=== PATIENT | female | born 1940 | race Caucasian/White ===

== ENCOUNTER 2016-12-30 13:14 | Inpatient (IN) | payer OTHER, MEDICARE ==
[2016-12-30 14:35] LABS: EOSINOPHIL 1.7 % (0-4.5); MCH 32.4 pg (25.7-33.7); MCHC 33.2 g/dl (32.0-36.0); MEAN CELL VOLUME 97.5 fl (80-96); MEAN PLT VOLUME 7.9 fl (7.5-11.1); NEUTROPHILS 55.7 % (42.8-82.8); PLATELET COUNT 177 K/MM3 (134-434); RDW 15.4 % (11.6-15.6); WHITE BLOOD COUNT 4.4 K/mm3 (4.0-10.0)
[2016-12-30 14:42] LABS: ALBUMIN 3.2 g/dl (3.4-5.0); ALK PHOS 288 U/L (45-117); ANION GAP 10 (8-16); CALCIUM 8.5 mg/dL (8.5-10.1); CO2 29 mmol/L (21-32); CREATININE 0.6 mg/dL (0.55-1.02); GLUCOSE,RANDOM 171 mg/dL (74-106); SGOT/AST 35 U/L (15-37); SGPT/ALT 16 U/L (12-78); TOT PROT 5.7 g/dl (6.4-8.2)
[2016-12-30] MEDS ORDERED: METOPROLOL TARTRATE 5 MG/5 ML VIAL IVPUSH ONE (14:50)
[2016-12-30] MEDS ORDERED: morphine CARPU-JECT 2 MG/1 ML DISP.SYRIN IVPUSH ONE (14:51)
--- NOTE | 2016-12-30 14:52 | PDOC ---
History of Present Illness - General History Source: Patient Exam Limitations: No Limitations - History of Present Illness Initial Comments: 12/30/16 15:00 The patient is a 76-year-old woman, accompanied by son, with a significant past medical history of atrial fibrillation (eliquis, recently stopped compliance, 2 days ago. Has a right chest port catheter to be removed) and hemochromatosis who presents to the emergency department for further evaluation of left hip pain status post fall this afternoon. No head injury, loss of consciousness. Patient states that she was walking outside her room, when she caught her sock into a floor transition plate. She ultimately landed on the left side of her body. No fever, chills, generalized weakness. No chest pain, lightheadedness, visual changes, headache, cough, shortness of breath, nausea and vomiting prior/ post event. No abdominal pain, urinary complaints. No tingling, weakness and numbness sensations throughout her extremities. Allergies: No Known Drug Allergies. Past Surgical History: Cholecystectomy. Right wrist fracture s/p surgery. Right hip fracture s/p surgery. Social History: Former smoker. EtOh use. No recreational drug use. Primary Care Physician: Dr. Marc Ramon [phone] Zen Greenfield [phone] <Sierra Metcalf - Last Filed: 12/30/16 18:44> <Dread Harvey - Last Filed: 12/30/16 18:57> - General Chief Complaint: Injury Stated Complaint: FALL Time Seen by Provider: 12/30/16 13:48 Past History <Sierra Metcalf - Last Filed: 12/30/16 18:44> - Past Medical History Anemia: No Asthma: No Cancer: No Cardiac Disorders: Yes (Atrial Fib) CVA: No COPD: No CHF: No Dementia: No Diabetes: No GI Disorders: No Disorders: No HTN: No Hypercholesterolemia: No Liver Disease: Yes (HEMOCHROMATOSIS) Seizures: No Thyroid Disease: No - Surgical History Abdominal Surgery: No Appendectomy: No Cardiac Surgery: No Cholecystectomy: Yes (6 years ago) Lung Surgery: No Neurologic Surgery: (Back surgery March 2016) Orthopedic Surgery: Yes (RIGHT WRIST ORIF 2005) - Immunization History Immunization Up to Date: Yes - Psycho/Social/Smoking Cessation Hx Anxiety: No Suicidal Ideation: No Smoking Status: No (quit 28 years ago) Smoking History: Former smoker Have you smoked in the past 12 months: No If you are a former smoker, when did you quit?: 23 YEARS AGO Information on smoking cessation initiated: No Hx Alcohol Use: No Drug/Substance Use Hx: No Substance Use Type: None Hx Substance Use Treatment: No <Dread Harvey - Last Filed: 12/30/16 18:57> - Past Medical History Allergies/Adverse Reactions: Allergies Allergy/AdvReac Type Severity Reaction Status Date / Time No Known Drug Allergies Allergy Verified 12/30/16 14:18 Home Medications: Ambulatory Orders Apixaban [Eliquis] 5 mg PO BID #60 tablet 04/22/16 Acetaminophen [Tylenol] 650 mg PO QID 07/20/16 Fluocinonide 0.05% Cream [Lidex 0.05% Cream -] 1 applic BID 07/20/16 Lactobacillus Acidophilus [Bacid -] 1 tab PO DAILY 07/20/16 Magnesium Oxide 400 mg PO BID 07/20/16 Metoprolol Tartrate [Lopressor -] 25 mg PO BID tablet 07/23/16 Polyethylene Glycol 3350 [Miralax 119 gm Btl -] 17 gm PO DAILY bottle 07/23/16 Sennosides/Docusate Sodium [Pericolace -] 2 tablet PO BID tablet 07/23/16 Trauma Specific PMHX - Complaint Specific PMHX Arthritis: No Back Injury: Yes (years ago) Neck Injury: No Hx Sacro Iliac Joint Dysfunction: No <Dread Harvey - Last Filed: 12/30/16 18:57> Review of Systems - Review of Systems Able to Perform ROS?: Yes Comments:: 12/30/16 15:00 CONSTITUTIONAL: No reported: Fever, Chills, Diaphoresis, Generalized Weakness, Malaise, Loss of Appetite HEENT: No reported: Rhinorrhea, Nasal Congestion, Throat Pain, Throat Swelling, Difficulty Swallowing, Mouth Swelling, Ear Pain, Eye Pain, Visual Changes CARDIOVASCULAR: No reported: Chest Pain, Syncope, Palpitations, Irregular Heart Rate, Lightheadedness, Peripheral Edema RESPIRATORY: No reported: Cough, Shortness of Breath, SOB with Exertion, Orthopnea, Wheezing , Stridor, Hemoptysis GASTROINTESTINAL: No reported: Abdominal pain, Abdominal Distension, Nausea, Vomiting, Diarrhea, Constipation, Melena, Hematochezia GENITOURINARY: No reported: Dysuria, Frequency, Urgency, Hesitancy, Flank Pain, Genital Pain MUSCULOSKELETAL: Reported: Left Hip Pain. No reported: Myalgia, Joint Swelling, Back pain, Neck Pain SKIN: No reported: Rash, Itching, Pallor HEMEATOLOGIC/IMMUNOLOGIC: No reported: Easy Bleeding, Easy Bruising, Lymphadenopathy, Frequent infections ENDOCRINE: No reported: Unexplained Weight Gain, Unexplained Weight Loss, Heat Intolerance , Cold Intolerance NEUROLOGIC: No reported: Headache, Focal Weakness, Paresthesias, Vertigo, Lightheadedness, Unsteady Gait, Seizure, Mental Status Changes, Incontinence PSYCHIATRIC: No reported: Anxiety, Depression <Sierra Metcalf - Last Filed: 12/30/16 18:44> *Physical Exam - Vital Signs Last Vital Signs Temp Pulse Resp BP Pulse Ox 97.3 F L 119 H 18 115/71 98 12/30/16 13:14 12/30/16 13:14 12/30/16 13:14 12/30/16 13:14 12/30/16 13:14 - Physical Exam Comments: 12/30/16 15:00 GENERAL: The patient is awake, alert, and fully oriented, uncomfortable appearing HEAD: Normocephalic, atraumatic. EYES: extraocular movements intact, sclera anicteric, conjunctiva clear. ENT: Normal voice, Moist mucous membranes. NECK: Normal range of motion, supple LUNGS: burried cather in R chest, Breath sounds equal, clear to auscultation bilaterally. No wheezes, no rhonchi, no rales. HEART: tachycardic, irregular ABDOMEN: Soft, nontender, normoactive bowel sounds. No guarding, no rebound.No CVA tenderness EXTREMITIES: Short and rotated left lower extremity. No edema. No clubbing or cyanosis. No cords, erythema, or tenderness. NEUROLOGICAL: No facial assymetry, Normal speech, PSYCH: Normal mood, normal affect. SKIN: Warm, Dry, normal turgor <Sierra Metcalf - Last Filed: 12/30/16 18:44> - Vital Signs Last Vital Signs Temp Pulse Resp BP Pulse Ox 97.3 F L 119 H 18 115/71 98 12/30/16 13:14 12/30/16 13:14 12/30/16 13:14 12/30/16 13:14 12/30/16 13:14 <WesDread - Last Filed: 12/30/16 18:57> Heart Score/ECG Review - ECG Impressions Comment:: 12/30/16 14:49 Twelve-lead EKG was performed and reviewed by me. Irregularly irregular, rate of 130 Normal R wave progression No significant change when compared with EKG dated 07/20/2016 A. fib with RVR <Dread Harvey - Last Filed: 12/30/16 18:57> ED Treatment Course - LABORATORY CBC & Chemistry Diagram: 12/30/16 13:52 12/30/16 13:52 - ADDITIONAL ORDERS Additional order review: Laboratory Results 12/30/16 13:52 Sodium 144 Potassium 4.4 Chloride 105 Carbon Dioxide 29 Anion Gap 10 BUN 10 D Creatinine 0.6 D Creat Clearance w eGFR > 60 Random Glucose 171 H D Calcium 8.5 Total Bilirubin 1.0 D AST 35 D ALT 16 D Alkaline Phosphatase 288 H D Total Protein 5.7 L Albumin 3.2 L 12/30/16 13:52 RBC 4.57 MCV 97.5 H MCHC 33.2 RDW 15.4 MPV 7.9 Neutrophils % 55.7 Lymphocytes % 31.7 Monocytes % 8.9 Eosinophils % 1.7 Basophils % 2.0 - RADIOLOGY Radiograph Interpretation: 12/30/16 15:01 EXAM: RAD/CHEST - PA IMPRESSION: Single AP view. Paranasal study July 20, 2016 Right vascular catheter in place. The tip of catheter at the level of the right atrium. No pneumothorax is seen. The cardiac silhouette is not enlarged. No evidence of widening of the superior mediastinum. No evidence of CHF. No pulmonary infiltrates are seen. No large pleural effusion is seen. Left costophrenic angle partially obscured by the soft tissues of the chest. EXAM: RAD/HIP PELVIS-LEFT IMPRESSION: Single AP the pelvis. AP view of the pelvis. Left intertrochanteric fracture is seen. The left femoral head maintains normal relationship to the acetabulum. Status post open-internal fixation of the right intertrochanteric fracture with intact hardware. The right femoral head maintains normal relation to the acetabulum. Right-sided pelvic calcification is seen. <Sierra Metcalf - Last Filed: 12/30/16 18:44> - LABORATORY CBC & Chemistry Diagram: 12/30/16 13:52 12/30/16 13:52 - ADDITIONAL ORDERS Additional order review: 12/30/16 13:52 RBC 4.57 MCV 97.5 H MCHC 33.2 RDW 15.4 MPV 7.9 Neutrophils % 55.7 Lymphocytes % 31.7 Monocytes % 8.9 Eosinophils % 1.7 Basophils % 2.0 - RADIOLOGY Radiology Studies Ordered: Category Date Time Status CHEST - PA [RAD] Stat Radiology 12/30/16 13:52 Completed HIP & PELVIS-LEFT [RAD] Stat Radiology 12/30/16 13:48 Taken <Dread Harvey - Last Filed: 12/30/16 18:57> Medical Decision Making - Medical Decision Making 12/30/16 14:51 76y F hx of afib on a/c presents s/p mechanical fall this morning with shortened externally rotated LLE - xray c/w hip fx will give pain meds preop labs obtained will admit for further management will discuss with dr. martinez regarding admission 12/30/16 15:[address] martinez agreed with admission for further mangaement awaiting call back from dr. greenfield Case discussed in detail with admitting physician including history, physical exam and ancillary studies. Admitting physician has assumed care for the patient, will follow all pending diagnostics and will complete the evaluation and treatment. A portion of this note was documented by scribe services under my direction. I have reviewed the details of the note, within reason, and agree with the documentation with the following case summary and management plan written by me <Dread Harvey - Last Filed: 12/30/16 18:57> *DC/Admit/Observation/Transfer - Attestations Scribe Attestion: 12/30/16 15:00 Documentation prepared by Sierra Metcalf, acting as medical administrator for Dread Harvey MD. <Sierra Metcalf - Last Filed: 12/30/16 18:44> - Discharge Dispostion Admit: Yes <Dread Harvey - Last Filed: 12/30/16 18:57> Diagnosis at time of Disposition: Fracture of left hip Qualifiers: Encounter type: initial encounter Fracture type: closed Qualified Code(s): S72.002A - Fracture of unspecified part of neck of left femur, initial encounter for closed fracture - Discharge Dispostion Condition at time of disposition: Stable - Referrals Referrals: Marc Ramon MD [Primary Care Provider] -
[2016-12-30 15:16] LABS: INR 1.25 (0.82-1.09); PROTHROMBIN TIME (PATIENT) 13.8 SEC (9.98-11.88)
[2016-12-30] MEDS ORDERED: morphine CARPU-JECT 2 MG/1 ML DISP.SYRIN ONE ×2 (15:38→20:50)
[2016-12-30] MEDS ORDERED: ACETAMINOPHEN 325 MG TABLET (FP) PO PRN (16:21)
[2016-12-30] MEDS ORDERED: ONDANSETRON 4 MG/2 ML VIAL IVPB PRN (16:21)
[2016-12-30] MEDS ORDERED: oxyCODONE HCL 5 MG TABLET PO PRN (16:21)
[2016-12-30] MEDS ORDERED: SODIUM CHLORIDE 1,000 ML IV ONE (16:27)
--- NOTE | 2016-12-30 17:00 | PN ---
Progress Note (short form) - Note Progress Note: 76 year old Female pt seen and examined in the ER. She fell today, c/o severe pain in the left hip, cannot ambulate. PE LLE is shortened and externally rotated LLE is grossly NVI Good ROM at left knee, ankle, foot, toes Xrays Show a 3 part displaced left high intertrochanteric/basicervical femur/ hip fracture Imp Left hip IT fracture Rec Admission, medical clearance by Dr Ramon When cleared to OR for surgery: left hip/femur Gamma Nail NPO after midnight tonight
--- NOTE | 2016-12-30 17:19 | HP ---
Admitting History and Physical - Primary Care Physician PCP: Marc Ramon - Admission Chief Complaint: I fell History of Present Illness: Ms Bennett is a very pleasant 76 year old female who comes in with a mechanical fall. She says she was walking and her sock caught on a nail in the floor. She fell and hit her left side. She did not hit her head. She did not lose consciousness. The fall was mechanical and not secondary to syncope. Aside from this she says she was doing well and was without complaints. Her strength was improving and she was able to get around with a walker. She denies lightheadedness, dizziness, passing out, chest pain or pressure, shortness of breath, nausea, vomiting, abdominal pain, diarrhea, constipation, difficulty or pain on urination, or leg swelling. She was planning on having her port removed/ exchanged and has been holding her anticoagulant. History Source: Patient Limitations to Obtaining History: No Limitations - Past Medical History Cardiovascular: Yes: AFIB Pulmonary: Yes: Other (Right sided pleural effusion) Heme/Onc: Yes: Hemochromatosis - Past Surgical History Past Surgical History: Yes: Cholecystectomy, Laminectomy - Smoking History Smoking history: Former smoker Have you smoked in the past 12 months: No If you are a former smoker, when did you quit?: 23 YEARS AGO - Alcohol/Substance Use Hx Alcohol Use: No Number of Drinks Daily: 2 (glasses of wine daily) History of Substance Use: reports: None - Social History Usual Living Arrangement: Yes: Alone 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 (home aides) 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 History of Recent Travel: No Home Medications - Allergies Allergies/Adverse Reactions: Allergies Allergy/AdvReac Type Severity Reaction Status Date / Time No Known Drug Allergies Allergy Verified 12/30/16 14:18 - Home Medications Home Medications: Ambulatory Orders Apixaban [Eliquis] 5 mg PO BID #60 tablet 04/22/16 Acetaminophen [Tylenol] 650 mg PO QID 07/20/16 Fluocinonide 0.05% Cream [Lidex 0.05% Cream -] 1 applic BID 07/20/16 Lactobacillus Acidophilus [Bacid -] 1 tab PO DAILY 07/20/16 Magnesium Oxide 400 mg PO BID 07/20/16 Metoprolol Tartrate [Lopressor -] 25 mg PO BID tablet 07/23/16 Polyethylene Glycol 3350 [Miralax 119 gm Btl -] 17 gm PO DAILY bottle 07/23/16 Sennosides/Docusate Sodium [Pericolace -] 2 tablet PO BID tablet 07/23/16 Family Disease History - Family Disease History Family Disease History: Heart Disease: Mother, Other: Brother (arthritis) Review of Systems Findings/Remarks: full review of systems obtained, as per HPI and otherwise negative Physical Examination Vital Signs: Vital Signs Temperature 97.3 F L 12/30/16 13:14 Pulse Rate 119 H 12/30/16 13:14 Respiratory Rate 18 12/30/16 13:14 Blood Pressure 115/71 12/30/16 13:14 O2 Sat by Pulse Oximetry (%) 98 12/30/16 13:14 Constitutional: Yes: Well Nourished, No Distress, Calm Eyes: Yes: Conjunctiva Clear, EOM Intact HENT: Yes: Atraumatic, Normocephalic Cardiovascular: Yes: Regular Rate and Rhythm. No: Gallop, Murmur Respiratory: Yes: Regular, CTA Bilaterally. No: Rales, Rhonchi, Wheezes Gastrointestinal: Yes: Normal Bowel Sounds, Soft. No: Distention, Tenderness Extremities: Yes: WNL Edema: No Labs: CBC, BMP 12/30/16 13:52 12/30/16 13:52 Imaging - Results Chest X-ray: Report Reviewed, Image Reviewed X-ray: Report Reviewed Problem List - Problems (1) Fall Assessment/Plan: -mechanical fall -no syncope or loss of consciousness -with fracture -ortho following -PT consult Code(s): W19.XXXA - UNSPECIFIED FALL, INITIAL ENCOUNTER Qualifiers: Encounter type: initial encounter Qualified Code(s): W19.XXXA - Unspecified fall, initial encounter (2) Intertrochanteric fracture of left femur Assessment/Plan: -patient with fracture secondary to fall -EKG reviewed and unchanged -no chest pain or pressure, no shortness of breath, no swelling -chest x-ray reviewed and unchanged -cleared from a medical standpoint for surgery -patient already holding eliquis Code(s): S72.142A - DISPLACED INTERTROCHANTERIC FRACTURE OF LEFT FEMUR, INIT (3) Atrial fibrillation Assessment/Plan: -sounds in sinus rhythm -rate controlled -eliquis on hold Code(s): I48.91 - UNSPECIFIED ATRIAL FIBRILLATION Qualifiers: Atrial fibrillation type: paroxysmal Qualified Code(s): I48.0 - Paroxysmal atrial fibrillation (4) Hemochromatosis Assessment/Plan: -stable Code(s): E83.119 - HEMOCHROMATOSIS, UNSPECIFIED
[2016-12-30] MEDS ORDERED: ACETAMINOPHEN 325 MG TABLET (FP) ONE (17:33)
[2016-12-30] MEDS ORDERED: oxyCODONE HCL 5 MG TABLET ONE (17:34)
[2016-12-30] MEDS: morphine CARPU-JECT 2 MG/1 ML DISP.SYRIN IVPUSH PRN (21:05)
[2016-12-30] MEDS: METOPROLOL TARTRATE 25 MG TABLET (FP) PO SCH (22:18)
[2016-12-31] MEDS: SENNOSIDES/DOCUSATE COMBO (SENNA PLUS) TABLET (UD) PO SCH ×3 (00:51→21:47)
[2016-12-31] MEDS: MAGNESIUM OXIDE 400 MG TABLET (FP) PO SCH ×3 (00:51→21:47)
[2016-12-31] MEDS: morphine CARPU-JECT 2 MG/1 ML DISP.SYRIN IVPUSH PRN ×2 (00:57→05:35)
[2016-12-31 03:06] VITALS: BMI 24.3
[2016-12-31 07:31] LABS: EOSINOPHIL 0.2 % (0-4.5); MCH 32.6 pg (25.7-33.7); MCHC 33.7 g/dl (32.0-36.0); MEAN CELL VOLUME 96.8 fl (80-96); MEAN PLT VOLUME 8.3 fl (7.5-11.1); NEUTROPHILS 61.1 % (42.8-82.8); PLATELET COUNT 168 K/MM3 (134-434); RDW 15.1 % (11.6-15.6); WHITE BLOOD COUNT 7.7 K/mm3 (4.0-10.0)
[2016-12-31 08:11] LABS: MAGNESIUM 1.7 mg/dL (1.8-2.4)
[2016-12-31 08:12] LABS: CREATININE 1.6 mg/dL (0.55-1.02); PHOSPHOROUS 5.5 mg/dL (2.5-4.9)
[2016-12-31 08:22] LABS: URINE APPEARANCE CLEAR; URINE BILIRUBIN NEGATIVE (NEGATIVE); URINE COLOR AMBER; URINE GLUCOSE (UA) NEGATIVE (NEGATIVE); URINE KETONE NEGATIVE (NEGATIVE); URINE LEUK ESTERASE NEGATIVE (NEGATIVE); URINE NITRITE NEGATIVE (NEGATIVE); URINE PROTEIN NEGATIVE (NEGATIVE); URINE UROBILINOGEN 2.0 E.U/dl E.U./dl (0.2-1.0)
[2016-12-31 08:29] LABS: URINE BLOOD 2+ (NEGATIVE)
[2016-12-31 09:00] LABS: URINE HYALINE CAST 11 /lpf; URINE MUCUS RARE; URINE RBC 10 /hpf (0-3); URINE WBC 1 /hpf (3-5)
[2016-12-31] MEDS: METOPROLOL TARTRATE 25 MG TABLET (FP) PO SCH ×2 (09:43→21:47)
[2016-12-31] MEDS ORDERED: POLYETHYLENE GLYCOL 3350 119 GM BTL PO SCH (10:00)
[2016-12-31] MEDS ORDERED: SODIUM CHLORIDE 1,000 ML IV SCH ×2 (11:00→17:43)
--- NOTE | 2016-12-31 11:02 | EKG ---
Test Reason : Blood Pressure : / mmHG Vent. Rate : 130 BPM Atrial Rate : 082 BPM P-R Int : 000 ms QRS Dur : 080 ms QT Int : 334 ms P-R-T Axes : 000 -22 -19 degrees QTc Int : 491 ms ATRIAL FIBRILLATION WITH RAPID VENTRICULAR RESPONSE ANTEROSEPTAL INFARCT (CITED ON OR BEFORE 13-AUG-2010) ABNORMAL ECG WHEN COMPARED WITH ECG OF 20-JUL-2016 00:49, T WAVE VARIATION Confirmed by NAMITA ROSSI MD ([id number]) on 12/31/2016 11:01:37 AM Referred By: Confirmed By:NAMITA ROSSI MD
[2016-12-31] MEDS ORDERED: MAGNESIUM SULF 50% (8.12 MEQ/2 ML-1 GM VIAL) IVPB ONE (13:44)
--- NOTE | 2016-12-31 13:57 | PN ---
Progress Note (short form) - Note Progress Note: Patient had another mechanical fall at home and sustained a left hip fracture.For OR later today. Hx: Right Hip Fracture, Atrial Fibrillation on NOAC and Hemachromatosis. No chest pain No cough Had BM yesterday Pain site of left hip Fx. controlled by meds if not moved. On Exam: Alert Vital Signs Period Temp Pulse Resp BP Sys/Arreguin Pulse Ox Last 24 Hr 97.6 F-97.7 F 18-117 19-100 89-130/42-67 97-99 Chest: Clear Cor Irreg Ext: left leg externally rotated. No edema Abnormal Lab Results 12/30/16 12/30/16 12/30/16 13:52 13:52 13:52 MCV 97.5 H Monocytes % INR 1.25 H Chloride BUN Creatinine Random Glucose 171 H D Calcium Phosphorus Magnesium Alkaline Phosphatase 288 H D Total Protein 5.7 L Albumin 3.2 L Urine Blood Urine Urobilinogen 12/31/16 12/31/16 12/31/16 05:35 05:35 05:45 MCV 96.8 H Monocytes % 12.1 H INR Chloride 108 H BUN 21 H D Creatinine 1.6 H D Random Glucose 109 H D Calcium 8.0 L Phosphorus 5.5 H D Magnesium 1.7 L Alkaline Phosphatase Total Protein Albumin Urine Blood 2+ H Urine Urobilinogen 2.0 e.u/dl H IMP: Left hip Fracture due to mechanical fall Hx Hemachromatosis Atrial Fibrillation on Noac (now held) Hx Right Fracture Mild Hypomagnesemia EKG: ER rapid rate but now with controlled rate. CXR noted Patient has no medical contraindications to the contemplated surgery
[2016-12-31] MEDS ORDERED: PROPOFOL 20 ML ONE (15:51)
[2016-12-31] MEDS ORDERED: ceFAZolin SODIUM 1 GM VIAL IVPB ONE (16:11)
--- NOTE | 2016-12-31 16:22 | PN ---
Progress Note (short form) - Note Progress Note: Attempted to see patient but is currently in the OR This is a 76 year old woman with PMhx of Afib, Hemochromatosis with hip fracture and IGOR. Etiolgoy of IGOR volume depletion vs. urinary retention in setting of hip fracture/opiods Check Bladder Scan, FeNA, FeUrea Continue Trial of IVF Hydration Will follow Abhinav Stewart DO
--- NOTE | 2016-12-31 16:27 | OP ---
Operative Note - Note: Operative Date: 12/31/16 ([facility]) Pre-Operative Diagnosis: left IT fx Operation: left IM gamma nail Post-Operative Diagnosis: Same as Pre-op Surgeon: Alec Cox Skein Dyer: Aroldo Simms Anesthesiologist/SURFACE LOGGING SYSTEMS LOGGER: Dez Loja Anesthesia: General Estimated Blood Loss (mls): 50 Operative Report Dictated: Yes
[2016-12-31] MEDS ORDERED: SODIUM CHLORIDE 0.9% P/F 10 ML VIAL IJ ONE (16:50)
[2016-12-31] MEDS ORDERED: ONDANSETRON 4 MG/2 ML VIAL ONE (16:50)
[2016-12-31] MEDS ORDERED: ceFAZolin SODIUM 1 GM VIAL ONE (16:50)
[2016-12-31] MEDS ORDERED: LACTATED RINGERS SOLUTION 1,000 ML IV SCH (17:30)
[2016-12-31] MEDS ORDERED: ONDANSETRON 4 MG/2 ML VIAL IVPB PRN (17:43)
[2016-12-31] MEDS ORDERED: CEFAZOLIN (PRE-DOCKED) 50 ML IVPB SCH (23:00)
[2017-01-01] MEDS: CEFAZOLIN (PRE-DOCKED) 50 ML IVPB SCH ×2 (00:05→06:35)
[2017-01-01] MEDS: oxyCODONE HCL 5 MG TABLET PO PRN (00:37)
--- NOTE | 2017-01-01 08:31 | PN ---
Progress Note, Physician Chief Complaint: Worried about pain on movement t left hip surgical site. History of Present Illness: patient had ORIF left hip yesterday. Hx right hip surgery and hemochromatosis. Today she is fearful of moving because of fear of increased pain at the surgical site. Await PT. Repeat lab pending. - Current Medication List Current Medications: Active Medications Acetaminophen (Tylenol -) 650 mg PO Q4H PRN PRN Reason: FEVER OR PAIN Enoxaparin Sodium (Lovenox -) 40 mg SQ DAILY [facility] Sodium Chloride (Normal Saline -) 1,000 mls @ 50 mls/hr IV ASDIR [facility] Stop: 01/01/17 10:51 Last Admin: 12/31/16 20:00 Dose: 50 mls/hr Magnesium Oxide (Mag-Ox -) 400 mg PO BID [facility] Last Admin: 12/31/16 21:47 Dose: 400 mg Metoprolol Tartrate (Lopressor -) 25 mg PO BID [facility] Last Admin: 12/31/16 21:47 Dose: 25 mg Morphine Sulfate (Morphine Injection -) 1 mg IVPUSH Q4H PRN PRN Reason: PAIN Ondansetron HCl (Zofran Injection) 4 mg IVPB Q6H PRN PRN Reason: NAUSEA Oxycodone HCl (Roxicodone -) 5 mg PO Q4H PRN PRN Reason: PAIN Last Admin: 01/01/17 00:37 Dose: 5 mg Polyethylene Glycol (Miralax (For Daily Use) -) 17 gm PO DAILY [facility] Senna/Docusate Sodium (Pericolace -) 2 tablet PO BID [facility] Last Admin: 12/31/16 21:47 Dose: 2 tablet - Objective Vital Signs: Vital Signs Temperature 98.0 F 01/01/17 06:18 Pulse Rate 98 H 01/01/17 06:18 Respiratory Rate 18 01/01/17 06:18 Blood Pressure 102/72 01/01/17 06:18 O2 Sat by Pulse Oximetry (%) 100 12/31/16 21:00 Constitutional: Yes: Anxious Cardiovascular: Yes: Regular Rate and Rhythm Respiratory: Yes: Regular Gastrointestinal: Yes: Soft Genitourinary: Yes: Siegel Present Edema: No (SCD's) Wound/Incision: Yes: Other (some blood under dressing site.) Neurological: Yes: Alert, Oriented Labs: INR, PTT INR 1.25 (0.82-1.09) H 12/30/16 13:52 Problem List - Problems (1) Intertrochanteric fracture of left femur Assessment/Plan: ORIF surgery left hip yesterday. Code(s): S72.142A - DISPLACED INTERTROCHANTERIC FRACTURE OF LEFT FEMUR, INIT (2) Atrial fibrillation Assessment/Plan: On lovenox but will need to restart Eliquis when cleared surgically Code(s): I48.91 - UNSPECIFIED ATRIAL FIBRILLATION Qualifiers: Atrial fibrillation type: paroxysmal Qualified Code(s): I48.0 - Paroxysmal atrial fibrillation (3) Hypomagnesemia Assessment/Plan: Await repeat lab. Code(s): E83.42 - HYPOMAGNESEMIA (4) Postoperative pain Assessment/Plan: Pain Rx ordered. She may need increase in PRN MS dose but await today's PT performance Code(s): G89.18 - OTHER ACUTE POSTPROCEDURAL PAIN
[2017-01-01 08:35] LABS: BASOPHIL 1.3 % (0-2.0); MCH 32.6 pg (25.7-33.7); MCHC 33.4 g/dl (32.0-36.0); MEAN CELL VOLUME 97.6 fl (80-96); MEAN PLT VOLUME 8.3 fl (7.5-11.1); NEUTROPHILS 52.8 % (42.8-82.8); PLATELET COUNT 147 K/MM3 (134-434); RDW 14.9 % (11.6-15.6); WHITE BLOOD COUNT 7.2 K/mm3 (4.0-10.0)
[2017-01-01 08:55] LABS: CALCIUM 7.7 mg/dL (8.5-10.1); CREATININE 1.2 mg/dL (0.55-1.02)
--- NOTE | 2017-01-01 09:21 | PN ---
Progress Note, Physician Chief Complaint: s/p left gamma nailing post op day one History of Present Illness: under general anesthesia - Current Medication List Current Medications: Active Medications Acetaminophen (Tylenol -) 650 mg PO Q4H PRN PRN Reason: FEVER OR PAIN Enoxaparin Sodium (Lovenox -) 40 mg SQ DAILY [facility] Sodium Chloride (Normal Saline -) 1,000 mls @ 50 mls/hr IV ASDIR [facility] Stop: 01/01/17 10:51 Last Admin: 12/31/16 20:00 Dose: 50 mls/hr Magnesium Oxide (Mag-Ox -) 400 mg PO BID [facility] Last Admin: 12/31/16 21:47 Dose: 400 mg Metoprolol Tartrate (Lopressor -) 25 mg PO BID [facility] Last Admin: 12/31/16 21:47 Dose: 25 mg Morphine Sulfate (Morphine Injection -) 1 mg IVPUSH Q4H PRN PRN Reason: PAIN Ondansetron HCl (Zofran Injection) 4 mg IVPB Q6H PRN PRN Reason: NAUSEA Oxycodone HCl (Roxicodone -) 5 mg PO Q4H PRN PRN Reason: PAIN Last Admin: 01/01/17 00:37 Dose: 5 mg Polyethylene Glycol (Miralax (For Daily Use) -) 17 gm PO DAILY [facility] Senna/Docusate Sodium (Pericolace -) 2 tablet PO BID [facility] Last Admin: 12/31/16 21:47 Dose: 2 tablet - Objective Vital Signs: Vital Signs Temperature 98.1 F 01/01/17 08:55 Pulse Rate 110 H 01/01/17 08:55 Respiratory Rate 20 01/01/17 08:55 Blood Pressure 94/52 01/01/17 08:55 O2 Sat by Pulse Oximetry (%) 100 12/31/16 21:00 Constitutional: Yes: Well Nourished Cardiovascular: Yes: WNL Respiratory: Yes: WNL Gastrointestinal: Yes: WNL Labs: CBC, BMP 01/01/17 07:10 01/01/17 07:10 INR, PTT INR 1.25 (0.82-1.09) H 12/30/16 13:52 Assessment/Plan no adverse effects of anesthetic, dept of anesthesia will sign off care at this time
[2017-01-01] MEDS: SENNOSIDES/DOCUSATE COMBO (SENNA PLUS) TABLET (UD) PO SCH ×2 (09:43→22:21)
[2017-01-01] MEDS: MAGNESIUM OXIDE 400 MG TABLET (FP) PO SCH ×2 (09:43→22:22)
[2017-01-01] MEDS: METOPROLOL TARTRATE 25 MG TABLET (FP) PO SCH ×2 (09:43→22:23)
[2017-01-01] MEDS: POLYETHYLENE GLYCOL 3350 119 GM BTL PO SCH (09:44)
--- NOTE | 2017-01-01 09:59 | PN ---
Progress Note (short form) - Note Progress Note: HCT=28 BANDAGES SATURATED NEW PRESSURE DRESSING REAPPLIED AND LOVENOX HELD CALF SOFT AND NT NVI PLAN: OOB, PT-WBAT, WILL FOLLOW HCT AND DRESSING
[2017-01-01] MEDS ORDERED: ENOXAPARIN NA (PORCINE) 40 MG/0.4 ML DISP.SYRIN SQ SCH ×2 (10:00)
--- NOTE | 2017-01-01 12:25 | CONSULT ---
Consult - text type - Consultation Consultation Note: Renal Consult for IGOR This is a 76 year old woman with PMhx of Hemachromatosis, Afib on A/C who presented with mechancial fall and left hip fracture with IGOR with BUN/cr of 21/ 1.6 with normal baseline kidney function. Pt s/p ORIF yesterday. Renal function improved today. Moore placed prior to going to the OR. Pt with good urine output via moore. No chest pain or sob. No hx fo CKD, Nephrolithiasis, UTI's. No Abc pain, N/V/D. No flank pain. No rash. Pt noted to have periods of hypotension on initial hospital day. PMhx: as above Allergies: NKDA Family hx: NC Social Hx: No T/A/D ROS: as per HPI, all other pertinent ros negative Home Meds: Home Medications Medication Instructions Recorded Apixaban [Eliquis] 5 mg PO BID #60 tablet 04/22/16 Acetaminophen [Tylenol] 650 mg PO QID 07/20/16 Fluocinonide 0.05% Cream [Lidex 1 applic BID 07/20/16 0.05% Cream -] Lactobacillus Acidophilus [Bacid -] 1 tab PO DAILY 07/20/16 Magnesium Oxide 400 mg PO BID 07/20/16 Metoprolol Tartrate [Lopressor -] 25 mg PO BID tablet 07/23/16 Polyethylene Glycol 3350 [Miralax 17 gm PO DAILY bottle 07/23/16 119 gm Btl -] Sennosides/Docusate Sodium 2 tablet PO BID tablet 07/23/16 [Pericolace -] Vital Signs Temperature 98.1 F 01/01/17 08:55 Pulse Rate 110 H 01/01/17 08:55 Respiratory Rate 20 01/01/17 08:55 Blood Pressure 94/52 01/01/17 08:55 O2 Sat by Pulse Oximetry (%) 100 12/31/16 21:00 Intake & Output 12/29/16 12/30/16 12/31/16 01/01/17 23:59 23:59 23:59 23:59 Intake Total 1950 Output Total 150 1200 200 Balance -150 750 -200 Weight 165 lb 141 lb 5 oz Gen: NAD, awake and alert HEENT: NC/AT, MMM, No JVD CVS: RRR, No M/R Lungs: CTA, no rales or wheeze Abd: soft NT/ND Ext: No edema, clubbing or cyanosis : No bladder distension (moore just removed) Neuro: No focal defects CBC, BMP 01/01/17 07:10 01/01/17 07:10 Current Medications Acetaminophen (Tylenol -) 650 mg PO Q4H PRN PRN Reason: FEVER OR PAIN Magnesium Oxide (Mag-Ox -) 400 mg PO BID [facility] Last Admin: 01/01/17 09:43 Dose: 400 mg Metoprolol Tartrate (Lopressor -) 25 mg PO BID [facility] Last Admin: 01/01/17 09:43 Dose: 25 mg Morphine Sulfate (Morphine Injection -) 1 mg IVPUSH Q4H PRN PRN Reason: PAIN Ondansetron HCl (Zofran Injection) 4 mg IVPB Q6H PRN PRN Reason: NAUSEA Oxycodone HCl (Roxicodone -) 5 mg PO Q4H PRN PRN Reason: PAIN Last Admin: 01/01/17 00:37 Dose: 5 mg Polyethylene Glycol (Miralax (For Daily Use) -) 17 gm PO DAILY [facility] Last Admin: 01/01/17 09:44 Dose: 17 gm Senna/Docusate Sodium (Pericolace -) 2 tablet PO BID [facility] Last Admin: 01/01/17 09:43 Dose: 2 tablet A/P 76 year old woman with PMhx of Hemachromatosis, Afib on A/C who presented with mechancial fall and left hip fracture with IGOR with BUN/cr of 21/1.6 with normal baseline kidney function. #Acute Kidney Injury Likely etiology renal hypoperfusion in setting of hypotension but will need to r /o urinary retention Renal function improved today pt with good urine output FeUrea was 5% indicating pre-renal injury/volume depletion continue isotonic saline for 1 more day Trial of void today Renal US as ordered Check urine studies #Left Hip Fracture s/p ORIF pain control Physical therapy #Afib Off A/X Rate control with Lopresser #Hemachromatosis management as per primary Thank you Will follow Abhinav Stewart DO
[2017-01-01] MEDS: morphine CARPU-JECT 2 MG/1 ML DISP.SYRIN IVPUSH PRN (14:19)
[2017-01-01] MEDS: SODIUM CHLORIDE 1,000 ML IV SCH (14:19)
--- NOTE | 2017-01-01 19:14 | OP ---
DATE OF OPERATION: 12/31/2016 PREOPERATIVE DIAGNOSIS: Left hip intertrochanteric hip fracture. POSTOPERATIVE DIAGNOSIS: Left hip intertrochanteric hip fracture. PROCEDURE: Left hip intramedullary nail/gamma nail. SURGEON: Alec Cox M.D. ASSET PROTECTION LEAD: Dante Ballard ANESTHESIOLOGIST: Dez Loja M.D. ANESTHESIA: LMA anesthesia. DRAINS: None. COMPLICATIONS: None. SPECIMEN: None. BLOOD LOSS: 100 mL. BLOOD GIVEN: None. INDICATION: This patient is a 76-year-old female with preoperative diagnosis of high left intertrochanteric femur fracture. After understanding the potential risks, complications, alternatives, benefits to surgery versus nonsurgical treatment, the patient elected to pursue this procedure. DESCRIPTION OF PROCEDURE: The patient was brought to the operating room with IV placed, IV sedation given, 1 g of IV Ancef was given. The patient was placed onto the table with ample padding over the peroneal post and both ankles. Provisional reduction was performed with longitudinal traction and mild amount of internal rotation. X-rays were taken in the AP, lateral, and multiple oblique planes. Once I liked the position of the fracture fragments, the patient was then prepped and draped in sterile fashion. A standard gamma nail was performed. An incision was made with a number 15 scalpel blade. Subcutaneous hemostasis achieved with Bovie electrocautery. Dissection down to the lateral fascia. Huang elevator used to clear the area on the top of the greater trochanter. Under direct visualization for C-arm fluoroscopy, I was able to put a threaded guidewire through the appropriate starting point into the femoral shaft. Patient had very wide femoral shaft. This was confirmed in its position in AP and lateral plains. The proximal reamer was used, the standard titanium G3 gamma nail Isai cannulated nail was placed over the threaded guidewire, documented its position in the AP and lateral planes with fluoroscopy, and then using the external jig cannulated screw was placed, position checked in AP and lateral planes, overdrilled, and a 95-mm lag screw was placed. I was able to take longitudinal tension off, compression was achieved, and the proximal set screw put in place. Next, using the external jig, we put a 37.5 mm distal interlocking screw. X-rays were taken in the AP, lateral, and multiple oblique planes documenting excellent position of the fracture fragments as well as the gamma nail. It was irrigated and washed out. External jig removed. 0 Vicryl used to close the deep fascial layer of the proximal wound, 2-0 Vicryl used to close the deep dermal layer. Final skin reapproximation was done with a row of johnnie. The area was then washed and dried and covered with Aquacel dressing. The patient was taken down off the fracture table. Case was about 30 minutes. She was stable throughout the case. There were no complications. Blood loss was 100 mL, and she was brought to the recovery room in stable condition. Issa [id number]
[2017-01-02] MEDS: SODIUM CHLORIDE 1,000 ML IV SCH (06:30)
[2017-01-02 08:03] LABS: MCH 32.5 pg (25.7-33.7); MEAN CELL VOLUME 98.4 fl (80-96); MEAN PLT VOLUME 8.4 fl (7.5-11.1); PLATELET COUNT 156 K/MM3 (134-434); RDW 14.7 % (11.6-15.6); WHITE BLOOD COUNT 6.7 K/mm3 (4.0-10.0)
--- NOTE | 2017-01-02 08:42 | PN ---
Progress Note, Physician Chief Complaint: Still pain left hip on movement. History of Present Illness: Patient is S/P hip surgery 12/31/16 and was just able to stand yesterday with PT. Will see if she can take a few steps today. Hb down to 9.2 GM; will follow; currently on no anticoagulation. - Current Medication List Current Medications: Active Medications Acetaminophen (Tylenol -) 650 mg PO Q4H PRN PRN Reason: FEVER OR PAIN Sodium Chloride (Normal Saline -) 1,000 mls @ 83 mls/hr IV ASDIR [facility] Stop: 01/02/17 12:29 Last Admin: 01/02/17 06:30 Dose: 83 mls/hr Magnesium Oxide (Mag-Ox -) 400 mg PO BID [facility] Last Admin: 01/01/17 22:22 Dose: 400 mg Metoprolol Tartrate (Lopressor -) 25 mg PO BID [facility] Last Admin: 01/01/17 22:23 Dose: 25 mg Morphine Sulfate (Morphine Injection -) 1 mg IVPUSH Q4H PRN PRN Reason: PAIN Last Admin: 01/01/17 14:19 Dose: 1 mg Ondansetron HCl (Zofran Injection) 4 mg IVPB Q6H PRN PRN Reason: NAUSEA Oxycodone HCl (Roxicodone -) 5 mg PO Q4H PRN PRN Reason: PAIN Last Admin: 01/01/17 00:37 Dose: 5 mg Polyethylene Glycol (Miralax (For Daily Use) -) 17 gm PO DAILY [facility] Last Admin: 01/01/17 09:44 Dose: 17 gm Senna/Docusate Sodium (Pericolace -) 2 tablet PO BID [facility] Last Admin: 01/01/17 22:21 Dose: 2 tablet - Objective Vital Signs: Vital Signs Temperature 98.0 F 01/02/17 05:45 Pulse Rate 88 01/02/17 05:45 Respiratory Rate 20 01/02/17 05:45 Blood Pressure 103/66 01/02/17 05:45 O2 Sat by Pulse Oximetry (%) 98 01/01/17 22:00 Constitutional: Yes: Calm (unless she is moved.) Eyes: Yes: Conjunctiva Clear Cardiovascular: Yes: Pulse Irregular Respiratory: Yes: Diminished Gastrointestinal: Yes: Soft Genitourinary: No: Siegel Present Edema: LLE: 2+, RLE: Trace Wound/Incision: Yes: Dressing Dry and Intact Neurological: Yes: Alert, Oriented Labs: CBC, BMP 01/02/17 06:52 01/01/17 07:10 INR, PTT INR 1.25 (0.82-1.09) H 12/30/16 13:52 Problem List - Problems (1) Intertrochanteric fracture of left femur Assessment/Plan: still in a lot of pain on any movement. Code(s): S72.142A - DISPLACED INTERTROCHANTERIC FRACTURE OF LEFT FEMUR, INIT (2) Atrial fibrillation Assessment/Plan: Anticoagulation being held due to surgical issues and hemoglobin down to (.2GM. Code(s): I48.91 - UNSPECIFIED ATRIAL FIBRILLATION Qualifiers: Atrial fibrillation type: paroxysmal Qualified Code(s): I48.0 - Paroxysmal atrial fibrillation (3) Hypomagnesemia Assessment/Plan: On Rx. Code(s): E83.42 - HYPOMAGNESEMIA (4) Postoperative pain Assessment/Plan: Rx ordered; may need IV morphine prior to PT . Code(s): G89.18 - OTHER ACUTE POSTPROCEDURAL PAIN (5) Anemia due to blood loss, acute Assessment/Plan: Hb 9.2GM; will follow. Code(s): D62 - ACUTE POSTHEMORRHAGIC ANEMIA
--- NOTE | 2017-01-02 09:52 | PN ---
Progress Note (short form) - Note Progress Note: Ortho Pt seen and examined s/p left Im gamma nail pod #2 Laboratory Tests 01/02/17 06:52 WBC 6.7 Hgb 9.2 L Hct 27.7 L Plt Count 156 Selected Entries 01/02/17 05:45 Temperature 98.0 F Pulse Rate 88 Respiratory 20 Rate Blood Pressure 103/66 dressing c/d/i, calf soft, nt nvi a/p PT oob to chair dvt ppx- restart AC tomorrow pain control d/c planning
[2017-01-02] MEDS ORDERED: PT OWN MED DRAWER 7, Y5N ONE (10:26)
[2017-01-02] MEDS: oxyCODONE HCL 5 MG TABLET PO PRN ×2 (10:30→23:22)
[2017-01-02] MEDS: SENNOSIDES/DOCUSATE COMBO (SENNA PLUS) TABLET (UD) PO SCH ×2 (10:32→21:22)
[2017-01-02] MEDS: POLYETHYLENE GLYCOL 3350 119 GM BTL PO SCH (10:32)
[2017-01-02] MEDS: METOPROLOL TARTRATE 25 MG TABLET (FP) PO SCH ×2 (10:32→21:23)
[2017-01-02] MEDS: MAGNESIUM OXIDE 400 MG TABLET (FP) PO SCH ×2 (10:32→21:23)
[2017-01-02 10:54] LABS: CALCIUM 7.3 mg/dL (8.5-10.1); CREATININE 0.6 mg/dL (0.55-1.02); MAGNESIUM 2.1 mg/dL (1.8-2.4); PHOSPHOROUS 2.1 mg/dL (2.5-4.9)
--- NOTE | 2017-01-02 12:04 | PN ---
Progress Note (short form) - Note Progress Note: Renal Follow up for IGOR Pt seen and examined at the bedside attempting to ambulate with PT denies sob or chest pain Vital Signs Temperature 97.9 F 01/02/17 08:00 Pulse Rate 88 01/02/17 08:00 Respiratory Rate 20 01/02/17 08:00 Blood Pressure 100/49 01/02/17 08:00 O2 Sat by Pulse Oximetry (%) 98 01/02/17 08:00 Intake & Output 12/30/16 12/31/16 01/01/17 01/02/17 23:59 23:59 23:59 23:59 Intake Total 1950 350 Output Total 150 1200 500 Balance -150 750 -150 Weight 165 lb 141 lb 5 oz Gen: NAD, awake and alert CVS: RRR, No M/R Lungs: CTA, no rales or wheeze Abd: soft NT/ND Ext: No edema, clubbing or cyanosis CBC, BMP 01/02/17 06:52 01/02/17 10:34 Current Medications Acetaminophen (Tylenol -) 650 mg PO Q4H PRN PRN Reason: FEVER OR PAIN Sodium Chloride (Normal Saline -) 1,000 mls @ 83 mls/hr IV ASDIR [facility] Stop: 01/02/17 12:29 Last Admin: 01/02/17 06:30 Dose: 83 mls/hr Magnesium Oxide (Mag-Ox -) 400 mg PO BID [facility] Last Admin: 01/02/17 10:32 Dose: 400 mg Metoprolol Tartrate (Lopressor -) 25 mg PO BID [facility] Last Admin: 01/02/17 10:32 Dose: 25 mg Morphine Sulfate (Morphine Injection -) 1 mg IVPUSH Q4H PRN PRN Reason: PAIN Last Admin: 01/01/17 14:19 Dose: 1 mg Ondansetron HCl (Zofran Injection) 4 mg IVPB Q6H PRN PRN Reason: NAUSEA Oxycodone HCl (Roxicodone -) 5 mg PO Q4H PRN PRN Reason: PAIN Last Admin: 01/02/17 10:30 Dose: 5 mg Polyethylene Glycol (Miralax (For Daily Use) -) 17 gm PO DAILY [facility] Last Admin: 01/02/17 10:32 Dose: 17 gm Senna/Docusate Sodium (Pericolace -) 2 tablet PO BID [facility] Last Admin: 01/02/17 10:32 Dose: 2 tablet A/P 76 year old woman with PMhx of Hemachromatosis, Afib on A/C who presented with mechancial fall and left hip fracture with IGOR with BUN/cr of 21/1.6 with normal baseline kidney function. #Acute Kidney Injury Renal function improving s/p IVF Can discontinue IVF today Trend BUN/Cr oral intake as tolerated #Left Hip Fracture s/p ORIF pain control Physical therapy #Afib Off A/X Rate control with Lopresser #Hemachromatosis management as per primary Abhinav Stewart DO
[2017-01-03 07:11] LABS: BASOPHIL 2.8 % (0-2.0); EOSINOPHIL 2.8 % (0-4.5); MCHC 33.7 g/dl (32.0-36.0); MEAN CELL VOLUME 97.9 fl (80-96); MEAN PLT VOLUME 7.8 fl (7.5-11.1); NEUTROPHILS 51.8 % (42.8-82.8); PLATELET COUNT 180 K/MM3 (134-434); WHITE BLOOD COUNT 6.3 K/mm3 (4.0-10.0)
[2017-01-03 07:31] LABS: CALCIUM 7.6 mg/dL (8.5-10.1); CREATININE 0.4 mg/dL (0.55-1.02); MAGNESIUM 1.6 mg/dL (1.8-2.4)
--- NOTE | 2017-01-03 10:21 | PN ---
Progress Note (short form) - Note Progress Note: Patient postop for left hip fracture; she is in a lot of pain and has just basically stood in place with PT. A lot of bleeding at surgical site and current bandage dry. Hb down to 8.8GM amd I hesitate to give her FeSO4 with a hx of hemochromatosis. Will follow; on no anticoagulation currently and risk with A.Fib is known. Also routine Renal Sonogram shows normal kidneys but ? right liver lesion. To order Abdominal Cat as suggested with contrast. Await input from renal MD re: contrast. On Exam: Calm and alert Vital Signs Period Temp Pulse Resp BP Sys/Arreguin Pulse Ox Last 24 Hr 96.9 F-98.1 F 90-106 18-20 97-112/48-65 98 Heart Irregular wound site left hip: clean and dry Some LLE edema due to post op issues Abnormal Lab Results 01/02/17 01/03/17 01/03/17 10:34 06:10 06:10 RBC 2.68 L Hgb 8.8 L Hct 26.2 L MCV 97.9 H Monocytes % 11.6 H Basophils % 2.8 H BUN 23 H D Creatinine 0.4 L D Random Glucose 146 H 112 H D Calcium 7.3 L 7.6 L Phosphorus 2.1 L D Magnesium 1.6 L D ImP: Postop Left Hip Fx surgery postop Anemia due to blood loss A. Fibrillation Hx: right hip fx. ?liver lesion Plans: as discussed above Problem List - Problems (1) Intertrochanteric fracture of left femur Code(s): S72.142A - DISPLACED INTERTROCHANTERIC FRACTURE OF LEFT FEMUR, INIT (2) Atrial fibrillation Code(s): I48.91 - UNSPECIFIED ATRIAL FIBRILLATION Qualifiers: Atrial fibrillation type: paroxysmal Qualified Code(s): I48.0 - Paroxysmal atrial fibrillation (3) Hypomagnesemia Code(s): E83.42 - HYPOMAGNESEMIA (4) Postoperative pain Code(s): G89.18 - OTHER ACUTE POSTPROCEDURAL PAIN (5) Anemia due to blood loss, acute Code(s): D62 - ACUTE POSTHEMORRHAGIC ANEMIA
[2017-01-03] MEDS: SENNOSIDES/DOCUSATE COMBO (SENNA PLUS) TABLET (UD) PO SCH ×2 (10:23→21:50)
[2017-01-03] MEDS: METOPROLOL TARTRATE 25 MG TABLET (FP) PO SCH ×2 (10:23→21:53)
[2017-01-03] MEDS: MAGNESIUM OXIDE 400 MG TABLET (FP) PO SCH ×2 (10:23→21:46)
[2017-01-03] MEDS: POLYETHYLENE GLYCOL 3350 119 GM BTL PO SCH (10:24)
--- NOTE | 2017-01-03 10:48 | PN ---
Progress Note (short form) - Note Progress Note: Ortho Pt seen and examined s/p left Im gamma nail pod #3 Selected Entries 01/03/17 10:00 Temperature 96.9 F L Pulse Rate 106 H Respiratory 20 Rate Blood Pressure 111/62 Laboratory Tests 01/03/17 06:10 WBC 6.3 Hgb 8.8 L Hct 26.2 L Plt Count 180 dressing c/d/i, calf soft, nt nvi a/p PT oob to chair restart AC pain control d/c planning
[2017-01-03] MEDS ORDERED: SODIUM CHLORIDE 1,000 ML IV SCH (13:15)
[2017-01-03] MEDS: morphine CARPU-JECT 2 MG/1 ML DISP.SYRIN IVPUSH PRN (14:35)
--- NOTE | 2017-01-03 14:47 | PN ---
Progress Note (short form) - Note Progress Note: Renal Follow up for IGOR Pt seen and examined at the bedside no acute complaints no sob or chest pain no abd pain, N/V/D good urine output Vital Signs Temperature 96.9 F L 01/03/17 10:00 Pulse Rate 106 H 01/03/17 10:00 Respiratory Rate 20 01/03/17 10:00 Blood Pressure 111/62 01/03/17 10:00 O2 Sat by Pulse Oximetry (%) 98 01/02/17 20:51 Intake & Output 12/31/16 01/01/17 01/02/17 01/03/17 23:59 23:59 23:59 23:59 Intake Total 1950 350 275 Output Total 1200 500 Balance 750 -150 275 Weight 141 lb 5 oz Gen: NAD, awake and alert CVS: RRR, No M/R Lungs: CTA, no rales or wheeze Abd: soft NT/ND Ext: No edema, clubbing or cyanosis CBC, BMP 01/03/17 06:10 01/03/17 06:10 Current Medications Acetaminophen (Tylenol -) 650 mg PO Q4H PRN PRN Reason: FEVER OR PAIN Sodium Chloride (Normal Saline -) 1,000 mls @ 75 mls/hr IV ASDIR [facility] Stop: 01/04/17 01:14 Last Admin: 01/03/17 14:11 Dose: 75 mls/hr Magnesium Oxide (Mag-Ox -) 400 mg PO BID [facility] Last Admin: 01/03/17 10:23 Dose: 400 mg Metoprolol Tartrate (Lopressor -) 25 mg PO BID [facility] Last Admin: 01/03/17 10:23 Dose: 25 mg Morphine Sulfate (Morphine Injection -) 1 mg IVPUSH Q4H PRN PRN Reason: PAIN Last Admin: 01/03/17 14:35 Dose: 1 mg Ondansetron HCl (Zofran Injection) 4 mg IVPB Q6H PRN PRN Reason: NAUSEA Oxycodone HCl (Roxicodone -) 5 mg PO Q4H PRN PRN Reason: PAIN Last Admin: 01/02/17 23:22 Dose: 5 mg Polyethylene Glycol (Miralax (For Daily Use) -) 17 gm PO DAILY [facility] Last Admin: 01/03/17 10:24 Dose: 17 gm Senna/Docusate Sodium (Pericolace -) 2 tablet PO BID [facility] Last Admin: 01/03/17 10:23 Dose: 2 tablet A/P 76 year old woman with PMhx of Hemachromatosis, Afib on A/C who presented with mechancial fall and left hip fracture with IGOR with BUN/cr of 21/1.6 with normal baseline kidney function. #Acute Kidney Injury Renal function now at baseline planned for CT of the Abd wit IV contrast, will order pre and post IVF Trend BUN/Cr #Left Hip Fracture s/p ORIF pain control Physical therapy #Afib Off A/X Rate control with Lopresser #Hemachromatosis check iron levels in AM #Mass lesion on Liver seen on US check CT Abd with IV contrast as per primary Abhinav Stewart DO
[2017-01-03] MEDS: oxyCODONE HCL 5 MG TABLET PO PRN (23:25)
[2017-01-04] MEDS: oxyCODONE HCL 5 MG TABLET PO PRN ×2 (08:19→20:12)
[2017-01-04 09:01] LABS: BASOPHIL 2.5 % (0-2.0); EOSINOPHIL 4.5 % (0-4.5); MCH 32.8 pg (25.7-33.7); MEAN CELL VOLUME 99.4 fl (80-96); MEAN PLT VOLUME 7.9 fl (7.5-11.1); NEUTROPHILS 51.9 % (42.8-82.8); PLATELET COUNT 220 K/MM3 (134-434); RDW 15.5 % (11.6-15.6); WHITE BLOOD COUNT 5.6 K/mm3 (4.0-10.0)
[2017-01-04 09:50] LABS: CALCIUM 7.8 mg/dL (8.5-10.1)
[2017-01-04] MEDS: MAGNESIUM OXIDE 400 MG TABLET (FP) PO SCH ×2 (09:50→21:42)
[2017-01-04] MEDS: METOPROLOL TARTRATE 25 MG TABLET (FP) PO SCH ×2 (09:50→21:42)
[2017-01-04] MEDS: SENNOSIDES/DOCUSATE COMBO (SENNA PLUS) TABLET (UD) PO SCH ×2 (09:51→21:42)
[2017-01-04] MEDS: POLYETHYLENE GLYCOL 3350 119 GM BTL PO SCH (09:51)
[2017-01-04 09:53] LABS: CREATININE 0.4 mg/dL (0.55-1.02)
--- NOTE | 2017-01-04 10:05 | PN ---
Progress Note (short form) - Note Progress Note: Patient seen and examined Chart reviewed. Post-op left hip ORIF Gamma nail insertion. Currently sitting up in bed. Awake alert responsive and appropriate. No complaint of pain. Had some oozing from operative site and is not on A/C currently. Labs and health analytics consultant notes reviewed Selected Entries 01/04/17 09:41 Temperature 97.5 F L Pulse Rate 85 Respiratory 20 Rate Blood Pressure 121/52 Laboratory Tests 01/04/17 08:30 WBC 5.6 Hgb 10.1 L D Hct 30.6 L D Plt Count 220 D CMP Pending Chest Clear Cor Irregular Abd Soft Non-tender BS positive Ext SCDs in place Upper extremity edema moreso on the right Trace lower extremity edema Neuro No new focal deficit Assessment and Plan Left hip fracture post ORIF/Gamma nail insertion Continue current post-op course Increase activity as tolerated Atrial fibrillation Rate stable Off A/C for now Close observation Anemia 10.1/30.6 Likely blood loss. Off A/C despite h/o post-op hip surgery status and AFib due to recent oozing of blood at operative site. Will avoid Fe due to h/o hemochromatosis Follow H/H IGOR Stable recheck labs BUN/Cr 21/1.6 >> 16/0.4 Today's pending Hemochromatosis To recheck ferrokinetics Hypomagnesemia On MgOx Liver mass on CT
[2017-01-04 10:53] LABS: FERRITIN 246.732 ng/ml (6.9-282.5)
--- NOTE | 2017-01-04 11:38 | PN ---
Progress Note, Physician Chief Complaint: Patient lying in bed. IV fluid still infusing Oral intake acceptable. Good urine output. No chest pain, or shortness of breath. Had CT scan with IV contrast yesterday - Current Medication List Current Medications: Active Medications Acetaminophen (Tylenol -) 650 mg PO Q4H PRN PRN Reason: FEVER OR PAIN Magnesium Oxide (Mag-Ox -) 400 mg PO BID [facility] Last Admin: 01/04/17 09:50 Dose: 400 mg Metoprolol Tartrate (Lopressor -) 25 mg PO BID [facility] Last Admin: 01/04/17 09:50 Dose: 25 mg Morphine Sulfate (Morphine Injection -) 1 mg IVPUSH Q4H PRN PRN Reason: PAIN Last Admin: 01/03/17 14:35 Dose: 1 mg Ondansetron HCl (Zofran Injection) 4 mg IVPB Q6H PRN PRN Reason: NAUSEA Oxycodone HCl (Roxicodone -) 5 mg PO Q4H PRN PRN Reason: PAIN Last Admin: 01/04/17 08:19 Dose: 5 mg Polyethylene Glycol (Miralax (For Daily Use) -) 17 gm PO DAILY [facility] Last Admin: 01/04/17 09:51 Dose: Not Given Senna/Docusate Sodium (Pericolace -) 2 tablet PO BID [facility] Last Admin: 01/04/17 09:51 Dose: Not Given - Objective Vital Signs: Vital Signs Temperature 97.5 F L 01/04/17 09:41 Pulse Rate 85 01/04/17 09:41 Respiratory Rate 20 01/04/17 09:41 Blood Pressure 121/52 01/04/17 09:41 O2 Sat by Pulse Oximetry (%) 98 01/02/17 20:51 Constitutional: Yes: Well Nourished, Calm Eyes: Yes: Conjunctiva Clear HENT: Yes: Normocephalic Neck: Yes: Trachea Midline Cardiovascular: Yes: S1, S2 Respiratory: Yes: CTA Bilaterally Gastrointestinal: Yes: Normal Bowel Sounds Musculoskeletal: Yes: Joint Stiffness, Muscle Pain Wound/Incision: Yes: Clean/Dry, Well Approximated Neurological: Yes: Alert, Oriented Psychiatric: Yes: Alert, Oriented Labs: CBC, BMP 01/04/17 08:30 01/04/17 08:30 INR, PTT INR 1.25 (0.82-1.09) H 12/30/16 13:52 Problem List - Problems (1) Anemia due to blood loss, acute Code(s): D62 - ACUTE POSTHEMORRHAGIC ANEMIA (2) Fall Code(s): W19.XXXA - UNSPECIFIED FALL, INITIAL ENCOUNTER Qualifiers: Encounter type: initial encounter Qualified Code(s): W19.XXXA - Unspecified fall, initial encounter (3) Hip fracture, left Code(s): S72.002A - FRACTURE OF UNSP PART OF NECK OF LEFT FEMUR, INIT Qualifiers: Encounter type: initial encounter Fracture type: closed Qualified Code(s): S72.002A - Fracture of unspecified part of neck of left femur, initial encounter for closed fracture (4) Intertrochanteric fracture of left femur Code(s): S72.142A - DISPLACED INTERTROCHANTERIC FRACTURE OF LEFT FEMUR, INIT (5) Atrial fibrillation Code(s): I48.91 - UNSPECIFIED ATRIAL FIBRILLATION Qualifiers: Atrial fibrillation type: paroxysmal Qualified Code(s): I48.0 - Paroxysmal atrial fibrillation (6) Back pain at L4-L5 level Code(s): M54.5 - LOW BACK PAIN (7) Compression fracture Code(s): T14.8 - OTHER INJURY OF UNSPECIFIED BODY REGION (8) Hypomagnesemia Code(s): E83.42 - HYPOMAGNESEMIA (9) Intertrochanteric fracture of right femur Code(s): S72.141A - DISPLACED INTERTROCHANTERIC FRACTURE OF RIGHT FEMUR, INIT Assessment/Plan 76y/o female with Hip Fx, S/P ORIF/ Gamma nail insertion, had IGOR with resolution of azotemia. CT scan with IV contrast done yesterday yesterday.. 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 Maintains good urine output. Oral intake adequate. Will stop IV fluids. Discussed with the patient's RN Anne Alcazar MD
--- NOTE | 2017-01-04 14:00 | PN ---
Progress Note (short form) - Note Progress Note: Ortho Pt seen and examined s/p left Im gamma nail pod #4 Selected Entries 01/04/17 09:41 Temperature 97.5 F L Pulse Rate 85 Respiratory 20 Rate Blood Pressure 121/52 Laboratory Tests 01/04/17 08:30 WBC 5.6 Hgb 10.1 L D Hct 30.6 L D Plt Count 220 D dressing c/d/i, calf soft, nt nvi a/p PT oob to chair restart AC pain control d/c planning
[2017-01-04] MEDS: ENOXAPARIN NA (PORCINE) 40 MG/0.4 ML DISP.SYRIN SQ SCH (14:51)
[2017-01-05] MEDS: oxyCODONE HCL 5 MG TABLET PO PRN ×2 (00:54→22:02)
[2017-01-05] MEDS: morphine CARPU-JECT 2 MG/1 ML DISP.SYRIN IVPUSH PRN ×2 (07:55→15:58)
[2017-01-05 08:24] LABS: ANION GAP 8 (8-16); CALCIUM 7.4 mg/dL (8.5-10.1); CO2 27 mmol/L (21-32); CREATININE 0.4 mg/dL (0.55-1.02); GLUCOSE,RANDOM 110 mg/dL (74-106); MAGNESIUM 1.5 mg/dL (1.8-2.4); SGOT/AST 22 U/L (15-37); SGPT/ALT 12 U/L (12-78)
[2017-01-05 08:26] LABS: ALK PHOS 174 U/L (45-117); BILIRUBIN,TOTAL 1.7 mg/dL (0.2-1.0)
[2017-01-05 09:47] LABS: BASOPHIL 3.1 % (0-2.0); EOSINOPHIL 4.4 % (0-4.5); MCH 33.1 pg (25.7-33.7); MCHC 33.7 g/dl (32.0-36.0); MEAN CELL VOLUME 98.2 fl (80-96); MEAN PLT VOLUME 7.5 fl (7.5-11.1); NEUTROPHILS 49.6 % (42.8-82.8); PLATELET COUNT 210 K/MM3 (134-434); RDW 15.3 % (11.6-15.6); WHITE BLOOD COUNT 4.6 K/mm3 (4.0-10.0)
[2017-01-05] MEDS: MAGNESIUM OXIDE 400 MG TABLET (FP) PO SCH ×2 (09:51→22:01)
[2017-01-05] MEDS: METOPROLOL TARTRATE 25 MG TABLET (FP) PO SCH ×2 (09:51→22:02)
[2017-01-05] MEDS: SENNOSIDES/DOCUSATE COMBO (SENNA PLUS) TABLET (UD) PO SCH ×2 (09:51→22:02)
[2017-01-05] MEDS: POLYETHYLENE GLYCOL 3350 119 GM BTL PO SCH (09:52)
[2017-01-05] MEDS: ENOXAPARIN NA (PORCINE) 40 MG/0.4 ML DISP.SYRIN SQ SCH (09:52)
--- NOTE | 2017-01-05 10:20 | PN ---
[id number] left hip ORIF Gamma nail insertion. Currently sitting up in bed. Awake alert responsive and appropriate, but feels lethargic and weak this AM. No complaint of pain. Had some oozing from operative site, initially but as this has abated, Lovenox has been started. Labs and [facility] consultant notes reviewed Selected Entries 01/04/17 01/05/17 21:00 06:00 Temperature 98.0 F Pulse Rate 83 Respiratory 20 Rate Blood Pressure 102/63 O2 Sat by Pulse 96 Oximetry (%) Oxygen Delivery Room Air Method Laboratory Tests 01/04/17 01/04/17 01/05/17 08:30 08:30 06:30 WBC Hgb Hct Plt Count Sodium 140 Potassium 4.1 Chloride 105 Carbon Dioxide 27 BUN 10 Creatinine 0.4 L Random Glucose 110 H Calcium 7.4 L Magnesium 1.5 L Iron 51 TIBC 141 L Iron Saturation 36 Ferritin 246.732 Total Bilirubin 1.7 H D AST 22 D ALT 12 D Alkaline Phosphatase 174 H D Total Protein 4.0 L D Albumin 2.0 L D 01/05/17 09:35 WBC 4.6 Hgb 9.5 L Hct 28.1 L Plt Count 210 Sodium Potassium Chloride Carbon Dioxide BUN Creatinine Random Glucose Calcium Magnesium Iron TIBC Iron Saturation Ferritin Total Bilirubin AST ALT Alkaline Phosphatase Total Protein Albumin Chest Clear Cor Irregular 2/6 systolic murmur Abd Soft Non-tender BS positive Ext SCDs currently off Upper extremity edema moreso on the right Trace lower extremity edema Neuro No new focal deficit Assessment and Plan Left hip fracture post ORIF/Gamma nail insertion Continue current post-op course Increase activity as tolerated Atrial fibrillation Rate stable. Off A/C with Eliquis for now On low dose Lovenox Close observation Consider restarting Eliquis and stopping Lovenox if OK with Orthopedic protocol Anemia 10.1/30.6>>9.5/28.1 Likely blood loss. Had been off A/C despite h/o post-op hip surgery status and AFib due to recent oozing of blood at operative site. On Lovenox, as above, as per orthopedic protoccol. Will avoid Fe due to h /o hemochromatosis Follow H/H IGOR Stable recheck labs BUN/Cr 21/1.6 >> 16/0.4>>10/0.4 Hemochromatosis Ferrokinetics reviewed Ferritin not increased at 247 Fe 51 with low TIBC (usually a marker of acute/chronic disease c/w extremely low serum albumin) with acceptable range of % saturation (despite the low "denominator" TIBC) Hypomagnesemia On MgOx 1.[address] mass on [address] Possible hemangioma H/O Low back pain Possible h/o compression fractures Currently stable Increase activity as tolerated To discuss restarting Eliquis
[2017-01-05] MEDS ORDERED: MAGNESIUM SULF 50% (8.12 MEQ/2 ML-1 GM VIAL) IVPB ONE ×2 (10:21→16:00)
--- NOTE | 2017-01-05 11:08 | PN ---
Progress Note, Physician Chief Complaint: Patient lying in bed. examined. Reviewed the notes of other physicians and the nurses. Oral intake acceptable. Good urine output. No chest pain, or shortness of breath. Seems to be comfortable. - Current Medication List Current Medications: Active Medications Acetaminophen (Tylenol -) 650 mg PO Q4H PRN PRN Reason: FEVER OR PAIN Enoxaparin Sodium (Lovenox -) 40 mg SQ DAILY [facility] Last Admin: 01/05/17 09:52 Dose: 40 mg Magnesium Oxide (Mag-Ox -) 400 mg PO BID [facility] Last Admin: 01/05/17 09:51 Dose: 400 mg Metoprolol Tartrate (Lopressor -) 25 mg PO BID [facility] Last Admin: 01/05/17 09:51 Dose: 25 mg Morphine Sulfate (Morphine Injection -) 1 mg IVPUSH Q4H PRN PRN Reason: PAIN Last Admin: 01/05/17 07:55 Dose: 1 mg Ondansetron HCl (Zofran Injection) 4 mg IVPB Q6H PRN PRN Reason: NAUSEA Oxycodone HCl (Roxicodone -) 5 mg PO Q4H PRN PRN Reason: PAIN Last Admin: 01/05/17 00:54 Dose: 5 mg Polyethylene Glycol (Miralax (For Daily Use) -) 17 gm PO DAILY [facility] Last Admin: 01/05/17 09:52 Dose: 17 gm Senna/Docusate Sodium (Pericolace -) 2 tablet PO BID [facility] Last Admin: 01/05/17 09:51 Dose: 2 tablet - Objective Vital Signs: Vital Signs Temperature 98.0 F 01/05/17 06:00 Pulse Rate 83 01/05/17 06:00 Respiratory Rate 20 01/05/17 06:00 Blood Pressure 102/63 01/05/17 06:00 O2 Sat by Pulse Oximetry (%) 96 01/04/17 21:00 Constitutional: Yes: Well Nourished, No Distress, Calm Eyes: Yes: WNL, EOM Intact Neck: Yes: Supple, Trachea Midline Cardiovascular: Yes: S1, S2 Respiratory: Yes: Regular, CTA Bilaterally Gastrointestinal: Yes: WNL, Normal Bowel Sounds, Soft Genitourinary: Yes: WNL Extremities: Yes: Other (s/p hip surgery) Labs: CBC, BMP 01/05/17 09:35 01/05/17 06:30 INR, PTT INR 1.25 (0.82-1.09) H 12/30/16 13:52 Problem List - Problems (1) Anemia due to blood loss, acute Code(s): D62 - ACUTE POSTHEMORRHAGIC ANEMIA (2) Fall Code(s): W19.XXXA - UNSPECIFIED FALL, INITIAL ENCOUNTER Qualifiers: Encounter type: initial encounter Qualified Code(s): W19.XXXA - Unspecified fall, initial encounter (3) Hip fracture, left Code(s): S72.002A - FRACTURE OF UNSP PART OF NECK OF LEFT FEMUR, INIT Qualifiers: Encounter type: initial encounter Fracture type: closed Qualified Code(s): S72.002A - Fracture of unspecified part of neck of left femur, initial encounter for closed fracture (4) Intertrochanteric fracture of left femur Code(s): S72.142A - DISPLACED INTERTROCHANTERIC FRACTURE OF LEFT FEMUR, INIT (5) Atrial fibrillation Code(s): I48.91 - UNSPECIFIED ATRIAL FIBRILLATION Qualifiers: Atrial fibrillation type: paroxysmal Qualified Code(s): I48.0 - Paroxysmal atrial fibrillation (6) Back pain at L4-L5 level Code(s): M54.5 - LOW BACK PAIN (7) Compression fracture Code(s): T14.8 - OTHER INJURY OF UNSPECIFIED BODY REGION (8) Hypomagnesemia Code(s): E83.42 - HYPOMAGNESEMIA (9) Intertrochanteric fracture of right femur Code(s): S72.141A - DISPLACED INTERTROCHANTERIC FRACTURE OF RIGHT FEMUR, INIT Assessment/Plan 76y/o female with Hip Fx, S/P ORIF/ Gamma nail insertion, had IGOR with resolution of azotemia. Renal functions at her baseline. Oral intake acceptable. PT as ordered. Vital signs in acceptable range. will monitor the renal functions with you. Thanks again. Anne Alcazar MD
[2017-01-05] MEDS ORDERED: MAGNESIUM OXIDE 400 MG TABLET (FP) PO ONE (17:30)
[2017-01-06] MEDS: ACETAMINOPHEN 325 MG TABLET (FP) PO PRN ×2 (02:39→22:17)
[2017-01-06] MEDS: oxyCODONE HCL 5 MG TABLET PO PRN ×2 (06:21→22:19)
--- NOTE | 2017-01-06 08:57 | PN ---
Progress Note (short form) - Note Progress Note: Ortho Pt s/p left Im gamma nail pod #6 Selected Entries 01/06/17 06:04 Temperature 97.7 F Pulse Rate 82 Respiratory 20 Rate Blood Pressure 110/41 dressing c/d/i, calf soft, nt nvi a/p PT oob to chair dvt ppx= lovenox-->eliquis as per PMD pain control d/c planning
[2017-01-06 09:00] LABS: EOSINOPHIL 3.7 % (0-4.5); MCH 33.1 pg (25.7-33.7); MCHC 33.2 g/dl (32.0-36.0); MEAN CELL VOLUME 99.5 fl (80-96); MEAN PLT VOLUME 7.4 fl (7.5-11.1); NEUTROPHILS 42.4 % (42.8-82.8); PLATELET COUNT 213 K/MM3 (134-434); WHITE BLOOD COUNT 4.7 K/mm3 (4.0-10.0)
[2017-01-06] MEDS: ENOXAPARIN NA (PORCINE) 40 MG/0.4 ML DISP.SYRIN SQ SCH (09:16)
[2017-01-06] MEDS: METOPROLOL TARTRATE 25 MG TABLET (FP) PO SCH ×2 (09:16→22:16)
[2017-01-06] MEDS: MAGNESIUM OXIDE 400 MG TABLET (FP) PO SCH ×2 (09:16→22:16)
[2017-01-06] MEDS: SENNOSIDES/DOCUSATE COMBO (SENNA PLUS) TABLET (UD) PO SCH ×2 (09:16→22:15)
[2017-01-06] MEDS: POLYETHYLENE GLYCOL 3350 119 GM BTL PO SCH (09:17)
[2017-01-06 09:20] LABS: ALBUMIN 2.1 g/dl (3.4-5.0); ALK PHOS 206 U/L (45-117); ANION GAP 5 (8-16); BILIRUBIN,TOTAL 1.8 mg/dL (0.2-1.0); CALCIUM 7.8 mg/dL (8.5-10.1); CO2 31 mmol/L (21-32); CREATININE 0.4 mg/dL (0.55-1.02); GLUCOSE,RANDOM 101 mg/dL (74-106); MAGNESIUM 1.7 mg/dL (1.8-2.4); SGOT/AST 27 U/L (15-37); SGPT/ALT 12 U/L (12-78); TOT PROT 4.2 g/dl (6.4-8.2)
[2017-01-06] MEDS ORDERED: FUROSEMIDE 40 MG TABLET (FP) PO ONE (09:53)
[2017-01-06] MEDS ORDERED: MAGNESIUM SULF 50% (8.12 MEQ/2 ML-1 GM VIAL) IVPB ONE (09:53)
--- NOTE | 2017-01-06 10:01 | PN ---
Progress Note (short form) - Note Progress Note: Patient says she has not sat up in spite of MD notes. To resume PT today; so far no steps. CAT Scan Abd: "Probable hemangioma" ; will get GI opinion. Hb stable; may consider resumption of Eliquis ROS: No cough No chest pain had BM On Exam: Vital Signs Period Temp Pulse Resp BP Sys/Arreguin Pulse Ox Last 24 Hr 97.5 F-98.2 F 82-102 20-20 100-113/41-63 96 Alert Body edema with LLE > right Chest: decresaed breath sounds Cor : Irreg Abd : soft Abnormal Lab Results 01/06/17 07:45 Anion Gap 5 L Creatinine 0.4 L Calcium 7.8 L Magnesium 1.7 L Total Bilirubin 1.8 H Alkaline Phosphatase 206 H Total Protein 4.2 L Albumin 2.1 L Imp; S/P surgical Rx for Hip Fx postop blood loss anemia Hypomagnesemia Low Albumin and edema Liver lesion: possible Hemangioma Hemochromatosis Post op Pain Plan: IV mag [id number] GI MD F/U lab Problem List - Problems (1) Intertrochanteric fracture of left femur Code(s): S72.142A - DISPLACED INTERTROCHANTERIC FRACTURE OF LEFT FEMUR, INIT (2) Atrial fibrillation Code(s): I48.91 - UNSPECIFIED ATRIAL FIBRILLATION Qualifiers: Atrial fibrillation type: paroxysmal Qualified Code(s): I48.0 - Paroxysmal atrial fibrillation (3) Hypomagnesemia Code(s): E83.42 - HYPOMAGNESEMIA (4) Postoperative pain Code(s): G89.18 - OTHER ACUTE POSTPROCEDURAL PAIN (5) Anemia due to blood loss, acute Code(s): D62 - ACUTE POSTHEMORRHAGIC ANEMIA
--- NOTE | 2017-01-06 14:48 | PN ---
Progress Note (short form) - Note Progress Note: Renal Follow up for IGOR Pt seen and examined at the bedside no acute complaints Vital Signs Temperature 97.5 F L 01/06/17 09:00 Pulse Rate 84 01/06/17 09:00 Respiratory Rate 20 01/06/17 09:00 Blood Pressure 100/52 01/06/17 09:00 O2 Sat by Pulse Oximetry (%) 96 01/05/17 22:00 Intake & Output 01/03/17 01/04/17 01/05/17 01/06/17 22:59 22:59 23:59 23:59 Intake Total 200 Balance 200 Gen: NAD, awake and alert CVS: RRR, No M/R Lungs: CTA, no rales or wheeze Abd: soft NT/ND Ext: No edema, clubbing or cyanosis CBC, BMP 01/06/17 07:45 01/06/17 07:45 Current Medications Acetaminophen (Tylenol -) 650 mg PO Q4H PRN PRN Reason: FEVER OR PAIN Last Admin: 01/06/17 02:39 Dose: 650 mg Enoxaparin Sodium (Lovenox -) 40 mg SQ DAILY [facility] Last Admin: 01/06/17 09:16 Dose: 40 mg Magnesium Oxide (Mag-Ox -) 400 mg PO BID [facility] Last Admin: 01/06/17 09:16 Dose: 400 mg Metoprolol Tartrate (Lopressor -) 25 mg PO BID [facility] Last Admin: 01/06/17 09:16 Dose: 25 mg Ondansetron HCl (Zofran Injection) 4 mg IVPB Q6H PRN PRN Reason: NAUSEA Polyethylene Glycol (Miralax (For Daily Use) -) 17 gm PO DAILY [facility] Last Admin: 01/06/17 09:17 Dose: 17 gm Senna/Docusate Sodium (Pericolace -) 2 tablet PO BID [facility] Last Admin: 01/06/17 09:16 Dose: 2 tablet A/P 76 year old woman with PMhx of Hemachromatosis, Afib on A/C who presented with mechancial fall and left hip fracture with IGOR with BUN/cr of 21/1.6 with normal baseline kidney function. #Acute Kidney Injury Renal function now at baseline no evidence of contrast nephropathy #Left Hip Fracture s/p ORIF pain control Physical therapy #Hemangioma on CT Management as per Primary #Hemachromatosis Iron levels acceptable Abhinav Stewart DO
--- NOTE | 2017-01-06 17:11 | CON.GI ---
Consult Consult Specialty:: GI Referred by:: Dr. Marc Ramon Reason for Consultation:: Liver Lesion - History of Present Illness Chief Complaint: I fell and broke my hip History of Present Illness: 76F admitted s/p fall that resulted in a left hip fx. Underwent surgical repair of left feumr fracture 01/03/17. CT scan revealed a 2cm hypoenhancing lesion in the right lobe of the liver not c/w hemangioma. She has a history of hemochromatosis, is followed by Dr. Lazo at [facility] and drinks 2 glasses of wine per night. I reviewed the CT scan with Dr. Vance who felt that the live appeared nodular as well, c/w cirrhosis. - History Source History Provided By: Patient, Medical Record - Past Medical History Cardio/Vascular: Yes: AFIB Pulmonary: Yes: Other (Right sided pleural effusion) Heme/Onc: Yes: Hemochromatosis - Past Surgical History Past Surgical History: Yes: Cholecystectomy, Laminectomy Additional Surgical History: right wrist surgery, right total hip replacement, recent left hip fracture repair - Alcohol/Substance Use Hx Alcohol Use: Yes Number of Drinks Daily: 2 (glasses of wine daily) History of Substance Use: reports: None - Smoking History Smoking history: Former smoker Have you smoked in the past 12 months: No If you are a former smoker, when did you quit?: 23 YEARS AGO - Social History 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 Place of : [employer] History of Recent Travel: No Home Medications - Allergies Allergies/Adverse Reactions: Allergies Allergy/AdvReac Type Severity Reaction Status Date / Time No Known Drug Allergies Allergy Verified 12/30/16 14:18 - Home Medications Home Medications: Ambulatory Orders Apixaban [Eliquis] 5 mg PO BID #60 tablet 04/22/16 Acetaminophen [Tylenol] 650 mg PO QID 07/20/16 Fluocinonide 0.05% Cream [Lidex 0.05% Cream -] 1 applic BID 07/20/16 Lactobacillus Acidophilus [Bacid -] 1 tab PO DAILY 07/20/16 Magnesium Oxide 400 mg PO BID 07/20/16 Metoprolol Tartrate [Lopressor -] 25 mg PO BID tablet 07/23/16 Polyethylene Glycol 3350 [Miralax 119 gm Btl -] 17 gm PO DAILY bottle 07/23/16 Sennosides/Docusate Sodium [Pericolace -] 2 tablet PO BID tablet 07/23/16 Family Disease History - Family Disease History Family Disease History: Heart Disease: Mother, Other: Brother (arthritis) Other Family History: No family history of liver disease / colon cancer Review of Systems - Review of Systems Constitutional: denies: Fever, Unintentional Wgt. Loss Respiratory: denies: SOB Gastrointestinal: denies: Abdominal Pain, Vomiting Physical Exam-GI Vital Signs: Vital Signs Temperature 97.3 F L 01/06/17 14:00 Pulse Rate 68 01/06/17 14:00 Respiratory Rate 20 01/06/17 14:00 Blood Pressure 106/46 01/06/17 14:00 O2 Sat by Pulse Oximetry (%) 96 01/05/17 22:00 Constitutional: Yes: Calm Eyes: No: Sclera Icterus Cardiovascular: Yes: Regular Rate and Rhythm, Murmur (2/6 systolic murmur) Respiratory: Yes: Diminished (at bases b/l) Gastrointestinal Inspection: Yes: Scars. No: Distention ...Auscultate: Yes: Normoactive Bowel Sounds ...Palpate: Yes: Tenderness (ruq) ...Percussion: No: Tympanitic Edema: No Labs: CBC, BMP 01/06/17 07:45 01/06/17 07:45 INR, PTT INR 1.25 (0.82-1.09) H 12/30/16 13:52 Hepatic Panel Total Bilirubin 1.8 mg/dL (0.2-1.0) H 01/06/17 07:45 AST 27 U/L (15-37) D 01/06/17 07:45 ALT 12 U/L (12-78) 01/06/17 07:45 Alkaline Phosphatase 206 U/L (45-117) H 01/06/17 07:45 Albumin 2.1 g/dl (3.4-5.0) L 01/06/17 07:45 Laboratory Tests 01/04/17 08:30 Tumor Marker AFP 2.1 Imaging - Results Cat Scan: Report Reviewed, Image Reviewed Problem List - Problems (1) Liver lesion, right lobe Assessment/Plan: In setting of suspected cirrhosis with superimposed hemochromatosis and radiographic appearance of lesion, HCC would have to be considered higher in the differential despite normal AFP tumor marker. I explained this to Ms. Donald. I also called Dr. Lazo and discussed this finding with him as well. He will be arranging evaluation with one of the [facility] hepatologists when Ms. Bennett is physically able to follow-up after recovery from her hip fracture. She does have RUQ pain upon palpation with elevated ALP/Bilirubin. Trending her labs, this appears to be a chronic pattern and the hip fracture may be adding to the elevated ALP as well. When able to do so, triple phase MRI of the abodmen with and without contrast with MRCP could be obtained for further evaluation of the liver lesion and her bliary tract. Code(s): K76.89 - OTHER SPECIFIED DISEASES OF LIVER
[2017-01-06] MEDS ORDERED: PT OWN MED DRAWER 7, Y5N ONE (20:33)
[2017-01-06] MEDS ORDERED: oxyCODONE HCL 5 MG TABLET ONE (20:37)
[2017-01-06] MEDS: APIXABAN 5 MG TABLET PO SCH (22:15)
[2017-01-07] MEDS: ACETAMINOPHEN 325 MG TABLET (FP) PO PRN ×3 (01:46→23:42)
[2017-01-07] MEDS: oxyCODONE HCL 5 MG TABLET PO PRN ×4 (01:47→23:43)
[2017-01-07 08:48] LABS: BASOPHIL 2.5 % (0-2.0); EOSINOPHIL 4.4 % (0-4.5); MCH 32.9 pg (25.7-33.7); MEAN CELL VOLUME 99.8 fl (80-96); MEAN PLT VOLUME 7.2 fl (7.5-11.1); NEUTROPHILS 47.5 % (42.8-82.8); PLATELET COUNT 241 K/MM3 (134-434); RDW 16.3 % (11.6-15.6)
[2017-01-07 09:15] LABS: CALCIUM 7.8 mg/dL (8.5-10.1); CREATININE 0.4 mg/dL (0.55-1.02); MAGNESIUM 1.8 mg/dL (1.8-2.4)
[2017-01-07] MEDS: METOPROLOL TARTRATE 25 MG TABLET (FP) PO SCH ×2 (09:58→21:32)
[2017-01-07] MEDS: APIXABAN 5 MG TABLET PO SCH ×2 (09:58→21:33)
[2017-01-07] MEDS: MAGNESIUM OXIDE 400 MG TABLET (FP) PO SCH ×2 (09:58→21:33)
[2017-01-07] MEDS: POLYETHYLENE GLYCOL 3350 119 GM BTL PO SCH (09:58)
[2017-01-07] MEDS: SENNOSIDES/DOCUSATE COMBO (SENNA PLUS) TABLET (UD) PO SCH ×2 (09:58→21:32)
--- NOTE | 2017-01-07 10:15 | PN ---
Progress Note (short form) - Note Progress Note: Renal Follow up for IGOR Pt seen and examined at the bedside no acute complaints tolerating diet no chest pain or sob Vital Signs Temperature 97.3 F L 01/07/17 10:05 Pulse Rate 81 01/07/17 10:05 Respiratory Rate 18 01/07/17 10:05 Blood Pressure 106/62 01/07/17 10:05 O2 Sat by Pulse Oximetry (%) 96 01/05/17 22:00 Intake & Output 01/04/17 01/05/17 01/06/17 01/07/17 22:59 23:59 23:59 23:59 Intake Total 200 Balance 200 Gen: NAD, awake and alert CVS: RRR, No M/R Lungs: CTA, no rales or wheeze Abd: soft NT/ND Ext: No edema, clubbing or cyanosis CBC, BMP 01/07/17 08:00 01/07/17 08:00 Laboratory Tests 12/30/16 01/02/17 01/07/17 13:52 10:34 08:00 Calcium 7.3 L 7.8 L Phosphorus 2.1 L D Magnesium 2.1 1.8 Albumin 3.2 L Current Medications Acetaminophen (Tylenol -) 650 mg PO Q4H PRN PRN Reason: FEVER OR PAIN Last Admin: 01/07/17 01:46 Dose: 650 mg Apixaban (Eliquis -) 5 mg PO BID [facility] Last Admin: 01/07/17 09:58 Dose: 5 mg Magnesium Oxide (Mag-Ox -) 400 mg PO BID [facility] Last Admin: 01/07/17 09:58 Dose: 400 mg Metoprolol Tartrate (Lopressor -) 25 mg PO BID [facility] Last Admin: 01/07/17 09:58 Dose: 25 mg Ondansetron HCl (Zofran Injection) 4 mg IVPB Q6H PRN PRN Reason: NAUSEA Oxycodone HCl (Roxicodone -) 5 mg PO Q4H PRN PRN Reason: PAIN Last Admin: 01/07/17 08:25 Dose: 5 mg Polyethylene Glycol (Miralax (For Daily Use) -) 17 gm PO DAILY [facility] Last Admin: 01/07/17 09:58 Dose: 17 gm Senna/Docusate Sodium (Pericolace -) 2 tablet PO BID [facility] Last Admin: 01/07/17 09:58 Dose: 2 tablet A/P 76 year old woman with PMhx of Hemachromatosis, Afib on A/C who presented with mechancial fall and left hip fracture with IGOR with BUN/cr of 21/1.6 with normal baseline kidney function. #Acute Kidney Injury Renal function stable tolerating oral diet not on IVF #Left Hip Fracture s/p ORIF pain control Physical therapy #Hemangioma on CT Management as per Primary #Hemachromatosis Iron levels acceptable Abhinav Stewart DO
--- NOTE | 2017-01-07 11:09 | PN ---
Progress Note (short form) - Note Progress Note: Patient seen and examined Chart reviewed. Post-op left hip ORIF Gamma nail insertion. Currently sitting up in bed. Awake alert responsive and appropriate. No complaint of pain. Labs and customer experience consultant notes reviewed Issue related to hepatic findings reviewed. Selected Entries 01/07/17 10:05 Temperature 97.3 F L Pulse Rate 81 Respiratory 18 Rate Blood Pressure 106/62 Laboratory Tests 01/07/17 01/07/17 08:00 08:00 WBC 4.0 Hgb 10.3 L Hct 31.1 L Plt Count 241 Sodium 142 Potassium 3.5 D Chloride 101 Carbon Dioxide 35 H BUN 11 Creatinine 0.4 L Random Glucose 126 H D Calcium 7.8 L Magnesium 1.8 Chest Clear Cor Irregular 2/6 systolic murmur Abd Soft Non-tender BS positive Ext SCDs in place Upper extremity edema moreso on the right Trace lower extremity edema Neuro No new focal deficit Assessment and Plan Left hip fracture post ORIF/Gamma nail insertion Continue current post-op course Increase activity as tolerated Atrial fibrillation Rate stable. On A/C with Eliquis Anemia 10.1/30.6>>9.5/28.1>>10.3/31.1 Likely contribution of blood loss. Will avoid Fe due to h/o hemochromatosis Follow H/H IGOR Stable recheck labs BUN/Cr 21/1.6 >> 16/0.4>>10/0.4>>11/0.4 Hemochromatosis Ferrokinetics reviewed Ferritin not increased at 247 Fe 51 with low TIBC (usually a marker of acute/chronic disease c/w extremely low serum albumin) with acceptable range of % saturation (despite the low "denominator" TIBC) Hypomagnesemia On MgOx 1.5 today Liver mass on CT Dr Rizvi's note appreciated Will require close follow-up in light of history and radiologic findings H/O Low back pain Possible h/o compression fractures Currently stable Increase activity as tolerated Transfer to SNF/Rehab
[2017-01-08 05:53] VITALS: BP 105/59; PULSE 81; TEMP 97.5
[2017-01-08] MEDS: ACETAMINOPHEN 325 MG TABLET (FP) PO PRN (06:30)
[2017-01-08] MEDS: oxyCODONE HCL 5 MG TABLET PO PRN ×2 (06:31→11:03)
[2017-01-08 07:38] LABS: CALCIUM 7.4 mg/dL (8.5-10.1); CREATININE 0.4 mg/dL (0.55-1.02)
[2017-01-08] MEDS ORDERED: MELATONIN 5 MG TABLETS PO PRN (08:58)
--- NOTE | 2017-01-08 09:08 | DS ---
Physical Examination Vital Signs: Vital Signs Temperature 97.5 F L 01/08/17 05:52 Pulse Rate 81 01/08/17 05:52 Respiratory Rate 20 01/08/17 05:52 Blood Pressure 105/59 01/08/17 05:52 O2 Sat by Pulse Oximetry (%) 99 01/07/17 21:00 Constitutional: Yes: Calm Cardiovascular: Yes: Pulse Irregular Respiratory: Yes: Diminished. No: Rales Gastrointestinal: Yes: Soft Edema: LLE: 2+, RLE: 1+ (scd's) Wound/Incision: Yes: Dressing Dry and Intact Neurological: Yes: Alert, Oriented Labs: CBC, BMP 01/07/17 08:00 01/08/17 06:25 Discharge Summary Reason For Visit: INTERTRONCHANTERIC FRAT OF LEFT FEMER Current Active Problems Anemia due to blood loss, acute (Acute) Fall (Acute) Hip fracture, left (Acute) Intertrochanteric fracture of left femur (Acute) Liver lesion, right lobe (Acute) Postoperative pain (Acute) acute renal failure Procedures: Principal: Surgery for hip fracture Other Procedures: Followup lab abd renal MD Re: acute renal failure. Hospital Course: Very slow to improve even taking steps with PT due to pain and Hx. right hip Fx in the past. Condition: Improved - Instructions Diet, Activity, Other Instructions: Regular diet ; no added salt. Weekly CBC; HB at 10.3 on discharge Therapy BID as needed. Referrals: Marc Ramon MD [Primary Care Provider] - Alec Cox MD [Staff Physician] - Wilmar Lazo MD [Staff Physician] - Disposition: CUSTODIAL FACILITY - Home Medications Comprehensive Discharge Medication List: Ambulatory Orders Apixaban [Eliquis] 5 mg PO BID #60 tablet 04/22/16 Acetaminophen [Tylenol] 650 mg PO QID 07/20/16 Fluocinonide 0.05% Cream [Lidex 0.05% Cream -] 1 applic BID 07/20/16 Lactobacillus Acidophilus [Bacid -] 1 tab PO DAILY 07/20/16 Magnesium Oxide 400 mg PO BID 07/20/16 Metoprolol Tartrate [Lopressor -] 25 mg PO BID tablet 07/23/16 Polyethylene Glycol 3350 [Miralax 119 gm Btl -] 17 gm PO DAILY bottle 07/23/16 Sennosides/Docusate Sodium [Pericolace -] 2 tablet PO BID tablet 07/23/16 Melatonin 5 mg PO HS PRN #0 cap 01/08/17 Oxycodone HCl [Roxicodone -] 5 mg PO Q4H PRN #0 tablet MDD 4 01/08/17
[2017-01-08] MEDS ORDERED: PT OWN MED DRAWER 7, Y5N ONE (09:30)
[2017-01-08] MEDS: SENNOSIDES/DOCUSATE COMBO (SENNA PLUS) TABLET (UD) PO SCH (09:41)
[2017-01-08] MEDS: APIXABAN 5 MG TABLET PO SCH (09:41)
[2017-01-08] MEDS: POLYETHYLENE GLYCOL 3350 119 GM BTL PO SCH (09:41)
[2017-01-08] MEDS: METOPROLOL TARTRATE 25 MG TABLET (FP) PO SCH (09:41)
[2017-01-08] MEDS: MAGNESIUM OXIDE 400 MG TABLET (FP) PO SCH (09:41)
== END 2017-01-08 11:14 | DRG 481 ==
LOC: JER 13:14 → SUPCPDRO 13:14 → JERBED 18:57 → UNDOADMIN 19:24 → J6S 12-31 00:24
PROVIDERS: ADMIT Internal Medicine; ATTEND Internal Medicine
PROC: 0QS704Z Reposition Left Upper Femur with Internal Fixation Device, Open Approach (ICD-10-PCS; principal; 2016-12-31 15:30)
DX: S72.142A Displaced intertrochanteric fracture of left femur, initial encounter for closed fracture (principal); N17.9 Acute kidney failure, unspecified; D62 Acute posthemorrhagic anemia; W01.0XXA Fall on same level from slipping, tripping and stumbling without subsequent striking against object, initial encounter; Y93.9 Activity, unspecified; Y92.009 Unspecified place in unspecified non-institutional (private) residence as the place of occurrence of the external cause; I48.0 Paroxysmal atrial fibrillation; Z79.01 Long term (current) use of anticoagulants; E83.119 Hemochromatosis, unspecified; Z91.81 History of falling; E83.42 Hypomagnesemia; G89.18 Other acute postprocedural pain; K76.89 Other specified diseases of liver; D18.09 Hemangioma of other sites; M54.5 Low back pain
CPT/HCPCS: 36415; 71010-TC; 73523-TC; 74178-TC; 76000-TC; 76775-TC; 80048; 80053; 81003; 81015; 82105; 82570; 82728; 83540; 83550; 83735; 84100; 84156; 84540; 85025; 85027; 85610; 86850; 86900; 86901; 93005; 93010; 94760; 97116-GP; 97162-PG; 99284-25; Q9967

== ENCOUNTER → 2017-04-09 | Day surgery (SDC) | payer OTHER, MEDICARE ==
[2017-04-09 11:37] LABS: MCH 32.9 pg (25.7-33.7); MCHC 33.5 g/dl (32.0-36.0); MEAN CELL VOLUME 98.2 fl (80-96); MEAN PLT VOLUME 8.2 fl (7.5-11.1); PLATELET COUNT 163 K/MM3 (134-434); RDW 15.1 % (11.6-15.6); WHITE BLOOD COUNT 4.1 K/mm3 (4.0-10.0)
[2017-04-09 11:52] LABS: INR 1.3 (0.82-1.09); PROTHROMBIN TIME (PATIENT) 14.4 SEC (9.98-11.88)
[2017-04-09 13:06] LABS: PLATELET ESTIMATE ADEQUATE (NORMAL)
== END | disposition home or self-care (01) ==
LOC: JRADIR 11:12
PROVIDERS: ATTEND Internal Medicine Hematology & Oncology
PROC: 05PY03Z Removal of Infusion Device from Upper Vein, Open Approach (ICD-10-PCS; principal; 2017-04-09)
DX: Z45.2 Encounter for adjustment and management of vascular access device (principal)
CPT/HCPCS: 36415; 36589; 36590; 77001-TC; 85025; 85610

== ENCOUNTER 2017-04-20 13:10 | Inpatient (IN) | payer OTHER, MEDICARE ==
--- NOTE | 2017-04-20 13:15 | PDOC ---
History of Present Illness - General History Source: Patient, Old Records Exam Limitations: No Limitations - History of Present Illness Initial Comments: 04/20/17 13:20 The patient is a 77-year-old woman with a significant past medical history of atrial fibrillation (Eliquis; reports non compliance with Eliquis for the past 2 days) and hemachromatosis who presents to the emergency department via EMS status post fall. She admits that she had been experiencing increasingly bilateral lower extremity pain and swelling for the past few weeks (left more than right) however, today she woke up, got out of bed, and somehow slipped and fell. She landed on her buttocks. No head injury/loss of consciousness. No symptoms of chest pain, palpitations, headache, visual changes, lightheadedness , dizziness, cough, shortness of breath prior/post fall. She states that her legs "gave up" and she ultimately fell. She denies experiencing any numbness. tingling or weakness sensations throughout her extremities. She notes that she is unable to fully flex her left leg, as this exacerbates her pain. She denies any alleviating factors. Allergies: No Known Drug Allergies Past Surgical History: Cholecystectomy. Right wrist fracture status post surgery. Right hip fracture status post surgery. Social History: Former smoker. EtOH use. No recreational drug use. Primary Care Physician: Dr. Marc Pickard [phone] Orthopedic Surgeon: Dr. Zen Donaldson [phone] <Sierra Metcalf - Last Filed: 04/20/17 17:42> <Keiko Mast - Last Filed: 04/21/17 16:53> - General Chief Complaint: Injury Stated Complaint: FALL Time Seen by Provider: 04/20/17 13:14 Past History <Sierra Metcalf - Last Filed: 04/20/17 17:42> - Past Medical History Anemia: No Asthma: No Cancer: No Cardiac Disorders: Yes (Atrial Fib) CVA: No COPD: No CHF: No Dementia: No Diabetes: No GI Disorders: No Disorders: No HTN: No Hypercholesterolemia: No Liver Disease: Yes (HEMOCHROMATOSIS) Seizures: No Thyroid Disease: No - Surgical History Abdominal Surgery: No Appendectomy: No Cardiac Surgery: No Cholecystectomy: Yes (6 years ago) Lung Surgery: No Neurologic Surgery: (Back surgery March 2016) Orthopedic Surgery: Yes (RIGHT WRIST ORIF 2005) - Immunization History Immunization Up to Date: Yes - Psycho/Social/Smoking Cessation Hx Anxiety: No Suicidal Ideation: No Smoking Status: No (quit 28 years ago) Smoking History: Former smoker Have you smoked in the past 12 months: No If you are a former smoker, when did you quit?: 23 YEARS AGO Hx Alcohol Use: Yes Drug/Substance Use Hx: No Substance Use Type: None Hx Substance Use Treatment: No <Keiko Mast - Last Filed: 04/21/17 16:53> - Past Medical History Allergies/Adverse Reactions: Allergies Allergy/AdvReac Type Severity Reaction Status Date / Time No Known Drug Allergies Allergy Verified 04/20/17 13:38 Home Medications: Ambulatory Orders Apixaban [Eliquis] 5 mg PO BID #60 tablet 04/22/16 Acetaminophen [Tylenol] 650 mg PO QID 07/20/16 Fluocinonide 0.05% Cream [Lidex 0.05% Cream -] 1 applic BID 07/20/16 Lactobacillus Acidophilus [Bacid -] 1 tab PO DAILY 07/20/16 Magnesium Oxide 400 mg PO BID 07/20/16 Metoprolol Tartrate [Lopressor -] 25 mg PO BID tablet 07/23/16 Polyethylene Glycol 3350 [Miralax 119 gm Btl -] 17 gm PO DAILY bottle 07/23/16 Sennosides/Docusate Sodium [Pericolace -] 2 tablet PO BID tablet 07/23/16 Melatonin 5 mg PO HS PRN #0 cap 01/08/17 Oxycodone HCl [Roxicodone -] 5 mg PO Q4H PRN #0 tablet MDD 4 01/08/17 Review of Systems - Review of Systems Able to Perform ROS?: Yes Comments:: 04/20/17 13:25 GENERAL/CONSTITUTIONAL: No fever or chills. No weakness. HEAD, EYES, EARS, NOSE AND THROAT: No change in vision. No ear pain or discharge. No sore throat. CARDIOVASCULAR: No chest pain or shortness of breath. RESPIRATORY: No cough, wheezing, or hemoptysis. GASTROINTESTINAL: No nausea, vomiting, diarrhea or constipation. GENITOURINARY: No dysuria, frequency, or change in urination. MUSCULOSKELETAL: Yes: Left/Right pain and swelling. No neck or back pain. SKIN: No rash NEUROLOGIC: No headache, vertigo, loss of consciousness, or change in strength/ sensation. ENDOCRINE: No increased thirst. No abnormal weight change. HEMATOLOGIC/LYMPHATIC: No anemia, easy bleeding, or history of blood clots. ALLERGIC/IMMUNOLOGIC: No hives or skin allergy. <Sierra Metcalf - Last Filed: 04/20/17 17:42> *Physical Exam - Physical Exam Comments: 04/20/17 13:25 GENERAL: Awake, alert, and fully oriented, in no acute distress HEAD: No signs of trauma EYES: PERRLA, EOMI, sclera anicteric, conjunctiva clear ENT: Auricles normal inspection, hearing grossly normal, nares patent, oropharynx clear without exudates. Moist mucosa NECK: Normal ROM, supple, no lymphadenopathy, JVD, or masses LUNGS: Breath sounds equal, clear to auscultation bilaterally. No wheezes, and no crackles HEART: Irregularly, irregular rate and rhythm. There is a 3/6 systolic murmur. No rubs or gallops ABDOMEN: Soft, nontender, normoactive bowel sounds. No guarding, no rebound. No masses EXTREMITIES: There is bilateral symmetrical pitting edema to the mid calf. There is a small ecchymosis over the left knee. Minimal active range of motion. Passive flexion to 90 degrees. Intact dorsalis pedis pulses, bilaterally. No clubbing or cyanosis. No cords, erythema, or tenderness NEUROLOGICAL: Cranial nerves II through XII grossly intact. Normal speech. <Sierra Metcalf - Last Filed: 04/20/17 17:42> Heart Score/ECG Review #1 ECG reviewed & interpreted by me at: 11:53 Atrial fibrillation with a rate of 103 bpm. No change when compared to prior EKG obtained from 12/30/2016 <Sierra Metcalf - Last Filed: 04/20/17 17:42> ED Treatment Course - LABORATORY CBC & Chemistry Diagram: 04/20/17 13:42 04/20/17 13:42 <Sierra Metcalf - Last Filed: 04/20/17 17:42> - LABORATORY CBC & Chemistry Diagram: 04/21/17 06:35 04/21/17 06:35 <Keiko Mast - Last Filed: 04/21/17 16:53> Medical Decision Making - Medical Decision Making 04/20/17 15:52 Dr. Ramon was called regarding the patient at 3:52pm. They referred the phone call to the hospitalist service for any kind of inquiries. 04/20/17 17:07 MicroBlogged Hospitalist. 04/20/17 17:42 Case discussed with Hospitalist, Dr. Hollis who will accept the patient pending CT scan to rule out hemarthrosis. <Sierra Metcalf - Last Filed: 04/20/17 17:42> - Medical Decision Making 04/20/17 16:13 Pt presents to the ED complaining of L knee pain and swelling after mechanical fall onto her buttocks today. Patient states that her knee has been painful and swollen for the last week, and that she has also been experiencing worsening bilateral pedal edema for the last week. The pedal edema is causing her to have difficulty walking around her appartment. patient is afraid to go back to her apartment because she lives alone and is afraid that she will fall. Xrays are negative for fracture. Labs are negative for evidence of CHF of renal disease. Patient is still in pain after two percoset, and repeadedly requesting that she be kept in the hospital overnight because she is still in pain and feels unsafe in her apartment. Patient is agreeable to placement. I offered to speak with the patient's son to come up with a plan for her to be safely and comfortably discharged, but patient refuses to allow me to speak to him. Given that patient is continuing to request admission, will admit to observation for pain control. Patient also reports that her pedal edema has improved in response to diuretics in the past. SBP is currently only 100--will give lasix if SBP improves. Patient's ability to ambulate may improve if she is able to be diuresed overnight. <Keiko Mast - Last Filed: 04/21/17 16:53> *DC/Admit/Observation/Transfer - Attestations Scribe Attestion: 04/20/17 13:25 Documentation prepared by Sierra Metcalf, acting as medical billing instructor for Keiko Mast MD. <Sierra Metcalf - Last Filed: 04/20/17 17:42> - Discharge Dispostion Admit: Yes <Keiko Mast - Last Filed: 04/21/17 16:53> Diagnosis at time of Disposition: Fall from standing Qualifiers: Encounter type: initial encounter Qualified Code(s): W19.XXXA - Unspecified fall, initial encounter - Discharge Dispostion Condition at time of disposition: Stable - Referrals
[2017-04-20 13:38] VITALS: BMI 24.9
[2017-04-20] MEDS ORDERED: OXYCODONE/APAP 5/325MG COMBO TABLET PO ONE (13:44)
[2017-04-20 14:04] LABS: BASOPHIL 0.5 % (0-2.0); MCH 33.3 pg (25.7-33.7); MCHC 33.5 g/dl (32.0-36.0); MEAN CELL VOLUME 99.3 fl (80-96); MEAN PLT VOLUME 8.2 fl (7.5-11.1); NEUTROPHILS 59.5 % (42.8-82.8); PLATELET COUNT 181 K/MM3 (134-434); RDW 14.7 % (11.6-15.6); WHITE BLOOD COUNT 4.1 K/mm3 (4.0-10.0)
[2017-04-20] MEDS ORDERED: OXYCODONE/APAP 5/325MG COMBO TABLET ONE (14:07)
[2017-04-20 14:57] LABS: ALBUMIN 2.7 g/dl (3.4-5.0); ANION GAP 5 (8-16); CALCIUM 8.2 mg/dL (8.5-10.1); CO2 31 mmol/L (21-32); CREATININE 0.7 mg/dL (0.55-1.02); GLUCOSE,RANDOM 135 mg/dL (74-106); SGOT/AST 26 U/L (15-37); SGPT/ALT 12 U/L (12-78)
[2017-04-20 15:00] LABS: ALK PHOS 228 U/L (45-117); BILIRUBIN,TOTAL 1.9 mg/dL (0.2-1.0); TOT PROT 5.4 g/dl (6.4-8.2)
[2017-04-20 15:18] LABS: ERYTHROCYTE SEDIMENTATION RATE 3 mm/hr (0-30)
[2017-04-20 16:09] LABS: C-REACTIVE PROTEIN 2.5 MG/DL (0.00-0.3)
[2017-04-20] MEDS ORDERED: KETOROLAC TROMETHAMINE 60 MG/2 ML VIAL IM ONE (16:12)
[2017-04-20] MEDS ORDERED: KETOROLAC TROMETHAMINE 30 MG/1 ML VIAL IVPUSH ONE (16:14)
[2017-04-20] MEDS ORDERED: KETOROLAC TROMETHAMINE 60 MG/2 ML VIAL ONE (16:21)
--- NOTE | 2017-04-20 20:21 | PDOC ---
*Physical Exam - Vital Signs Last Vital Signs Temp Pulse Resp BP Pulse Ox 97.6 F 70 20 102/74 04/20/17 13:27 04/20/17 13:27 04/20/17 13:27 04/20/17 13:27 ED Treatment Course - LABORATORY CBC & Chemistry Diagram: 04/20/17 13:42 04/20/17 13:42 - ADDITIONAL ORDERS Additional order review: Laboratory Results 04/20/17 04/20/17 13:42 13:42 Sodium 142 Cancelled Potassium 4.7 Cancelled Chloride 106 Cancelled Carbon Dioxide 31 Cancelled Anion Gap 5 L Cancelled BUN 13 Cancelled Creatinine 0.7 D Cancelled Creat Clearance w eGFR > 60 Cancelled Random Glucose 135 H D Cancelled Calcium 8.2 L Cancelled Total Bilirubin 1.9 H Cancelled AST 26 Cancelled ALT 12 Cancelled Alkaline Phosphatase 228 H Cancelled C-Reactive Protein 2.5 H Cancelled B-Natriuretic Peptide 212.48 Total Protein 5.4 L D Cancelled Albumin 2.7 L D Cancelled 04/20/17 13:42 RBC 4.31 MCV 99.3 H MCHC 33.5 RDW 14.7 MPV 8.2 Neutrophils % 59.5 Lymphocytes % 26.0 Monocytes % 12.0 H D Eosinophils % 2.0 D Basophils % 0.5 - Medications Given in the ED: ED Medications Discontinued Medications Generic Name Dose Route Start Last Admin Trade Name Steveq PRN Reason Stop Dose Admin Ketorolac Tromethamine 60 mg 04/20/17 16:12 04/20/17 16:25 Toradol Injection - IM 04/20/17 16:13 Not Given ONCE ONE Ketorolac Tromethamine 30 mg 04/20/17 16:14 04/20/17 16:25 Toradol Injection - IVPUSH 04/20/17 16:15 30 mg ONCE ONE Administration Oxycodone/Acetaminophen 2 combo 04/20/17 13:44 04/20/17 14:06 Percocet 5/325 - PO 04/20/17 13:45 2 combo ONCE ONE Administration Medical Decision Making - Medical Decision Making 04/20/17 20:18 I received this patient on sign out Briefly, she presented to the ER s.p fall onto buttocks right knee swollen ? effusion pending CT pt to be admitted give inability to ambulate Case reviewed with Dr Kim 04/20/17 20:57 Distal femur fracture Case reviewed with [facility] Cardiology/Medical clearance Possible Surgery on Friday *DC/Admit/Observation/Transfer Diagnosis at time of Disposition: Fall from standing Qualifiers: Encounter type: initial encounter Qualified Code(s): W19.XXXA - Unspecified fall, initial encounter - Discharge Dispostion Condition at time of disposition: Stable Admit: Yes - Referrals - Patient Instructions - Post Discharge Activity
[2017-04-20] MEDS ORDERED: ONDANSETRON 4 MG/2 ML VIAL IVPB PRN (22:31)
--- NOTE | 2017-04-20 22:45 | HP ---
CHIEF COMPLAINT: Bilateral Knee Pain/swelling, s/p Mechanical Fall PCP: Dr. Ramon HISTORY OF PRESENT ILLNESS: This is a 77 y/o woman with a PMHx of: Afib (on Eliquis), Hemachromotosis, Frequent falls. Who presents to the ED s/p mechanical fall at home, with pain/ swelling to bilateral knees L > R. Patient denies LOC. Patient unable to bear weight. Patient reports having frequent falls, and uses a walker. Patient reports the swelling to the right knee started 1 week ago. Patient denies fever , chills, cough, dizziness, CP, palpitations, AP, N/V/D, constipation, dysuria. Patient reports stopping Eliquis 3 days for her Right port removal (for poor peripheral access). 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 Family History: Non-Contributory Allergies No Known Drug Allergies Allergy (Verified 04/20/17 13:38) HOME MEDICATIONS: Home Medications Medication Instructions Recorded Apixaban [Eliquis] 5 mg PO BID #60 tablet 04/22/16 Acetaminophen [Tylenol] 650 mg PO QID 07/20/16 Fluocinonide 0.05% Cream [Lidex 1 applic BID 07/20/16 0.05% Cream -] Lactobacillus Acidophilus [Bacid -] 1 tab PO DAILY 07/20/16 Magnesium Oxide 400 mg PO BID 07/20/16 Metoprolol Tartrate [Lopressor -] 25 mg PO BID tablet 07/23/16 Polyethylene Glycol 3350 [Miralax 17 gm PO DAILY bottle 07/23/16 119 gm Btl -] Sennosides/Docusate Sodium 2 tablet PO BID tablet 07/23/16 [Pericolace -] Melatonin 5 mg PO HS PRN #0 cap 01/08/17 Oxycodone HCl [Roxicodone -] 5 mg PO Q4H PRN #0 tablet MDD 4 01/08/17 REVIEW OF SYSTEMS CONSTITUTIONAL: Absent: fever, chills, diaphoresis, generalized weakness, malaise, loss of appetite, weight change HEENT: Absent: rhinorrhea, nasal congestion, throat pain, throat swelling, difficulty swallowing, mouth swelling, ear pain, eye pain, visual changes CARDIOVASCULAR: peripheral edema Absent: chest pain, syncope, palpitations, irregular heart rate, lightheadedness RESPIRATORY: Absent: cough, shortness of breath, dyspnea with exertion, orthopnea, wheezing, stridor, hemoptysis GASTROINTESTINAL: Absent: abdominal pain, abdominal distension, nausea, vomiting, diarrhea, constipation, melena, hematochezia GENITOURINARY: Absent: dysuria, frequency, urgency, hesitancy, hematuria, flank pain, genital pain MUSCULOSKELETAL: joint swelling Absent: myalgia, arthralgia, back pain, neck pain SKIN: Absent: rash, itching, pallor HEMATOLOGIC/IMMUNOLOGIC: Absent: easy bleeding, easy bruising, lymphadenopathy, frequent infections ENDOCRINE: Absent: unexplained weight gain, unexplained weight loss, heat intolerance, cold intolerance NEUROLOGIC: unsteady gait Absent: headache, focal weakness or paresthesias, dizziness, seizure, mental status changes, bladder or bowel incontinence PSYCHIATRIC: Absent: anxiety, depression, suicidal or homicidal ideation, hallucinations. PHYSICAL EXAMINATION Vital Signs - 24 hr 04/20/17 21:15 Temperature 98.0 F Pulse Rate [ 77 Right] Respiratory 18 Rate Blood Pressure 112/68 [Right Arm] O2 Sat by Pulse 96 Oximetry (%) GENERAL: Awake, alert, and fully oriented, in no acute distress. HEAD: Normocephalic, johnnie x6 to mid-parietal, dried blood to hair. EYES: Pupils equal, round and reactive to light, extraocular movements intact, sclera anicteric, conjunctiva clear. No lid lag. EARS, NOSE, THROAT: Ears normal, nares patent, oropharynx clear without exudates. Dry mucous membranes. NECK: Normal range of motion, supple without lymphadenopathy, JVD, or masses. LUNGS: Breath sounds equal, clear to auscultation bilaterally. No wheezes, and no crackles. No accessory muscle use. HEART: Irregular rate and rhythm, normal S1 and S2 without murmur, rub or gallop. ABDOMEN: Soft, nontender, not distended, normoactive bowel sounds, no guarding, no rebound, no masses. No hepatomegaly or splenomegaly. MUSCULOSKELETAL: Normal range of motion at RUE, RLE, LUE joints. No bony deformities. No CVA tenderness. + bilateral knee tenderness to palpation. LROM LLE UPPER EXTREMITIES: 2+ pulses, warm, well-perfused. No cyanosis. No clubbing. No peripheral edema. LOWER EXTREMITIES: 2+ pulses, warm, well-perfused. No calf tenderness.+2 pitting bilaterally peripheral edema bilaterally below knee to feet NEUROLOGICAL: Cranial nerves II-XII intact. Normal speech. Gait not observed. PSYCHIATRIC: Cooperative. Good eye contact. Appropriate mood and affect. SKIN: Warm, dry, normal turgor, no rashes or lesions noted, normal capillary refill. Laboratory Results - last 24 hr 04/20/17 04/20/17 04/20/17 13:42 13:42 13:42 WBC 4.1 RBC 4.31 Hgb 14.3 Hct 42.8 MCV 99.3 H MCHC 33.5 RDW 14.7 Plt Count 181 MPV 8.2 Neutrophils % 59.5 Lymphocytes % 26.0 Monocytes % 12.0 H D Eosinophils % 2.0 D Basophils % 0.5 ESR 3 Sodium Cancelled 142 Potassium Cancelled 4.7 Chloride Cancelled 106 Carbon Dioxide Cancelled 31 Anion Gap Cancelled 5 L BUN Cancelled 13 Creatinine Cancelled 0.7 D Creat Clearance w eGFR Cancelled > 60 Random Glucose Cancelled 135 H D Calcium Cancelled 8.2 L Total Bilirubin Cancelled 1.9 H AST Cancelled 26 ALT Cancelled 12 Alkaline Phosphatase Cancelled 228 H C-Reactive Protein Cancelled 2.5 H B-Natriuretic Peptide 212.48 Total Protein Cancelled 5.4 L D Albumin Cancelled 2.7 L D ASSESSMENT/PLAN: This is a 77 y/o female with a pMHx of: Afib (on Eliquis), Hemachromotosis. Admitted for Left Distal Femur Fractures, Right Knee Joint Effusion for further evaluation of their emergent condition. Plan: 1. Left Distal Femur Fracture - s/p mechanical fall - Admit M/S - Appreciate Ortho Consult - CT Bilateral knees-reviewed - Bedrest - Immobilization - Pulse checks - Morphine prn - Monitor CBC, BMP - Pre-op bloods drawn - NPO after midnight, until seen by ortho 2. Right Joint Effusion - see above 3. Afib - Now rate control - Hold Eliquis for now, pending ortho evaluation 2/2 Fx, Joint Effusion - EKG reviewed - [id number] Score 3 - Appreciate Cardiology Consult- surgical clearance 4. Hemachromotosis - stable 5. FEN - D51/2NS 42ml/hr - Replete lytes prn - NPO until cleared by ortho 6. DVT prophylaxis - SCDs - Hold Eliquis for now, 2/2 possible procedure/surgery Code Status: Full Code Problem List - Problem (1) Joint effusion of knee Code(s): M25.469 - EFFUSION, UNSPECIFIED KNEE (2) Fall from standing Code(s): W19.XXXA - UNSPECIFIED FALL, INITIAL ENCOUNTER Qualifiers: Encounter type: initial encounter Qualified Code(s): W19.XXXA - Unspecified fall, initial encounter (3) Atrial fibrillation Code(s): I48.91 - UNSPECIFIED ATRIAL FIBRILLATION (4) Bilateral knee pain Code(s): M25.561 - PAIN IN RIGHT KNEE M25.562 - PAIN IN LEFT KNEE (5) Hemochromatosis Code(s): E83.119 - HEMOCHROMATOSIS, UNSPECIFIED Visit type - Emergency Visit Emergency Visit: Yes ED Registration Date: 04/20/17 Care time: The patient presented to the Emergency Department on the above date and was hospitalized for further evaluation of their emergent condition. - New Patient This patient is new to me today: Yes Date on this admission: 04/20/17 - Critical Care Critical Care patient: No
[2017-04-21] MEDS: MAGNESIUM OXIDE 400 MG TABLET (FP) PO SCH ×4 (01:19→22:17)
[2017-04-21] MEDS: METOPROLOL TARTRATE 25 MG TABLET (FP) PO SCH ×3 (01:19→10:32)
[2017-04-21] MEDS ORDERED: DEXTROSE 5%-0.45% SALINE 1,000 ML IV SCH (05:45)
[2017-04-21] MEDS: morphine CARPU-JECT 2 MG/1 ML DISP.SYRIN IVPUSH PRN ×2 (07:19→18:40)
[2017-04-21 07:25] LABS: EOSINOPHIL 3.9 % (0-4.5); MCHC 33.4 g/dl (32.0-36.0); MEAN CELL VOLUME 98.8 fl (80-96); NEUTROPHILS 50.9 % (42.8-82.8); PLATELET COUNT 172 K/MM3 (134-434); RDW 14.7 % (11.6-15.6)
[2017-04-21 07:57] LABS: INR 1.3 (0.82-1.09); PROTHROMBIN TIME (PATIENT) 14.4 SEC (9.98-11.88)
[2017-04-21 07:59] LABS: GLUCOSE,RANDOM 96 mg/dL (74-106)
[2017-04-21 08:06] LABS: ANION GAP 4 (8-16); CALCIUM 8.3 mg/dL (8.5-10.1); CO2 33 mmol/L (21-32); CREATININE 0.6 mg/dL (0.55-1.02)
--- NOTE | 2017-04-21 09:10 | CON.ORTH ---
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 History of Recent Travel: No Home Medications - Allergies Allergies/Adverse Reactions: Allergies Allergy/AdvReac Type Severity Reaction Status Date / Time No Known Drug Allergies Allergy Verified 04/20/17 13:38 - Home Medications Home Medications: Ambulatory Orders Apixaban [Eliquis] 5 mg PO BID #60 tablet 04/22/16 Acetaminophen [Tylenol] 650 mg PO QID 07/20/16 Fluocinonide 0.05% Cream [Lidex 0.05% Cream -] 1 applic BID 07/20/16 Lactobacillus Acidophilus [Bacid -] 1 tab PO DAILY 07/20/16 Magnesium Oxide 400 mg PO BID 07/20/16 Metoprolol Tartrate [Lopressor -] 25 mg PO BID tablet 07/23/16 Polyethylene Glycol 3350 [Miralax 119 gm Btl -] 17 gm PO DAILY bottle 07/23/16 Sennosides/Docusate Sodium [Pericolace -] 2 tablet PO BID tablet 07/23/16 Melatonin 5 mg PO HS PRN #0 cap 01/08/17 Oxycodone HCl [Roxicodone -] 5 mg PO Q4H PRN #0 tablet MDD 4 01/08/17 Family Disease History - Family Disease History Family Disease History: Heart Disease: Mother, Other: Brother (arthritis) Physical Exam for Ortho Vital Signs: Vital Signs Temperature 98.0 F 04/20/17 21:15 Pulse Rate 77 04/20/17 21:15 Respiratory Rate 18 04/20/17 21:15 Blood Pressure 112/68 04/20/17 21:15 O2 Sat by Pulse Oximetry (%) 96 04/20/17 21:15 Labs: CBC, BMP 04/21/17 06:35 04/21/17 06:35 INR, PTT INR 1.30 (0.82-1.09) H 04/21/17 06:35 - Lower Extremity Knee: Yes: Left, Assymetrical, Limited ROM, Pain, Swelling, Tenderness, Other ( nvi) Imaging - Results X-ray: Report Reviewed, Image Reviewed Cat Scan: Report Reviewed, Image Reviewed Assessment/Plan 77 y/o woman with a PMHx of: Afib (on Eliquis), Hemachromotosis, Frequent falls. Who presents to the ED s/p mechanical fall at home, with pain/swelling to bilateral knees L > R. Patient denies LOC. Patient unable to bear weight. Patient reports having frequent falls, and uses a walker. Patient reports the swelling to the right knee started 1 week ago. Patient denies fever, chills, cough, dizziness, CP, palpitations, AP, N/V/D, constipation, dysuria. a/p- left non-displaced intraarticular distal femur fx- ? lytic lesion distal femur Risks and benefits were d/w pt in detail will treat conservatively with knee immobilizer NWB LLE MRI to evaluate lesion in distal femur dvt ppx pain control d/w Dr. Donaldson
--- NOTE | 2017-04-21 09:39 | PN ---
Progress Note, Physician Chief Complaint: Pain in left knee. History of Present Illness: Patient slipped to floor at home while using her walker and CT report demonstrates left distal Fracture and hemarthrosis left knee. She is on Eliquis for A. Fib and has a history of bilateral hip fractures and Hemachromatosis treated by Hematology MD. Seen By GINSENG FARMER and plan is conservative. - Current Medication List Current Medications: Active Medications Furosemide (Lasix Injection -) 40 mg IVPUSH DAILY [facility] Dextrose/Sodium Chloride (D5-1/2ns -) 1,000 mls @ 42 mls/hr IV ASDIR [facility] Last Admin: 04/21/17 07:14 Dose: 42 mls/hr Magnesium Oxide (Mag-Ox -) 400 mg PO BID [facility] Last Admin: 04/21/17 01:23 Dose: Not Given Melatonin (Melatonin) 5 mg PO HS PRN PRN Reason: INSOMNIA Metoprolol Tartrate (Lopressor -) 25 mg PO BID [facility] Last Admin: 04/21/17 01:23 Dose: Not Given Morphine Sulfate (Morphine Injection -) 2 mg IVPUSH Q6H PRN PRN Reason: PAIN Last Admin: 04/21/17 07:19 Dose: 2 mg Ondansetron HCl (Zofran Injection) 4 mg IVPB Q6H PRN PRN Reason: NAUSEA - Objective Vital Signs: Vital Signs Temperature 98.0 F 04/20/17 21:15 Pulse Rate 77 04/20/17 21:15 Respiratory Rate 18 04/20/17 21:15 Blood Pressure 112/68 04/20/17 21:15 O2 Sat by Pulse Oximetry (%) 96 04/20/17 21:15 Constitutional: Yes: Calm Eyes: Yes: Conjunctiva Clear Cardiovascular: Yes: Pulse Irregular Respiratory: Yes: Diminished, Rhonchi (rare rhonchi at bases) Gastrointestinal: Yes: Normal Bowel Sounds, Soft. No: Tenderness Genitourinary: No: Siegel Present Musculoskeletal: Yes: Joint Swelling (L>R) Extremities: Yes: Other (left with immobilizer in place.) Edema: LLE: 3+, RLE: 2+ Integumentary: Yes: Other (? lesion left neck) Neurological: Yes: Alert, Oriented Labs: CBC, BMP 04/21/17 06:35 04/21/17 06:35 INR, PTT INR 1.30 (0.82-1.09) H 04/21/17 06:35 - ....Imaging Chest X-ray: Report Reviewed Cat Scan: Report Reviewed Problem List - Problems (1) Fall from standing Assessment/Plan: Slipped at home while using walker. Knees "gave out" Code(s): W19.XXXA - UNSPECIFIED FALL, INITIAL ENCOUNTER Qualifiers: Encounter type: initial encounter Qualified Code(s): W19.XXXA - Unspecified fall, initial encounter (2) Joint effusion of knee Assessment/Plan: Hemarthrosis on Eliquis Code(s): M25.469 - EFFUSION, UNSPECIFIED KNEE (3) Atrial fibrillation Assessment/Plan: On NOAC Code(s): I48.91 - UNSPECIFIED ATRIAL FIBRILLATION (4) Hemochromatosis Assessment/Plan: Followed by Hematology Dr. Lazo Code(s): E83.119 - HEMOCHROMATOSIS, UNSPECIFIED (5) Femur fracture, left Assessment/Plan: Documented on CT Scan Seen by Orthopedic GINSENG FARMER Code(s): S72.92XA - UNSP FRACTURE OF LEFT FEMUR, INIT ENCNTR FOR CLOSED FRACTURE (6) Lytic bone lesion of left femur Assessment/Plan: Will need MRI. Code(s): M89.8X5 - OTHER SPECIFIED DISORDERS OF BONE, THIGH
[2017-04-21] MEDS: FUROSEMIDE 40 MG/4 ML INJECTABLE VIAL IVPUSH SCH (10:34)
--- NOTE | 2017-04-21 10:50 | CON.CARD ---
Consult Consult Specialty:: CARDIO Referred by:: val Reason for Consultation:: afib, preop - History of Present Illness Chief Complaint: knee pain History of Present Illness: 77 yo female with h/o repeated falls, uses walker at home, here with mechanical fall and knee pain. dx'd with left non-displaced intraarticular distal femur fx- ? lytic lesion distal femur being evaluated by ortho, plan conservative mgmt at present with MRI to better evaluate ? lytic lesion pt describes 3 falls since 10/27/16, incl the latest--all due to knees buckle and give way. always uses walker at home, when falls she says it's a gradual slumping down, never out of control violent impact, never hit head. never presyncope or syncope denies palpitations, sob, cp legs swell occasionally, ? if presently moreso than usual or not--she thinks it is, since the last fall PMH: PAF, with rapid HR tendencies mitral regurg moderate) hemachromatosis - Past Medical History Cardio/Vascular: Yes: AFIB Pulmonary: Yes: Other (Right sided pleural effusion) - Past Surgical History Past Surgical History: Yes: Cholecystectomy, Laminectomy - Alcohol/Substance Use Hx Alcohol Use: Yes Number of Drinks Daily: 2 (glasses of wine daily) History of Substance Use: reports: None - Smoking History Smoking history: Former smoker Have you smoked in the past 12 months: No If you are a former smoker, when did you quit?: 23 YEARS AGO - Social History 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 (home 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 History of Recent Travel: No Home Medications - Allergies Allergies/Adverse Reactions: Allergies Allergy/AdvReac Type Severity Reaction Status Date / Time No Known Drug Allergies Allergy Verified 04/20/17 13:38 - Home Medications Home Medications: Ambulatory Orders Apixaban [Eliquis] 5 mg PO BID #60 tablet 04/22/16 Acetaminophen [Tylenol] 650 mg PO QID 07/20/16 Fluocinonide 0.05% Cream [Lidex 0.05% Cream -] 1 applic BID 07/20/16 Lactobacillus Acidophilus [Bacid -] 1 tab PO DAILY 07/20/16 Magnesium Oxide 400 mg PO BID 07/20/16 Metoprolol Tartrate [Lopressor -] 25 mg PO BID tablet 07/23/16 Polyethylene Glycol 3350 [Miralax 119 gm Btl -] 17 gm PO DAILY bottle 07/23/16 Sennosides/Docusate Sodium [Pericolace -] 2 tablet PO BID tablet 07/23/16 Melatonin 5 mg PO HS PRN #0 cap 01/08/17 Oxycodone HCl [Roxicodone -] 5 mg PO Q4H PRN #0 tablet MDD 4 01/08/17 Family Disease History - Family Disease History Family Disease History: Heart Disease: Mother, Other: Brother (arthritis) Review of Systems - Review of Systems Constitutional: denies: Chills, Fever Eyes: denies: Eye Pain HENT: denies: Nasal Congestion Neck: denies: Stiffness Cardiovascular: denies: Palpitations Respiratory: denies: Orthopnea, PND Gastrointestinal: denies: Diarrhea, Rectal Bleeding Genitourinary: denies: Burning, Hematuria Musculoskeletal: denies: Muscle Pain Integumentary: denies: Rash Neurological: denies: Numbness, Seizure, Syncope Endocrine: denies: Excessive Sweating Hematology/Lymphatic: denies: Excessive Bleeding Vital Signs: Vital Signs Temperature 98.0 F 04/20/17 21:15 Pulse Rate 77 04/20/17 21:15 Respiratory Rate 18 04/20/17 21:15 Blood Pressure 112/68 04/20/17 21:15 O2 Sat by Pulse Oximetry (%) 96 04/20/17 21:15 Constitutional: Yes: Well Nourished, No Distress Eyes: No: Sclera Icterus HENT: No: Nasal Congestion Neck: No: Decreased ROM Respiratory: Yes: CTA Bilaterally. No: Accessory Muscle Use, Rales, Wheezes Gastrointestinal: Yes: Normal Bowel Sounds. No: Distention, Hepatomegaly, Palpable Mass, Tenderness Cardiovascular: Yes: Pulse Irregular JVD: No Carotid Bruit: No PMI: Non-Displaced Heart Sounds: Yes: S1, S2. No: Gallop Murmur: Yes: Systolic Murmur (soft, brief systolic murmur L apex/LLSB). No: Diastolic Murmur Musculoskeletal: Yes: Other (No kyphosis) Extremities: No: Cold, Cyanosis Edema: Yes (1-2+ pretib bilat) Peripheral Pulses: 2+ Left Carotid, 2+ Right Carotid, 2+ Left Doralis Pedis, 2+ Right Dorsalis Pedis Integumentary: No: Jaundice Neurological: Yes: Alert, Oriented (x3) Psychiatric: No: Agitated - Other Data Labs, Other Data: CBC, BMP 04/21/17 06:35 04/21/17 06:35 INR, PTT INR 1.30 (0.82-1.09) H 04/21/17 06:35 Imaging - Results Chest X-ray: Report Reviewed (no signs chf) Assessment/Plan Echo 04/11: Nl LV/RV. Moderate mitral regurgitation. MIBI 09/10 (barbara): no STs; no isch; nl EF (no LVE/TID) afib: - poor office f/u--last seen 05/11 after 04/11 hosp admit for kyphoplasty surgery with rapid AF (HRs 120s on metopr 50 qd from home, rate controlled with diltiazem 180 qd but had HRs dip to 30s while asleep--meds held--again rapid to 120s--metopr resumed but dose incr'd to 50 bid) - 05/11 o.v. was in AF with controlled HR--metopr 50 bid continued -here she is in AF with controlled HRs, cont home regimen - CHADS VASC = 3; she previously was noncompliant with eliquis 5mg bid, but was complying as of last o.v. with me - had had repeated falls including presently, with poor office f/u - currently with distal femur fracture - rec hold eliquis until surgical plan is definitively ruled out--at that time would resume eliquis and have PT re-evaluate her gait/falls risk--given her description of legs gradually giving out, and her prior falls history, she does not seem to be someone who violently falls and is hi risk for head trauma (uses walker all the time). hence, risk of fall with ICH seems to be < 3%/year cva risk - i d/w'd [place] option of [place] appendage device closure (Watchman) but she declines, and verbalizes she prefers to accept risk of falling and remain on AC Mitral regurgitation - MR only moderate on office study read by dr carrillo, as well as when he reviewed prior hosp echo images reported then as "moderate to severe" - no h/o signs or symptoms of chf, barely audible murmur - routine outpt office f/u with echo (d/w'd pt who states she agrees to schedule appt with me) LE edema: -chronic, suspect venous ins'y hx -worse of late, ? sec to trauma to bilat knees -no clinical chf, cxr clear hemochromatosis - no h/o cardiac involvement, no chf preop CV eval: -RCRI = 0, decr'd functional status -afib well controlled, no h/o severe valvular dz, no clinical findings of chf -for low risk of periop cv complications, if ortho surgery required--no further testing indicated
[2017-04-21] MEDS: METOPROLOL SUCCINATE 50 MG TAB.SR.24H (FP) PO SCH (22:15)
[2017-04-21] MEDS: MELATONIN 5 MG TABLETS PO PRN (22:17)
[2017-04-21] MEDS ORDERED: SODIUM CHLORIDE 500 ML IV ONE (23:15)
[2017-04-22] MEDS: DEXTROSE 5%-0.45% SALINE 1,000 ML IV SCH ×2 (04:35→05:42)
[2017-04-22] MEDS: morphine CARPU-JECT 2 MG/1 ML DISP.SYRIN IVPUSH PRN ×3 (04:36→22:30)
[2017-04-22 07:50] LABS: BASOPHIL 1.2 % (0-2.0); EOSINOPHIL 3.1 % (0-4.5); MCH 33.1 pg (25.7-33.7); MCHC 33.3 g/dl (32.0-36.0); MEAN CELL VOLUME 99.5 fl (80-96); MEAN PLT VOLUME 8.5 fl (7.5-11.1); NEUTROPHILS 52.3 % (42.8-82.8); PLATELET COUNT 177 K/MM3 (134-434); RDW 14.4 % (11.6-15.6); WHITE BLOOD COUNT 4.9 K/mm3 (4.0-10.0)
[2017-04-22 08:12] LABS: ANION GAP 5 (8-16); CALCIUM 7.4 mg/dL (8.5-10.1); CO2 33 mmol/L (21-32); CREATININE 0.6 mg/dL (0.55-1.02); GLUCOSE,RANDOM 207 mg/dL (74-106)
[2017-04-22] MEDS: MAGNESIUM OXIDE 400 MG TABLET (FP) PO SCH ×2 (10:26→22:25)
[2017-04-22] MEDS: METOPROLOL SUCCINATE 50 MG TAB.SR.24H (FP) PO SCH (10:26)
[2017-04-22] MEDS: FUROSEMIDE 40 MG/4 ML INJECTABLE VIAL IVPUSH SCH (10:26)
[2017-04-22] MEDS ORDERED: DEXTROSE 5%-0.45% SALINE 1,000 ML IV SCH (11:00)
--- NOTE | 2017-04-22 12:04 | PN ---
Progress Note, Physician Chief Complaint: Leg pain at site of distal tibia fracture improved but she wants to get OOB. History of Present Illness: Patient with a history of multiple falls and bilateral hip fractures slipped while walking with walker in her home and sustained a fracture of distal tibia. Orthopedic CONCRETE PRECAST MOULDER Rec: Immobilizer but if no surgery is to be done I will restart Eliquis and get the recommendation for PT ? with no weight bearing on left side. BP is trending lower so I D/Sonido Lasix and asked Cardiology to lower dose of Metoprolol ER to 25mg BID and he agreed. BUN and Hb stable. - Current Medication List Current Medications: Active Medications Dextrose/Sodium Chloride (D5-1/2ns -) 1,000 mls @ 42 mls/hr IV ASDIR NELSON Magnesium Oxide (Mag-Ox -) 400 mg PO BID [facility] Last Admin: 04/22/17 10:26 Dose: 400 mg Melatonin (Melatonin) 5 mg PO HS PRN PRN Reason: INSOMNIA Last Admin: 04/21/17 22:17 Dose: 5 mg Metoprolol Succinate (Toprol Xl -) 50 mg PO BID [facility] Last Admin: 04/22/17 10:26 Dose: Not Given Morphine Sulfate (Morphine Injection -) 2 mg IVPUSH Q6H PRN PRN Reason: PAIN Last Admin: 04/22/17 04:36 Dose: 2 mg Ondansetron HCl (Zofran Injection) 4 mg IVPB Q6H PRN PRN Reason: NAUSEA - Objective Vital Signs: Vital Signs Temperature 98 F 04/22/17 02:20 Pulse Rate 77 04/22/17 02:20 Respiratory Rate 18 04/22/17 02:20 Blood Pressure 93/50 04/22/17 02:20 O2 Sat by Pulse Oximetry (%) 96 04/21/17 21:00 Constitutional: Yes: Calm Eyes: Yes: Conjunctiva Clear Cardiovascular: Yes: Pulse Irregular Respiratory: Yes: Diminished. No: Rales Gastrointestinal: Yes: Soft. No: Tenderness Genitourinary: No: Siegel Present Musculoskeletal: Yes: Other (immobolizer over leg leg with swelling left knee from collection of blood.) Edema: LLE: 3+, RLE: 2+ Neurological: Yes: Alert, Oriented Labs: CBC, BMP 04/22/17 07:00 04/22/17 07:00 INR, PTT INR 1.30 (0.82-1.09) H 04/21/17 06:35 - ....Imaging Chest X-ray: Report Reviewed Cat Scan: Report Reviewed Problem List - Problems (1) Fall from standing Assessment/Plan: mechanical fall at home. Code(s): W19.XXXA - UNSPECIFIED FALL, INITIAL ENCOUNTER Qualifiers: Encounter type: initial encounter Qualified Code(s): W19.XXXA - Unspecified fall, initial encounter (2) Joint effusion of knee Assessment/Plan: Probably bloody effusion since she was on Eliquis. Await Orthopedic F/U. Code(s): M25.469 - EFFUSION, UNSPECIFIED KNEE (3) Atrial fibrillation Assessment/Plan: On Eliquis which I will resume today if Ortho confirms no surgical Rx is contemplated. Code(s): I48.91 - UNSPECIFIED ATRIAL FIBRILLATION (4) Hemochromatosis Assessment/Plan: Hemoglobin stable and not elevated. Code(s): E83.119 - HEMOCHROMATOSIS, UNSPECIFIED (5) Femur fracture, left Assessment/Plan: Immobilizer in place. Code(s): S72.92XA - UNSP FRACTURE OF LEFT FEMUR, INIT ENCNTR FOR CLOSED FRACTURE Qualifiers: Encounter type: subsequent encounter Femur location: distal Fracture type: closed (6) Lytic bone lesion of left femur Assessment/Plan: MRI ordered. Code(s): M89.8X5 - OTHER SPECIFIED DISORDERS OF BONE, THIGH
[2017-04-22] MEDS: APIXABAN 5 MG TABLET PO SCH ×2 (14:48→22:25)
--- NOTE | 2017-04-22 16:00 | PN ---
Progress Note (short form) - Note Progress Note: Pt seen and examined. She is feeling ok, not much left knee pain while lying in bed. In knee immobilizer. She did P.T. today. CT scan LLE - confirms nondisplaced fractures around the left knee, and a 2cm lytic lesion in the distal femur adjacent to the joint. LLE grossly NVI Mod swelling left knee Overall doing fine. She should con't with P.T., as non weight bearing as possible on her LLE. No surgery needed at this time.
[2017-04-22] MEDS: CALCIUM (OYSTER SHELL) 500 MG TABLET (FP) PO SCH (22:26)
[2017-04-22] MEDS: MELATONIN 5 MG TABLETS PO PRN (22:29)
[2017-04-22] MEDS: METOPROLOL SUCCINATE 25 MG TAB.SR.24H (FP) PO SCH (22:29)
[2017-04-23] MEDS: morphine CARPU-JECT 2 MG/1 ML DISP.SYRIN IVPUSH PRN ×5 (01:50→18:34)
[2017-04-23 07:19] LABS: MCH 33.7 pg (25.7-33.7); MCHC 33.9 g/dl (32.0-36.0); MEAN CELL VOLUME 99.6 fl (80-96); MEAN PLT VOLUME 8.5 fl (7.5-11.1); PLATELET COUNT 198 K/MM3 (134-434); RDW 14.4 % (11.6-15.6); WHITE BLOOD COUNT 4.5 K/mm3 (4.0-10.0)
[2017-04-23 07:50] LABS: ALBUMIN 2.3 g/dl (3.4-5.0); ANION GAP 4 (8-16); CO2 35 mmol/L (21-32); CREATININE 0.5 mg/dL (0.55-1.02); GLUCOSE,RANDOM 111 mg/dL (74-106); MAGNESIUM 1.6 mg/dL (1.8-2.4); SGOT/AST 20 U/L (15-37); SGPT/ALT 10 U/L (12-78)
[2017-04-23 07:51] LABS: ALK PHOS 219 U/L (45-117); TOT PROT 4.9 g/dl (6.4-8.2)
[2017-04-23 08:15] LABS: PLATELET ESTIMATE ADEQUATE (NORMAL)
--- NOTE | 2017-04-23 08:41 | PN ---
Progress Note, Physician Chief Complaint: Patient pleased that she could at least stand with PT yesterday + walker and no weight bearing left side. History of Present Illness: Patient with multiple falls and new left distal femur fracture and history of bilateral hip Fx's with surgical Rx is improving with less pain and had PT for the first time yesterday. Eating well. There is still an issue of a ? lytic lesion on her distal left femur and on reviewing her 04/12 admission there was a liver lesion ?Hemangioma that needs a repeat. MRI distal femur already ordered and I will add CAT Abdomen with attention liver. Mag slightly low; on oral Rx but I will add IV 1Gm dose today. Liver enzymes elevated; Hx of Hemochromatosis. - Current Medication List Current Medications: Active Medications Apixaban (Eliquis -) 5 mg PO BID [facility] Last Admin: 04/22/17 22:25 Dose: 5 mg Calcium Carbonate (Os-Durga 500mg -) 500 mg PO BID [facility] Last Admin: 04/22/17 22:26 Dose: 500 mg Magnesium Oxide (Mag-Ox -) 400 mg PO BID [facility] Last Admin: 04/22/17 22:25 Dose: 400 mg Magnesium Sulfate (Magnesium Sulfate) 1 gm IVPB ONCE ONE Stop: 04/23/17 08:33 Melatonin (Melatonin) 5 mg PO HS PRN PRN Reason: INSOMNIA Last Admin: 04/22/17 22:29 Dose: 5 mg Metoprolol Succinate (Toprol Xl -) 25 mg PO BID [facility] Last Admin: 04/22/17 22:29 Dose: Not Given Morphine Sulfate (Morphine Injection -) 2 mg IVPUSH Q3H PRN PRN Reason: PAIN Last Admin: 04/23/17 06:38 Dose: 2 mg Ondansetron HCl (Zofran Injection) 4 mg IVPB Q6H PRN PRN Reason: NAUSEA - Objective Vital Signs: Vital Signs Temperature 97.7 F 04/23/17 05:00 Pulse Rate 75 04/23/17 05:00 Respiratory Rate 18 04/23/17 05:00 Blood Pressure 100/55 04/23/17 05:00 O2 Sat by Pulse Oximetry (%) 96 04/22/17 21:00 Constitutional: Yes: Calm Eyes: Yes: Conjunctiva Clear Cardiovascular: Yes: Pulse Irregular Respiratory: Yes: Diminished Gastrointestinal: Yes: Soft. No: Distention Genitourinary: No: Siegel Present Breast(s): Yes: Other (tender right lateral but no mass palpated) Musculoskeletal: Yes: Joint Stiffness, Joint Swelling (left ankle) Extremities: Yes: Other (immobilizer left leg.) Edema: LLE: 2+, RLE: 1+ Neurological: Yes: Alert, Oriented Labs: CBC, BMP 04/23/17 06:20 04/23/17 06:20 INR, PTT INR 1.30 (0.82-1.09) H 04/21/17 06:35 Problem List - Problems (1) Fall from standing Assessment/Plan: Mechanical at home. Code(s): W19.XXXA - UNSPECIFIED FALL, INITIAL ENCOUNTER Qualifiers: Encounter type: initial encounter Qualified Code(s): W19.XXXA - Unspecified fall, initial encounter (2) Joint effusion of knee Assessment/Plan: Hemarthrosis as she is on Eliquis. Code(s): M25.469 - EFFUSION, UNSPECIFIED KNEE (3) Atrial fibrillation Assessment/Plan: On Eliquis and followed by Cardiology Code(s): I48.91 - UNSPECIFIED ATRIAL FIBRILLATION (4) Hemochromatosis Assessment/Plan: HB stable Code(s): E83.119 - HEMOCHROMATOSIS, UNSPECIFIED (5) Femur fracture, left Assessment/Plan: Dr. Donaldson rec: Immobilizer; no surgery. Code(s): S72.92XA - UNSP FRACTURE OF LEFT FEMUR, INIT ENCNTR FOR CLOSED FRACTURE Qualifiers: Encounter type: subsequent encounter Femur location: distal Fracture type: closed (6) Lytic bone lesion of left femur Assessment/Plan: Await MRI Code(s): M89.8X5 - OTHER SPECIFIED DISORDERS OF BONE, THIGH (7) Hypotension Assessment/Plan: Dose of Metoprolol decreased to 25mgBID; LasixD/Sonido . Will follow. Code(s): I95.9 - HYPOTENSION, UNSPECIFIED (8) Liver lesion Assessment/Plan: Seen on 01/10 Cat scan; to repeat. Code(s): K76.9 - LIVER DISEASE, UNSPECIFIED
[2017-04-23] MEDS ORDERED: MAGNESIUM SULF 50% (8.12 MEQ/2 ML-1 GM VIAL) IVPB ONE (09:15)
--- NOTE | 2017-04-23 09:31 | PN ---
Progress Note (short form) - Note Progress Note: Pt seen and examined. She states she is doing fine, swelling in the left leg/ knee area has gone down, pain is less. She is more comfortable, just mentally anxious. She will work again with P.T. today. She will f/u in our office for f/u xrays as an out pt in 1-2 weeks.
[2017-04-23] MEDS ORDERED: PT OWN MED DRAWER 7, Y5N ONE (10:38)
[2017-04-23] MEDS: MAGNESIUM OXIDE 400 MG TABLET (FP) PO SCH ×2 (10:39→22:24)
[2017-04-23] MEDS: METOPROLOL SUCCINATE 25 MG TAB.SR.24H (FP) PO SCH ×2 (10:39→22:24)
[2017-04-23] MEDS: CALCIUM (OYSTER SHELL) 500 MG TABLET (FP) PO SCH ×2 (10:39→22:24)
[2017-04-23] MEDS: APIXABAN 5 MG TABLET PO SCH ×2 (10:39→22:24)
[2017-04-23] MEDS: MELATONIN 5 MG TABLETS PO PRN (22:25)
--- NOTE | 2017-04-24 08:33 | PN ---
Progress Note, Physician Chief Complaint: Pain in left leg due to fracture distal tibia. History of Present Illness: Patient wit pain at fracture site; will add prn po pain Rx in addition to IV PRN MS. Able to just stand with PT so far. Because of left femur lesion and liver lesion from 01/10 an MRI of Femur and Abdominal CAT were done yesterday. Also 3 tumor markers were all elevated so there may be an underlying malignancy. Await MRI and CAT Scan report. - Current Medication List Current Medications: Active Medications Apixaban (Eliquis -) 5 mg PO BID [facility] Last Admin: 04/23/17 22:24 Dose: 5 mg Calcium Carbonate (Os-Durga 500mg -) 500 mg PO BID [facility] Last Admin: 04/23/17 22:24 Dose: 500 mg Magnesium Oxide (Mag-Ox -) 400 mg PO BID [facility] Last Admin: 04/23/17 22:24 Dose: 400 mg Melatonin (Melatonin) 5 mg PO HS PRN PRN Reason: INSOMNIA Last Admin: 04/23/17 22:25 Dose: 5 mg Metoprolol Succinate (Toprol Xl -) 25 mg PO BID [facility] Last Admin: 04/23/17 22:24 Dose: 25 mg Morphine Sulfate (Morphine Injection -) 2 mg IVPUSH Q3H PRN PRN Reason: PAIN Last Admin: 04/23/17 18:34 Dose: 2 mg Ondansetron HCl (Zofran Injection) 4 mg IVPB Q6H PRN PRN Reason: NAUSEA Oxycodone HCl (Roxicodone -) 5 mg PO Q4H PRN PRN Reason: PAIN - Objective Vital Signs: Vital Signs Temperature 98.3 F 04/24/17 04:00 Pulse Rate 72 04/24/17 04:00 Respiratory Rate 18 04/24/17 04:00 Blood Pressure 103/57 04/24/17 04:00 O2 Sat by Pulse Oximetry (%) 96 04/23/17 21:00 Constitutional: Yes: Calm, Poor Hygeine Cardiovascular: Yes: Pulse Irregular Respiratory: Yes: Diminished Gastrointestinal: Yes: Soft, Hypoactive Bowel Sounds Genitourinary: No: Siegel Present Extremities: Yes: Other (Left leg in immobilizer) Edema: LLE: 2+, RLE: 1+ Neurological: Yes: Alert, Oriented Labs: CBC, BMP 04/23/17 06:20 04/23/17 06:20 INR, PTT INR 1.30 (0.82-1.09) H 04/21/17 06:35 Problem List - Problems (1) Fall from standing Assessment/Plan: Still anxious during PT with a worry about falling. Code(s): W19.XXXA - UNSPECIFIED FALL, INITIAL ENCOUNTER Qualifiers: Encounter type: initial encounter Qualified Code(s): W19.XXXA - Unspecified fall, initial encounter (2) Joint effusion of knee Assessment/Plan: Slightly decreased. Code(s): M25.469 - EFFUSION, UNSPECIFIED KNEE (3) Atrial fibrillation Assessment/Plan: On Eliquis. Seen by Cardiology. Code(s): I48.91 - UNSPECIFIED ATRIAL FIBRILLATION (4) Hemochromatosis Assessment/Plan: Followed by Heme Code(s): E83.119 - HEMOCHROMATOSIS, UNSPECIFIED (5) Femur fracture, left Assessment/Plan: No surgical Rx. Ortho MD follows Code(s): S72.92XA - UNSP FRACTURE OF LEFT FEMUR, INIT ENCNTR FOR CLOSED FRACTURE Qualifiers: Encounter type: subsequent encounter Femur location: distal Fracture type: closed (6) Lytic bone lesion of left femur Code(s): M89.8X5 - OTHER SPECIFIED DISORDERS OF BONE, THIGH (7) Hypotension Assessment/Plan: Being monitored. On Metoprolol 25mg BID Lasix being held. Code(s): I95.9 - HYPOTENSION, UNSPECIFIED (8) Liver lesion Assessment/Plan: Await Abd CAT and AFP. Code(s): K76.9 - LIVER DISEASE, UNSPECIFIED
--- NOTE | 2017-04-24 08:45 | CONS ---
PHYSICAL MEDICINE REHABILITATION CONSULTATION DATE OF CONSULTATION: 04/24/2017 REFERRING PHYSICIAN: Marc Ramon MD DATE OF ADMISSION: 04/20/2017 HISTORY OF PRESENT ILLNESS: The patient is a 77-year-old woman with past medical history of atrial fibrillation maintained on Eliquis, as well as hemochromatosis, with a history of lumbar surgery as well as frequent falls, who was admitted on April 20, 2017, with pain and swelling in the left knee and difficulty ambulating. Patient had fallen prior to admission on both of her knees. The pain was severe in the left knee. She was unable to ambulate, and on admission, underwent extensive workup which included x-rays of the left tibia and fibula, which showed no fracture, suprapatellar fusion and swelling. CT of the left lower extremity showed hemarthrosis with left distal femur fractures, but also, a 2-cm interosseous lesion of uncertain etiology. MRI was recommended. It has been taken, but an official report is not available. Patient was seen by Orthopedics, placed nonweightbearing in a left lower extremity knee immobilizer. Her hemoglobin on admission was 14.3 with WBCs 4.1 and a platelet count of over 180,000. INR is slightly elevated at 1.30. Chemistry was normal. Sodium 142, potassium 4.7, chloride 106, BUN 13, creatinine 0.7, but slight elevation in CO2 at 31, decreased total protein at 5.4, decreased albumin at 2.7, elevated alkaline phosphatase of 208. Repeat blood work April 23 showed a stable CBC and for the most part a stable chemistry, although her CO2 was elevated at 35, total protein slightly lower at 4.9, albumin 2.3. Patient was evaluated by Physical Therapy and was able to stand, pivot transfer with moderate assist of 2, nonweightbearing to the left lower extremity. She continues to be maintained on Eliquis, complains of severe pain in the left knee with movement, and is getting morphine for pain. She reports no problems moving her bowel, and discharge planning is to a senior care facility. Patient has no complaints of other joint arthralgias. She has some bruising in the right knee, but no severe pain in the right knee. Again, she does state that she has had frequent falls which involve buckling in the left lower extremity. PAST MEDICAL AND SURGICAL HISTORY: Review of past medical and surgical history as above, atrial fibrillation, hemochromatosis, frequent falls, lumbar surgery, right wrist fracture ORIF. SOCIAL HISTORY: Lives in a house. She states her son and [id number] live downstairs. There are 4 steps to get into the home, but there is a stair lift within the home, and she was using a walker modified independent prior to admission. REVIEW OF SYSTEMS: No headache. No lightheadedness, dizziness. No blurry vision, double vision, or change in vision. No nausea, vomiting, difficulty swallowing, difficulty chewing. No chest pain or shortness of breath. No fever or chills. No bowel/bladder incontinence or retention. No joint arthralgias in the upper extremities. Again, some mild right knee pain but mainly left knee pain. Some swelling in the left lower extremity. No pins and needles, numbness, tingling in the upper or lower extremities. No rash or skin breakdown. PHYSICAL EXAMINATION: General: An elderly woman, seen lying in bed. She is in no acute distress. Neuromuscular: She is awake, alert, and cooperative. Cranial nerves 2-12 appear grossly intact. She has good strength and range for the most part in the distal upper extremities, but she has weakness in the shoulder girdle at 4/5, elbow extensors 4-/5, elbow flexors 4+/5. She has some arthritic changes in the hands, which are not limiting. Normal sensation to pinprick and light touch in the upper extremities and symmetric reflexes. Her range is slightly limited in her shoulder girdle, but this may be due to her gown in bed. She gains at least 110-120 degrees forward flexion, 90-100 degrees of abduction. In the lower extremities, she has weakness throughout the left lower extremity, particularly proximally at 1/5. Knee is in a knee immobilizer. Left dorsiflexion and eversion. Has slightly reduced range of motion but at least 4+/5 strength. Normal sensation to pin and light touch. Right lower extremity: She has antigravity hip girdle strength 3+/5, knee extensors 4/5. Good dorsiflexion, plantar flexion, range of motion, and strength. Normal sensation to light touch, pinprick. She has some ecchymosis over her right knee. Left knee is in an immobilizer. OVERALL IMPRESSION: 1. Deficits in mobility and activities of daily living, multifactorial. 2. Left knee hemarthrosis with underlying distal femur fractures and interosseous lesion. 3. Frequent falls of uncertain etiology. 4. Atrial fibrillation on Eliquis. 5. Hemochromatosis. 6. History of lumbar surgery. 7. Right wrist fracture open reduction and internal fixation. 8. Elevated risk for deep venous thrombosis. However, patient is on Eliquis. 9. Elevated risk for decubitus ulcerations, heels and sacrum. 10. Elevated risk for constipation at bedrest on narcotics. PLAN/SUGGESTION: 1. Continue physical therapy bedside as tolerated. 2. Nonweightbearing, left lower extremity with knee immobilizer. 3. Check official left knee MRI which is pending. 4. Orthopedic followup regarding interosseous lesion. 5. Monitor hemoglobin and hematocrit. 6. Monitor CO2 and chemistry. 7. Nutritional support. 8. Avoid heel and sacral pressure. Monitor for any breakdown or erythema. 9. Monitor for constipation. 10. Would switch morphine to p.o. pain medication. 11. Patient is on Eliquis. No further DVT prophylaxis. 12. Patient's disposition will be to short-term rehabilitation in a senior care facility. Thank you very much for this referral. ITALO VILLAFUERTE M.D. [id number]
[2017-04-24] MEDS ORDERED: MAGNESIUM SULF 50% (8.12 MEQ/2 ML-1 GM VIAL) IVPB ONE (09:00)
--- NOTE | 2017-04-24 09:15 | PN ---
Progress Note (short form) - Note Progress Note: Ortho Pt seen and examined s/p left distal femur fx PE- knee immobilizer in place, + effusion, calf soft, nt nvi a/p Knee immobilizer NWB LLE f/u MRI/CT scans d/w Dr. Cox
[2017-04-24] MEDS: morphine CARPU-JECT 2 MG/1 ML DISP.SYRIN IVPUSH PRN ×4 (09:16→22:40)
[2017-04-24] MEDS: CALCIUM (OYSTER SHELL) 500 MG TABLET (FP) PO SCH ×2 (10:25→21:23)
[2017-04-24] MEDS ORDERED: PT OWN MED DRAWER 7, Y5N ONE (10:26)
[2017-04-24] MEDS: MAGNESIUM OXIDE 400 MG TABLET (FP) PO SCH ×2 (10:26→21:23)
[2017-04-24] MEDS: APIXABAN 5 MG TABLET PO SCH ×2 (10:27→21:23)
[2017-04-24] MEDS: METOPROLOL SUCCINATE 25 MG TAB.SR.24H (FP) PO SCH ×2 (10:29→21:23)
--- NOTE | 2017-04-24 11:20 | EKG ---
Test Reason : Blood Pressure : / mmHG Vent. Rate : 103 BPM Atrial Rate : 115 BPM P-R Int : 000 ms QRS Dur : 090 ms QT Int : 364 ms P-R-T Axes : 000 -11 012 degrees QTc Int : 476 ms ATRIAL FIBRILLATION WITH RAPID VENTRICULAR RESPONSE LOW VOLTAGE QRS CANNOT RULE OUT ANTEROSEPTAL INFARCT (CITED ON OR BEFORE 13-AUG-2010) ABNORMAL ECG WHEN COMPARED WITH ECG OF 30-DEC-2016 14:15, NONSPECIFIC T WAVE ABNORMALITY NOW EVIDENT IN INFERIOR LEADS Confirmed by YOHANNES SANDOVAL MD ([id number]) on 04/24/2017 11:19:50 AM Referred By: Confirmed By:YOHANNES SANDOVAL MD
[2017-04-24] MEDS: oxyCODONE HCL 5 MG TABLET PO PRN ×2 (12:55→22:51)
--- NOTE | 2017-04-24 17:36 | PN ---
Progress Note (short form) - Note Progress Note: Chief Complaint: knee pain History of Present Illness: + LE pain. no cp, palps, dizziness, sob, f/c/s. States LE edema improving since admit. Normal po intake. cards Dr. Carrillo Current Medications Apixaban (Eliquis -) 5 mg PO BID [facility] Last Admin: 04/24/17 10:27 Dose: 5 mg Calcium Carbonate (Os-Durga 500mg -) 500 mg PO BID [facility] Last Admin: 04/24/17 10:25 Dose: 500 mg Magnesium Oxide (Mag-Ox -) 400 mg PO BID [facility] Last Admin: 04/24/17 10:26 Dose: 400 mg Melatonin (Melatonin) 5 mg PO HS PRN PRN Reason: INSOMNIA Last Admin: 04/23/17 22:25 Dose: 5 mg Metoprolol Succinate (Toprol Xl -) 25 mg PO BID [facility] Last Admin: 04/24/17 10:29 Dose: 25 mg Morphine Sulfate (Morphine Injection -) 2 mg IVPUSH Q3H PRN PRN Reason: PAIN Last Admin: 04/24/17 14:26 Dose: 2 mg Ondansetron HCl (Zofran Injection) 4 mg IVPB Q6H PRN PRN Reason: NAUSEA Oxycodone HCl (Roxicodone -) 5 mg PO Q4H PRN PRN Reason: PAIN Last Admin: 04/24/17 12:55 Dose: 5 mg Vital Signs - 24 hr 04/23/17 04/23/17 04/23/17 18:10 21:00 22:29 Temperature 98.0 F 97.8 F Pulse Rate 82 79 Respiratory 20 18 Rate Blood Pressure 105/62 101/66 O2 Sat by Pulse 96 Oximetry (%) 04/24/17 04/24/17 04/24/17 04:00 09:00 15:43 Temperature 98.3 F 97.9 F Pulse Rate 72 94 H Respiratory 18 18 Rate Blood Pressure 103/57 109/64 O2 Sat by Pulse 97 Oximetry (%) Intake & Output 04/22/17 04/23/17 04/24/17 04/25/17 07:59 07:59 07:59 07:59 Intake Total 1714 1374 1100 630 Balance 1714 1374 1100 630 Constitutional: Yes: Well Nourished, No Distress Eyes: No: Sclera Icterus HENT: No: Nasal Congestion Neck: No: Decreased ROM Respiratory: Yes: CTA Bilaterally. No: Accessory Muscle Use, Rales, Wheezes Gastrointestinal: Yes: Normal Bowel Sounds. No: Distention, Hepatomegaly, Palpable Mass, Tenderness Cardiovascular: Yes: Pulse Irregular JVD: No Carotid Bruit: No PMI: Non-Displaced Heart Sounds: Yes: S1, S2. No: Gallop Murmur: Yes: Systolic Murmur (soft, brief systolic murmur L apex/LLSB) 2/6 sys murmur at apex. No: Diastolic Murmur Musculoskeletal: Yes: Other (No kyphosis) Extremities: No: Cold, Cyanosis Edema: Yes (1+ pretib bilat) Peripheral Pulses: 2+ Left Carotid, 2+ Right Carotid, 2+ Left Doralis Pedis, 2+ Right Dorsalis Pedis Integumentary: No: Jaundice Neurological: Yes: Alert, Oriented (x3) Psychiatric: No: Agitated - Other Data Labs, Other Data: CBC, BMP 04/2304/23/17 06:20 04/23/17 06:20 Laboratory Tests 04/24/17 06:35 Magnesium 1.7 L Imaging - Results Chest X-ray: Report Reviewed (no signs chf) Assessment/Plan Echo 04/11: Nl LV/RV. Moderate mitral regurgitation. MIBI 09/10 (barbara): no STs; no isch; nl EF (no LVE/TID) 77 yo female with h/o repeated falls, PAF, with rapid HR tendencies, mod mr, hemachromatosis s/p mechanical fall. uses walker at home, here with mechanical fall c/b femur fracture. hypotension - asx. unclear etiology. nl po intake. no signs of infection. ? related to pain meds? - con't current dose of metoprolol per Dr. Leal initial consult note patient with rapid HR tendencies. If patient becomes sx, will reconsider. afib: - poor office f/u--last seen 05/11 after 04/11 hosp admit for kyphoplasty surgery with rapid AF (HRs 120s on metopr 50 qd from home, rate controlled with diltiazem 180 qd but had HRs dip to 30s while asleep--meds held--again rapid to 120s--metopr resumed but dose incr'd to 50 bid) - 7/16 o.v. was in AF with controlled HR--metopr 50 bid continued -here she is in AF with controlled HRs, cont home regimen - had had repeated falls including presently, with poor office f/u - CHADS VASC = 3; she previously was noncompliant with eliquis 5mg bid, but was complying as of last o.v. with Dr. Carrillo. Her gait/falls risk--given her description of legs gradually giving out, and her prior falls history, she does not seem to be someone who violently falls and is hi risk for head trauma (uses walker all the time). hence, risk of fall with ICH seems to be < 3%/year cva risk. Dr. Carrillo discussed with [place] option of [place] appendage device closure ( Watchman) but she declines, and verbalizes she prefers to accept risk of falling and remain on AC - PT eval - currently on eliquis - ongoing lyte repletion Mitral regurgitation - MR only moderate on office study read by dr carrillo, as well as when he reviewed prior hosp echo images reported then as "moderate to severe" - no h/o signs or symptoms of chf, barely audible murmur - routine outpt office f/u with echo (d/w'd pt who states she agrees to schedule appt with me) LE edema: -chronic, suspect venous ins'y hx -worse of late, ? sec to trauma to bilat knees. Improving here even after stopping lasix -no clinical chf, cxr clear hemochromatosis - no h/o cardiac involvement, no chf preop CV eval: --> surgery currently being deferred -RCRI = 0, decr'd functional status -afib well controlled, no h/o severe valvular dz, no clinical findings of chf -for low risk of periop cv complications, if ortho surgery required--no further testing indicated
[2017-04-24] MEDS: MELATONIN 5 MG TABLETS PO PRN (21:23)
[2017-04-25] MEDS: oxyCODONE HCL 5 MG TABLET PO PRN ×3 (06:57→16:57)
--- NOTE | 2017-04-25 08:39 | PN ---
Progress Note (short form) - Note Progress Note: Ortho Pt seen and examined s/p left distal femur fx PE- knee immobilizer in place, + effusion, calf soft, nt nvi a/p Knee immobilizer NWB LLE MRI of left femur--> benign lesion may d/c from ortho pov d/w Dr. Donaldson
--- NOTE | 2017-04-25 10:01 | PN ---
Progress Note (short form) - Note Progress Note: Patient seen and examined. Still issues with pain and BP. patient still in a lot of pain even when standing with 2 physical therapist. I added Cymbalta to her opioid regimen today hoping that can help her feel more comfortable without increasing opioid side effects. The patient did not want to leave the hospital today. We will see how she feels tomorrow and I believe there is still a chance for transfer to the SNF on Friday. Of note was the increased size of the liver lesion noted in December 2016. This may still be a hemangioma but she begged me not to send her for the MRI of the abdomen as suggested because she had a lot of pain when her legs were moved in position in the MRI machine. Of note was mild elevation of CEA, CA 19.9 and CEA 125. All of these issues will have to be addressed once she is more mobile and finished rehabilitation. On exam: Vital Signs Temp 97.6 F 04/25/17 18:05 Pulse 83 04/25/17 18:05 Resp 20 04/25/17 18:05 BP 117/75 04/25/17 18:05 Pulse Ox 97 04/25/17 09:00 Intake & Output 04/24/17 04/25/17 04/25/17 23:59 11:59 23:59 Intake Total 980 400 Balance 980 400 Intake: IVPB 0 Oral 980 400 Other: Voiding Method Incontinent Incontinent Incontinent # Unmeasured Voids Void 2 1 Bowel Movement No patient is alert but does complain of pain Chest decreased breath sounds at the bases. Oreilly regular. Abdomen soft with slight left lower quadrant tenderness I believe from constipation. Extremities decreased pedal edema noted Wilmar hemarthrosis at left knee persists because patient was on anticoagulant at the that time of the fall. impression: Distal femur fracture. Benign lesion left distal femur. Liver lesion, possible hemangioma but increasing in size Hemochromatosis. Atrial fibrillation on anticoagulant. Acute and chronic pain. Osteoporosis. Slight elevation of several tumor markers . Plan: Patient did not have a good performance with PT today. I have asked the therapist to, Friday to see if there is any improvement in whether transfer to SNF could be made. Patient will need a future MRI of the abdomen, but she had a lot of pain when her legs were move to go onto the MRI machine to evaluate the lesion in her left femur so we will delay this study until after rehabilitation I added Cymbalta for better pain control so we do not have to increase her opioids; we will observe the progress. Laxatives were ordered. Problem List - Problems (1) Fall from standing Code(s): W19.XXXA - UNSPECIFIED FALL, INITIAL ENCOUNTER Qualifiers: Encounter type: initial encounter Qualified Code(s): W19.XXXA - Unspecified fall, initial encounter (2) Joint effusion of knee Code(s): M25.469 - EFFUSION, UNSPECIFIED KNEE (3) Atrial fibrillation Code(s): I48.91 - UNSPECIFIED ATRIAL FIBRILLATION (4) Hemochromatosis Code(s): E83.119 - HEMOCHROMATOSIS, UNSPECIFIED (5) Femur fracture, left Code(s): S72.92XA - UNSP FRACTURE OF LEFT FEMUR, INIT ENCNTR FOR CLOSED FRACTURE Qualifiers: Encounter type: subsequent encounter Femur location: distal Fracture type: closed (6) Lytic bone lesion of left femur Code(s): M89.8X5 - OTHER SPECIFIED DISORDERS OF BONE, THIGH (7) Hypotension Code(s): I95.9 - HYPOTENSION, UNSPECIFIED (8) Liver lesion Code(s): K76.9 - LIVER DISEASE, UNSPECIFIED
[2017-04-25] MEDS ORDERED: SENNOSIDES 8.6MG TABLET (FP) PO PRN (10:02)
[2017-04-25] MEDS ORDERED: PT OWN MED DRAWER 7, Y5N ONE ×4 (10:14→21:38)
[2017-04-25] MEDS: MAGNESIUM OXIDE 400 MG TABLET (FP) PO SCH ×2 (10:17→22:17)
[2017-04-25] MEDS: CALCIUM (OYSTER SHELL) 500 MG TABLET (FP) PO SCH ×2 (10:17→22:17)
[2017-04-25] MEDS: APIXABAN 5 MG TABLET PO SCH ×2 (10:22→22:17)
[2017-04-25] MEDS: METOPROLOL SUCCINATE 25 MG TAB.SR.24H (FP) PO SCH ×2 (10:23→22:18)
[2017-04-25] MEDS: DULoxetine HCL 20 MG CAPSULE.DR (FP) PO SCH (18:10)
[2017-04-25] MEDS: POLYETHYLENE GLYCOL 3350 119 GM BTL PO SCH (22:19)
[2017-04-26] MEDS ORDERED: PT OWN MED DRAWER 7, Y5N ONE ×2 (01:36→09:10)
[2017-04-26] MEDS: oxyCODONE HCL 5 MG TABLET PO PRN ×2 (01:38→06:12)
[2017-04-26] MEDS: MELATONIN 5 MG TABLETS PO PRN (01:39)
[2017-04-26] MEDS: METOPROLOL SUCCINATE 25 MG TAB.SR.24H (FP) PO SCH (09:22)
[2017-04-26] MEDS: POLYETHYLENE GLYCOL 3350 119 GM BTL PO SCH (09:22)
[2017-04-26] MEDS: CALCIUM (OYSTER SHELL) 500 MG TABLET (FP) PO SCH (09:22)
[2017-04-26] MEDS: APIXABAN 5 MG TABLET PO SCH (09:22)
[2017-04-26] MEDS: DULoxetine HCL 20 MG CAPSULE.DR (FP) PO SCH (09:22)
[2017-04-26] MEDS: MAGNESIUM OXIDE 400 MG TABLET (FP) PO SCH (09:22)
--- NOTE | 2017-04-26 11:59 | PN ---
Progress Note (short form) - Note Progress Note: No new complaints O/E Vital Signs Period Temp Pulse Resp BP Sys/Arreguin Pulse Ox Last 24 Hr 97.6 F-98.4 F 70-83 18-20 104-142/63-75 97 Heart regular Lungs clear Abd soft Ext trace edema Current Medications Apixaban (Eliquis -) 5 mg PO BID [facility] Last Admin: 04/26/17 09:22 Dose: 5 mg Calcium Carbonate (Os-Durga 500mg -) 500 mg PO BID [facility] Last Admin: 04/26/17 09:22 Dose: 500 mg Duloxetine HCl (Cymbalta -) 20 mg PO DAILY [facility] Last Admin: 04/26/17 09:22 Dose: 20 mg Magnesium Oxide (Mag-Ox -) 400 mg PO BID [facility] Last Admin: 04/26/17 09:22 Dose: 400 mg Melatonin (Melatonin) 5 mg PO HS PRN PRN Reason: INSOMNIA Last Admin: 04/26/17 01:39 Dose: 5 mg Metoprolol Succinate (Toprol Xl -) 25 mg PO BID [facility] Last Admin: 04/26/17 09:22 Dose: 25 mg Morphine Sulfate (Morphine Injection -) 2 mg IVPUSH Q3H PRN PRN Reason: PAIN Last Admin: 04/24/17 18:53 Dose: 2 mg Ondansetron HCl (Zofran Injection) 4 mg IVPB Q6H PRN PRN Reason: NAUSEA Oxycodone HCl (Roxicodone -) 5 mg PO Q4H PRN PRN Reason: PAIN Last Admin: 04/26/17 06:12 Dose: 5 mg Polyethylene Glycol (Miralax (For Daily Use) -) 17 gm PO BID [facility] Last Admin: 04/26/17 09:22 Dose: 17 gm Senna (Senna -) 2 tab PO HS PRN PRN Reason: CONSTIPATION A&P (1) Fall from standing Code(s): W19.XXXA - UNSPECIFIED FALL, INITIAL ENCOUNTER Qualifiers: Encounter type: initial encounter Qualified Code(s): W19.XXXA - Unspecified fall, initial encounter Patient has been arranged to be discharged to SNF and will discharge and f/u as op (2) Joint effusion of knee Code(s): M25.469 - EFFUSION, UNSPECIFIED KNEE stable (3) Atrial fibrillation Code(s): I48.91 - UNSPECIFIED ATRIAL FIBRILLATION On Eliquis (4) Hemochromatosis Code(s): E83.119 - HEMOCHROMATOSIS, UNSPECIFIED (5) Femur fracture, left Code(s): S72.92XA - UNSP FRACTURE OF LEFT FEMUR, INIT ENCNTR FOR CLOSED FRACTURE Qualifiers: Encounter type: subsequent encounter Femur location: distal Fracture type: closed (6) Lytic bone lesion of left femur Code(s): M89.8X5 - OTHER SPECIFIED DISORDERS OF BONE, THIGH
[2017-04-26 13:03] VITALS: BP 115/70; PULSE 86; TEMP 98.2
== END 2017-04-26 14:44 | DRG 534 ==
LOC: JER 13:10 → JERBED 20:21 → UNDOADMIN 20:24 → JERBED 20:24 → J5S 04-21 01:10
PROVIDERS: ADMIT Internal Medicine; ATTEND Internal Medicine
DX: S72.492A Other fracture of lower end of left femur, initial encounter for closed fracture (principal); J90 Pleural effusion, not elsewhere classified; W01.0XXA Fall on same level from slipping, tripping and stumbling without subsequent striking against object, initial encounter; Y93.89 Activity, other specified; Y92.098 Other place in other non-institutional residence as the place of occurrence of the external cause; I48.91 Unspecified atrial fibrillation; M25.469 Effusion, unspecified knee; E83.119 Hemochromatosis, unspecified; M89.9 Disorder of bone, unspecified; I34.0 Nonrheumatic mitral (valve) insufficiency; R60.0 Localized edema; K76.9 Liver disease, unspecified; I95.9 Hypotension, unspecified; R52 Pain, unspecified; M81.8 Other osteoporosis without current pathological fracture; Z91.14 Patient's other noncompliance with medication regimen; Z87.891 Personal history of nicotine dependence
CPT/HCPCS: 36415; 71010-TC; 73552-TC-LT; 73562-TC-LT; 73590-TC-LT; 73700-TC-RT; 73718-LT; 74150-TC; 80048; 80053; 82105; 82378; 83735; 83880; 85025; 85610; 85651; 86140; 86301; 86304; 86850; 86900; 86901; 93005; 93010; 97116-GP; 97162-GP; 99283-25; Q9967

== ENCOUNTER 2017-07-12 12:15 | Inpatient (IN) | payer OTHER, MEDICARE ==
--- NOTE | 2017-07-12 12:28 | PDOC ---
Attending Attestation - HPI HPI: 07/12/17 13:14 The patient is a 77 year old female, with significant past medical history of Afib (on eliquis), hemochromatosis, frequent falls, who presents to the emergency room with approximately 24 hours of altered mental status and cellulitis to the left hip. The patients son reports that the patient lives at home with 24 hour health aid. Her son states that 2 days ago, the patient was lucid and talking about business with him. He notes that she seems very out of it and this is a complete 360 from her baseline mental status. He reports that the cellulitis on her left hip has worsened over the past 24 hours. Denies falling, LOC. Denies head trauma. PCP: Dr. Ramon Social hx: Pt lives at home with 24 hour health care. One of her sons live downstairs from her apartment. The other son visits every other day if not every day. - Physicial Exam PE: 07/12/17 13:14 Constitutional: Awake, confused, oriented to person, but not orientated to place or time. No acute distress. Head: Normocephalic. Atraumatic Eyes: PERRL. EOMI. Conjunctivae are not pale. ENT: Mucous membranes are moist and intact. Posterior pharynx without exudates or erythema. Uvula midline. Neck: Supple. Full ROM. No lymphadenopathy. Cardiovascular: Regular rate. Regular rhythm. S1, S2 regular. Distal pulses are 2+ and symmetric. Pulmonary/Chest: No evidence of respiratory distress. Clear to auscultation bilaterally No wheezing, rales or rhonchi. Abdominal: Soft and non-distended. There is no tenderness. No rebound, guarding or rigidity. No organomegaly. No palpable masses. Good bowel sounds. Back: No CVA tenderness. Musculoskeletal: +swollen left knee. No edema. No cyanosis. No clubbing. Full range of motion in all extremities. Nocalf tenderness. Radial/pedal pulses are intact and 2+ bilaterally Skin: +There is an erythematus area of cellulitis on the suprapubic region and left thigh that is hot, blanchable, and tender. +abrasions and redness on the elbows bilaterally. Skin is warm and dry. No petechiae. No purpura. Neurological: Confused and oriented to person, but not orientated to place or time. Cranial nerves II-XII are grossly intact. Normal speech. Strength is grossly symmetric. No sensory deficits. Psychiatric: Good eye contact. Normal interaction, affect and behavior. <Cristobal Torresssica - Last Filed: 07/12/17 13:13> - Resident Resident Name: Hema Meyers - ED Attending Attestation I have performed the following: I have examined & evaluated the patient, The case was reviewed & discussed with the resident, I agree w/resident's findings & plan, Exceptions are as noted - Medical Decision Making 07/12/17 13:42 a/p: 77yo female with acute change in ms x 48 hours, on elaquis -hx of falls (no falls now, has 24 hour care) -cellulitis to L thigh/hip/pelvis -labs -ct head -ekg -cxr -blood cultures -concern for sepsis -tylenol for fever -ivf hydration -admission -abx 07/12/17 16:11 case discussed with hospitalist, accepts pt to service. <Halina Buck - Last Filed: 07/12/17 16:13> Discharge Disposition <Angela Torres - Last Filed: 07/12/17 13:13> - Discharge Dispostion Last Admission D/C Date: 04/26/17 Admit: Yes <Halina Buck - Last Filed: 07/12/17 16:13> - Diagnosis Cellulitis, Fever, Change in mental status - Discharge Dispostion Condition at time of disposition: Guarded - Referrals Referrals: Marc Ramon MD [Primary Care Provider] - Heart Score/ECG Review - ECG Intrepretation Comment:: 07/12/17 15:44 afib at 88, low voltage, q waves anteriorly, pvcs, no acute st/t wave findings <Halina Buck - Last Filed: 07/12/17 16:13>
[2017-07-12] MEDS ORDERED: SODIUM CHLORIDE 0.9% 1000 ML INFUS.BAG IV ONE (12:46)
--- NOTE | 2017-07-12 13:11 | PDOC ---
History of Present Illness - General Chief Complaint: Altered Mental Status Stated Complaint: ALTERED MENTAL STATUS Time Seen by Provider: 07/12/17 12:22 History Source: EMS, Family (Son at bedside) Exam Limitations: No Limitations - History of Present Illness Initial Comments: 07/12/17 13:00 The patient is 77F with a PMH of a-fib on eliquis and hemochromatosis who presents to the ED via EMS with her son and nursing home assistant for lethargy for the past 24-48 hours. The son states that the patient has had multiple falls in the past year, for which she has been to rehab and seen at [facility]. The son states that her health has been declining for the past 6-8 months. Acutely, the son states that she has had AMS for the past 24-48 hours hours. The son also states that the patient made no specific complaints, but has been more lethargic and "not herself". EMS states her vitals were stable with a BG of 121. The patient is bedridden but has a 24/7 live-in nurses aide at home. Past History - Past Medical History Allergies/Adverse Reactions: Allergies Allergy/AdvReac Type Severity Reaction Status Date / Time No Known Drug Allergies Allergy Verified 07/12/17 13:31 Home Medications: Ambulatory Orders Acetaminophen [Tylenol] 650 mg PO QID 07/20/16 Fluocinonide 0.05% Cream [Lidex 0.05% Cream -] 1 applic BID 07/20/16 Lactobacillus Acidophilus [Bacid -] 1 tab PO DAILY 07/20/16 Magnesium Oxide 400 mg PO BID 07/20/16 Metoprolol Tartrate [Lopressor -] 25 mg PO BID tablet 07/23/16 Polyethylene Glycol 3350 [Miralax 119 gm Btl -] 17 gm PO DAILY bottle 07/23/16 Sennosides/Docusate Sodium [Pericolace -] 2 tablet PO BID tablet 07/23/16 Melatonin 5 mg PO HS PRN #0 cap 01/08/17 Oxycodone HCl [Roxicodone -] 5 mg PO Q4H PRN #0 tablet MDD 4 01/08/17 Apixaban [Eliquis -] 5 mg PO BID #0 tablet 04/26/17 Calcium (Oyster Shell) [Os-Durga 500MG -] 500 mg PO BID tablet 04/26/17 Anemia: No Asthma: No Cancer: No Cardiac Disorders: Yes (Atrial Fib) CVA: No COPD: No CHF: No Dementia: No Diabetes: No GI Disorders: No Disorders: No HTN: No Hypercholesterolemia: No Liver Disease: Yes (HEMOCHROMATOSIS) Seizures: No Thyroid Disease: No - Surgical History Abdominal Surgery: No Appendectomy: No Cardiac Surgery: No Cholecystectomy: Yes (6 years ago) Lung Surgery: No Neurologic Surgery: (Back surgery March 2016) Orthopedic Surgery: Yes (RIGHT WRIST ORIF 2005) - Immunization History Immunization Up to Date: Yes - Psycho/Social/Smoking Cessation Hx Anxiety: No Suicidal Ideation: No Smoking Status: No (quit 28 years ago) Smoking History: Former smoker Have you smoked in the past 12 months: No If you are a former smoker, when did you quit?: 23 YEARS AGO Hx Alcohol Use: Yes Drug/Substance Use Hx: No Substance Use Type: None Hx Substance Use Treatment: No Review of Systems - Review of Systems Able to Perform ROS?: No (Patient is not coherent) *Physical Exam - Physical Exam General Appearance: Yes: Thin HEENT: positive: Hearing Grossly Normal Respiratory/Chest: positive: Other (Coarse breath sounds in R lung field; port in R anterior superior chest) Cardiovascular: positive: S1, S2, Irregularly Irregular. negative: Diastolic Murmur, Systolic Murmur Gastrointestinal/Abdominal: positive: Flat, Soft. negative: Tender, Distended, Guarding, Rebound, Tenderness Extremity: positive: Other (Erythematous diaper rash across anterior suprapubic area. L hip with cellulitic-type rash extending long-term down her thigh.) Integumentary: positive: Cold (extremities), Rash Neurologic: negative: Fully Oriented, Alert, Normal Mood/Affect Heart Score/ECG Review - ECG Intrepretation Rhythm: Irregularly Irregular Comment:: 07/12/17 13:13 with PVCs ED Treatment Course - LABORATORY CBC & Chemistry Diagram: 07/12/17 14:41 07/12/17 14:41 Medical Decision Making - Medical Decision Making 07/12/17 13:14 The patient is a 77F with a hx of a-fib on eliquis and hemochromatosis. Septic protocol is being followed with the addition of a head CT 2/2 AMS. Rectal temp of 101.2. Tylenol given rectally. Will reassess when labs return. 07/12/17 18:17 No WBC count. Patient will be admitted for IV Abx for cellulitis. *DC/Admit/Observation/Transfer Diagnosis at time of Disposition: Cellulitis, Fever, Change in mental status - Discharge Dispostion Condition at time of disposition: Guarded
[2017-07-12 13:34] VITALS: BMI 28.3
[2017-07-12] MEDS ORDERED: ACETAMINOPHEN 650 MG SUPP.RECT PR ONE ×2 (13:43→19:39)
[2017-07-12] MEDS ORDERED: VANCOMYCIN 1 GRAM (PRE-DOCKED) 1,000 MG/250 ML BAG IVPB ONE (13:44)
[2017-07-12 13:45] LABS: STOOL FOR OCCULT BLOOD NEGATIVE (NEGATIVE)
[2017-07-12 14:14] LABS: URINE APPEARANCE CLEAR; URINE BILIRUBIN NEGATIVE (NEGATIVE); URINE BLOOD 1+ (NEGATIVE); URINE COLOR STRAW; URINE GLUCOSE (UA) NEGATIVE (NEGATIVE); URINE KETONE NEGATIVE (NEGATIVE); URINE LEUK ESTERASE NEGATIVE (NEGATIVE); URINE NITRITE NEGATIVE (NEGATIVE); URINE PROTEIN NEGATIVE (NEGATIVE); URINE UROBILINOGEN NEGATIVE mg/dL (0.2-1.0)
[2017-07-12 14:16] LABS: URINE BACTERIA RARE /hpf (NONE SEEN); URINE HYALINE CAST 1 /lpf; URINE MUCUS RARE; URINE RBC 2 /hpf (0-3); URINE WBC <1 /hpf (3-5)
[2017-07-12] MEDS ORDERED: VANCOMYCIN 1 GRAM (PRE-DOCKED) 250 ML IVPB ONE (14:31)
[2017-07-12 14:49] LABS: BASOPHIL 0.4 % (0-2.0); EOSINOPHIL 0.5 % (0-4.5); MCH 32.3 pg (25.7-33.7); MCHC 33.4 g/dl (32.0-36.0); MEAN CELL VOLUME 96.6 fl (80-96); NEUTROPHILS 79.7 % (42.8-82.8); PLATELET COUNT 176 K/MM3 (134-434); RDW 16.7 % (11.6-15.6); WHITE BLOOD COUNT 7.7 K/mm3 (4.0-10.0)
[2017-07-12 15:02] LABS: INR 2.37 (0.82-1.09); PROTHROMBIN TIME (PATIENT) 26.5 SEC (9.98-11.88)
[2017-07-12 15:05] LABS: ACTIVATED PTT 42.9 SECONDS (26.9-34.4)
[2017-07-12 15:25] LABS: ALBUMIN 2.7 g/dl (3.4-5.0); ALK PHOS 228 U/L (45-117); ANION GAP 6 (8-16); BILIRUBIN,TOTAL 2.3 mg/dL (0.2-1.0); CALCIUM 7.9 mg/dL (8.5-10.1); CO2 27 mmol/L (21-32); CREATININE 0.4 mg/dL (0.55-1.02); GLUCOSE,RANDOM 120 mg/dL (74-106); PHOSPHOROUS 2.3 mg/dL (2.5-4.9); SGPT/ALT 23 U/L (12-78); TOT PROT 5.8 g/dl (6.4-8.2)
[2017-07-12 15:36] LABS: MAGNESIUM 1.5 mg/dL (1.8-2.4); SGOT/AST 36 U/L (15-37)
--- NOTE | 2017-07-12 17:06 | PN ---
Teaching Attending Note Name of Resident: Ryan Duncan ATTENDING PHYSICIAN STATEMENT I saw and evaluated the patient. I reviewed the resident's note and discussed the case with the resident. I agree with the resident's findings and plan as documented. SUBJECTIVE: OBJECTIVE: Last Vital Signs Temp Pulse Resp BP Pulse Ox 97.9 F 99 H 18 115/73 96 07/12/17 16:45 07/12/17 16:45 07/12/17 16:45 07/12/17 16:45 07/12/17 16:45 ASSESSMENT AND PLAN: The patient is a 77 year old female with significant past medical history of Afib (on eliquis), hemochromatosis and frequent falls who presented to the emergency department with sepsis secondary to left hip cellulitis. #Sepsis secondary to left hip cellulitis No evidence of severe sepsis She received one dose of Vancomycin She received 2L of NS and is euvolemic Cellulitis is non-purulent Will begin Ceftriaxone Follow cultures
[2017-07-12] MEDS: SODIUM CHLORIDE 1,000 ML IV SCH ×2 (17:24→22:49)
--- NOTE | 2017-07-12 17:29 | HP ---
CHIEF COMPLAINT: Altered mental status PCP: Dr. Ramon HISTORY OF PRESENT ILLNESS: Patient is A&Ox0. History collected from ED records and family members. The patient is a 77 yo f w/ PMH Afib on eliquis, hemochromatosis, multiple falls in the past 6 months who was brought to the ED by her aide and son due to lethargy for the past 2 days as well as worsening cellulitis of the hip. The patient was in her usual state of health until 2 days ago when she developed redness and swelling of her left hip. The cellulitis got worse over the next day and the patient began to act "not like herself", prompting the patient's son to take her to the ED. ER course was notable for: (1) temp 101.6 (2) max HR 92 (3) Recent Travel: none PAST MEDICAL HISTORY: -see above PAST SURGICAL HISTORY: -cholecystectomy, right wrist ORIF, spinal surgery Social History: Smoking: Quit 28 years ago Alcohol: none Drugs: none Family History: non-contributory Allergies No Known Drug Allergies Allergy (Verified 07/12/17 13:31) HOME MEDICATIONS: Home Medications Medication Instructions Recorded Apixaban [Eliquis] 5 mg PO BID #60 tablet 04/22/16 Acetaminophen [Tylenol] 650 mg PO QID 07/20/16 Fluocinonide 0.05% Cream [Lidex 1 applic BID 07/20/16 0.05% Cream -] Lactobacillus Acidophilus [Bacid -] 1 tab PO DAILY 07/20/16 Magnesium Oxide 400 mg PO BID 07/20/16 Metoprolol Tartrate [Lopressor -] 25 mg PO BID tablet 07/23/16 Polyethylene Glycol 3350 [Miralax 17 gm PO DAILY bottle 07/23/16 119 gm Btl -] Sennosides/Docusate Sodium 2 tablet PO BID tablet 07/23/16 [Pericolace -] Melatonin 5 mg PO HS PRN #0 cap 01/08/17 Oxycodone HCl [Roxicodone -] 5 mg PO Q4H PRN #0 tablet MDD 4 01/08/17 Apixaban [Eliquis -] 5 mg PO BID #0 tablet 04/26/17 Calcium (Oyster Shell) [Os-Durga 500 mg PO BID tablet 04/26/17 500MG -] REVIEW OF SYSTEMS unable to obtain due to patient's clinical status. PHYSICAL EXAMINATION Vital Signs - 24 hr 07/12/17 07/12/17 07/12/17 12:25 12:35 13:05 Temperature 101.6 F H 101.6 F H Pulse Rate 89 Pulse Rate [ 92 H Apical] Respiratory 16 18 Rate Blood Pressure 125/54 Blood Pressure 117/69 [Left Arm] O2 Sat by Pulse 87 L 99 99 Oximetry (%) 07/12/17 07/12/17 07/12/17 13:30 15:00 16:45 Temperature 100.6 F H 97.9 F Pulse Rate Pulse Rate [ 78 76 99 H Apical] Respiratory 18 18 18 Rate Blood Pressure Blood Pressure 120/81 118/78 115/73 [Left Arm] O2 Sat by Pulse 99 99 96 Oximetry (%) GENERAL: Patient A&Ox0, unable to follow commands, in no acute distress. HEAD: Normal with no signs of trauma. EYES: Pupils equal, round and reactive to light, sclera icteric, conjunctiva clear. NECK: Normal range of motion, supple without lymphadenopathy, JVD, or masses. LUNGS: Breath sounds equal, clear to auscultation bilaterally. No wheezes, and no crackles. No accessory muscle use. HEART: Regular rate and rhythm, normal S1 and S2 without murmur, rub or gallop. ABDOMEN: Soft, nontender, not distended, normoactive bowel sounds, no guarding, no rebound, no masses. MUSCULOSKELETAL: No bony deformities or tenderness. UPPER EXTREMITIES: 2+ pulses, warm, well-perfused. No cyanosis. No clubbing. No peripheral edema. LOWER EXTREMITIES: 2+ pulses, warm, well-perfused. No calf tenderness. NEUROLOGICAL: unable to abtain due to patient's clinical status SKIN: Warm, dry, normal turgor, normal capillary refill. Warm, erythematous, indurated area extending from the left hip down to just above the knee. Laboratory Results - last 24 hr 07/12/17 07/12/17 07/12/17 13:23 14:41 14:41 WBC RBC Hgb Hct MCV MCH MCHC RDW Plt Count MPV Neutrophils % Lymphocytes % Monocytes % Eosinophils % Basophils % PT with INR INR PTT (Actin FS) Sodium Potassium Chloride Carbon Dioxide Anion Gap BUN Creatinine Creat Clearance w eGFR Random Glucose Lactic Acid Calcium Phosphorus Cancelled Magnesium Cancelled Total Bilirubin AST ALT Alkaline Phosphatase B-Natriuretic Peptide Cancelled Total Protein Albumin Urine Color Straw Urine Appearance Clear Urine pH 6.0 Urine Protein Negative Urine Glucose (UA) Negative Urine Ketones Negative Urine Blood 1+ H Urine Nitrite Negative Urine Bilirubin Negative Urine Urobilinogen Negative Urine RBC 2 Urine WBC <1 Urine Bacteria Rare Hyaline Casts 1 Urine Mucus Rare Stool Occult Blood Negative Blood Type O POSITIVE Antibody Screen Negative 07/12/17 07/12/17 07/12/17 14:41 14:41 14:41 WBC 7.7 D RBC 4.61 Hgb 14.9 Hct 44.5 MCV 96.6 H MCH 32.3 MCHC 33.4 RDW 16.7 H D Plt Count 176 MPV 9.0 Neutrophils % 79.7 D Lymphocytes % 13.2 D Monocytes % 6.2 Eosinophils % 0.5 D Basophils % 0.4 D PT with INR 26.50 H INR 2.37 H D PTT (Actin FS) 42.9 H Sodium 141 Potassium 3.6 Chloride 108 H Carbon Dioxide 27 D Anion Gap 6 L BUN 10 Creatinine 0.4 L Creat Clearance w eGFR > 60 Random Glucose 120 H Lactic Acid Calcium 7.9 L Phosphorus 2.3 L Magnesium 1.5 L Total Bilirubin 2.3 H D AST 36 D ALT 23 D Alkaline Phosphatase 228 H B-Natriuretic Peptide 732.89 H Total Protein 5.8 L Albumin 2.7 L Urine Color Urine Appearance Urine pH Urine Protein Urine Glucose (UA) Urine Ketones Urine Blood Urine Nitrite Urine Bilirubin Urine Urobilinogen Urine RBC Urine WBC Urine Bacteria Hyaline Casts Urine Mucus Stool Occult Blood Blood Type Antibody Screen 07/12/17 14:41 WBC RBC Hgb Hct MCV MCH MCHC RDW Plt Count MPV Neutrophils % Lymphocytes % Monocytes % Eosinophils % Basophils % PT with INR INR PTT (Actin FS) Sodium Potassium Chloride Carbon Dioxide Anion Gap BUN Creatinine Creat Clearance w eGFR Random Glucose Lactic Acid 1.8 Calcium Phosphorus Magnesium Total Bilirubin AST ALT Alkaline Phosphatase B-Natriuretic Peptide Total Protein Albumin Urine Color Urine Appearance Urine pH Urine Protein Urine Glucose (UA) Urine Ketones Urine Blood Urine Nitrite Urine Bilirubin Urine Urobilinogen Urine RBC Urine WBC Urine Bacteria Hyaline Casts Urine Mucus Stool Occult Blood Blood Type Antibody Screen ASSESSMENT/PLAN: 77 yo f w/ pmh afib on eliquis, hemochromatosis, frequent falls presents to the ER w/ left leg cellulitis and AMS. #Sepsis 2/2 left hip cellulitis vs other infection -admit to tele -ivf -s/p 1 dose vancomycin in ED -add ceftriaxone -UA: 1+ blood, rare bacteria -CXR: chronic left lower lobe atalectasis/fluid -BCX, ucx sent -tylenol PRN fever -ID consult #Afib -c/w home lopressor and eliquis #FEN -NS @ 75 -monitor lytes -NPO #Prophy -SCDs -no GI prophy indicated at this time #Dispo -admit to tele Problem List - Problem (1) Cellulitis Code(s): L03.90 - CELLULITIS, UNSPECIFIED (2) Change in mental status Code(s): R41.82 - ALTERED MENTAL STATUS, UNSPECIFIED (3) Fever Code(s): R50.9 - FEVER, UNSPECIFIED (4) Atrial fibrillation Code(s): I48.91 - UNSPECIFIED ATRIAL FIBRILLATION Visit type - Emergency Visit Emergency Visit: Yes ED Registration Date: 07/12/17 Care time: The patient presented to the Emergency Department on the above date and was hospitalized for further evaluation of their emergent condition. - New Patient This patient is new to me today: Yes Date on this admission: 07/12/17 - Critical Care Critical Care patient: No
[2017-07-12] MEDS ORDERED: ACETAMINOPHEN 325 MG SUPP.RECT ONE ×2 (19:17→19:19)
[2017-07-12] MEDS: CEFTRIAXONE 1 GM in DEXTROSE 5%-WATER - 50 ML IVPB SCH (19:37)
[2017-07-12] MEDS ORDERED: CEFTRIAXONE 50 ML ONE (19:55)
[2017-07-12] MEDS: MAGNESIUM OXIDE 400 MG TABLET (FP) PO SCH (22:39)
[2017-07-12] MEDS: CALCIUM (OYSTER SHELL) 500 MG TABLET (FP) PO SCH (22:40)
[2017-07-12] MEDS: FLUOCINONIDE 0.05% CREAM (15 GM TUBE) TP SCH (22:40)
[2017-07-12] MEDS: APIXABAN 5 MG TABLET PO SCH (22:40)
[2017-07-12] MEDS: METOPROLOL TARTRATE 25 MG TABLET (FP) PO SCH (22:40)
--- NOTE | 2017-07-13 07:27 | PN ---
Physical Exam: SUBJECTIVE: Patient seen and examined She states that she feels "much better" She is now awake, alert, interactive She answers questions appropriately She denies headache, neck pain, cough, abdominal pain She reports that her hip feels "much better? OBJECTIVE: Vital Signs Period Temp Pulse Resp BP Sys/Arreguin Pulse Ox Last 24 Hr 97.9 F-101.6 F 80-99 18-20 100-120/48-73 96-96 She looks significantly improved She is now well appearing Lungs CTAB Heart RRR Abdomen soft and non-tender Skin: left hip erythema/warmth/tenderness significantly improved. No weeping. No crepitance. Extremities without edema Active Medications Generic Name Dose Route Start Last Admin Trade Name Freq PRN Reason Stop Dose Admin Acetaminophen 650 mg 07/12/17 19:20 Tylenol - PO Q6H PRN FEVER OR PAIN Apixaban 5 mg 07/12/17 22:00 07/12/17 22:40 Eliquis - PO 5 mg BID NELSON Administration Calcium Carbonate 500 mg 07/12/17 22:00 07/12/17 22:40 Os-Durga 500mg - PO 500 mg BID NELSON Administration Fluocinonide 1 applic 07/12/17 22:00 07/12/17 22:40 Lidex 0.05% Cream - TP 1 applic BID NELSON Administration Sodium Chloride 1,000 mls @ 75 mls/hr 07/12/17 17:15 07/12/17 22:49 Normal Saline - IV 75 mls/hr ASDIR NELSON Administration Ceftriaxone Sodium 1 gm/ 50 mls @ 100 mls/hr 07/12/17 19:30 07/12/17 19:37 Dextrose IVPB 100 mls/hr DAILY NELSON Administration Magnesium Oxide 400 mg 07/12/17 22:00 07/12/17 22:39 Mag-Ox - PO 400 mg BID NELSON Administration Melatonin 5 mg 07/12/17 17:22 Melatonin PO HS PRN INSOMNIA Metoprolol Tartrate 25 mg 07/12/17 22:00 07/12/17 22:40 Lopressor - PO 25 mg BID NELSON Administration ASSESSMENT/PLAN: The patient is a 77 year old female with significant past medical history of Afib (on eliquis), hemochromatosis and frequent falls who presented to the emergency department yesterday and was admitted with sepsis secondary to left hip cellulitis. #Sepsis secondary to left hip cellulitis She is significantly clinically improved She received one dose of Vancomycin in the ED She received 2L of NS and is euvolemic Cellulitis is non-purulent Will continue Ceftriaxone Follow cultures Follow ID consult #Atrial fibrillation Continue Lopressor and Eliquis #FEN D51/2NS at 125ml/hr Regular diet #Prophylaxis She is now eating She is on Eliquis Will consult PT to avoid deconditioning #Disposition She may be ready for discharge Friday Visit type - Emergency Visit Emergency Visit: Yes ED Registration Date: 07/12/17 Care time: The patient presented to the Emergency Department on the above date and was hospitalized for further evaluation of their emergent condition. - New Patient This patient is new to me today: No - Critical Care Critical Care patient: No
[2017-07-13] MEDS ORDERED: DEXTROSE 5%-0.45% SALINE 1,000 ML IV SCH (07:30)
[2017-07-13 07:51] LABS: BASOPHIL 0.4 % (0-2.0); EOSINOPHIL 0.7 % (0-4.5); MCH 32.4 pg (25.7-33.7); MCHC 33.4 g/dl (32.0-36.0); MEAN CELL VOLUME 96.9 fl (80-96); NEUTROPHILS 79.5 % (42.8-82.8); PLATELET COUNT 148 K/MM3 (134-434); RDW 16.4 % (11.6-15.6); WHITE BLOOD COUNT 7.9 K/mm3 (4.0-10.0)
[2017-07-13 08:25] LABS: ALBUMIN 2.3 g/dl (3.4-5.0); ANION GAP 11 (8-16); CALCIUM 7.6 mg/dL (8.5-10.1); CO2 25 mmol/L (21-32); GLUCOSE,RANDOM 89 mg/dL (74-106); MAGNESIUM 1.5 mg/dL (1.8-2.4)
[2017-07-13 08:30] LABS: ALK PHOS 163 U/L (45-117); BILIRUBIN,TOTAL 2.8 mg/dL (0.2-1.0); CREATININE 0.4 mg/dL (0.55-1.02); PHOSPHOROUS 2.7 mg/dL (2.5-4.9); SGOT/AST 21 U/L (15-37); SGPT/ALT 16 U/L (12-78); TOT PROT 4.7 g/dl (6.4-8.2)
[2017-07-13] MEDS ORDERED: MAGNESIUM SULFATE 2 GM in SODIUM CHLORIDE 100 ML IVPB ONE (09:12)
[2017-07-13] MEDS ORDERED: MAGNESIUM SULF 50% (8.12 MEQ/2 ML-1 GM VIAL) IVPB ONE (09:45)
[2017-07-13] MEDS ORDERED: DEXTROSE 5%-WATER - 50 ML IVPB ONE (09:51)
[2017-07-13] MEDS ORDERED: cefTRIAXone SODIUM 1 GM VIAL ONE (09:51)
[2017-07-13] MEDS ORDERED: POTASSIUM CHLORIDE TABS 20 MEQ TABLET.ER (FP) PO ONE (10:00)
[2017-07-13 10:41] LABS: BILIRUBIN,DIRECT 0.9 mg/dL (0.0-0.2)
[2017-07-13] MEDS: CALCIUM (OYSTER SHELL) 500 MG TABLET (FP) PO SCH ×2 (11:41→21:14)
[2017-07-13] MEDS: MAGNESIUM OXIDE 400 MG TABLET (FP) PO SCH ×2 (11:41→21:14)
[2017-07-13] MEDS: METOPROLOL TARTRATE 25 MG TABLET (FP) PO SCH ×2 (11:41→21:14)
[2017-07-13] MEDS: APIXABAN 5 MG TABLET PO SCH ×2 (11:41→21:14)
[2017-07-13] MEDS: CEFTRIAXONE 1 GM in DEXTROSE 5%-WATER - 50 ML IVPB SCH (11:42)
[2017-07-13] MEDS: FLUOCINONIDE 0.05% CREAM (15 GM TUBE) TP SCH ×2 (11:53→21:14)
--- NOTE | 2017-07-13 12:48 | PN ---
Progress Note, Physician Chief Complaint: Some discomfort in area of left hip. Worried about her infection and problems with ambulation. History of Present Illness: Patient with a history of Hemochromatosis, Bilateral hip fractures with left sided hardware in place, A. Fibrillation, liver mass ? Hemangioma ? Malignancy was brought to the ER with temps and was found to have extensive cellulitis left hip, leg and part of left flank but not buttock or right side..Continues to have elevated Alk phosphatase and a repeat liver sono was also done but I think she will require CAT or MRI for definition of that lesion. On the last admission she had mild elevation of CEA,CA19-9 and CEA 125. Had been going for phlebotomy treatment for years. Issue now is ambulation and safety; hence SNF. - Current Medication List Current Medications: Active Medications Acetaminophen (Tylenol -) 650 mg PO Q6H PRN PRN Reason: FEVER OR PAIN Apixaban (Eliquis -) 5 mg PO BID [facility] Last Admin: 07/13/17 11:41 Dose: 5 mg Calcium Carbonate (Os-Durga 500mg -) 500 mg PO BID [facility] Last Admin: 07/13/17 11:41 Dose: 500 mg Fluocinonide (Lidex 0.05% Cream -) 1 applic TP BID [facility] Last Admin: 07/13/17 11:53 Dose: 1 applic Ceftriaxone Sodium 1 gm/ (Dextrose) 50 mls @ 100 mls/hr IVPB DAILY [facility] Last Admin: 07/13/17 11:42 Dose: 100 mls/hr Dextrose/Sodium Chloride (D5-1/2ns -) 1,000 mls @ 75 mls/hr IV ASDIR [facility] Magnesium Oxide (Mag-Ox -) 400 mg PO BID [facility] Last Admin: 07/13/17 11:41 Dose: 400 mg Melatonin (Melatonin) 5 mg PO HS PRN PRN Reason: INSOMNIA Metoprolol Tartrate (Lopressor -) 25 mg PO BID [facility] Last Admin: 07/13/17 11:41 Dose: 25 mg - Objective Vital Signs: Vital Signs Temperature 98.2 F 07/13/17 06:00 Pulse Rate 98 H 07/13/17 06:00 Respiratory Rate 20 07/13/17 06:00 Blood Pressure 100/48 07/13/17 06:00 O2 Sat by Pulse Oximetry (%) 97 07/13/17 05:00 Constitutional: Yes: Calm Cardiovascular: Yes: Pulse Irregular Respiratory: Yes: Diminished Gastrointestinal: Yes: Hyperactive Bowel Sounds. No: Tenderness Genitourinary: No: Siegel Present Extremities: Yes: Erythema (left leg.) Edema: LLE: 2+, RLE: Trace Integumentary: Yes: Erythema, Rash, Other (warm confluent erythematous rash involving nearly all of her left leg and slighly invoving left flank.) Neurological: Yes: Alert, Oriented Labs: CBC, BMP 07/13/17 05:45 07/13/17 05:45 INR, PTT INR 2.37 (0.82-1.09) H D 07/12/17 14:41 - ....Imaging Chest X-ray: Report Reviewed Cat Scan: Report Reviewed Ultrasound: Report Reviewed Problem List - Problems (1) Cellulitis Assessment/Plan: On IV antibiotics and had Vancomycin X 1. Await opinion of GEETA MARY. Extensive cellulitis left leg. Code(s): L03.90 - CELLULITIS, UNSPECIFIED (2) Fever Assessment/Plan: 101.6 7PM last evening; improved this AM Code(s): R50.9 - FEVER, UNSPECIFIED (3) Atrial fibrillation Assessment/Plan: On NOAC; NB INR is 2.37 probably related to liver disease. Code(s): I48.91 - UNSPECIFIED ATRIAL FIBRILLATION (4) Hemochromatosis Code(s): E83.119 - HEMOCHROMATOSIS, UNSPECIFIED (5) Hypomagnesemia Assessment/Plan: Given Mag 2GM IVPB Will follow. Code(s): E83.42 - HYPOMAGNESEMIA (6) Liver lesion, right lobe Assessment/Plan: Will follow; AFP ordered. Code(s): K76.89 - OTHER SPECIFIED DISEASES OF LIVER (7) Hypokalemia Assessment/Plan: Given 40meg; will follow. Code(s): E87.6 - HYPOKALEMIA
[2017-07-13] MEDS: DEXTROSE 5%-0.45% SALINE 1,000 ML IV SCH (13:15)
[2017-07-13] MEDS ORDERED: PIPERACILLIN/TAZOB 4.5 GM/100 ML PRE-DOCKED IVPB SCH (14:30)
[2017-07-13] MEDS ORDERED: VANCOMYCIN 1 GRAM (PRE-DOCKED) 1,000 MG/250 ML BAG IVPB SCH (14:30)
--- NOTE | 2017-07-13 14:37 | PN ---
Progress Note (short form) - Note Progress Note: ID consult dictated imp/reccd 77 year old female admitted from home with fever and cellulitis of the left leg - prior fall- she has a gamma rafy in the leg- 12/2016-secondary to fracture now admitted from home with worsening cellulitis of the leg over the last 24-48 hours and confusion she is currently alert complains of pain in the leg as well as LLQ denies fevers soft tissue infection of the left leg with extension to the flank- no evidence of perineal involvement d/w Dr Ramon would start vancomycin and zosyn and obtain stat ct scan of leg and abd/pelvis no crepitance of the leg noted on exam of note is the gamma nail cultures have been sent and are pending Problem List - Problems (1) Soft tissue infection Code(s): L08.9 - LOCAL INFECTION OF THE SKIN AND SUBCUTANEOUS TISSUE, UNSP (2) Cellulitis Code(s): L03.90 - CELLULITIS, UNSPECIFIED
[2017-07-13] MEDS ORDERED: DEXTROSE 5%-WATER 100 ML IVPB ONE ×2 (14:47→18:52)
[2017-07-13] MEDS ORDERED: PIPERACILLIN/TAZOBACTAM 4.5 GM VIAL IVPB ONE ×2 (14:47→18:51)
[2017-07-13] MEDS: PIPERACILLIN/TAZOB 4.5 GM 4.5 GM in DEXTROSE 5%-WATER 100 ML IVPB SCH ×2 (14:55→18:54)
[2017-07-13] MEDS: VANCOMYCIN 1 GRAM (PRE-DOCKED) 1,000 MG/250 ML BAG IVPB SCH (15:50)
[2017-07-14] MEDS ORDERED: PIPERACILLIN/TAZOBACTAM 4.5 GM VIAL IVPB ONE ×3 (01:41→16:47)
[2017-07-14] MEDS ORDERED: DEXTROSE 5%-WATER 100 ML IVPB ONE ×3 (01:41→16:48)
[2017-07-14] MEDS: PIPERACILLIN/TAZOB 4.5 GM 4.5 GM in DEXTROSE 5%-WATER 100 ML IVPB SCH ×3 (01:48→18:01)
[2017-07-14] MEDS: VANCOMYCIN 1 GRAM (PRE-DOCKED) 1,000 MG/250 ML BAG IVPB SCH ×2 (02:54→16:35)
[2017-07-14 07:22] LABS: BASOPHIL 0.8 % (0-2.0); EOSINOPHIL 3.7 % (0-4.5); MCH 32.7 pg (25.7-33.7); MCHC 33.7 g/dl (32.0-36.0); MEAN CELL VOLUME 97.2 fl (80-96); MEAN PLT VOLUME 8.8 fl (7.5-11.1); NEUTROPHILS 62.9 % (42.8-82.8); PLATELET COUNT 142 K/MM3 (134-434); RDW 16.4 % (11.6-15.6); WHITE BLOOD COUNT 6.3 K/mm3 (4.0-10.0)
[2017-07-14 07:35] LABS: INR 2.43 (0.82-1.09); PROTHROMBIN TIME (PATIENT) 27.2 SEC (9.98-11.88)
[2017-07-14 07:59] LABS: ANION GAP 8 (8-16); CALCIUM 7.6 mg/dL (8.5-10.1); CO2 27 mmol/L (21-32); MAGNESIUM 1.9 mg/dL (1.8-2.4)
[2017-07-14 08:00] LABS: CREATININE 0.4 mg/dL (0.55-1.02); GLUCOSE,RANDOM 116 mg/dL (74-106); PHOSPHOROUS 1.7 mg/dL (2.5-4.9)
[2017-07-14 08:13] LABS: ALBUMIN 2.1 g/dl (3.4-5.0); ALK PHOS 173 U/L (45-117); BILIRUBIN,DIRECT 0.7 mg/dL (0.0-0.2); BILIRUBIN,TOTAL 1.7 mg/dL (0.2-1.0); SGOT/AST 20 U/L (15-37); SGPT/ALT 16 U/L (12-78); TOT PROT 4.7 g/dl (6.4-8.2)
--- NOTE | 2017-07-14 09:54 | PN ---
Progress Note (short form) - Note Progress Note: Much improved with extensive cellulitis much improved with less erythema and warmth in all areas. CT. Abd: Fecal Impaction and liver mass: Future MRI. PT today; F/U IV antibiotics Vital Signs Temp 98.6 F 07/14/17 06:00 Pulse 77 07/14/17 06:00 Resp 19 07/14/17 06:00 BP 108/55 07/14/17 06:00 Pulse Ox 98 07/13/17 23:00 Intake & Output 07/13/17 07/13/17 07/14/17 11:59 23:59 11:59 Intake Total 965 983 8725 Balance 033 502 6901 Intake: IV 825 700 Normal Saline - 1,000 ml 825 700 @ 75 mls/hr IV ASDIR NELSON Rx#:[id number] IVPB 350 Oral 170 200 Other: Voiding Method Diaper Diaper Incontinent # Unmeasured Voids Void 1 Bowel Movement No No Alert Cor : Irreg Abd: Still Mild abdominal tenderness Cellulitis rash left leg and flank much improved Abnormal Lab Results 07/13/17 07/14/17 07/14/17 05:45 05:35 05:35 MCV 97.2 H RDW 16.4 H Monocytes % 11.2 H D PT with INR INR Potassium 3.2 L Chloride 109 H Creatinine 0.4 L 0.4 L Random Glucose 116 H D Calcium 7.6 L 7.6 L Phosphorus 1.7 L D Magnesium 1.5 L Total Bilirubin 2.8 H D 1.7 H D Direct Bilirubin 0.9 H 0.7 H D Alkaline Phosphatase 163 H D 173 H Total Protein 4.7 L 4.7 L Albumin 2.3 L 2.1 L 07/14/17 05:35 MCV RDW Monocytes % PT with INR 27.20 H INR 2.43 H Potassium Chloride Creatinine Random Glucose Calcium Phosphorus Magnesium Total Bilirubin Direct Bilirubin Alkaline Phosphatase Total Protein Albumin IMP: Acute Cellulitis Improving A. Fib on anticoagulant Bilateral Hip Fractures Hemachromatosis Liver Mass Plan: PT IV Antibiotics F/U MRI liver Problem List - Problems (1) Cellulitis Code(s): L03.90 - CELLULITIS, UNSPECIFIED (2) Fever Code(s): R50.9 - FEVER, UNSPECIFIED (3) Atrial fibrillation Code(s): I48.91 - UNSPECIFIED ATRIAL FIBRILLATION (4) Hemochromatosis Code(s): E83.119 - HEMOCHROMATOSIS, UNSPECIFIED (5) Hypomagnesemia Code(s): E83.42 - HYPOMAGNESEMIA (6) Liver lesion, right lobe Code(s): K76.89 - OTHER SPECIFIED DISEASES OF LIVER (7) Hypokalemia Code(s): E87.6 - HYPOKALEMIA
--- NOTE | 2017-07-14 10:02 | CON.GI ---
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 History of Recent Travel: No Home Medications - Allergies Allergies/Adverse Reactions: Allergies Allergy/AdvReac Type Severity Reaction Status Date / Time No Known Drug Allergies Allergy Verified 07/12/17 13:31 - Home Medications Home Medications: Ambulatory Orders Acetaminophen [Tylenol] 650 mg PO QID 07/20/16 Fluocinonide 0.05% Cream [Lidex 0.05% Cream -] 1 applic BID 07/20/16 Lactobacillus Acidophilus [Bacid -] 1 tab PO DAILY 07/20/16 Magnesium Oxide 400 mg PO BID 07/20/16 Metoprolol Tartrate [Lopressor -] 25 mg PO BID tablet 07/23/16 Polyethylene Glycol 3350 [Miralax 119 gm Btl -] 17 gm PO DAILY bottle 07/23/16 Sennosides/Docusate Sodium [Pericolace -] 2 tablet PO BID tablet 07/23/16 Melatonin 5 mg PO HS PRN #0 cap 01/08/17 Oxycodone HCl [Roxicodone -] 5 mg PO Q4H PRN #0 tablet MDD 4 01/08/17 Apixaban [Eliquis -] 5 mg PO BID #0 tablet 04/26/17 Calcium (Oyster Shell) [Os-Durga 500MG -] 500 mg PO BID tablet 04/26/17 Family Disease History - Family Disease History Family Disease History: Heart Disease: Mother, Other: Brother (arthritis) Physical Exam-GI Vital Signs: Vital Signs Temperature 98.6 F 07/14/17 06:00 Pulse Rate 77 07/14/17 06:00 Respiratory Rate 19 07/14/17 06:00 Blood Pressure 108/55 07/14/17 06:00 O2 Sat by Pulse Oximetry (%) 98 07/13/17 23:00 Labs: CBC, BMP 07/14/17 05:35 07/14/17 05:35 INR, PTT INR 2.43 (0.82-1.09) H 07/14/17 05:35
--- NOTE | 2017-07-14 10:09 | CON.GI ---
Consult Consult Specialty:: GI Referred by:: Dr. Ramon Reason for Consultation:: Liver Lesion - History of Present Illness Chief Complaint: "I fell" History of Present Illness: 77 y/o F admitted s/p fall. She denied assciated loss of conscviousness/ confusion. I had evaluated her 01/10 when she experienced a FALL and underwent ORIF of hip fracture. At that time she had imagiong revealing a liver lesion and in setting of suspected cirrhosis with superimposed hemochromatosis and radiographic appearance of lesion, I explained to Ms. Pak that HCC (liver cancer) would have to be considered higher in the differential despite normal AFP tumor marker. I had also called Dr. Lazo, her human relations manager treating her for hemochromatosis and discussed this to him as well and he advised that he would be arranging evaluation for Ms. Bennett with one of the [facility] hepatologists when she was physically able to follow-up after recovery from her hip fracture. Ms. Bennett does not recall if she had seen a linen folder. She also had RUQ pain / pain upon palpation of her right lower ribs as well at that time along with elevated ALP/Bilirubin. Trending her labs, that appeared to be a chronic pattern and I felt the hip fracture may have been adding to the elevated ALP as well. She denies any focal GI complaints. being treated for suspected LE cellulitis - History Source History Provided By: Patient, Medical Record Limitations to Obtaining History: No Limitations - Past Medical History Cardio/Vascular: Yes: AFIB Pulmonary: Yes: Other (Right sided pleural effusion) Hepatobiliary: Yes: Cirrhosis, Other (Hemachromatosis) - Past Surgical History Past Surgical History: Yes: Cholecystectomy, Laminectomy Additional Surgical History: Total right hip replacement, repair of right wrist fracture, port placement right chest with removal - Alcohol/Substance Use Hx Alcohol Use: Yes (2 glasses wine per night, more in past) Number of Drinks Daily: 2 (glasses of wine daily) History of Substance Use: reports: None - Smoking History Smoking history: Former smoker Have you smoked in the past 12 months: No If you are a former smoker, when did you quit?: 23 YEARS AGO - Social History 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 Place of : [facility] History of Recent Travel: No Home Medications - Allergies Allergies/Adverse Reactions: Allergies Allergy/AdvReac Type Severity Reaction Status Date / Time No Known Drug Allergies Allergy Verified 07/12/17 13:31 - Home Medications Home Medications: Ambulatory Orders Acetaminophen [Tylenol] 650 mg PO QID 07/20/16 Fluocinonide 0.05% Cream [Lidex 0.05% Cream -] 1 applic BID 07/20/16 Lactobacillus Acidophilus [Bacid -] 1 tab PO DAILY 07/20/16 Magnesium Oxide 400 mg PO BID 07/20/16 Metoprolol Tartrate [Lopressor -] 25 mg PO BID tablet 07/23/16 Polyethylene Glycol 3350 [Miralax 119 gm Btl -] 17 gm PO DAILY bottle 07/23/16 Sennosides/Docusate Sodium [Pericolace -] 2 tablet PO BID tablet 07/23/16 Melatonin 5 mg PO HS PRN #0 cap 01/08/17 Oxycodone HCl [Roxicodone -] 5 mg PO Q4H PRN #0 tablet MDD 4 01/08/17 Apixaban [Eliquis -] 5 mg PO BID #0 tablet 04/26/17 Calcium (Oyster Shell) [Os-Durga 500MG -] 500 mg PO BID tablet 04/26/17 Family Disease History - Family Disease History Family Disease History: Heart Disease: Mother, Other: Brother (arthritis) Physical Exam-GI Vital Signs: Vital Signs Temperature 98.6 F 07/14/17 06:00 Pulse Rate 77 07/14/17 06:00 Respiratory Rate 19 07/14/17 06:00 Blood Pressure 108/55 07/14/17 06:00 O2 Sat by Pulse Oximetry (%) 98 07/13/17 23:00 Constitutional: Yes: Calm Eyes: No: Sclera Icterus Cardiovascular: Yes: Regular Rate and Rhythm, Murmur (2/6 systolic murmur at LSB ) Respiratory: Yes: Diminished (at bases b/l R>L with poor insp. effort) Gastrointestinal Inspection: Yes: Scars. No: Distention ...Auscultate: Yes: Normoactive Bowel Sounds ...Palpate: Yes: Soft, Tenderness (along right lower ribs). No: Hepatomegaly, Splenomegaly ...Percussion: No: Tympanitic Edema: No (stasis change b/l LE) Neurological: Yes: Alert, Oriented. No: Asterixis Labs: CBC, BMP 07/14/17 05:35 07/14/17 05:35 INR, PTT INR 2.43 (0.82-1.09) H 07/14/17 05:35 Problem List - Problems (1) Liver lesion Assessment/Plan: In the setting of cirrhosis / Hemochromatosis. I explained this again to Ms. Bennett and explained that in setting of cirrhosis, liver cancer needs to be considered higher in the differential and excluded. I also explained again as we had discussed on her previous admission that she needs to completely abstain from alcohol as well as it can add to ongoing damage to the liver. I have ordered a triple phase MRI of the abdomen to further assess her liover, the liver lesion and her biliary tract. It is unclear whether she had seen a linen folder from [facility] as of yet regarding this. I put a call out to discuss things with Dr. Lazo again ([phone]) and am awaiting call back. Check AFP tumor marker Code(s): K76.9 - LIVER DISEASE, UNSPECIFIED
[2017-07-14] MEDS: METOPROLOL TARTRATE 25 MG TABLET (FP) PO SCH ×2 (10:56→22:28)
[2017-07-14] MEDS: APIXABAN 5 MG TABLET PO SCH ×2 (10:56→22:28)
[2017-07-14] MEDS: MAGNESIUM OXIDE 400 MG TABLET (FP) PO SCH ×2 (10:56→22:29)
[2017-07-14] MEDS: CALCIUM (OYSTER SHELL) 500 MG TABLET (FP) PO SCH ×2 (10:56→22:29)
[2017-07-14] MEDS: FLUOCINONIDE 0.05% CREAM (15 GM TUBE) TP SCH ×2 (11:03→22:31)
--- NOTE | 2017-07-14 11:21 | PN ---
Progress Note (short form) - Note Progress Note: Had d/w Dr. Lazo. It does not appear as though she had follow-up for liver lesion. Her outpatient follow-up has been spotty at times. We discussed the finding of liver lesion noted on previous studies. he explained that he would have his office reach out to her for follow-up when acute issues are resolved. I also told Dr. Lazo that I would fax over results of the abdominal MRI / AFP tumor marker (fax # [phone]) Problem List - Problems (1) Liver lesion Code(s): K76.9 - LIVER DISEASE, UNSPECIFIED
--- NOTE | 2017-07-14 13:28 | PN ---
Progress Note (short form) - Note Progress Note: much more awake and alert today! no leg pain Vital Signs Period Temp Pulse Resp BP Sys/Arreguin Pulse Ox Last 24 Hr 98.2 F-99.8 F 76-86 18-20 98-116/50-64 98-98 cor-rrr lungs clear abd soft,nt ext edema LLE erythema of the leg and flank markedly improved CBC, BMP 07/14/17 05:35 07/14/17 05:35 Microbiology 07/12/17 14:41 Blood - Peripheral Venous Blood Culture - Preliminary NO GROWTH OBTAINED AFTER 24 HOURS, INCUBATION TO CONTINUE FOR 4 DAYS. 07/12/17 14:41 Blood - Peripheral Venous Blood Culture - Preliminary NO GROWTH OBTAINED AFTER 24 HOURS, INCUBATION TO CONTINUE FOR 4 DAYS. 07/12/17 14:00 Urine - Urine - Catheterized Urine Culture - Final NO GROWTH OBTAINED ct scan- liver lesion, +subcutaneous edema a/p soft tissue infection of the left leg with extension to the flank- no evidence of perineal involvement markedly improved, will get duplex of LLE continue vanco/zosyn check vancomycin trough liiver mass hemachromatosis
[2017-07-14] MEDS: DEXTROSE 5%-0.45% SALINE 1,000 ML IV SCH (16:34)
--- NOTE | 2017-07-14 16:40 | EKG ---
Test Reason : Blood Pressure : / mmHG Vent. Rate : 088 BPM Atrial Rate : 394 BPM P-R Int : 000 ms QRS Dur : 084 ms QT Int : 338 ms P-R-T Axes : 000 -03 070 degrees QTc Int : 408 ms ATRIAL FIBRILLATION WITH PREMATURE VENTRICULAR OR ABERRANTLY CONDUCTED COMPLEXES LOW VOLTAGE QRS CANNOT RULE OUT ANTEROSEPTAL INFARCT (CITED ON OR BEFORE 13-AUG-2010) ABNORMAL ECG WHEN COMPARED WITH ECG OF 20-APR-2017 13:28, QT HAS SHORTENED Confirmed by NAMITA ROSSI MD ([id number]) on 07/14/2017 4:40:12 PM Referred By: Confirmed By:NAMITA ROSSI MD
[2017-07-14] MEDS: ACETAMINOPHEN 325 MG TABLET (FP) PO PRN (20:09)
[2017-07-15] MEDS ORDERED: PIPERACILLIN/TAZOBACTAM 4.5 GM VIAL IVPB ONE ×2 (00:50→10:19)
[2017-07-15] MEDS ORDERED: DEXTROSE 5%-WATER 100 ML IVPB ONE ×3 (00:50→17:57)
[2017-07-15] MEDS: PIPERACILLIN/TAZOB 4.5 GM 4.5 GM in DEXTROSE 5%-WATER 100 ML IVPB SCH ×2 (01:09→10:21)
[2017-07-15] MEDS: VANCOMYCIN 1 GRAM (PRE-DOCKED) 1,000 MG/250 ML BAG IVPB SCH ×2 (02:24→16:26)
[2017-07-15 07:45] LABS: ANION GAP 6 (8-16); CALCIUM 7.8 mg/dL (8.5-10.1); CO2 30 mmol/L (21-32); CREATININE 0.5 mg/dL (0.55-1.02); GLUCOSE,RANDOM 116 mg/dL (74-106); MAGNESIUM 1.8 mg/dL (1.8-2.4); PHOSPHOROUS 2.5 mg/dL (2.5-4.9)
--- NOTE | 2017-07-15 08:53 | CONS ---
DATE OF CONSULTATION: DATE OF DICTATION: 07/13/2017 REQUESTED BY: Marc Ramon MD This is a 77-year-old woman, history of hemochromatosis, bilateral hip fracture, she has a gamma nail in her left hip that was done in December of this year, question of a liver malignancy. She was brought to the emergency room on the 16 from home, where she has apparently a 24-hour aide, with complaints of 1 to 2 days of confusion and worsening erythema of her left leg. She was noted to have an extensive cellulitis from her left hip down to her left leg. She was given a dose of vancomycin and ceftriaxone. I was asked to see her. She currently is resting comfortably. She is alert, she is responsive, she follows commands. She is a bit confused about whether she lives at home or in a nursing facility but apparently she was in rehab for a while after her hip. She had fever of 101.6 in the emergency room. Of note, this morning, when her primary doctor, Dr. Ramon, saw her, she was noted to have extensive erythema to her left flank as well. It was not clear if she had this at the time of admission. She has no known drug allergies. Her past medical history is notable for hemochromatosis, bilateral hip fractures, atrial fibrillation, a liver mass, question of hemangioma versus malignancy. She has been getting phlebotomy for years. She has a history of multiple falls, cholecystectomy, left wrist fracture, left hip fracture, and spinal surgery. She has no known drug allergies. Her medications at home include Eliquis, Tylenol, Bacid, magnesium oxide, Lopressor, MiraLax, Colace, melatonin, oxycodone, and Os-Durga. SOCIAL HISTORY: She stopped smoking many years ago. No history of substance use. She apparently is bedridden but has a 24/7 live-in certified nursing attendant at home and her sons look in on her. REVIEW OF SYSTEMS: She is a poor historian. She is unable to tell when she started having the pain and discomfort in her legs or the erythema. She denies nausea, vomiting, chest pain. PHYSICAL EXAMINATION: Vital Signs: Her T-max is 101.6, current temperature is 98.2, rectal temperature as well, she is afebrile. Pulse of 98. Blood pressure 100/48. Respiratory rate is 20. HEENT: She is normocephalic. Her eyes are anicteric. Neck: Supple. Lungs: Clear to auscultation. Heart: Regular rate and rhythm. Abdomen: Soft, nontender. She has good bowel sounds. She has no right upper quadrant pain. She does have left lower quadrant pain, on exam, to palpation. Skin: She has erythema of the outer aspect of her left hip extending on the whole right leg is diffusely swollen, extending to the outer aspect of the right leg down to about the knee, extending to her inner thigh. There is no involvement of her buttock or perineum. She has as well an area of patchy erythema of her left flank. Extremities: As described. There is no erythema or edema of the left leg. Her labs are notable for a white count of 7.9, hemoglobin 13.8, platelets 148. Her INR is 2.3. Her BUN 13 and creatinine 0.4 with a bilirubin of 2.8 and an alkaline phosphatase of 163. Urinalysis had less than 1 white cell. Stool occult blood is negative. Her blood cultures and urine cultures are all pending. She had a head CT done in the ER, shows no evidence of acute intracranial pathology. She had a chest x-ray with no acute disease; acute infiltrate, left retrocardiac area, is difficult to evaluate. She had a sonogram of her abdomen that reveals she is status post cholecystectomy with a right lobe liver lesion. In summary, this is a 77-year-old woman admitted with: 1. Soft-tissue infection of the left leg with extension to the flank, no evidence of perineal involvement. I would start her on vancomycin and Zosyn, obtain a stat CAT scan of the leg and abdomen and pelvis. She had some left lower quadrant pain that, given the findings of erythema, needs to be evaluated. No crepitus of the leg was noted on exam. Of note, she does have gamma nail in that leg. Cultures have been sent and are pending. 2. Atrial fibrillation, on Eliquis. 3. History of hemochromatosis. ODILON COOLEY M.D. [id number]
[2017-07-15] MEDS: MAGNESIUM OXIDE 400 MG TABLET (FP) PO SCH ×2 (10:21→21:33)
[2017-07-15] MEDS: CALCIUM (OYSTER SHELL) 500 MG TABLET (FP) PO SCH ×2 (10:21→21:33)
[2017-07-15] MEDS: METOPROLOL TARTRATE 25 MG TABLET (FP) PO SCH ×2 (10:21→21:33)
[2017-07-15] MEDS: APIXABAN 5 MG TABLET PO SCH ×2 (10:22→21:33)
[2017-07-15] MEDS: FLUOCINONIDE 0.05% CREAM (15 GM TUBE) TP SCH ×2 (10:22→21:34)
--- NOTE | 2017-07-15 12:26 | PN ---
Progress Note, Physician Chief Complaint: Feels better; will agree to MRI of abdomen and PT. History of Present Illness: Patient admitted with extensive cellulitis left leg ad flank which is markedly improved from Friday. Some residual erythema left lateral flank but leg nearly back to normal color and temperature. Afebrile. Resisted PT and MRI yesterday but will agree today. Patent was noted to have liver lesion last admission for leg fracture but I decided to delay MRI then because of pain associated with laying flat in the MRI machine. AFP pending. - Current Medication List Current Medications: Active Medications Acetaminophen (Tylenol -) 650 mg PO Q6H PRN PRN Reason: FEVER OR PAIN Last Admin: 07/14/17 20:09 Dose: 650 mg Apixaban (Eliquis -) 5 mg PO BID [facility] Last Admin: 07/15/17 10:22 Dose: 5 mg Calcium Carbonate (Os-Durga 500mg -) 500 mg PO BID [facility] Last Admin: 07/15/17 10:21 Dose: 500 mg Fluocinonide (Lidex 0.05% Cream -) 1 applic TP BID [facility] Last Admin: 07/15/17 10:22 Dose: 1 applic Dextrose/Sodium Chloride (D5-1/2ns -) 1,000 mls @ 75 mls/hr IV ASDIR [facility] Last Admin: 07/14/17 16:34 Dose: 75 mls/hr Piperacillin Sod/Tazobactam (Sod 4.5 gm/ Dextrose) 100 mls @ 200 mls/hr IVPB Q8H-IV [facility] Last Admin: 07/15/17 10:21 Dose: 200 mls/hr Magnesium Oxide (Mag-Ox -) 400 mg PO BID [facility] Last Admin: 07/15/17 10:21 Dose: 400 mg Melatonin (Melatonin) 5 mg PO HS PRN PRN Reason: INSOMNIA Metoprolol Tartrate (Lopressor -) 25 mg PO BID [facility] Last Admin: 07/15/17 10:21 Dose: 25 mg Vancomycin HCl (Vancomycin (Pre-Docked)) 1,000 mg IVPB BID@0300,1500 [facility] Last Admin: 07/15/17 02:24 Dose: 1,000 mg - Objective Vital Signs: Vital Signs Temperature 97.8 F 07/15/17 09:28 Pulse Rate 73 07/15/17 09:28 Respiratory Rate 16 07/15/17 09:28 Blood Pressure 110/67 07/15/17 09:28 O2 Sat by Pulse Oximetry (%) 93 L 07/14/17 21:00 Constitutional: Yes: Calm. No: Obese Cardiovascular: Yes: Pulse Irregular Respiratory: Yes: Diminished. No: Rales, Wheezes Gastrointestinal: Yes: Soft. No: Tenderness Genitourinary: No: Siegel Present Extremities: No: Erythema Edema: LLE: 1+, RLE: Trace Integumentary: Yes: Erythema, Rash (some residual rash lateral left flnk but none on left leg.) Neurological: Yes: Alert, Oriented Labs: CBC, BMP 07/14/17 05:35 07/15/17 06:00 INR, PTT INR 2.43 (0.82-1.09) H 07/14/17 05:35 Problem List - Problems (1) Cellulitis Assessment/Plan: Improved except for some residual erythema lateral left flank. Code(s): L03.90 - CELLULITIS, UNSPECIFIED (2) Fever Assessment/Plan: now afebrile Code(s): R50.9 - FEVER, UNSPECIFIED (3) Atrial fibrillation Assessment/Plan: On Eliquis Code(s): I48.91 - UNSPECIFIED ATRIAL FIBRILLATION (4) Hemochromatosis Assessment/Plan: Hb stable; previously had regularly scheduled phlebotomies Code(s): E83.119 - HEMOCHROMATOSIS, UNSPECIFIED (5) Hypomagnesemia Assessment/Plan: WNL now after replacement. Code(s): E83.42 - HYPOMAGNESEMIA (6) Liver lesion, right lobe Assessment/Plan: Await MRI and AFP' Alkaline phophatase elevted. Code(s): K76.89 - OTHER SPECIFIED DISEASES OF LIVER (7) Hypokalemia Assessment/Plan: Back to normal. Code(s): E87.6 - HYPOKALEMIA
[2017-07-15] MEDS: DEXTROSE 5%-0.45% SALINE 1,000 ML IV SCH (12:49)
--- NOTE | 2017-07-15 17:21 | PN ---
Progress Note (short form) - Note Progress Note: doing well alert Vital Signs Period Temp Pulse Resp BP Sys/Arreguin Pulse Ox Last 24 Hr 97.7 F-97.9 F 71-86 16-18 93-110/49-67 93-98 cor-rrr lungs clear abd soft,nt +flank erythema persists left leg erythema markedly improved CBC, BMP 07/14/17 05:35 07/15/17 06:00 Microbiology 07/12/17 14:41 Blood - Peripheral Venous Blood Culture - Preliminary NO GROWTH OBTAINED AFTER 72 HOURS, INCUBATION TO CONTINUE FOR 2 DAYS. 07/12/17 14:41 Blood - Peripheral Venous Blood Culture - Preliminary NO GROWTH OBTAINED AFTER 72 HOURS, INCUBATION TO CONTINUE FOR 2 DAYS. 07/12/17 14:00 Urine - Urine - Catheterized Urine Culture - Final NO GROWTH OBTAINED ct scan liver lesion a/p cellulitis resolving will switch to rocephin for MRI of the liver Problem List - Problems (1) Soft tissue infection Code(s): L08.9 - LOCAL INFECTION OF THE SKIN AND SUBCUTANEOUS TISSUE, UNSP (2) Cellulitis Code(s): L03.90 - CELLULITIS, UNSPECIFIED
[2017-07-15] MEDS ORDERED: cefTRIAXone 2 GM/100 ML BAG (PRE-DOCKED) IVPB SCH (17:30)
[2017-07-15] MEDS: CEFTRIAXONE 2 GM in DEXTROSE 5%-WATER 100 ML IVPB SCH (18:33)
[2017-07-15] MEDS: ACETAMINOPHEN 325 MG TABLET (FP) PO PRN (20:51)
--- NOTE | 2017-07-15 21:46 | EKG ---
Test Reason : Blood Pressure : / mmHG Vent. Rate : 105 BPM Atrial Rate : 075 BPM P-R Int : 000 ms QRS Dur : 092 ms QT Int : 266 ms P-R-T Axes : 000 008 251 degrees QTc Int : 351 ms ATRIAL FIBRILLATION WITH RAPID VENTRICULAR RESPONSE WITH PREMATURE VENTRICULAR OR ABERRANTLY CONDUCTED COMPLEXES SIGNIFICANT BASELINE ARTIFACTS LOW VOLTAGE QRS IN LIMB LEADS INCOMPLETE LBBB ABNORMAL ECG WHEN COMPARED WITH ECG OF 12-JUL-2017 13:00, INVERTED T WAVES HAVE REPLACED NONSPECIFIC T WAVE ABNORMALITY IN INFERIOR LEADS QT HAS SHORTENED NO CLINICAL INFORMATION IS AVAILABLE REPEAT EKG IF CLINICALLY INDICATED Confirmed by HADLEY REDMAN MD ([id number]) on 07/15/2017 9:46:22 PM Referred By: Confirmed By:HADLEY REDMAN MD
[2017-07-16] MEDS: DEXTROSE 5%-0.45% SALINE 1,000 ML IV SCH ×2 (04:12→09:08)
[2017-07-16] MEDS: ACETAMINOPHEN 325 MG TABLET (FP) PO PRN ×2 (04:12→19:44)
--- NOTE | 2017-07-16 08:29 | PN ---
Progress Note (short form) - Note Progress Note: Patient had Abdominal MRI last hung. Walked with PT. Tolerating diet Some wrist pain due to old Fx. site On Exam: Vital Signs Temp 97.5 F L 07/16/17 05:58 Pulse 65 07/16/17 05:58 Resp 20 07/16/17 05:58 BP 121/60 07/16/17 05:58 Pulse Ox 100 07/15/17 21:00 Intake & Output 07/15/17 07/15/17 07/16/17 11:59 23:59 11:59 Intake Total 1500 1460 860 Balance 1500 1460 860 Intake: IV 750 900 860 D5-1/2Ns - 1,000 ml @ 75 750 900 860 mls/hr IV ASDIR NELSON Rx#: [id number] IVPB 350 100 Oral 400 460 Other: Voiding Method Diaper Diaper Incontinent # Unmeasured Voids Void 2 1 3 Bowel Movement Yes No No # Bowel Movements 1 Alert Chest: Clear Cor; Irregular Abd: slightly increased bowel sounds Continue to have only mild erythema left lateral flank but cellulitis resolving on Rx IMP: Acute cellulitisresolving A. Fib on NOAC Liver Mass Hemachromatosis Hypertension Hip Fx's with surg Rx Hx Wrist Fx. Plan: Await MRI Re; Liver mass PT Continue IV antibiotics until changed by ID MD Problem List - Problems (1) Cellulitis Code(s): L03.90 - CELLULITIS, UNSPECIFIED (2) Fever Code(s): R50.9 - FEVER, UNSPECIFIED (3) Atrial fibrillation Code(s): I48.91 - UNSPECIFIED ATRIAL FIBRILLATION (4) Hemochromatosis Code(s): E83.119 - HEMOCHROMATOSIS, UNSPECIFIED (5) Hypomagnesemia Code(s): E83.42 - HYPOMAGNESEMIA (6) Liver lesion, right lobe Code(s): K76.89 - OTHER SPECIFIED DISEASES OF LIVER (7) Hypokalemia Code(s): E87.6 - HYPOKALEMIA
[2017-07-16] MEDS ORDERED: PT OWN MED DRAWER 7, Y5N ONE ×2 (09:05→22:05)
[2017-07-16] MEDS ORDERED: DEXTROSE 5%-WATER 100 ML IVPB ONE (09:06)
[2017-07-16] MEDS: CALCIUM (OYSTER SHELL) 500 MG TABLET (FP) PO SCH ×2 (09:08→22:12)
[2017-07-16] MEDS: METOPROLOL TARTRATE 25 MG TABLET (FP) PO SCH ×2 (09:08→22:12)
[2017-07-16] MEDS: APIXABAN 5 MG TABLET PO SCH ×2 (09:09→22:12)
[2017-07-16] MEDS: CEFTRIAXONE 2 GM in DEXTROSE 5%-WATER 100 ML IVPB SCH (09:09)
[2017-07-16] MEDS: MAGNESIUM OXIDE 400 MG TABLET (FP) PO SCH ×2 (09:09→22:12)
[2017-07-16] MEDS: POLYETHYLENE GLYCOL 3350 119 GM BTL PO SCH (12:13)
--- NOTE | 2017-07-16 12:44 | PN ---
Progress Note (short form) - Note Progress Note: Awaiting MRI result Problem List - Problems (1) Liver lesion Code(s): K76.9 - LIVER DISEASE, UNSPECIFIED
--- NOTE | 2017-07-16 14:41 | PN ---
Progress Note (short form) - Note Progress Note: feels well no complaints Vital Signs Period Temp Pulse Resp BP Sys/Arreguin Pulse Ox Last 24 Hr 97.4 F-97.7 F 65-80 18-20 108-123/58-79 99-100 cor-rrr lulngs clear, decreased bs at bases abd soft,n erythema of left flank and leg minimal CBC, BMP 07/14/17 05:35 07/15/17 06:00 Microbiology 07/12/17 14:41 Blood - Peripheral Venous Blood Culture - Preliminary NO GROWTH OBTAINED AFTER 96 HOURS, INCUBATION TO CONTINUE FOR 1 DAYS. 07/12/17 14:41 Blood - Peripheral Venous Blood Culture - Preliminary NO GROWTH OBTAINED AFTER 96 HOURS, INCUBATION TO CONTINUE FOR 1 DAYS. 07/12/17 14:00 Urine - Urine - Catheterized Urine Culture - Final NO GROWTH OBTAINED a/p cellulitis resolving- consider change to po keflex in am liver lesion- management per GI Problem List - Problems (1) Soft tissue infection Code(s): L08.9 - LOCAL INFECTION OF THE SKIN AND SUBCUTANEOUS TISSUE, UNSP (2) Cellulitis Code(s): L03.90 - CELLULITIS, UNSPECIFIED
[2017-07-16] MEDS: FLUOCINONIDE 0.05% CREAM (15 GM TUBE) TP SCH ×2 (19:34→22:11)
[2017-07-16] MEDS: MELATONIN 5 MG TABLETS PO PRN (22:12)
[2017-07-17 07:21] LABS: BASOPHIL 1.9 % (0-2.0); EOSINOPHIL 7.5 % (0-4.5); MCH 32.4 pg (25.7-33.7); MCHC 33.2 g/dl (32.0-36.0); MEAN CELL VOLUME 97.8 fl (80-96); MEAN PLT VOLUME 8.2 fl (7.5-11.1); NEUTROPHILS 47.9 % (42.8-82.8); PLATELET COUNT 188 K/MM3 (134-434); RDW 16.8 % (11.6-15.6); WHITE BLOOD COUNT 4.1 K/mm3 (4.0-10.0)
[2017-07-17 07:50] LABS: ANION GAP 6 (8-16); CALCIUM 8.1 mg/dL (8.5-10.1); CO2 31 mmol/L (21-32); CREATININE 0.3 mg/dL (0.55-1.02); GLUCOSE,RANDOM 114 mg/dL (74-106); MAGNESIUM 1.8 mg/dL (1.8-2.4)
--- NOTE | 2017-07-17 09:08 | PN ---
Progress Note (short form) - Note Progress Note: Patient seen and examined this AM. AFP normal Cannot really understand Radiology reading on MRI; "Probable" non cancer but with her history of hemochromatosis and cirrhosis that diagnosis I suppose must still be considered. Our brim and crown presser, Dr. Chris Rizvi has spoken to her current industrial machine system technician who will arrange for followup with the liver specialist at [facility] to see if further testing or possible biopsy should be done. The patient seems to be content to stay in bed and is not cooperating as well with physical therapy. Seen by infectious disease physician today and switch to oral Keflex. I await physical therapy evaluation to see if she is safe to go home even with 24-hour help. Vital Signs Temp 97.8 F 07/17/17 17:56 Pulse 69 07/17/17 17:56 Resp 20 07/17/17 17:56 BP 100/54 07/17/17 17:56 Pulse Ox 96 07/17/17 09:00 Intake & Output 07/16/17 07/17/17 07/17/17 23:59 11:59 23:59 Intake Total 872 294 604 Balance 872 294 604 Intake: IV 672 294 504 D5-1/2Ns - 1,000 ml @ 42 672 294 504 mls/hr IV ASDIR NELSON Rx#: [id number] IVPB 100 100 Oral 100 Other: Voiding Method Incontinent Incontinent Incontinent # Unmeasured Voids Void 2 3 3 Bowel Movement Yes No Yes # Bowel Movements 1 2 on exam: Patient alert Chest decreased breath sounds. Heart irregular. No right upper quadrant abdominal pain. Extremities markedly improved cellulitis left flank laterally and left leg. Abnormal Lab Results 07/17/17 07/17/17 06:00 06:00 MCV 97.8 H RDW 16.8 H Monocytes % 15.3 H Eosinophils % 7.5 H D Anion Gap 6 L Creatinine 0.3 L D Random Glucose 114 H Calcium 8.1 L impression: Acute cellulitis, left leg and flank resolving. Atrial fibrillation on anticoagulation. Cirrhosis. Hemochromatosis. Bilateral hip fractures. History of wrist fracture. Liver mass with normal AFP but still a question as to whether she has a malignancy. Deconditioned. Plan: Must be seen by physical therapy. Continue one week of Keflex by mouth twice a day At present, patient wishes to go home with 24-hour aide; to discuss with family Problem List - Problems (1) Cellulitis Code(s): L03.90 - CELLULITIS, UNSPECIFIED (2) Fever Code(s): R50.9 - FEVER, UNSPECIFIED (3) Atrial fibrillation Code(s): I48.91 - UNSPECIFIED ATRIAL FIBRILLATION (4) Hemochromatosis Code(s): E83.119 - HEMOCHROMATOSIS, UNSPECIFIED (5) Hypomagnesemia Code(s): E83.42 - HYPOMAGNESEMIA (6) Liver lesion, right lobe Code(s): K76.89 - OTHER SPECIFIED DISEASES OF LIVER (7) Hypokalemia Code(s): E87.6 - HYPOKALEMIA
[2017-07-17] MEDS ORDERED: DEXTROSE 5%-WATER 100 ML IVPB ONE (09:18)
[2017-07-17] MEDS: DEXTROSE 5%-0.45% SALINE 1,000 ML IV SCH (09:22)
[2017-07-17] MEDS: FLUOCINONIDE 0.05% CREAM (15 GM TUBE) TP SCH ×2 (09:23→21:43)
[2017-07-17] MEDS: CEFTRIAXONE 2 GM in DEXTROSE 5%-WATER 100 ML IVPB SCH (09:24)
[2017-07-17] MEDS: POLYETHYLENE GLYCOL 3350 119 GM BTL PO SCH ×2 (09:25→09:28)
[2017-07-17] MEDS: METOPROLOL TARTRATE 25 MG TABLET (FP) PO SCH ×2 (09:25→21:44)
[2017-07-17] MEDS: CALCIUM (OYSTER SHELL) 500 MG TABLET (FP) PO SCH ×2 (09:25→21:44)
[2017-07-17] MEDS: MAGNESIUM OXIDE 400 MG TABLET (FP) PO SCH ×2 (09:25→21:44)
[2017-07-17] MEDS: APIXABAN 5 MG TABLET PO SCH ×2 (10:08→21:41)
--- NOTE | 2017-07-17 14:20 | PN ---
Progress Note, Physician History of Present Illness: No complaints of leg pain No fever/ chills WBC WNL BC (-) - Current Medication List Current Medications: Active Medications Acetaminophen (Tylenol -) 650 mg PO Q6H PRN PRN Reason: FEVER OR PAIN Last Admin: 07/16/17 19:44 Dose: 650 mg Apixaban (Eliquis -) 5 mg PO BID [facility] Last Admin: 07/17/17 10:08 Dose: 5 mg Calcium Carbonate (Os-Durga 500mg -) 500 mg PO BID [facility] Last Admin: 07/17/17 09:25 Dose: 500 mg Fluocinonide (Lidex 0.05% Cream -) 1 applic TP BID [facility] Last Admin: 07/17/17 09:23 Dose: 1 applic Ceftriaxone Sodium 2 gm/ (Dextrose) 100 mls @ 200 mls/hr IVPB DAILY [facility] Last Admin: 07/17/17 09:24 Dose: 200 mls/hr Dextrose/Sodium Chloride (D5-1/2ns -) 1,000 mls @ 42 mls/hr IV ASDIR [facility] Last Admin: 07/17/17 09:22 Dose: 42 mls/hr Magnesium Oxide (Mag-Ox -) 400 mg PO BID [facility] Last Admin: 07/17/17 09:25 Dose: 400 mg Melatonin (Melatonin) 5 mg PO HS PRN PRN Reason: INSOMNIA Last Admin: 07/16/17 22:12 Dose: 5 mg Metoprolol Tartrate (Lopressor -) 25 mg PO BID [facility] Last Admin: 07/17/17 09:25 Dose: 25 mg Polyethylene Glycol (Miralax (For Daily Use) -) 17 gm PO DAILY [facility] Last Admin: 07/17/17 09:28 Dose: Not Given - Objective Vital Signs: Vital Signs Temperature 98.7 F 07/17/17 10:00 Pulse Rate 81 07/17/17 10:00 Respiratory Rate 20 07/17/17 10:00 Blood Pressure 126/82 07/17/17 10:00 O2 Sat by Pulse Oximetry (%) 96 07/17/17 09:00 Constitutional: Yes: No Distress Eyes: Yes: Conjunctiva Clear Cardiovascular: Yes: Regular Rate and Rhythm, S1, S2 Respiratory: Yes: CTA Bilaterally Gastrointestinal: Yes: Normal Bowel Sounds, Soft. No: Tenderness Extremities: Yes: Other (Small residual erythema L pretibial area) Edema: Yes Edema: LLE: 2+, RLE: 2+ Labs: CBC, BMP 07/17/17 06:00 07/17/17 06:00 INR, PTT INR 2.43 (0.82-1.09) H 07/14/17 05:35 Assessment/Plan Cellulitis L LE- resolved Switch to po keflex 500mg bid x7d
[2017-07-17] MEDS: ACETAMINOPHEN 325 MG TABLET (FP) PO PRN ×2 (14:21→21:48)
--- NOTE | 2017-07-17 15:22 | PN ---
Progress Note (short form) - Note Progress Note: Had d/w Dr. Lazo re: equivoical reading of triple phase MRI. In setting of hemochromatosis/cirrhosis even with normal AFP tumor marker, HCC will still need to be considered. Ms. Bennett will need continued follow-up regarding this lesion and I suggest at a liver center such as [facility] where her current images can undergo multidisciplicary review by transplant hepatologists / hepatobiliary surgeons and radiologists. Dr. Leal explained that he would be able to arrange follow-up with the liver service at [facility] and was going to call the radiology department at [facility] to see how he could go about obtaining a hard copy of the MRI result itself. I explained the result to Ms. Bennett and the possibility that this could still reflect a liver cancer. I discussed the above with Dr. Ramon who will reenforce the need for follow-up with Dr. Lazo with her Son as well. Problem List - Problems (1) Liver lesion Code(s): K76.9 - LIVER DISEASE, UNSPECIFIED
[2017-07-17] MEDS ORDERED: PT OWN MED DRAWER 7, Y5N ONE (20:46)
[2017-07-17] MEDS: CEPHALEXIN MONOHYDRATE 500 MG CAPSULE (UD) PO SCH (21:43)
[2017-07-18] MEDS ORDERED: PT OWN MED DRAWER 7, Y5N ONE ×2 (08:39→21:32)
[2017-07-18] MEDS: CALCIUM (OYSTER SHELL) 500 MG TABLET (FP) PO SCH ×2 (10:08→21:59)
[2017-07-18] MEDS: METOPROLOL TARTRATE 25 MG TABLET (FP) PO SCH ×2 (10:08→22:00)
[2017-07-18] MEDS: APIXABAN 5 MG TABLET PO SCH ×2 (10:08→21:59)
[2017-07-18] MEDS: CEPHALEXIN MONOHYDRATE 500 MG CAPSULE (UD) PO SCH ×2 (10:09→22:00)
[2017-07-18] MEDS: MAGNESIUM OXIDE 400 MG TABLET (FP) PO SCH ×2 (10:09→22:00)
[2017-07-18] MEDS: ACETAMINOPHEN 325 MG TABLET (FP) PO PRN (10:10)
[2017-07-18] MEDS: FLUOCINONIDE 0.05% CREAM (15 GM TUBE) TP SCH ×2 (10:10→22:00)
--- NOTE | 2017-07-18 10:13 | PN ---
Progress Note (short form) - Note Progress Note: Patient now on oral Rx and IV D/Sonido. PT didn't come on . Will see her progress today. Patient will refuse SNF. I will have to notify son that he should begin arrangements for 24hr care at home. Still struggling with her gait when she sits up and tries to get to the bathroom with assist. On exam: Vital Signs Temp 97.5 F L 07/18/17 18:00 Pulse 70 07/18/17 18:00 Resp 20 07/18/17 18:00 BP 112/63 07/18/17 18:00 Pulse Ox 97 07/18/17 09:00 Intake & Output 07/17/17 07/18/17 07/18/17 23:59 11:59 23:59 Intake Total 604 940 300 Balance 604 940 300 Intake: IV 504 500 D5-1/2Ns - 1,000 ml @ 42 504 500 mls/hr IV ASDIR NELSON Rx#: [id number] IVPB 100 Oral 440 300 Other: Voiding Method Incontinent Incontinent Incontinent # Unmeasured Voids Void 2 3 1 Bowel Movement Yes: 1large No Yes # Bowel Movements 2 she is alert. Chest decreased breath sounds. Heart irregular. Abdomen soft. Extremities 1+ pedal edema left leg Almost no residual erythema and warmth in the area of cellulitis of her entire left leg and left lateral flank. impression: Acute cellulitis left leg and left lateral flank resolved. Cirrhosis. Hemochromatosis. Liver mass with questionable diagnosis on recent MRI. Normal AFP. Atrial fibrillation on Eliquis Bilateral hip fractures with hardware. Wrist fracture with hardware. Gait disturbance and generalized weakness and deconditioning. Plan: Consider temporary SNF the patient refuses. Patient's son will have to arrange 24-hour caregivers at home. Followup with drill press operator helper at [facility] with guidance from Dr. Wilmra Lazo who has managed her hemochromatosis. Problem List - Problems (1) Cellulitis Code(s): L03.90 - CELLULITIS, UNSPECIFIED (2) Fever Code(s): R50.9 - FEVER, UNSPECIFIED (3) Atrial fibrillation Code(s): I48.91 - UNSPECIFIED ATRIAL FIBRILLATION (4) Hemochromatosis Code(s): E83.119 - HEMOCHROMATOSIS, UNSPECIFIED (5) Hypomagnesemia Code(s): E83.42 - HYPOMAGNESEMIA (6) Liver lesion, right lobe Code(s): K76.89 - OTHER SPECIFIED DISEASES OF LIVER (7) Hypokalemia Code(s): E87.6 - HYPOKALEMIA
[2017-07-18] MEDS: POLYETHYLENE GLYCOL 3350 119 GM BTL PO SCH (10:15)
[2017-07-18] MEDS: DEXTROSE 5%-0.45% SALINE 1,000 ML IV SCH (10:15)
--- NOTE | 2017-07-19 09:25 | PN ---
Progress Note (short form) - Note Progress Note: PATIENT WELL . HAS NO PAIN / NO CP / NO SOB / NO PALPITATIONS. LEFT LEG CELLULITIS HAS RESOLVED . ON PO KEFLEX. AWAITING D/C FRIDAY WHEN HOME CARE ARRANGEMENTS CAN BE MADE. Selected Entries 07/19/17 06:00 Temperature 97.6 F Pulse Rate 71 Respiratory 20 Rate Blood Pressure 120/63 Laboratory Tests 07/15/17 07/17/17 07/17/17 06:00 06:00 06:00 WBC 4.1 D RBC 3.94 Hgb 12.8 Hct 38.6 Plt Count 188 D Sodium 143 Potassium 4.3 Chloride 106 Carbon Dioxide 31 Anion Gap 6 L BUN 13 Creatinine 0.3 L D Random Glucose 114 H Calcium 8.1 L Magnesium 1.8 Tumor Marker AFP 1.7 P/E <> AWAKE / ALERT . HEENT / NECK SUPPLE COR <> S 1 S 2 IRREG / NO M / NO G CHEST <> CLEAR P & A ABD <> SOFT / NON TENDER EXT <> NO EDEMA / NO CELLULITIS LT LEG IMP >< CELLULITIS LEFT LEG <>RESOLVED CIRRHOTIC LIVER DISEASE. ( Liver mass / ? ETIOLOGY / FURTHER W/UP OUTPT [facility] ) AFIB HY OF WRIST FX HEMOCHROMATOSIS GAIT DISTURBANCE . B/L HIP FX PLAN <> COMPLETE ORAL COURSE KEFLEX. HOME CARE ARRANGEMENTS FOR FRIDAY . PT RX FOR GAIT TRAINING CONTINUE ELQUIS FOR AFIB.
[2017-07-19] MEDS ORDERED: PT OWN MED DRAWER 7, Y5N ONE (10:18)
[2017-07-19] MEDS: CALCIUM (OYSTER SHELL) 500 MG TABLET (FP) PO SCH ×2 (10:19→21:12)
[2017-07-19] MEDS: METOPROLOL TARTRATE 25 MG TABLET (FP) PO SCH ×2 (10:19→21:11)
[2017-07-19] MEDS: APIXABAN 5 MG TABLET PO SCH ×2 (10:19→21:11)
[2017-07-19] MEDS: MAGNESIUM OXIDE 400 MG TABLET (FP) PO SCH ×2 (10:19→21:11)
[2017-07-19] MEDS: CEPHALEXIN MONOHYDRATE 500 MG CAPSULE (UD) PO SCH ×2 (10:19→21:10)
[2017-07-19] MEDS: POLYETHYLENE GLYCOL 3350 119 GM BTL PO SCH (10:20)
[2017-07-19] MEDS: FLUOCINONIDE 0.05% CREAM (15 GM TUBE) TP SCH ×2 (10:20→21:13)
[2017-07-19] MEDS: ACETAMINOPHEN 325 MG TABLET (FP) PO PRN (21:12)
--- NOTE | 2017-07-20 07:51 | PN ---
Progress Note (short form) - Note Progress Note: PATIENT RESTING IN BED . SHE FEELS WELL . SHE DENIES ANY CP / SOB / PALPITATIONS. ON PO KEFLEX TO COMPLETE AB COURSE FOR LLE CELLULITIS . BALANCE / GAIT DISTURBANCE . PLAN IS TO D/C FRIDAY WITH HOME CARE / PT RX. Selected Entries Selected Entries 07/20/17 06:00 Temperature 97.4 F L Pulse Rate 64 Respiratory 18 Rate Blood Pressure 119/69 Laboratory Tests 07/15/17 07/17/17 07/17/17 06:00 06:00 06:00 WBC 4.1 D RBC 3.94 Hgb 12.8 Hct 38.6 Plt Count 188 D Sodium 143 Potassium 4.3 Chloride 106 Carbon Dioxide 31 Anion Gap 6 L BUN 13 Creatinine 0.3 L D Random Glucose 114 H Calcium 8.1 L Magnesium 1.8 Tumor Marker AFP 1.7 P/E <> AWAKE / ALERT / IN NO DISTRESS HEENT / NECK SUPPLE COR <> S 1 S 2 IRREG / NO M / NO G CHEST <> CLEAR P & A ABD <> SOFT / NON TENDER / NO REBOUND / NO GUARDING . EXT <> NO EDEMA / NO ERYTHEMA / LT LEG CELLULITIS RESOLVED. IMP >< CELLULITIS LEFT LEG. CIRRHOTIC LIVER DISEASE WITH LIVER MASS / ? ETIOLOGY / SCHEDULED FOR OUTPT W/ UP AT [facility]. AFIB HY OF WRIST FX HEMOCHROMATOSIS GAIT DISTURBANCE . B/L HIP FX PLAN <> COMPLETE KEFLEX. HOME PT RX / VNS.
[2017-07-20] MEDS: CEPHALEXIN MONOHYDRATE 500 MG CAPSULE (UD) PO SCH ×2 (09:46→21:37)
[2017-07-20] MEDS: MAGNESIUM OXIDE 400 MG TABLET (FP) PO SCH ×2 (09:46→21:38)
[2017-07-20] MEDS: CALCIUM (OYSTER SHELL) 500 MG TABLET (FP) PO SCH ×2 (09:46→21:37)
[2017-07-20] MEDS: METOPROLOL TARTRATE 25 MG TABLET (FP) PO SCH ×2 (09:46→21:38)
[2017-07-20] MEDS: FLUOCINONIDE 0.05% CREAM (15 GM TUBE) TP SCH ×2 (09:46→21:39)
[2017-07-20] MEDS: POLYETHYLENE GLYCOL 3350 119 GM BTL PO SCH (09:47)
[2017-07-20] MEDS: APIXABAN 5 MG TABLET PO SCH ×2 (09:47→21:38)
[2017-07-20] MEDS ORDERED: PT OWN MED DRAWER 7, Y5N ONE (16:02)
[2017-07-20] MEDS: MELATONIN 5 MG TABLETS PO PRN (21:38)
[2017-07-21] MEDS ORDERED: PT OWN MED DRAWER 7, Y5N ONE (09:06)
[2017-07-21] MEDS: MAGNESIUM OXIDE 400 MG TABLET (FP) PO SCH (09:07)
[2017-07-21] MEDS: CALCIUM (OYSTER SHELL) 500 MG TABLET (FP) PO SCH (09:07)
[2017-07-21] MEDS: CEPHALEXIN MONOHYDRATE 500 MG CAPSULE (UD) PO SCH (09:07)
[2017-07-21] MEDS: METOPROLOL TARTRATE 25 MG TABLET (FP) PO SCH (09:07)
[2017-07-21] MEDS: FLUOCINONIDE 0.05% CREAM (15 GM TUBE) TP SCH (09:07)
[2017-07-21] MEDS: APIXABAN 5 MG TABLET PO SCH (09:07)
--- NOTE | 2017-07-21 10:13 | DS ---
Physical Examination Vital Signs: Vital Signs Temperature 97.5 F L 07/21/17 06:00 Pulse Rate 81 07/21/17 06:00 Respiratory Rate 20 07/21/17 06:00 Blood Pressure 120/75 07/21/17 06:00 O2 Sat by Pulse Oximetry (%) 94 L 07/20/17 21:00 Constitutional: Yes: Calm Eyes: Yes: Conjunctiva Clear Cardiovascular: Yes: Pulse Irregular Respiratory: Yes: Diminished Gastrointestinal: Yes: Soft Renal/: No: Siegel Present Edema: No Integumentary: Yes: Other (rash not present on leg.) Neurological: Yes: Alert, Oriented Labs: CBC, BMP 07/17/17 06:00 07/17/17 06:00 Discharge Summary Reason For Visit: FEVER Current Active Problems Cellulitis (Acute) Change in mental status (Acute) Fever (Acute) Hypokalemia (Acute) Soft tissue infection (Acute) Hemochromatosis Liver Mass Atrial Fibrillation(Acute) Procedures: Principal: Patient treated wwith IV antibiotics for acute cellulitis of left leg and left lateral flank. Other Procedures: MRI for liver mass; Result not conclusive ; to F/U with Liver MD's at [facility]. Bilateral hip Fx's woth surgery; needs PT Hospital Course: Slowly improved cellulitis now gone; still issues with PT. Doesn't want SNF. Condition: Stable - Instructions Diet, Activity, Other Instructions: Regular diet no added salt. Out of bed with physical therapy as much is possible. Followup with Dr. Wilmar Lazo regarding liver problems. Followup with Dr. Ramon if able within 2 weeks Referrals: Marc Ramon MD [Primary Care Provider] - Wilmar Lazo MD [Staff Physician] - Disposition: HOME - Home Medications Comprehensive Discharge Medication List: Ambulatory Orders Acetaminophen [Tylenol] 650 mg PO QID 07/20/16 Fluocinonide 0.05% Cream [Lidex 0.05% Cream -] 1 applic BID 07/20/16 Lactobacillus Acidophilus [Bacid -] 1 tab PO DAILY 07/20/16 Magnesium Oxide 400 mg PO BID 07/20/16 Metoprolol Tartrate [Lopressor -] 25 mg PO BID tablet 07/23/16 Polyethylene Glycol 3350 [Miralax 119 gm Btl -] 17 gm PO DAILY bottle 07/23/16 Sennosides/Docusate Sodium [Pericolace -] 2 tablet PO BID tablet 07/23/16 Melatonin 5 mg PO HS PRN #0 cap 01/08/17 Oxycodone HCl [Roxicodone -] 5 mg PO Q4H PRN #0 tablet MDD 4 01/08/17 Apixaban [Eliquis -] 5 mg PO BID #0 tablet 04/26/17 Calcium (Oyster Shell) [Os-Durga 500MG -] 500 mg PO BID tablet 04/26/17 Cephalexin Monohydrate [Keflex -] 500 mg PO BID #14 cap 07/17/17
[2017-07-21 12:36] VITALS: BP 125/74; PULSE 72; TEMP 97.9
== END 2017-07-21 13:04 | disposition home health service (06) | DRG 871 ==
LOC: JER 12:15 → JERBED 15:50 → J4W 21:04 → J7W 07-14 15:45
PROVIDERS: ADMIT Internal Medicine; ATTEND Internal Medicine
DX: A41.9 Sepsis, unspecified organism (principal); G93.41 Metabolic encephalopathy; L03.116 Cellulitis of left lower limb; I48.91 Unspecified atrial fibrillation; E87.6 Hypokalemia; R16.0 Hepatomegaly, not elsewhere classified; R26.9 Unspecified abnormalities of gait and mobility; R50.9 Fever, unspecified; R41.82 Altered mental status, unspecified; E83.42 Hypomagnesemia; K76.89 Other specified diseases of liver
CPT/HCPCS: 36415; 70450-TC; 71010-TC; 73110-TC-RT; 73700-TC-RT; 74176-TC; 74183-TC; 76700-TC; 80048; 80053; 80076; 81003; 81015; 82105; 82248; 82272; 83605; 83735; 83880; 84100; 85025; 85610; 85730; 86850; 86900; 86901; 87040; 87086; 93005; 93010; 93971-TC; 97110-GP; 97116-GP; 97161-GP; 99285-25; G0480

== ENCOUNTER 2017-11-28 13:37 | Inpatient (IN) | payer OTHER, MEDICARE ==
--- NOTE | 2017-11-28 14:04 | PDOC ---
History of Present Illness - General History Source: Patient, Family Exam Limitations: No Limitations - History of Present Illness Initial Comments: This is a 77 YOF with h/o A-fib (on eliquis), hemochromatosis, multiple mini- strokes, pleural effusion, multiple recent falls, and prior hip fractures with surgical repair who is BIBA for worsening failure to thrive, worsened mental status, worsened insomnia, generalized weakness, abdominal pain, and decreased appetite particularly worse for the past 3 days. The sons provide the bulk of her medical history and note that she receives 24/7 care in-home, and the caregivers have not noted any additional symptoms (no black/bloody stool, SOB, or complaints of any pain). <Mitali Ramos - Last Filed: 11/28/17 18:14> <Dread Harvey - Last Filed: 11/28/17 20:25> - General Stated Complaint: ABD PAIN,WEAKNESS Time Seen by Provider: 11/28/17 13:55 Past History - Past Medical History Anemia: No Asthma: No Cancer: No Cardiac Disorders: Yes (Atrial Fib) CVA: No COPD: No CHF: No Dementia: No Diabetes: No GI Disorders: No Disorders: No HTN: No Hypercholesterolemia: No Liver Disease: Yes (HEMOCHROMATOSIS) Seizures: No Thyroid Disease: No - Surgical History Abdominal Surgery: No Appendectomy: No Cardiac Surgery: No Cholecystectomy: Yes (6 years ago) Lung Surgery: No Neurologic Surgery: (Back surgery March 2016) Orthopedic Surgery: Yes (RIGHT WRIST ORIF 2005) - Immunization History Immunization Up to Date: Yes - Suicide/Smoking/Psychosocial Hx Smoking Status: No (quit 28 years ago) Smoking History: Former smoker Have you smoked in the past 12 months: No If you are a former smoker, when did you quit?: 23 YEARS AGO Hx Alcohol Use: Yes (2 glasses wine per night, more in past) Drug/Substance Use Hx: No Substance Use Type: None Hx Substance Use Treatment: No <Mitali Ramos - Last Filed: 11/28/17 18:14> <Dread Harvey - Last Filed: 11/28/17 20:25> - Past Medical History Allergies/Adverse Reactions: Allergies Allergy/AdvReac Type Severity Reaction Status Date / Time No Known Drug Allergies Allergy Verified 11/28/17 13:58 Home Medications: Ambulatory Orders Acetaminophen [Tylenol] 650 mg PO QID 07/20/16 Fluocinonide 0.05% Cream [Lidex 0.05% Cream -] 1 applic BID 07/20/16 Lactobacillus Acidophilus [Bacid -] 1 tab PO DAILY 07/20/16 Magnesium Oxide 400 mg PO BID 07/20/16 Metoprolol Tartrate [Lopressor -] 25 mg PO BID tablet 07/23/16 Polyethylene Glycol 3350 [Miralax 119 gm Btl -] 17 gm PO DAILY bottle 07/23/16 Sennosides/Docusate Sodium [Pericolace -] 2 tablet PO BID tablet 07/23/16 Melatonin 5 mg PO HS PRN #0 cap 01/08/17 Oxycodone HCl [Roxicodone -] 5 mg PO Q4H PRN #0 tablet MDD 4 01/08/17 Apixaban [Eliquis -] 5 mg PO BID #0 tablet 04/26/17 Calcium (Oyster Shell) [Os-Durga 500MG -] 500 mg PO BID tablet 04/26/17 Cephalexin Monohydrate [Keflex -] 500 mg PO BID #14 cap 07/17/17 Review of Systems - Review of Systems Able to Perform ROS?: Yes Constitutional: Yes: Loss of Appetite, Weakness, Unintentional Wgt. Loss. No: Chills, Fever HEENTM: No: Nose Congestion, Throat Pain Respiratory: No: Cough, Shortness of Breath Cardiac (ROS): No: Chest Pain, Palpitations ABD/GI: Yes: Poor Appetite, Other (abdominal pain). No: Blood Streaked Bowels, Constipated, Diarrhea, Nausea, Vomiting, Tarry Stools : No: Burning, Dysuria Musculoskeletal: No: Back Pain, Neck Pain Integumentary: No: Bruising, Rash Neurological: No: Headache, Numbness, Tingling, Weakness, Dizziness Psychiatric: Yes: Sleep Pattern Change, Change in Appetite Endocrine: No: Unexplained Weight Gain, Unexplained Weight Loss <Mitali Ramos - Last Filed: 11/28/17 18:14> *Physical Exam - Physical Exam General Appearance: Yes: Nourished, Appropriately Dressed, Other (pleasant, alert, awake elderly female accompanied by her sons at bedside, answering simple questions appropriately, defaults to her sons to answer many questions as well). No: Apparent Distress HEENT: positive: EOMI, Normal Voice, Hearing Grossly Normal. negative: Scleral Icterus (R), Scleral Icterus (L), Nasal Congestion Neck: positive: Trachea midline, Supple. negative: Tender, Rigid Respiratory/Chest: positive: Other (breath sounds normal on the right, no audible breath sounds on the left). negative: Normal Breath Sounds, Respiratory Distress, Crackles, Rhonchi, Stridor, Wheezing Cardiovascular: positive: Edema (2+ pitting edema BLE with venous stasis changes ), Irregularly Irregular Gastrointestinal/Abdominal: positive: Normal Bowel Sounds, Soft. negative: Tender, Organomegaly, Pulsatile Mass, Guarding Musculoskeletal: positive: Normal Inspection. negative: Decreased Range of Motion, Vertebral Tenderness Extremity: positive: Normal Capillary Refill, Normal Inspection, Normal Range of Motion. negative: Tender, Cyanosis Integumentary: positive: Normal Color, Dry, Warm. 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 NML intact (grossly), Alert, Normal Mood/Affect , Normal Response, Motor Strength 5/5 <Ramos,Mitali - Last Filed: 11/28/17 18:14> - Vital Signs Last Vital Signs Temp Pulse Resp BP Pulse Ox 98.9 F 107 H 20 78/30 96 11/28/17 19:29 11/28/17 19:29 11/28/17 19:29 11/28/17 19:29 11/28/17 19:29 <Dread Harvey - Last Filed: 11/28/17 20:25> ED Treatment Course - LABORATORY CBC & Chemistry Diagram: 11/28/17 15:00 11/28/17 15:00 - RADIOLOGY Radiology Studies Ordered: Category Date Time Status CHEST X-RAY PORTABLE* [RAD] Stat Radiology 11/28/17 13:56 Ordered <Mitali Ramos - Last Filed: 11/28/17 18:14> - LABORATORY CBC & Chemistry Diagram: 11/28/17 15:00 11/28/17 15:00 - ADDITIONAL ORDERS Additional order review: Laboratory Results 11/28/17 11/28/17 11/28/17 16:34 16:34 15:00 Sodium 137 Potassium 3.6 Chloride 92 L Carbon Dioxide 30 Anion Gap 15 BUN 35 H Creatinine 2.0 H Creat Clearance w eGFR 24.16 Random Glucose 116 H Lactic Acid 8.8 H* Calcium 7.7 L Total Bilirubin 3.5 H D AST 27 ALT 12 Alkaline Phosphatase 168 H Creatine Kinase 22 L Troponin I < 0.02 Total Protein 5.9 L Albumin 2.3 L Urine Color Catrina Urine Appearance Cloudy Urine pH 5.0 Ur Specific [place] 1.019 Urine Protein 2+ H Urine Glucose (UA) Negative Urine Ketones Negative Urine Blood 3+ H Urine Nitrite Negative Urine Bilirubin 2.0 Urine Urobilinogen 4.0 e.u/dl H Ur Leukocyte Esterase Trace Urine WBC (Auto) 25 Urine RBC (Auto) 10 Ur Epithelial Cells Rare Hyaline Casts 98 Urine Mucus Rare 11/28/17 15:00 RBC 4.50 MCV 103.1 H MCHC 33.0 RDW 16.4 H MPV 10.3 D Neutrophils % 84.5 H D Lymphocytes % 3.8 L D Monocytes % 10.2 Eosinophils % 1.4 D Basophils % 0.1 - Medications Given in the ED: ED Medications Discontinued Medications Generic Name Dose Route Start Last Admin Trade Name Gabrielle PRN Reason Stop Dose Admin Azithromycin 500 mg/ Dextrose 250 mls @ 250 mls/hr 11/28/17 15:37 11/28/17 18 :00 IVPB 11/28/17 16:36 250 mls/hr ONCE ONE Administration Ceftriaxone Sodium 1 gm/ 50 mls @ 100 mls/hr 11/28/17 15:37 11/28/17 16:10 Dextrose IVPB 11/28/17 16:06 100 mls/hr ONCE ONE Administration <Dread Harvey - Last Filed: 11/28/17 20:25> Medical Decision Making - Medical Decision Making 77 YOF with h/o a-fib on Eliquis, hemochromatosis, mini-strokes, multiple recent falls who p/w failure to thrive worsened x3 days. On exam initial VS wnl, no distress, alert, absent breath sounds on the left, A- fib without RVR, suprapubic an epigastric ttp, 2+ PE BLE. DDX Ordered full septic workup, CXR, EKG, CT chest, CT abdomen/pelvis. Cr 2.0 which is higher than Pt's baseline. WBC is 16.4, lactate 8.8. CXR portable shows complete white-out left chest, small mediastinal shift to right. CT chest confirms large pleural effusion. Initially called Dr. Ramon who agrees with plan for admission for further workup. Dr. Ramon's patients currently are admitted to [facility]. [facility] microblogged, they call Dr. Ramon, and call back to the ED. Investigating the possibility of transfering the patient to a tertiary care center. Dr. Caban is paged and calls back, feels comfortable with placement in the [facility] ICU. <Mitali Ramos - Last Filed: 11/28/17 18:14> *DC/Admit/Observation/Transfer <Mitali Ramos - Last Filed: 11/28/17 18:14> - Discharge Dispostion Admit: Yes <Dread Harvey - Last Filed: 11/28/17 20:25> Diagnosis at time of Disposition: IGOR (acute kidney injury), Pleural effusion on left, Lactic acidosis Failure to thrive Qualifiers: Failure to thrive age range: in adult Qualified Code(s): R62.7 - Adult failure to thrive - Discharge Dispostion Condition at time of disposition: Guarded - Referrals Referrals: Marc Ramon MD [Primary Care Provider] - - Patient Instructions - Post Discharge Activity
[2017-11-28 15:10] LABS: BASO % 0.1 % (0-2.0); EOS % 1.4 % (0-4.5); HEMATOCRIT 46.4 % (32.4-45.2); HEMOGLOBIN 15.3 GM/dL (10.7-15.3); LYMPH % 3.8 % (8-40); MEAN CELL VOLUME 103.1 fl (80-96); MEAN PLT VOLUME 10.3 fl (7.5-11.1); MONO % 10.2 % (3.8-10.2); NEUT % 84.5 % (42.8-82.8); PLATELET COUNT 203 K/MM3 (134-434); RDW 16.4 % (11.6-15.6); WHITE BLOOD COUNT 16.4 K/mm3 (4.0-10.0)
--- NOTE | 2017-11-28 15:23 | PDOC ---
Attending Attestation - Resident Resident Name: Mitali Ramos - ED Attending Attestation I have performed the following: I have examined & evaluated the patient, The case was reviewed & discussed with the resident, I agree w/resident's findings & plan, Exceptions are as noted - HPI HPI: 11/28/17 15:12 77 F with h/o afib on eliquis, hemochromatosis, CVA, pleural effusion, presenting with generalized weakness, abdominal pain, and lethargy. Family notes that they first noticed a change 3 days ago. Pt is unable to contribute much history 2/2 dementia but is able to state that she has no pain currently. Family denies any F/C recently. Denies difficulty breathing, denies vomiting or diarrhea. They do note that her appetite has been worse for the past few days. - Physicial Exam PE: 11/28/17 15:16 "GENERAL: Awake, alert, and fully oriented, in no acute distress HEAD: No signs of trauma EYES: PERRLA, EOMI, sclera anicteric, conjunctiva clear ENT: Auricles normal inspection, hearing grossly normal, nares patent, oropharynx clear without exudates. Moist mucosa NECK: Nontender, no stepoffs, Normal ROM, supple, no lymphadenopathy, JVD, or masses LUNGS: Diminished breath sounds L side, no rales/rhonchi/wheeze on R side HEART: Regular rate and rhythm, normal S1 and S2, no murmurs, rubs or gallops ABDOMEN: Suprapubic TTP, Soft, normoactive bowel sounds. No guarding, no rebound. No masses EXTREMITIES: Normal range of motion, no edema. No clubbing or cyanosis. No cords, erythema, or tenderness NEUROLOGICAL: Cranial nerves II through XII intact. 5/5 strength and sensation in all extremities, Normal speech, normal gait SKIN: Warm, Dry, normal turgor, no rashes or lesions noted. " - Critical Care Time Total Critical Care Time: 60 Critical Care Statement: The care of this patient involved high complexity decision making to prevent further life threatening deterioration of the patient 's condition and/or to evaluate & treat vital organ system(s) failure or risk of failure. - Medical Decision Making 11/28/17 15:16 77 F with FTT. Will r/o infectious/metabolic process. Pt also with abdominal tenderness on exam, will obtain CT to evaluate. Exam notable for diminished breath sounds on L side, concerning for reaccumulation of pleural effusion. - Labs, UA - CXR - CTAP, CTH 11/28/17 16:59 CXR with large L pleural effusion. CT chest ordered. Pt hemodynamically stable with no respiratory distress. Pt is currently on eliquis. Will defer thoracentesis until additional imaging has been obtained and AC has been held. Pt to be admitted to ICU for continued monitoring given elevated lactate.
[2017-11-28] MEDS ORDERED: AZITHROMYCIN IVPB 500 MG in DEXTROSE 5%-WATER - 250 ML IVPB ONE (15:37)
[2017-11-28] MEDS ORDERED: CEFTRIAXONE 1 GM in DEXTROSE 5%-WATER - 50 ML IVPB ONE (15:37)
[2017-11-28 15:47] LABS: ALBUMIN 2.3 g/dl (3.4-5.0); ANION GAP 15 (8-16); BILIRUBIN,TOTAL 3.5 mg/dL (0.2-1.0); BLOOD UREA NITROGEN 35 mg/dL (7-18); CALCIUM 7.7 mg/dL (8.5-10.1); CHLORIDE 92 mmol/L (98-107); CO2 30 mmol/L (21-32); GLUCOSE,RANDOM 116 mg/dL (74-106); POTASSIUM 3.6 mmol/L (3.5-5.1); SGOT/AST 27 U/L (15-37); SGPT/ALT 12 U/L (12-78); SODIUM 137 mmol/L (136-145); TOT PROT 5.9 g/dl (6.4-8.2)
[2017-11-28 15:50] LABS: ALK PHOS 168 U/L (45-117)
[2017-11-28] MEDS ORDERED: CEFTRIAXONE 1 GM/50 ML BAG ONE (16:05)
[2017-11-28] MEDS ORDERED: AZITHROMYCIN IVPB 250 ML IVPB ONE (16:05)
[2017-11-28 16:57] LABS: URINE APPEARANCE CLOUDY; URINE BLOOD 3+ (NEGATIVE); URINE COLOR AMBER; URINE GLUCOSE (UA) NEGATIVE (NEGATIVE); URINE KETONE NEGATIVE (NEGATIVE); URINE LEUK ESTERASE TRACE (NEGATIVE); URINE NITRITE NEGATIVE (NEGATIVE); URINE UROBILINOGEN 4.0 E.U/dl mg/dL (0.2-1.0)
[2017-11-28 17:02] LABS: URINE PROTEIN 2+ (NEGATIVE)
[2017-11-28 17:12] LABS: EPI CELLS RARE /HPF (FEW); URINE HYALINE CAST 98 /lpf; URINE MUCUS RARE
--- NOTE | 2017-11-28 20:01 | PDOC ---
*Physical Exam - Vital Signs Last Vital Signs Temp Pulse Resp BP Pulse Ox 98.9 F 107 H 20 78/30 96 11/28/17 19:29 11/28/17 19:29 11/28/17 19:29 11/28/17 19:29 11/28/17 19:29 ED Treatment Course - LABORATORY CBC & Chemistry Diagram: 11/28/17 15:00 11/28/17 15:00 - ADDITIONAL ORDERS Additional order review: Laboratory Results 11/28/17 11/28/17 11/28/17 16:34 16:34 15:00 Sodium 137 Potassium 3.6 Chloride 92 L Carbon Dioxide 30 Anion Gap 15 BUN 35 H Creatinine 2.0 H Creat Clearance w eGFR 24.16 Random Glucose 116 H Lactic Acid 8.8 H* Calcium 7.7 L Total Bilirubin 3.5 H D AST 27 ALT 12 Alkaline Phosphatase 168 H Creatine Kinase 22 L Troponin I < 0.02 Total Protein 5.9 L Albumin 2.3 L Urine Color Catrina Urine Appearance Cloudy Urine pH 5.0 Ur Specific [place] 1.019 Urine Protein 2+ H Urine Glucose (UA) Negative Urine Ketones Negative Urine Blood 3+ H Urine Nitrite Negative Urine Bilirubin 2.0 Urine Urobilinogen 4.0 e.u/dl H Ur Leukocyte Esterase Trace Urine WBC (Auto) 25 Urine RBC (Auto) 10 Ur Epithelial Cells Rare Hyaline Casts 98 Urine Mucus Rare 11/28/17 15:00 RBC 4.50 MCV 103.1 H MCHC 33.0 RDW 16.4 H MPV 10.3 D Neutrophils % 84.5 H D Lymphocytes % 3.8 L D Monocytes % 10.2 Eosinophils % 1.4 D Basophils % 0.1 - Medications Given in the ED: ED Medications Discontinued Medications Generic Name Dose Route Start Last Admin Trade Name Freq PRN Reason Stop Dose Admin Azithromycin 500 mg/ Dextrose 250 mls @ 250 mls/hr 11/28/17 15:37 11/28/17 18 :00 IVPB 11/28/17 16:36 250 mls/hr ONCE ONE Administration Ceftriaxone Sodium 1 gm/ 50 mls @ 100 mls/hr 11/28/17 15:37 11/28/17 16:10 Dextrose IVPB 11/28/17 16:06 100 mls/hr ONCE ONE Administration Medical Decision Making - Medical Decision Making 11/28/17 20:01 Failure to thrive, decreased appetite *DC/Admit/Observation/Transfer Diagnosis at time of Disposition: IGOR (acute kidney injury), Pleural effusion on left, Lactic acidosis Failure to thrive Qualifiers: Failure to thrive age range: in adult Qualified Code(s): R62.7 - Adult failure to thrive - Referrals Referrals: Marc Ramon MD [Primary Care Provider] - - Patient Instructions - Post Discharge Activity
[2017-11-28 20:10] LABS: VENOUS PC02 52.5 mmHg (38-52); VENOUS PH 7.43 (7.32-7.42); VENOUS PO2 31.6 mmHg (28-48)
--- NOTE | 2017-11-28 21:31 | HP ---
CHIEF COMPLAINT: generalized weakness, failure to thrive PCP: Tristen HISTORY OF PRESENT ILLNESS: This is a 77 year old female with a past medical history of afib on eliquis, hemochromatosis, TIAs, PE presented with a complaint of failure to thrive, weakness. She does report SOB over past 2 days. She denies Chest pain, fever, cough. ER course was notable for: (1) CXR with large left pleural effusion/complete opacification left hemithorax with mass effects of mediastinal structures (2) WBC 16.5, lactic acid 8.8 (3) BUN 35/Cr 2.0 up from 13/0.3 in june Recent Travel: pt denies PAST MEDICAL HISTORY: Afib on Eliquis, TIAs, PE, hemochromatosis, cellulitis left hip 06/2017 PAST SURGICAL HISTORY: cholecystectomy back surgery 2015 R wrist ORIF B/L hip fracture s/p ORIF Social History: Smoking: quit 24 years ago, 1 ppd Alcohol: wine at night with dinner Drugs: pt denies Family History: mother age 49, BrCA father age 57, unk Allergies No Known Drug Allergies Allergy (Verified 11/28/17 13:58) HOME MEDICATIONS: 3 Medication Instructions Recorded Acetaminophen [Tylenol] 650 mg PO QID 07/20/16 Fluocinonide 0.05% Cream [Lidex 1 applic BID 07/20/16 0.05% Cream -] Lactobacillus Acidophilus [Bacid -] 1 tab PO DAILY 07/20/16 Magnesium Oxide 400 mg PO BID 07/20/16 Metoprolol Tartrate [Lopressor -] 25 mg PO BID tablet 07/23/16 Polyethylene Glycol 3350 [Miralax 17 gm PO DAILY bottle 07/23/16 119 gm Btl -] Sennosides/Docusate Sodium 2 tablet PO BID tablet 07/23/16 [Pericolace -] Melatonin 5 mg PO HS PRN #0 cap 01/08/17 Oxycodone HCl [Roxicodone -] 5 mg PO Q4H PRN #0 tablet MDD 4 01/08/17 Apixaban [Eliquis -] 5 mg PO BID #0 tablet 04/26/17 Calcium (Oyster Shell) [Os-Durga 500 mg PO BID tablet 04/26/17 500MG -] Cephalexin Monohydrate [Keflex -] 500 mg PO BID #14 cap 07/17/17 REVIEW OF SYSTEMS CONSTITUTIONAL: Present: generalized weakness, malaise, loss of appetite, weight change Absent: fever, chills, diaphoresis HEENT: Absent: rhinorrhea, nasal congestion, throat pain, throat swelling, difficulty swallowing, mouth swelling, ear pain, eye pain, visual changes CARDIOVASCULAR: Absent: chest pain, syncope, palpitations, irregular heart rate, lightheadedness , peripheral edema RESPIRATORY: Present: shortness of breath Absent: cough, dyspnea with exertion, orthopnea, wheezing, stridor, hemoptysis GASTROINTESTINAL: Absent: abdominal pain, abdominal distension, nausea, vomiting, diarrhea, constipation, melena, hematochezia GENITOURINARY: Absent: dysuria, frequency, urgency, hesitancy, hematuria, flank pain, genital pain MUSCULOSKELETAL: Absent: myalgia, arthralgia, joint swelling, back pain, neck pain SKIN: Absent: rash, itching, pallor HEMATOLOGIC/IMMUNOLOGIC: Absent: easy bleeding, easy bruising, lymphadenopathy, frequent infections ENDOCRINE: Absent: unexplained weight gain, unexplained weight loss, heat intolerance, cold intolerance NEUROLOGIC: Absent: headache, focal weakness or paresthesias, dizziness, unsteady gait, seizure, mental status changes, bladder or bowel incontinence PSYCHIATRIC: Absent: anxiety, depression, suicidal or homicidal ideation, hallucinations. PHYSICAL EXAMINATION Vital Signs - 24 hr 3 11/28/17 11/28/17 11/28/17 13:59 14:04 19:29 Temperature 97.4 F L 98.9 F Pulse Rate 76 Pulse Rate [ 107 H Right] Respiratory 20 20 Rate Blood Pressure 102/52 Blood Pressure 78/30 [Left Arm] Blood Pressure 79/37 [Right Arm] O2 Sat by Pulse 95 96 Oximetry (%) GENERAL: Awake, alert, and oriented person, place, year and recent events, in no acute distress. HEAD: Normal with no signs of trauma. EYES: Pupils equal, round and reactive to light, extraocular movements intact, sclera anicteric, conjunctiva clear. No lid lag. EARS, NOSE, THROAT: Ears normal, nares patent, oropharynx clear without exudates. Moist mucous membranes. NECK: Normal range of motion, supple without lymphadenopathy, JVD, or masses. LUNGS: Breath sounds absent left lung philip, right clear to auscultation. No wheezes, and no crackles. No accessory muscle use. HEART: Regular rate and rhythm, normal S1 and S2 without murmur, rub or gallop. ABDOMEN: Soft, nontender, not distended, normoactive bowel sounds, no guarding, no rebound, no masses. No hepatomegaly or splenomegaly. MUSCULOSKELETAL: Normal range of motion at all joints. No bony deformities or tenderness. No CVA tenderness. UPPER EXTREMITIES: 2+ pulses, warm, well-perfused. No cyanosis. No clubbing. No peripheral edema. LOWER EXTREMITIES: 2+ pulses, warm, well-perfused. No calf tenderness. No peripheral edema. NEUROLOGICAL: Cranial nerves II-XII intact. Normal speech. Normal gait. PSYCHIATRIC: Cooperative. Good eye contact. Appropriate mood and affect. SKIN: Warm, dry, normal turgor, no rashes or lesions noted, normal capillary refill. Laboratory Results - last 24 hr 3 11/28/17 11/28/17 11/28/17 15:00 15:00 16:34 WBC 16.4 H D RBC 4.50 Hgb 15.3 D Hct 46.4 H D MCV 103.1 H MCH 34.0 H MCHC 33.0 RDW 16.4 H Plt Count 203 MPV 10.3 D Neutrophils % 84.5 H D Lymphocytes % 3.8 L D Monocytes % 10.2 Eosinophils % 1.4 D Basophils % 0.1 VBG pH POC VBG pCO2 POC VBG pO2 Mixed VBG HCO3 Sodium 137 Potassium 3.6 Chloride 92 L Carbon Dioxide 30 Anion Gap 15 BUN 35 H Creatinine 2.0 H Creat Clearance w eGFR 24.16 Random Glucose 116 H Lactic Acid Calcium 7.7 L Total Bilirubin 3.5 H D AST 27 ALT 12 Alkaline Phosphatase 168 H Creatine Kinase 22 L Troponin I < 0.02 B-Natriuretic Peptide Total Protein 5.9 L Albumin 2.3 L Urine Color Catrina Urine Appearance Cloudy Urine pH 5.0 Ur Specific [place] 1.019 Urine Protein 2+ H Urine Glucose (UA) Negative Urine Ketones Negative Urine Blood 3+ H Urine Nitrite Negative Urine Bilirubin 2.0 Urine Urobilinogen 4.0 e.u/dl H Ur Leukocyte Esterase Trace Urine WBC (Auto) 25 Urine RBC (Auto) 10 Ur Epithelial Cells Rare Hyaline Casts 98 Urine Mucus Rare Blood Type Antibody Screen 3 11/28/17 11/28/17 11/28/17 16:34 19:45 19:45 WBC RBC Hgb Hct MCV MCH MCHC RDW Plt Count MPV Neutrophils % Lymphocytes % Monocytes % Eosinophils % Basophils % VBG pH POC VBG pCO2 POC VBG pO2 Mixed VBG HCO3 Sodium Potassium Chloride Carbon Dioxide Anion Gap BUN Creatinine Creat Clearance w eGFR Random Glucose Lactic Acid 8.8 H* Calcium Total Bilirubin AST ALT Alkaline Phosphatase Creatine Kinase Troponin I B-Natriuretic Peptide 2416.07 H Total Protein Albumin Urine Color Urine Appearance Urine pH Ur Specific [place] Urine Protein Urine Glucose (UA) Urine Ketones Urine Blood Urine Nitrite Urine Bilirubin Urine Urobilinogen Ur Leukocyte Esterase Urine WBC (Auto) Urine RBC (Auto) Ur Epithelial Cells Hyaline Casts Urine Mucus Blood Type O POSITIVE Antibody Screen Negative 3 11/28/17 11/28/17 19:45 19:55 WBC RBC Hgb Hct MCV MCH MCHC RDW Plt Count MPV Neutrophils % Lymphocytes % Monocytes % Eosinophils % Basophils % VBG pH 7.43 H POC VBG pCO2 52.5 H POC VBG pO2 31.6 Mixed VBG HCO3 34.0 H Sodium Potassium Chloride Carbon Dioxide Anion Gap BUN Creatinine Creat Clearance w eGFR Random Glucose Lactic Acid 6.1 H* Calcium Total Bilirubin AST ALT Alkaline Phosphatase Creatine Kinase Troponin I B-Natriuretic Peptide Total Protein Albumin Urine Color Urine Appearance Urine pH Ur Specific [place] Urine Protein Urine Glucose (UA) Urine Ketones Urine Blood Urine Nitrite Urine Bilirubin Urine Urobilinogen Ur Leukocyte Esterase Urine WBC (Auto) Urine RBC (Auto) Ur Epithelial Cells Hyaline Casts Urine Mucus Blood Type Antibody Screen Radiology Reports CXR portable Impression: Large left pleural effusion with complete opacification of the left hemithorax and mass effects as described above. These findings were discussed with Dr. Ramos at 4:55 PM on 11/28/2017. Reported By: Hina Jung DO 11/[address] without contrast Impression: 1. Very large volume of left pleural fluid with compressive atelectasis of the entire left lung and displacement of the mediastinal structures. Patchy areas of hyperattenuation within this left pleural fluid suggests complex components within this fluid. Please correlate clinically and with fluid analysis. 2. Dilated main pulmonary artery measuring 33 mm in diameter is suggestive of pulmonary artery hypertension (previously measured 28 mm on 10/18/2015 CT). Please correlate clinically. 3. Small layering right pleural effusion with no significant atelectasis in the right lung base. 4. Dense calcification of the aortic valve. Please correlate for aortic stenosis. Mild to moderate coronary artery calcific atherosclerosis. 5. Anasarca. Reported By: Hina Jung DO 11/28/[address] abd/pel without contrast Impression: 1. Moderate impacted stool within the rectum with surrounding fat stranding, suspicious for stercoral proctitis. Fecal disimpaction recommended. 2. No evidence of bowel obstruction or diverticulitis. No definite bowel wall thickening. Normal appendix. 3. Approximately 2.3 x 2.5 cm right hepatic mass, similar in size to 07/13/2017 CT. Please correlate with 07/15/2017 contrast-enhanced MRI of the abdomen. 4. Body wall edema/anasarca. Large left pleural effusion. Please correlate clinically and with dedicated chest CT performed at the same time. 5. Bilateral nonobstructing nephrolithiasis and/or vascular calcifications measuring up to 2 mm. No hydroureteronephrosis. 6. Lobulated and leiomyomatous uterus with multiple calcified leiomyomas. 7. Multiple chronic compression deformities in the lumbar spine are unchanged from 07/13/2017. Status post L1 kyphoplasty. Reported By: Hina Jung DO 11/28/[address] head non contrast Impression: No definite interval change since 07/12/[address] No acute intracranial hemorrhage, mass effects or hydrocephalus. No compelling evidence of acute transcortical infarction at this time. MRI is more sensitive in detecting acute infarct. Generalized, age-related volume loss with moderate microvascular ischemic changes in the cerebral white matter, similar to 07/12/2017. Reported By: Hina Jung DO 11/28/17 1730 ASSESSMENT/PLAN: 77yF with PMH Afib on Eliquis, TIAs, PE, hemochromatosis, cellulitis left hip 2016 presented to the ED with failure to thrive, generalized weakness, declining mental status and SOB. Large left pleural effusion / complete opacification L hemothorax with mediastinal shift/ obstructive shock - admit to ICU - will need thoracentesis, hold eliquis for same - pulm consult - thoracic surgery consult Severe sepsis secondary to UTI vs proctitis due to fecal impaction vs PNA underlying effusion - cont antibiotics - ID consult - cont IVF NS @ 125cc/hr - will need disimpaction of fecal impaction IGOR - cr up to 2 from 0.3 - cont IVF - renal consult if not improving with tx of sepsis Afib - slightly elevated heart rate, likely due to sepsis - hold B Pamela while hypotensive DVT PPX - eliquis on hold in anticipation of thoracentesis FEN - NS @ 125cc/hr due to low bp, ICU team to reassess need - BMP in am - NPO for now Dispo: Pt currently requires inpatient management in the ICU. Addendum: 1300: REctal exam done. rectum full of soft dark brown stool No blood seen. Will give mineral oil enema x1 for fecal retention. Visit type - Emergency Visit Emergency Visit: Yes ED Registration Date: 11/28/17 Care time: The patient presented to the Emergency Department on the above date and was hospitalized for further evaluation of their emergent condition. - New Patient This patient is new to me today: Yes Date on this admission: 11/28/17 - Critical Care Critical Care patient: Yes Total Critical Care Time (in minutes): 45 Critical Care Statement: The care of this patient involved high complexity decision making to prevent further life threatening deterioration of the patient 's condition and/or to evaluate & treat vital organ system(s) failure or risk of failure.
[2017-11-28] MEDS ORDERED: SODIUM CHLORIDE 1,000 ML IV SCH (21:45)
[2017-11-28 22:52] VITALS: BMI 20.2
--- NOTE | 2017-11-28 22:54 | CONSULT ---
Consult Consult Specialty:: PULM/CCM Referred by:: Dr. Shona Carver Reason for Consultation:: Massive Pleural Effusion - History of Present Illness Chief Complaint: FTT History of Present Illness: Ms. Bennett is a 77 y/o woman w/ A-fib on eliquis, hemochromatosis, multiple "mini-CVAs", multiple recent falls, w/ prior hip fxs requiring surgical repair, BIBA today for worsening FTT, worsened mental status, worsened insomnia, generalized weakness, abd pain, and decreased PO intake (particularly worse X past 3 days [employer]). Pt denies any CP, SOB, N/V/D. A/p ED, the pt's sons provide the bulk of her medical history and note that she receives 19/05 in-home care. Also of note, the pt's caregivers have NOT noted any additional symptoms (no black/bloody stool, SOB, or complaints of any pain). In ED pt notable for a leukocytosis > 16, a dirty UA w/ WBC > 25, borderline hypotension w/ SBP in the 90's, CXR shows complete L chest WO w/ mediastinal shift to the R, a LA > 8, & a BNP > 2,400. Pt is admitted to the ICU for obstructive shock 2/2 compressing large L sided pleural effusion. - History Source History Provided By: Patient, Medical Record Limitations to Obtaining History: No Limitations - Past Medical History Cardio/Vascular: Yes: AFIB Pulmonary: Yes: Other (Right sided pleural effusion) Hepatobiliary: Yes: Cirrhosis, Other (Hemachromatosis) ...: No - Past Surgical History Past Surgical History: Yes: Cholecystectomy, Laminectomy - Alcohol/Substance Use Hx Alcohol Use: Yes (2 glasses wine per night, more in past) Number of Drinks Daily: 2 (glasses of wine daily) History of Substance Use: reports: None - Smoking History Smoking history: Former smoker Have you smoked in the past 12 months: No If you are a former smoker, when did you quit?: 23 YEARS AGO - Social History 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 History of Recent Travel: No Home Medications - Allergies Allergies/Adverse Reactions: Allergies Allergy/AdvReac Type Severity Reaction Status Date / Time No Known Drug Allergies Allergy Verified 11/28/17 13:58 - Home Medications Home Medications: Ambulatory Orders Acetaminophen [Tylenol] 650 mg PO QID 07/20/16 Fluocinonide 0.05% Cream [Lidex 0.05% Cream -] 1 applic BID 07/20/16 Lactobacillus Acidophilus [Bacid -] 1 tab PO DAILY 07/20/16 Magnesium Oxide 400 mg PO BID 07/20/16 Metoprolol Tartrate [Lopressor -] 25 mg PO BID tablet 07/23/16 Polyethylene Glycol 3350 [Miralax 119 gm Btl -] 17 gm PO DAILY bottle 07/23/16 Sennosides/Docusate Sodium [Pericolace -] 2 tablet PO BID tablet 07/23/16 Melatonin 5 mg PO HS PRN #0 cap 01/08/17 Oxycodone HCl [Roxicodone -] 5 mg PO Q4H PRN #0 tablet MDD 4 01/08/17 Apixaban [Eliquis -] 5 mg PO BID #0 tablet 04/26/17 Calcium (Oyster Shell) [Os-Durga 500MG -] 500 mg PO BID tablet 04/26/17 Cephalexin Monohydrate [Keflex -] 500 mg PO BID #14 cap 07/17/17 Family Disease History - Family Disease History Family Disease History: Heart Disease: Mother, Other: Brother (arthritis) Review of Systems - Review of Systems Constitutional: reports: Lethargy, Loss of Appetite, Weakness Eyes: reports: No Symptoms HENT: reports: No Symptoms Neck: reports: No Symptoms Cardiovascular: reports: No Symptoms Respiratory: reports: No Symptoms Gastrointestinal: reports: Abdominal Pain Genitourinary: reports: No Symptoms Breasts: reports: No Symptoms Reported Musculoskeletal: reports: No Symptoms Integumentary: reports: No Symptoms Neurological: reports: No Symptoms Endocrine: reports: No Symptoms Hematology/Lymphatic: reports: No Symptoms Psychiatric: reports: No Symptoms Physical Exam Vital Signs: Vital Signs Temperature 97.8 F 11/28/17 22:15 Pulse Rate 102 H 11/28/17 22:15 Respiratory Rate 20 11/28/17 22:15 Blood Pressure 92/68 11/28/17 22:15 O2 Sat by Pulse Oximetry (%) 100 11/28/17 22:15 Intake & Output 11/26/17 11/27/17 11/28/17 11/29/17 23:59 23:59 23:59 23:59 Intake Total 240 Balance 240 Weight 58.74 kg Constitutional: Yes: Well Nourished, No Distress, Calm Eyes: Yes: WNL, Conjunctiva Clear, EOM Intact HENT: Yes: WNL, Atraumatic, Normocephalic Neck: Yes: WNL, Supple, Trachea Midline Cardiovascular: Yes: WNL, Pulse Irregular Respiratory: Yes: On Nasal O2, Other (R Side CTA SILENT ON THE L) Gastrointestinal: Yes: WNL, Normal Bowel Sounds, Soft ...Rectal Exam: Yes: Deferred Renal/: Yes: WNL Breast(s): Yes: WNL Musculoskeletal: Yes: WNL Extremities: Yes: Cool Edema: No Edema: LLE: Trace, RLE: Trace Peripheral Pulses WNL: Yes Integumentary: Yes: WNL Neurological: Yes: WNL, Alert, Oriented ...Motor Strength: WNL Psychiatric: Yes: WNL, Alert, Oriented Labs: CBC, BMP 11/28/17 15:00 11/28/17 15:00 Troponin, BNP 11/28/17 11/28/17 15:00 19:45 Troponin I < 0.02 B-Natriuretic Peptide 2416.07 H Imaging - Results Chest X-ray: Image Reviewed (CXR 11/28: Large left pleural effusion with complete opacification of the left hemithorax and mass effects.) Cat Scan: Report Reviewed (CTAP 11/28/2017: 1. Moderate impacted stool within the rectum with surrounding fat stranding, suspicious for stercoral proctitis. Fecal disimpaction recommended. 2. No evidence of bowel obstruction or diverticulitis. No definite bowel wall thickening. Normal appendix. 3. Approximately 2.3 x 2.5 cm right hepatic mass, similar in size to 07/13/2017 CT. Please correlate with 07/15/2017 contrast-enhanced MRI of the abdomen. 4. Body wall edema/anasarca. Large left pleural effusion. Please correlate clinically and with dedicated chest CT performed at the same time. 5. Bilateral nonobstructing nephrolithiasis and/or vascular calcifications measuring up to 2 mm. No hydroureteronephrosis. 6. Lobulated and leiomyomatous uterus with multiple calcified leiomyomas. 7. Multiple chronic compression deformities in the lumbar spine are unchanged from 07/13/2017. Status post L1 kyphoplasty.), Image Reviewed (CHEST CT 11/28: 1. Very large volume of left pleural fluid with compressive atelectasis of the entire left lung and displacement of the mediastinal structures. Patchy areas of hyperattenuation within this left pleural fluid suggests complex components within this fluid. Please correlate clinically and with fluid analysis. 2. Dilated main pulmonary artery measuring 33 mm in diameter is suggestive of pulmonary artery hypertension (previously measured 28 mm on 10/18/2015 CT). Please correlate clinically. 3. Small layering right pleural effusion with no significant atelectasis in the right lung base. 4. Dense calcification of the aortic valve. Please correlate for aortic stenosis. Mild to moderate coronary artery calcific atherosclerosis. 5. Anasarca.), Other (NCHCT 11/28: No definite interval change since 07/12/[address] No acute intracranial hemorrhage, mass effects or hydrocephalus. No compelling evidence of acute transcortical infarction at this time. MRI is more sensitive in detecting acute infarct. Generalized, age-related volume loss with moderate microvascular ischemic changes in the cerebral white matter, similar to 07/12/2017.) EKG: Image Reviewed (12-LEAD 11/28: A-Fib w/ RVR in the 120's, occ PVCs, que'd out in III & AVF c/f inferior infarct, que'd out in V1, V2, c/f anteroseptal infarct, T-wave flattening throughout the lateral leads. QTc = 482ms, Appears very similar to EKG on file from June 2017 (My Read).) Assessment/Plan ASSESS: This is a 77 y/o woman w/ A-fib on eliquis, hemochromatosis, multiple "mini-CVAs", multiple recent falls, w/ prior hip fxs requiring surgical repair, BIBA today for worsening FTT found to have shock 2/2 obstructive giant L pleural effusion c/b a UTI. PLAN: -D/c Eliquis -Wait for Eliquis to clear then drain R Effusion (last dose afternoon 11/27 - should be completely clear by the afternoon of 11/29) -Tap & drain R effusion if pt Desats, becomes SOB, or worsening shock -Supp FiO2 for an SpO2 > 92% -HOB > 30 -Nebs prn -IS -Machuca Clxr -Cover for CAP & UTI -ID -Strict I's & O's -Monitor UOP -Trend BUN/Cr -Replete elytes prn -Hold Lopressor until out of shock -Reg Diet -BR -SQH -SCDs -PPI -spoke w/ pt in detail RE: imminent Chest Tube. Pt is apprehensive & likes the idea of waiting until the Eliquis is complletely clears. Pt agrees to procedure if emergently required & pt agrees to procedure once Eliquis is clear. -DNR DGL, ACNP-BC [facility] ICU PULM/CCM 4436 Critical Care Time/MDM Note Total Critical Care Time: 39 Critical Care Statement: The care of this patient involved high complexity decision making to prevent further life threatening deterioration of the patient 's condition and/or to evaluate & treat vital organ system(s) failure or risk of failure.
[2017-11-28] MEDS: CHLORHEXIDINE GLUCONATE 4% CLEANSER FOR DECOLONIZATION TP SCH (23:00)
[2017-11-29] MEDS ORDERED: MINERAL OIL ENEMA 133 ML ENEMA PR ONE (01:00)
[2017-11-29 06:18] LABS: BASO % 0.1 % (0-2.0); HEMATOCRIT 40.5 % (32.4-45.2); HEMOGLOBIN 13.8 GM/dL (10.7-15.3); LYMPH % 7.5 % (8-40); MCH 34.6 pg (25.7-33.7); MCHC 34.1 g/dl (32.0-36.0); MEAN CELL VOLUME 101.4 fl (80-96); MEAN PLT VOLUME 9.3 fl (7.5-11.1); MONO % 11.4 % (3.8-10.2); PLATELET COUNT 242 K/MM3 (134-434); RBC 3.99 M/mm3 (3.60-5.2); RDW 16.2 % (11.6-15.6); WHITE BLOOD COUNT 19.9 K/mm3 (4.0-10.0)
[2017-11-29 06:56] LABS: ANION GAP 13 (8-16); BLOOD UREA NITROGEN 47 mg/dL (7-18); CALCIUM 7.5 mg/dL (8.5-10.1); CHLORIDE 89 mmol/L (98-107); CO2 34 mmol/L (21-32); CREATININE 2.3 mg/dL (0.55-1.02); GLUCOSE,RANDOM 136 mg/dL (74-106); MAGNESIUM 1.5 mg/dL (1.8-2.4); PHOSPHOROUS 4.6 mg/dL (2.5-4.9); POTASSIUM 3.6 mmol/L (3.5-5.1); SODIUM 136 mmol/L (136-145)
--- NOTE | 2017-11-29 09:38 | PN ---
Progress Note (short form) - Note Progress Note: PULMONARY/CCM Pt seen and examined in the ICU. Blood pressures low this AM. Denies shortness of breath although appears tachypneic. No fevers or chills. Last Vital Signs Temp Pulse Resp BP Pulse Ox 97.8 F 124 H 26 H 87/68 100 11/29/17 06:00 11/29/17 08:00 11/29/17 08:00 11/29/17 08:00 11/28/17 23:00 Intake & Output 11/26/17 11/27/17 11/28/17 11/29/17 23:59 23:59 23:59 23:59 Intake Total 240 Output Total 0 Balance 240 0 Weight 58.74 kg 58.196 kg Gen: mildly tachypneic at rest Heart: tachycardic, irregular Lung: absent breath sounds left Abd: soft, nontender Ext: no edema CBC, BMP 11/29/17 05:30 11/29/17 05:30 Active Medications Chlorhexidine Gluconate (Hibiclens For Decolonization -) 1 applic TP HS NELSON Last Admin: 11/28/17 23:00 Dose: 1 applic Mupirocin (Bactroban Ointment (For Decolonization) -) 1 applic NS BID NELSON Stop: 12/04/17 09:59 A/P Massive Left Pleural Effusion Atrial Fibrillation with RVR h/o CVA r/o Sepsis Acute Kidney Injury Lactic Acidosis Hemochromatosis - hold anticoagulation - empiric antibiotics - f/u cultures - will place pigtail catheter - send pleural fluid for cell count, TP, LDH, glucose, cholesterol, cultures and cytology - will need repeat CT imaging once fluid drained to investigate underlying pathology - IVF - monitor urine output, creatinine - trend lactate - mechanical DVT prophylaxis - continue ICU monitoring critical care time spent in reviewing chart, evaluating patient and formulating plan 35 min
[2017-11-29] MEDS ORDERED: MAGNESIUM SULF 50% (8.12 MEQ/2 ML-1 GM VIAL) IVPB ONE (09:47)
[2017-11-29] MEDS ORDERED: LIDOCAINE HCL 1%, 10 MG/ML (20ML VIAL) ONE (10:21)
[2017-11-29] MEDS ORDERED: PT OWN MED DRAWER 7, Y5N ONE ×3 (10:33→13:19)
[2017-11-29] MEDS: SODIUM CHLORIDE 1,000 ML IV SCH (10:41)
[2017-11-29] MEDS: CEFTRIAXONE 1 G/50 ML PREMIX 50 ML IVPB SCH (10:54)
[2017-11-29] MEDS ORDERED: MAGNESIUM SULFATE IN WATER 2 GM/50 ML IVPB IVPB ONE (11:00)
[2017-11-29] MEDS: MUPIROCIN 2% TOPICAL OINTMENT FOR DECOLONIZATION NS SCH ×2 (12:10→21:48)
[2017-11-29 13:11] LABS: ALBUMIN 2.2 g/dl (3.4-5.0); ALK PHOS 160 U/L (45-117); ANION GAP 11 (8-16); BILIRUBIN,TOTAL 2.7 mg/dL (0.2-1.0); BLOOD UREA NITROGEN 49 mg/dL (7-18); CALCIUM 7.1 mg/dL (8.5-10.1); CHLORIDE 90 mmol/L (98-107); CO2 32 mmol/L (21-32); CREATININE 2.6 mg/dL (0.55-1.02); GLUCOSE,RANDOM 160 mg/dL (74-106); LDH 358 U/L (84-246); POTASSIUM 3.7 mmol/L (3.5-5.1); SGOT/AST 29 U/L (15-37); SGPT/ALT 12 U/L (12-78); SODIUM 133 mmol/L (136-145); TOT PROT 5.7 g/dl (6.4-8.2)
--- NOTE | 2017-11-29 13:24 | EKG ---
Test Reason : Blood Pressure : / mmHG Vent. Rate : 104 BPM Atrial Rate : 250 BPM P-R Int : 000 ms QRS Dur : 092 ms QT Int : 318 ms P-R-T Axes : 000 -14 235 degrees QTc Int : 418 ms ATRIAL FIBRILLATION WITH RAPID VENTRICULAR RESPONSE ANTEROSEPTAL INFARCT (CITED ON OR BEFORE 28-NOV-2017) ABNORMAL ECG WHEN COMPARED WITH ECG OF 12-JUL-2017 18:54, RHYTHM ABOVE QT HAS LENGTHENED CLINICAL CORRELATION IS RECOMMENDED Confirmed by HERBER ARTEAGA MD ([id number]) on 11/29/2017 1:24:02 PM Referred By: MICHELLE Confirmed By:HERBER ARTEAGA MD
[2017-11-29] MEDS ORDERED: SODIUM CHLORIDE 1,000 ML IV STA (14:11)
--- NOTE | 2017-11-29 14:16 | PROC ---
Chest Tube Insertion Consent on Chart: Yes Risks and Benefits Explained: Yes Chest tube #1 Indication: Pleural Effusion Chest Tube Location: Left Lateral Anesthesia: 1% Lidocaine Size (Fr.): 14 Sterile Technique: Yes Tube Sutured to Skin: No (site-lock) Vaseline gauze dressing: No Chest Tube Collection System: Pleur-Evac Suction: Yes Drainage, Color/Appearance: Sanguinous Amount (ml): 700
[2017-11-29] MEDS: AZITHROMYCIN IVPB 500 MG in DEXTROSE 5%-WATER - 250 ML IVPB SCH (15:07)
[2017-11-29 15:50] LABS: PLEURAL FLUID COLOR RED
[2017-11-29 15:51] LABS: PLEURAL FLUID APPEARANCE TURBID; PLEURAL FLUID RBC 272686 /mm3
[2017-11-29 17:53] LABS: PLEURAL FLUID LYMPHOCYTES 33 %; PLEURAL FLUID MACROPHAGES 14 %; PLEURAL FLUID MONOCYTE 2 %; PLEURAL FLUID NEUTROPHIL 51 %
--- NOTE | 2017-11-29 18:17 | PN ---
Physical Exam: SUBJECTIVE: Patient seen and examined in ICU this AM . Denies sob, cp, she is conversational, mild tachypnea tolerated CT well. OBJECTIVE: Vital Signs Period Temp Pulse Resp BP Sys/Arreguin Pulse Ox Last 24 Hr 97.4 F-98.9 F 90-124 3-32 77-97/30-72 95-100 PE Neuro: alert, awake, cn 2-12intact Pulm: L Diminished + CT CV: s1 s2 irregular rate rhythm Abd: s nt nd + bs Ext: warm no le edema Laboratory Results - last 24 hr 11/28/17 11/29/17 11/29/17 19:55 05:30 05:30 WBC 19.9 H RBC 3.99 Hgb 13.8 Hct 40.5 MCV 101.4 H MCH 34.6 H MCHC 34.1 RDW 16.2 H Plt Count 242 MPV 9.3 Neutrophils % 81.0 Lymphocytes % 7.5 L D Monocytes % 11.4 H Eosinophils % 0.0 D Basophils % 0.1 VBG pH 7.43 H POC VBG pCO2 52.5 H POC VBG pO2 31.6 Mixed VBG HCO3 34.0 H Sodium 136 Potassium 3.6 Chloride 89 L Carbon Dioxide 34 H Anion Gap 13 BUN 47 H Creatinine 2.3 H Creat Clearance w eGFR Random Glucose 136 H Lactic Acid Calcium 7.5 L Phosphorus 4.6 Magnesium 1.5 L Total Bilirubin AST ALT Alkaline Phosphatase LD Total B-Natriuretic Peptide Total Protein Albumin Pleural Fluid Source Pleural Color Pleural Appearance Pleural WBC Pleural RBC Pleural Neutrophils Pleural Lymphocytes Pleural Monocytes Pleural Macrophages Pleural Total Protein Pleural LDH Pleural Glucose Pleural Cholesterol Blood Type Antibody Screen 11/29/17 11/29/17 11/29/17 05:30 12:15 12:15 WBC RBC Hgb Hct MCV MCH MCHC RDW Plt Count MPV Neutrophils % Lymphocytes % Monocytes % Eosinophils % Basophils % VBG pH POC VBG pCO2 POC VBG pO2 Mixed VBG HCO3 Sodium 133 L Potassium 3.7 Chloride 90 L Carbon Dioxide 32 Anion Gap 11 BUN 49 H Creatinine 2.6 H Creat Clearance w eGFR 17.85 Random Glucose 160 H Lactic Acid 3.2 H* 3.4 H* Calcium 7.1 L Phosphorus Magnesium Total Bilirubin 2.7 H D AST 29 ALT 12 Alkaline Phosphatase 160 H LD Total 358 H B-Natriuretic Peptide Total Protein 5.7 L Albumin 2.2 L Pleural Fluid Source Pleural Color Pleural Appearance Pleural WBC Pleural RBC Pleural Neutrophils Pleural Lymphocytes Pleural Monocytes Pleural Macrophages Pleural Total Protein Pleural LDH Pleural Glucose Pleural Cholesterol Blood Type Antibody Screen 11/29/17 11/29/17 11/29/17 14:10 14:10 14:10 WBC RBC Hgb Hct MCV MCH MCHC RDW Plt Count MPV Neutrophils % Lymphocytes % Monocytes % Eosinophils % Basophils % VBG pH POC VBG pCO2 POC VBG pO2 Mixed VBG HCO3 Sodium Potassium Chloride Carbon Dioxide Anion Gap BUN Creatinine Creat Clearance w eGFR Random Glucose Lactic Acid Calcium Phosphorus Magnesium Total Bilirubin AST ALT Alkaline Phosphatase LD Total B-Natriuretic Peptide Total Protein Albumin Pleural Fluid Source Pleural fluid Pleural Color Red Pleural Appearance Turbid Pleural WBC 6401 Pleural RBC 488202 Pleural Neutrophils 51 Pleural Lymphocytes 33 Pleural Monocytes 2 Pleural Macrophages 14 Pleural Total Protein Pleural LDH Pleural Glucose 91.774 Pleural Cholesterol < 50 Blood Type Antibody Screen 11/29/17 11/29/17 14:10 14:10 WBC RBC Hgb Hct MCV MCH MCHC RDW Plt Count MPV Neutrophils % Lymphocytes % Monocytes % Eosinophils % Basophils % VBG pH POC VBG pCO2 POC VBG pO2 Mixed VBG HCO3 Sodium Potassium Chloride Carbon Dioxide Anion Gap BUN Creatinine Creat Clearance w eGFR Random Glucose Lactic Acid Calcium Phosphorus Magnesium Total Bilirubin AST ALT Alkaline Phosphatase LD Total B-Natriuretic Peptide Total Protein Albumin Pleural Fluid Source Pleural Color Pleural Appearance Pleural WBC Pleural RBC Pleural Neutrophils Pleural Lymphocytes Pleural Monocytes Pleural Macrophages Pleural Total Protein 3.248 Pleural LDH 422.20 Pleural Glucose Pleural Cholesterol Blood Type Antibody Screen Active Medications Generic Name Dose Route Start Last Admin Trade Name Freq PRN Reason Stop Dose Admin Chlorhexidine Gluconate 1 applic 11/28/17 22:00 11/28/17 23:00 Hibiclens For Decolonization - TP 1 applic HS NELSON Administration Sodium Chloride 1,000 mls @ 100 mls/hr 11/29/17 10:00 11/29/17 10:41 Normal Saline - IV 100 mls/hr ASDIR NELSON Administration CEFTRIAXONE 1 G/50 ML PREMIX 50 mls @ 100 mls/hr 11/29/17 10:00 11/29/17 10: 54 Ceftriaxone 1 Gm-D5w Bag IVPB 100 mls/hr DAILY NELSON Administration Azithromycin 500 mg/ Dextrose 250 mls @ 250 mls/hr 11/29/17 10:00 11/29/17 15 :07 IVPB 250 mls/hr DAILY NELSON Administration Mupirocin 1 applic 11/29/17 10:00 11/29/17 12:10 Bactroban Ointment (For Decolonization) - NS 12/04/17 09:59 1 applic BID NELSON Administration Assessment: 77 year old female with PMH Afib on Eliquis, TIAs, PE, hemochromatosis, cellulitis left hip 06/2017 presented to the ED with failure to thrive, generalized weakness, declining mental status and SOB. Plan: 1. Large left pleural effusion / complete opacification L hemothorax with mediastinal shift/ obstructive shock - Left sided chest tube placed - Followup cultures - Hold eliquis - CTX consulted - CT chest once lung drains 2. Severe sepsis secondary to UTI vs proctitis due to fecal impaction vs PNA underlying effusion - Continue ceftriaxone, azithro - NS 100cc/hr - Trend lactic acid 3. Urinary retention - Insert moore 4. Oliguria - Increase NS 100cc/hr - Repeat bmp in AM 5. Afib w/ RVR - Hold bb, AC while septic Visit type - Emergency Visit Emergency Visit: Yes ED Registration Date: 11/28/17 Care time: The patient presented to the Emergency Department on the above date and was hospitalized for further evaluation of their emergent condition. - New Patient This patient is new to me today: Yes Date on this admission: 11/29/17 - Critical Care Critical Care patient: Yes Total Critical Care Time (in minutes): 35 Critical Care Statement: The care of this patient involved high complexity decision making to prevent further life threatening deterioration of the patient 's condition and/or to evaluate & treat vital organ system(s) failure or risk of failure. - Discharge Referral Referred to [facility] No
[2017-11-29] MEDS ORDERED: FLU VACCINE QUAD 60 MCG/0.5 ML (MDV 17-18) IM ONE (20:55)
[2017-11-29] MEDS ORDERED: HYDROmorphone HCL CARPU-JECT 2 MG/1 ML DISP.SYRIN ONE (20:56)
[2017-11-29] MEDS ORDERED: HYDROmorphone HCL CARPU-JECT 2 MG/1 ML DISP.SYRIN IVPUSH ONE (21:00)
[2017-11-29] MEDS: CHLORHEXIDINE GLUCONATE 4% CLEANSER FOR DECOLONIZATION TP SCH (21:38)
[2017-11-29] MEDS: PHENYLEPHRINE HCL 20,000 MCG in SODIUM CHLORIDE 248 ML IVPB SCH (23:50)
[2017-11-29] MEDS ORDERED: PHENYLEPHRINE HCL 10 MG/1 ML SINGLE DOSE VIAL ONE (23:50)
[2017-11-30] MEDS ORDERED: LACTATED RINGERS SOLUTION 1,000 ML/1,000 ML INFUS.BAG IV STA (01:26)
[2017-11-30] MEDS ORDERED: PHENYLEPHRINE HCL 10 MG/1 ML SINGLE DOSE VIAL ONE ×4 (02:55→16:30)
[2017-11-30 06:14] LABS: BASO % 0.3 % (0-2.0); EOS % 0.1 % (0-4.5); HEMATOCRIT 40.2 % (32.4-45.2); HEMOGLOBIN 13.4 GM/dL (10.7-15.3); LYMPH % 10.8 % (8-40); MCHC 33.2 g/dl (32.0-36.0); MEAN CELL VOLUME 102.4 fl (80-96); MONO % 14.3 % (3.8-10.2); NEUT % 74.5 % (42.8-82.8); PLATELET COUNT 235 K/MM3 (134-434); RBC 3.93 M/mm3 (3.60-5.2); RDW 16.5 % (11.6-15.6)
[2017-11-30 07:43] LABS: CHLORIDE 94 mmol/L (98-107); POTASSIUM 3.3 mmol/L (3.5-5.1); SODIUM 136 mmol/L (136-145)
[2017-11-30 07:52] LABS: ALBUMIN 1.8 g/dl (3.4-5.0); ALK PHOS 140 U/L (45-117); ANION GAP 8 (8-16); BILIRUBIN,TOTAL 1.8 mg/dL (0.2-1.0); BLOOD UREA NITROGEN 50 mg/dL (7-18); CO2 34 mmol/L (21-32); CREATININE 1.7 mg/dL (0.55-1.02); GLUCOSE,RANDOM 135 mg/dL (74-106); MAGNESIUM 2.1 mg/dL (1.8-2.4); PHOSPHOROUS 4.5 mg/dL (2.5-4.9); SGOT/AST 26 U/L (15-37); SGPT/ALT 11 U/L (12-78); TOT PROT 5.1 g/dl (6.4-8.2)
[2017-11-30] MEDS: PHENYLEPHRINE HCL 20,000 MCG in SODIUM CHLORIDE 248 ML IVPB SCH ×4 (08:05→23:45)
--- NOTE | 2017-11-30 09:46 | PN ---
Physical Exam: SUBJECTIVE: Patient seen and examined in ICU. She appears improved today, states shes feeling less pressure. Does have pain at site of CT. Events: - CT drained 1260, sanguinous outpt - Started Phenylephrine for hypotension maintain MAP >65 - Increased UO - CT to be repositioned, cxr noted - Pulled out EJ OBJECTIVE: Vital Signs Period Temp Pulse Resp BP Sys/Arreguin Pulse Ox Last 24 Hr 97.3 F-97.9 F 80-113 10-32 77-123/31-72 98-98 PE Neuro: alert, awake, cn 2-12intact Pulm: Left lung no bc, r clear + LCT CV: s1 s2 irregular rate rhythm Abd: s nt nd + bs : + moore to urine Ext: warm no le edema Laboratory Results - last 24 hr 11/29/17 11/29/17 11/30/17 14:10 18:50 05:35 WBC 12.0 H D RBC 3.93 Hgb 13.4 Hct 40.2 MCV 102.4 H MCH 34.0 H MCHC 33.2 RDW 16.5 H Plt Count 235 MPV 9.0 Neutrophils % 74.5 Lymphocytes % 10.8 D Monocytes % 14.3 H Eosinophils % 0.1 D Basophils % 0.3 Sodium Potassium Chloride Carbon Dioxide Anion Gap BUN Creatinine Creat Clearance w eGFR Random Glucose Lactic Acid 4.5 H* Calcium Phosphorus Magnesium Total Bilirubin AST ALT Alkaline Phosphatase LD Total Total Protein Albumin Pleural Fluid Source Pleural Color Pleural Appearance Pleural WBC Pleural RBC Pleural Neutrophils Pleural Lymphocytes Pleural Monocytes Pleural Macrophages Pleural Total Protein 3.248 Pleural LDH Pleural Glucose Pleural Cholesterol 11/30/17 05:35 WBC RBC Hgb Hct MCV MCH MCHC RDW Plt Count MPV Neutrophils % Lymphocytes % Monocytes % Eosinophils % Basophils % Sodium 136 Potassium 3.3 L Chloride 94 L Carbon Dioxide 34 H Anion Gap 8 BUN 50 H Creatinine 1.7 H Creat Clearance w eGFR 29.14 Random Glucose 135 H Lactic Acid Calcium Phosphorus 4.5 Magnesium 2.1 Total Bilirubin 1.8 H D AST 26 ALT 11 L Alkaline Phosphatase 140 H LD Total Total Protein 5.1 L Albumin 1.8 L Pleural Fluid Source Pleural Color Pleural Appearance Pleural WBC Pleural RBC Pleural Neutrophils Pleural Lymphocytes Pleural Monocytes Pleural Macrophages Pleural Total Protein Pleural LDH Pleural Glucose Pleural Cholesterol Active Medications Generic Name Dose Route Start Last Admin Trade Name Freq PRN Reason Stop Dose Admin Chlorhexidine Gluconate 1 applic 02/02/18 22:00 11/29/17 21:38 Hibiclens For Decolonization - TP 1 applic HS NELSON Administration Sodium Chloride 1,000 mls @ 100 mls/hr 11/29/17 10:00 11/29/17 10:41 Normal Saline - IV 100 mls/hr ASDIR NELSON Administration CEFTRIAXONE 1 G/50 ML PREMIX 50 mls @ 100 mls/hr 11/29/17 10:00 11/29/17 10: 54 Ceftriaxone 1 Gm-D5w Bag IVPB 100 mls/hr DAILY NELSON Administration Azithromycin 500 mg/ Dextrose 250 mls @ 250 mls/hr 11/29/17 10:00 11/29/17 15 :07 IVPB 250 mls/hr DAILY NELSON Administration Phenylephrine HCl 20,000 mcg/ 250 mls @ 37.5 mls/hr 11/29/17 23:45 11/30/17 08:05 Sodium Chloride IVPB 100 mcg/min TITR NELSON 75 mls/hr Protocol Administration 50 MCG/MIN Mupirocin 1 applic 11/29/17 10:00 11/29/17 21:48 Bactroban Ointment (For Decolonization) - NS 12/04/17 09:59 1 applic BID NELSON Administration Microbiology 11/28/17 16:34 Urine Culture - Final Urine - Urine Clean Catch NO GROWTH OBTAINED 11/28/17 15:00 Blood Culture - Preliminary Blood - Peripheral Venous NO GROWTH OBTAINED AFTER 24 HOURS, INCUBATION TO CONTINUE FOR 4 DAYS. 11/28/17 15:00 Blood Culture - Preliminary Blood - Peripheral Venous NO GROWTH OBTAINED AFTER 24 HOURS, INCUBATION TO CONTINUE FOR 4 DAYS. Assessment: 77 year old female with PMH Afib on Eliquis, TIAs, PE, hemochromatosis, cellulitis left hip 06/2017 presented to the ED with failure to thrive, generalized weakness, declining mental status and SOB. Plan: 1. Large left pleural effusion / complete opacification L hemothorax with mediastinal shift/ obstructive shock - Chest tube placed 11/28, to reposition today - Serial cxrs - Initial pleural fluid shows exudate - Cultures pending - Hold Eliquis - CTX consulted 2. Hypovolemic shock - Taper off Phenylephrine - Continue IVF and bolus for hypotension 3. Severe sepsis secondary to UTI vs PNA underlying effusion - AM lactic acid pending - Continue ceftriaxone, azithro - Continue IVF 4. IGOR with Oliguira/ metabolic acidosis - Likely due to profound dehydration, lactic acidosis - Renal function improving - Maintain moore - Continue IVF 5. Afib w/ RVR - Hold bb, AC while septic 6. Hypocalcemia - Corrected ca 8.66 7. Hypokalemia - Replete potassium 40meq x1 Visit type - Emergency Visit Emergency Visit: Yes ED Registration Date: 11/28/17 Care time: The patient presented to the Emergency Department on the above date and was hospitalized for further evaluation of their emergent condition. - New Patient This patient is new to me today: No - Critical Care Critical Care patient: Yes Total Critical Care Time (in minutes): 35 Critical Care Statement: The care of this patient involved high complexity decision making to prevent further life threatening deterioration of the patient 's condition and/or to evaluate & treat vital organ system(s) failure or risk of failure.
[2017-11-30] MEDS ORDERED: SODIUM CHLORIDE 1,000 ML IV STA (09:47)
--- NOTE | 2017-11-30 09:49 | PN ---
Progress Note (short form) - Note Progress Note: PULMONARY/CCM Pt seen and examined in the ICU. Blood pressures low this AM now on phenylephrine gtt. Less short of breath today. Only 1200mL drainage from chest tube overnight without significant improvement on imaging. No fevers or chills. Initial pleural studies suggestive of exudate. Last Vital Signs Temp Pulse Resp BP Pulse Ox 97.9 F 86 16 93/58 98 11/30/17 06:00 11/30/17 06:21 11/30/17 06:21 11/30/17 08:05 11/29/17 22:00 Intake & Output 11/27/17 11/28/17 11/29/17 11/30/17 23:59 23:59 23:59 23:59 Intake Total 240 2450 1882.5 Output Total 950 810 Balance 240 1500 1072.5 Weight 58.74 kg 58.196 kg Gen: mildly tachypneic at rest Heart: tachycardic, irregular Lung: absent breath sounds left Abd: soft, nontender Ext: no edema CBC, BMP 11/30/17 05:35 11/30/17 05:35 Active Medications Chlorhexidine Gluconate (Hibiclens For Decolonization -) 1 applic TP HS NELSON Last Admin: 11/29/17 21:38 Dose: 1 applic Sodium Chloride (Normal Saline -) 1,000 mls @ 100 mls/hr IV ASDIR NELSON Last Admin: 11/29/17 10:41 Dose: 100 mls/hr CEFTRIAXONE 1 G/50 ML PREMIX (Ceftriaxone 1 Gm-D5w Bag) 50 mls @ 100 mls/hr IVPB DAILY [facility] Last Admin: 11/29/17 10:54 Dose: 100 mls/hr Azithromycin 500 mg/ Dextrose 250 mls @ 250 mls/hr IVPB DAILY NELSON Last Admin: 11/29/17 15:07 Dose: 250 mls/hr Phenylephrine HCl 20,000 mcg/ (Sodium Chloride) 250 mls @ 37.5 mls/hr IVPB TITR NELSON; 50 MCG/MIN PRN Reason: Protocol Last Admin: 11/30/17 08:05 Dose: 100 mcg/min, 75 mls/hr Mupirocin (Bactroban Ointment (For Decolonization) -) 1 applic NS BID NELSON Stop: 12/04/17 09:59 Last Admin: 11/29/17 21:48 Dose: 1 applic A/P Massive Left Pleural Effusion Atrial Fibrillation with RVR h/o CVA r/o Sepsis Acute Kidney Injury Lactic Acidosis Hemochromatosis - will reposition chest tube - f/u pleural fluid cytology, cultures - hold anticoagulation - empiric antibiotics - will need repeat CT imaging once fluid drained to investigate underlying pathology - IVF boluses - taper off phenylephrine gtt - monitor urine output, creatinine - trend lactate - mechanical DVT prophylaxis - continue ICU monitoring critical care time spent in reviewing chart, evaluating patient and formulating plan 35 min
[2017-11-30 09:53] LABS: CALCIUM 6.9 mg/dL (8.5-10.1)
[2017-11-30] MEDS ORDERED: POTASSIUM CHLORIDE ORAL LIQUID 20 MEQ/15 ML PO ONE (10:30)
[2017-11-30] MEDS: CEFTRIAXONE 1 G/50 ML PREMIX 50 ML IVPB SCH (10:50)
[2017-11-30] MEDS: AZITHROMYCIN IVPB 500 MG in DEXTROSE 5%-WATER - 250 ML IVPB SCH (10:53)
[2017-11-30] MEDS: MUPIROCIN 2% TOPICAL OINTMENT FOR DECOLONIZATION NS SCH ×2 (11:00→22:28)
[2017-11-30] MEDS: SODIUM CHLORIDE 1,000 ML IV SCH ×2 (13:32→18:06)
[2017-11-30] MEDS ORDERED: HYDROmorphone HCL CARPU-JECT 2 MG/1 ML DISP.SYRIN IVPUSH PRN (13:44)
[2017-11-30] MEDS: MORPHINE SULFATE 10 MG/1 ML *VIAL IVPUSH PRN ×2 (14:30→17:39)
[2017-11-30] MEDS: CHLORHEXIDINE GLUCONATE 4% CLEANSER FOR DECOLONIZATION TP SCH (22:28)
[2017-12-01] MEDS: MORPHINE SULFATE 10 MG/1 ML *VIAL IVPUSH PRN ×3 (03:48→14:42)
[2017-12-01 06:17] LABS: BASO % 0.4 % (0-2.0); EOS % 1.1 % (0-4.5); HEMATOCRIT 38.8 % (32.4-45.2); LYMPH % 12.1 % (8-40); MCH 34.3 pg (25.7-33.7); MCHC 33.4 g/dl (32.0-36.0); MEAN CELL VOLUME 102.7 fl (80-96); MONO % 15.6 % (3.8-10.2); NEUT % 70.8 % (42.8-82.8); PLATELET COUNT 202 K/MM3 (134-434); RBC 3.78 M/mm3 (3.60-5.2); RDW 16.8 % (11.6-15.6); WHITE BLOOD COUNT 8.4 K/mm3 (4.0-10.0)
[2017-12-01 06:52] LABS: INR 2.36 (0.82-1.09); PROTHROMBIN TIME (PATIENT) 26.7 SEC (9.98-11.88)
[2017-12-01 07:19] LABS: ALBUMIN 1.8 g/dl (3.4-5.0); ANION GAP 5 (8-16); BLOOD UREA NITROGEN 35 mg/dL (7-18); CHLORIDE 99 mmol/L (98-107); CO2 35 mmol/L (21-32); GLUCOSE,RANDOM 94 mg/dL (74-106); SODIUM 139 mmol/L (136-145)
[2017-12-01 07:24] LABS: ALK PHOS 153 U/L (45-117); BILIRUBIN,TOTAL 1.8 mg/dL (0.2-1.0); CALCIUM 7.1 mg/dL (8.5-10.1); CREATININE 0.7 mg/dL (0.55-1.02); PHOSPHOROUS 2.7 mg/dL (2.5-4.9); SGPT/ALT 13 U/L (12-78); TOT PROT 4.7 g/dl (6.4-8.2)
[2017-12-01 08:16] LABS: MAGNESIUM 1.8 mg/dL (1.8-2.4); POTASSIUM 3.5 mmol/L (3.5-5.1); SGOT/AST 33 U/L (15-37)
--- NOTE | 2017-12-01 08:59 | PN ---
Physical Exam: SUBJECTIVE: Patient seen and examined No acute events overnight. Patient feels better this AM. Patient put out 550 mL of bloody fluid in chest tube yesterday. Patient denies any SOB, chest pain, difficulty breathing. Has mild pressure at area surrounding chest tube. Currently on phenylepherine for pressure support. OBJECTIVE: Vital Signs Period Temp Pulse Resp BP Sys/Arreguin Pulse Ox Last 24 Hr 97.6 F-98.4 F 80-114 15-25 75-110/28-86 98-98 GENERAL: The patient is awake, alert, and fully oriented, in no acute distress. HEAD: Normal with no signs of trauma. NECK: Trachea midline, full range of motion, supple. LUNGS: No breath sounds on left, + chest tube in place, c/d/i HEART: Irregularly irregular, S1, S2 without murmur, rub or gallop. ABDOMEN: Soft, nontender, nondistended, normoactive bowel sounds, no guarding, no rebound, no hepatosplenomegaly, no masses. EXTREMITIES: 2+ pulses, warm, well-perfused, no edema. NEUROLOGICAL: Cranial nerves II through XII grossly intact. Normal speech, gait not observed. PSYCH: Normal mood, normal affect. SKIN: Warm, dry, normal turgor, no rashes or lesions noted Laboratory Results - last 24 hr 11/30/17 11/30/17 12/01/17 05:35 05:35 05:13 WBC 8.4 RBC 3.78 Hgb 13.0 Hct 38.8 MCV 102.7 H MCH 34.3 H MCHC 33.4 RDW 16.8 H Plt Count 202 MPV 9.0 Neutrophils % 70.8 Lymphocytes % 12.1 Monocytes % 15.6 H Eosinophils % 1.1 D Basophils % 0.4 PT with INR INR Sodium Potassium Chloride Carbon Dioxide Anion Gap BUN Creatinine Creat Clearance w eGFR Random Glucose Lactic Acid 1.8 Calcium 6.9 L* Phosphorus Magnesium Total Bilirubin AST ALT Alkaline Phosphatase Total Protein Albumin 12/01/17 12/01/17 12/01/17 05:13 05:13 05:13 WBC RBC Hgb Hct MCV MCH MCHC RDW Plt Count MPV Neutrophils % Lymphocytes % Monocytes % Eosinophils % Basophils % PT with INR 26.70 H INR 2.36 H Sodium 139 Potassium 3.5 Chloride 99 Carbon Dioxide 35 H Anion Gap 5 L BUN 35 H Creatinine 0.7 Creat Clearance w eGFR > 60 Random Glucose 94 Lactic Acid 1.4 Calcium 7.1 L Phosphorus 2.7 Magnesium 1.8 Total Bilirubin 1.8 H AST 33 ALT 13 Alkaline Phosphatase 153 H Total Protein 4.7 L Albumin 1.8 L Active Medications Generic Name Dose Route Start Last Admin Trade Name Freq PRN Reason Stop Dose Admin Chlorhexidine Gluconate 1 applic 11/28/17 22:00 11/30/17 22:28 Hibiclens For Decolonization - TP 1 applic HS NELSON Administration Sodium Chloride 1,000 mls @ 100 mls/hr 11/29/17 10:00 11/30/17 18:06 Normal Saline - IV 100 mls/hr ASDIR NELSON Administration CEFTRIAXONE 1 G/50 ML PREMIX 50 mls @ 100 mls/hr 11/29/17 10:00 11/30/17 10: 50 Ceftriaxone 1 Gm-D5w Bag IVPB 100 mls/hr DAILY NELSON Administration Azithromycin 500 mg/ Dextrose 250 mls @ 250 mls/hr 11/29/17 10:00 11/30/17 10 :53 IVPB 250 mls/hr DAILY NELSON Administration Phenylephrine HCl 20,000 mcg/ 250 mls @ 37.5 mls/hr 11/29/17 23:45 11/30/17 23:45 Sodium Chloride IVPB Not Given TITR NELSON Protocol 50 MCG/MIN Morphine Sulfate 2 mg 11/30/17 14:11 12/01/17 07:36 Morphine Injection - IVPUSH 2 mg Q3H PRN Administration PAIN LEVEL 1-5 Mupirocin 1 applic 11/29/17 10:00 11/30/17 22:28 Bactroban Ointment (For Decolonization) - NS 12/04/17 09:59 1 applic BID NELSON Administration ASSESSMENT/PLAN: 77 year old female with PMH Afib on Eliquis, TIAs, PE, hemochromatosis, cellulitis left hip 06/2017 presented to the ED with failure to thrive, generalized weakness, declining mental status, and SOB found to have Large left pleural effusion #CV Atrial fibrillation with RVR Obstructive shock 2/2 to pleural effusion -Continue phenylepherine, wean as tolerated -Hold anticoagulation in the setting of bloody effusion #Resp Large left pleural effusion, likely exudative -Maintain chest tube. -Pending pleural fluid cultures, cytology -Continue ceftriaxone/azithromycin -IV fentanyl for pain relief #Renal IGOR -NS @ 100 cc/hr -Monitor Cr, urine output -Avoid nephrotoxic medication #FEN/GI -NS @ 100 cc/hr -monitor bmp -NPO #PPx -SCDs #Dispo: Continue ICU level of care Visit type - Emergency Visit Emergency Visit: Yes ED Registration Date: 11/28/17 Care time: The patient presented to the Emergency Department on the above date and was hospitalized for further evaluation of their emergent condition. - New Patient This patient is new to me today: Yes Date on this admission: 12/01/17 - Critical Care Critical Care patient: Yes Total Critical Care Time (in minutes): 40 Critical Care Statement: The care of this patient involved high complexity decision making to prevent further life threatening deterioration of the patient 's condition and/or to evaluate & treat vital organ system(s) failure or risk of failure.
--- NOTE | 2017-12-01 09:55 | PN ---
Progress Note (short form) - Note Progress Note: Patient with a history of hemachromatosis; DJD with bilayteral hip fractures comes to hospital with fatigue and was found to have total opacification left lung. Chest tube now in place and await for pleural fluid studies. Seen by Thoracic Surgeon this AM. On Eliquis for atrial fibrillation. On Exam: Vital Signs Temp 98.4 F 12/01/17 06:00 Pulse 93 H 12/01/17 08:00 Resp 22 12/01/17 08:00 BP 110/48 12/01/17 08:00 Pulse Ox 98 11/30/17 20:00 Intake & Output 11/30/17 11/30/17 12/01/17 11:59 23:59 11:59 Intake Total 1882.5 2210 2090 Output Total 810 1340 550 Balance 1072.5 870 1540 Weight 140 lb 1.6 oz Intake: IV 1762.5 1760 2040 LACTATED RINGERS SOLUTION 1000 1,000 ml In 1,000 ml @ 1000 mls/hr IV ONCE STA Rx#:[id number] Ronald-Synephrine - 20,000 262.5 760 840 Mcg In Normal Saline - 248 ml @ 50 MCG/MIN 37.5 mls/hr IVPB TITR NELSON Rx#: [id number] Normal Saline - 1,000 ml 500 900 @ 100 mls/hr IV ASDIR NELSON Rx#:[id number] Normal Saline - 1,000 ml 100 1200 @ 1000 mls/hr IV ASDIR STA Rx#:[id number] IVPB 350 Oral 120 100 50 Output: Chest Tube Drainage 410 140 50 Left Posterior Chest 410 140 50 Urine 400 1200 500 Siegel 400 1200 500 Other: Voiding Method Indwelling Catheter Indwelling Catheter # Unmeasured Voids Void 1 Bowel Movement No No No Weight Measurement Method Built in [facility] Built in [facility] She is alert pale Chest: Decreased breath sounds left side with some fine wheezes bilaterally Cor: Irregular No Abd. tenderness Ext: 1-2+ edema Abnormal Lab Results 11/30/17 12/01/17 12/01/17 05:35 05:13 05:13 MCV 102.7 H MCH 34.3 H RDW 16.8 H Monocytes % 15.6 H PT with INR 26.70 H INR 2.36 H Carbon Dioxide Anion Gap BUN Calcium 6.9 L* Total Bilirubin Alkaline Phosphatase Total Protein Albumin 12/01/17 05:13 MCV MCH RDW Monocytes % PT with INR INR Carbon Dioxide 35 H Anion Gap 5 L BUN 35 H Calcium 7.1 L Total Bilirubin 1.8 H Alkaline Phosphatase 153 H Total Protein 4.7 L Albumin 1.8 L IMP: Left hemothorax Hemachromatosis Hip Fx's Atrial Fibrillation Liver Mass Plan: Await pleural fluid analysis F/U Lab and CXR
[2017-12-01] MEDS ORDERED: PHYTONADIONE 10 MG/1 ML AMP IVPB ONE (10:30)
[2017-12-01] MEDS: CEFTRIAXONE 1 G/50 ML PREMIX 50 ML IVPB SCH (10:45)
[2017-12-01] MEDS: MUPIROCIN 2% TOPICAL OINTMENT FOR DECOLONIZATION NS SCH ×2 (10:45→21:08)
[2017-12-01] MEDS ORDERED: PT OWN MED DRAWER 7, Y5N ONE (10:50)
[2017-12-01] MEDS ORDERED: PHENYLEPHRINE HCL 10 MG/1 ML SINGLE DOSE VIAL ONE ×3 (10:52→21:39)
[2017-12-01] MEDS: SODIUM CHLORIDE 1,000 ML IV SCH (10:57)
[2017-12-01] MEDS: AZITHROMYCIN IVPB 500 MG in DEXTROSE 5%-WATER - 250 ML IVPB SCH (11:50)
[2017-12-01] MEDS: PHENYLEPHRINE HCL 20,000 MCG in SODIUM CHLORIDE 248 ML IVPB SCH ×2 (11:50→18:56)
--- NOTE | 2017-12-01 11:51 | CONSULT ---
Consult Consult Specialty:: Thoracic Surgery Referred by:: ED/Dr. Caban/Dr. Ramon Reason for Consultation:: Left pleural effusion - History of Present Illness Chief Complaint: Failure to thrive History of Present Illness: 77F former smoker quit 30+years ago but with >20 pack-years, afib on eliquis, CRI?, hemochromatosis, b/l hip fractures, p/w failure to thrive. Endorses 30lb weight loss. No fevers. No productive sputum. CXR shows opacified left hemithorax. CT shows same. No s/p pigtail catheter with bloody drainage suggestive of malignancy or hemothorax. - History Source History Provided By: Patient, Medical Record Limitations to Obtaining History: Poor Historian - Past Medical History Cardio/Vascular: Yes: AFIB Pulmonary: Yes: Other (Right sided pleural effusion) Hepatobiliary: Yes: Cirrhosis, Other (Hemachromatosis) Renal/: Yes: Renal Failure ...: No - Past Surgical History Past Surgical History: Yes: Cholecystectomy, Laminectomy - Alcohol/Substance Use Hx Alcohol Use: Yes (2 glasses wine per night, more in past) Number of Drinks Daily: 2 (glasses of wine daily) History of Substance Use: reports: None - Smoking History Smoking history: Former smoker Have you smoked in the past 12 months: No If you are a former smoker, when did you quit?: 23 YEARS AGO - Social History 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 (home aides) 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 History of Recent Travel: No Home Medications - Allergies Allergies/Adverse Reactions: Allergies Allergy/AdvReac Type Severity Reaction Status Date / Time No Known Drug Allergies Allergy Verified 11/28/17 13:58 - Home Medications Home Medications: Ambulatory Orders Acetaminophen [Tylenol] 650 mg PO QID 07/20/16 Fluocinonide 0.05% Cream [Lidex 0.05% Cream -] 1 applic BID 07/20/16 Lactobacillus Acidophilus [Bacid -] 1 tab PO DAILY 07/20/16 Magnesium Oxide 400 mg PO BID 07/20/16 Metoprolol Tartrate [Lopressor -] 25 mg PO BID tablet 07/23/16 Polyethylene Glycol 3350 [Miralax 119 gm Btl -] 17 gm PO DAILY bottle 07/23/16 Sennosides/Docusate Sodium [Pericolace -] 2 tablet PO BID tablet 07/23/16 Melatonin 5 mg PO HS PRN #0 cap 01/08/17 Oxycodone HCl [Roxicodone -] 5 mg PO Q4H PRN #0 tablet MDD 4 01/08/17 Apixaban [Eliquis -] 5 mg PO BID #0 tablet 04/26/17 Calcium (Oyster Shell) [Os-Durga 500MG -] 500 mg PO BID tablet 04/26/17 Cephalexin Monohydrate [Keflex -] 500 mg PO BID #14 cap 07/17/17 Family Disease History - Family Disease History Family Disease History: Heart Disease: Mother, Other: Brother (arthritis) Review of Systems - Review of Systems Constitutional: reports: Lethargy, Unintentional Wgt. Loss, Weakness Eyes: reports: No Symptoms HENT: reports: No Symptoms Cardiovascular: reports: Shortness of Breath Respiratory: reports: SOB Musculoskeletal: reports: Joint Pain Physical Exam Vital Signs: Vital Signs Temperature 98.0 F 12/01/17 10:00 Pulse Rate 103 H 12/01/17 10:00 Respiratory Rate 18 12/01/17 10:00 Blood Pressure 100/60 12/01/17 10:00 O2 Sat by Pulse Oximetry (%) 98 11/30/17 20:00 Constitutional: Yes: No Distress Cardiovascular: Yes: Pulse Irregular Respiratory: Yes: Diminished (diminished left side) Musculoskeletal: Yes: Other (No ecchymoses on chest) Labs: CBC, BMP 12/01/17 05:13 12/01/17 05:13 Imaging - Results Chest X-ray: Image Reviewed (Opacified left chest, minimally improved since drainage.) Problem List - Problems (1) Pleural effusion, left Assessment/Plan: F/u pathology If malignant, pleur-x placement and further biopsies only if necessary If not clear, will likely need VATS Please optimize for general anesthesia, possibly on I have spent 40 minutes on this consultation with >50% on counseling and coordination of care with patient, Dr. Shah, and Dr. Ramon. Code(s): J90 - PLEURAL EFFUSION, NOT ELSEWHERE CLASSIFIED
--- NOTE | 2017-12-01 12:21 | PN ---
Teaching Attending Note Name of Resident: Porter Boyd ATTENDING PHYSICIAN STATEMENT I saw and evaluated the patient. I reviewed the resident's note and discussed the case with the resident. I agree with the resident's findings and plan as documented. SUBJECTIVE: Patient seen and examined in the ICU. Awake and alert. Bloody drainage from Left CT continues. She reports some pressure at the pigtail site. Remains on Phenylephrine for hemodynamic support. Intake & Output 11/28/17 11/29/17 11/30/17 12/01/17 23:59 23:59 23:59 23:59 Intake Total 240 2450 4092.5 2090 Output Total 950 2150 550 Balance 240 1500 1942.5 1540 Weight 129 lb 8 oz 128 lb 4.8 oz 140 lb 1.6 oz Last Vital Signs Temp Pulse Resp BP Pulse Ox 98.0 F 81 18 100/60 98 12/01/17 10:00 12/01/17 11:50 12/01/17 10:00 12/01/17 11:50 11/30/17 20:00 Active Medications Chlorhexidine Gluconate (Hibiclens For Decolonization -) 1 applic TP HS [facility] Last Admin: 11/30/17 22:28 Dose: 1 applic Fentanyl (Sublimaze Injection -) 25 mcg IVPUSH Q4H PRN PRN Reason: PAIN LEVEL 6-10 Stop: 12/02/17 11:56 Sodium Chloride (Normal Saline -) 1,000 mls @ 100 mls/hr IV ASDIR [facility] Last Admin: 12/01/17 10:57 Dose: 100 mls/hr CEFTRIAXONE 1 G/50 ML PREMIX (Ceftriaxone 1 Gm-D5w Bag) 50 mls @ 100 mls/hr IVPB DAILY [facility] Last Admin: 12/01/17 10:45 Dose: 100 mls/hr Azithromycin 500 mg/ Dextrose 250 mls @ 250 mls/hr IVPB DAILY [facility] Last Admin: 12/01/17 11:50 Dose: 250 mls/hr Phenylephrine HCl 20,000 mcg/ (Sodium Chloride) 250 mls @ 37.5 mls/hr IVPB TITR NELSON; 50 MCG/MIN PRN Reason: Protocol Last Admin: 12/01/17 11:50 Dose: 90 mcg/min, 67.5 mls/hr Morphine Sulfate (Morphine Injection -) 2 mg IVPUSH Q3H PRN PRN Reason: PAIN LEVEL 1-5 Last Admin: 12/01/17 07:36 Dose: 2 mg Mupirocin (Bactroban Ointment (For Decolonization) -) 1 applic NS BID [facility] Stop: 12/04/17 09:59 Last Admin: 12/01/17 10:45 Dose: 1 applic Gen: Awake and alert, mildly tachypneic at rest Heart: tachycardic, irregular Lung: absent breath sounds left Abd: soft, nontender Ext: no edema Laboratory Results - last 24 hr 12/01/17 12/01/17 12/01/17 05:13 05:13 05:13 WBC 8.4 RBC 3.78 Hgb 13.0 Hct 38.8 MCV 102.7 H MCH 34.3 H MCHC 33.4 RDW 16.8 H Plt Count 202 MPV 9.0 Neutrophils % 70.8 Lymphocytes % 12.1 Monocytes % 15.6 H Eosinophils % 1.1 D Basophils % 0.4 PT with INR 26.70 H INR 2.36 H Sodium 139 Potassium 3.5 Chloride 99 Carbon Dioxide 35 H Anion Gap 5 L BUN 35 H Creatinine 0.7 Creat Clearance w eGFR > 60 Random Glucose 94 Lactic Acid Calcium 7.1 L Phosphorus 2.7 Magnesium 1.8 Total Bilirubin 1.8 H AST 33 ALT 13 Alkaline Phosphatase 153 H Total Protein 4.7 L Albumin 1.8 L 12/01/17 05:13 WBC RBC Hgb Hct MCV MCH MCHC RDW Plt Count MPV Neutrophils % Lymphocytes % Monocytes % Eosinophils % Basophils % PT with INR INR Sodium Potassium Chloride Carbon Dioxide Anion Gap BUN Creatinine Creat Clearance w eGFR Random Glucose Lactic Acid 1.4 Calcium Phosphorus Magnesium Total Bilirubin AST ALT Alkaline Phosphatase Total Protein Albumin IMP: Massive Left Pleural Effusion Atrial Fibrillation with RVR h/o CVA r/o Sepsis Acute Kidney Injury Lactic Acidosis Hemochromatosis - Follow CT output - f/u pleural fluid cytology, cultures - Hold anticoagulation - Noted empiric antibiotics - Will need repeat CT imaging once fluid drained to investigate underlying pathology - IVF boluses - taper off phenylephrine drip - monitor urine output, creatinine - mechanical DVT prophylaxis - continue ICU monitoring Dr Shah Critical care time spent in reviewing chart, evaluating patient and formulating plan 36 min
[2017-12-01] MEDS: CHLORHEXIDINE GLUCONATE 4% CLEANSER FOR DECOLONIZATION TP SCH (21:08)
[2017-12-02] MEDS ORDERED: PHENYLEPHRINE HCL 10 MG/1 ML SINGLE DOSE VIAL ONE ×4 (02:18→20:56)
[2017-12-02 06:15] LABS: BASO % 0.7 % (0-2.0); EOS % 2.7 % (0-4.5); HEMATOCRIT 38.4 % (32.4-45.2); HEMOGLOBIN 12.7 GM/dL (10.7-15.3); LYMPH % 13.5 % (8-40); MCH 34.5 pg (25.7-33.7); MCHC 33.2 g/dl (32.0-36.0); MEAN CELL VOLUME 103.8 fl (80-96); MEAN PLT VOLUME 9.6 fl (7.5-11.1); MONO % 17.3 % (3.8-10.2); NEUT % 65.8 % (42.8-82.8); PLATELET COUNT 190 K/MM3 (134-434); RDW 16.8 % (11.6-15.6); WHITE BLOOD COUNT 8.2 K/mm3 (4.0-10.0)
[2017-12-02 06:24] LABS: INR 2.04 (0.82-1.09)
[2017-12-02 06:26] LABS: ACTIVATED PTT 52.4 SECONDS (26.9-34.4)
[2017-12-02 06:27] LABS: ALBUMIN 1.6 g/dl (3.4-5.0); ANION GAP 6 (8-16); BILIRUBIN,TOTAL 1.7 mg/dL (0.2-1.0); BLOOD UREA NITROGEN 19 mg/dL (7-18); CHLORIDE 100 mmol/L (98-107); CO2 35 mmol/L (21-32); CREATININE 0.4 mg/dL (0.55-1.02); GLUCOSE,RANDOM 130 mg/dL (74-106); MAGNESIUM 1.3 mg/dL (1.8-2.4); PHOSPHOROUS 1.6 mg/dL (2.5-4.9); POTASSIUM 3.4 mmol/L (3.5-5.1); SGOT/AST 26 U/L (15-37); SGPT/ALT 14 U/L (12-78); SODIUM 141 mmol/L (136-145); TOT PROT 4.6 g/dl (6.4-8.2)
[2017-12-02 06:28] LABS: ALK PHOS 194 U/L (45-117)
[2017-12-02] MEDS: SODIUM CHLORIDE 1,000 ML IV SCH ×2 (08:16→12:23)
[2017-12-02] MEDS ORDERED: POTASSIUM PHOSPHATE 30 MM in SODIUM CHLORIDE 250 ML IVPB ONE (08:45)
[2017-12-02] MEDS ORDERED: MAGNESIUM OXIDE 400 MG TABLET (FP) PO ONE ×2 (08:45→12:30)
--- NOTE | 2017-12-02 11:31 | PN ---
Teaching Attending Note Name of Resident: Porter Boyd ATTENDING PHYSICIAN STATEMENT I saw and evaluated the patient. I reviewed the resident's note and discussed the case with the resident. I agree with the resident's findings and plan as documented. SUBJECTIVE: Patient seen and examined in the ICU. Awake and alert. Bloody drainage from Left CT continues. She reports less pressure at the pigtail site. Remains on Phenylephrine for hemodynamic support. Intake & Output 11/29/17 11/30/17 12/01/17 12/02/17 23:59 23:59 23:59 23:59 Intake Total 2450 4092.5 4400 2130 Output Total 950 2150 1180 810 Balance 1500 1942.5 3220 1320 Weight 128 lb 4.8 oz 140 lb 1.6 oz 148 lb 8 oz Last Vital Signs Temp Pulse Resp BP Pulse Ox 98.5 F 89 11 L 105/63 100 12/02/17 06:00 12/02/17 06:00 12/02/17 06:00 12/02/17 06:00 12/01/17 22:52 Active Medications Chlorhexidine Gluconate (Hibiclens For Decolonization -) 1 applic TP HS [facility] Last Admin: 12/01/17 21:08 Dose: 1 applic Fentanyl (Sublimaze Injection -) 25 mcg IVPUSH Q4H PRN PRN Reason: PAIN LEVEL 6-10 Stop: 12/02/17 11:56 Last Admin: 12/01/17 22:21 Dose: 25 mcg Sodium Chloride (Normal Saline -) 1,000 mls @ 100 mls/hr IV ASDIR [facility] Last Admin: 12/02/17 08:16 Dose: 100 mls/hr CEFTRIAXONE 1 G/50 ML PREMIX (Ceftriaxone 1 Gm-D5w Bag) 50 mls @ 100 mls/hr IVPB DAILY [facility] Last Admin: 12/01/17 10:45 Dose: 100 mls/hr Azithromycin 500 mg/ Dextrose 250 mls @ 250 mls/hr IVPB DAILY [facility] Last Admin: 12/01/17 11:50 Dose: 250 mls/hr Phenylephrine HCl 20,000 mcg/ (Sodium Chloride) 250 mls @ 37.5 mls/hr IVPB TITR NELSON; 50 MCG/MIN PRN Reason: Protocol Last Admin: 12/01/17 18:56 Dose: 90 mcg/min, 67.5 mls/hr Potassium Phosphate 30 mm/ (Sodium Chloride) 260 mls @ 62.5 mls/hr IVPB ONCE ONE Stop: 12/02/17 12:54 Morphine Sulfate (Morphine Injection -) 2 mg IVPUSH Q3H PRN PRN Reason: PAIN LEVEL 1-5 Last Admin: 12/01/17 14:42 Dose: 2 mg Mupirocin (Bactroban Ointment (For Decolonization) -) 1 applic NS BID [facility] Stop: 12/04/17 09:59 Last Admin: 12/01/17 21:08 Dose: 1 applic Saliva Substitute (Mouthkote Solution -) 1 applic MM DAILY [facility] Gen: Awake and alert, less tachypneic at rest Heart: tachycardic, irregular Lung: absent breath sounds left, left pleural drainage catheter with bloody drainage Abd: soft, nontender Ext: no edema Laboratory Results - last 24 hr 12/02/17 12/02/17 12/02/17 05:07 05:07 05:07 WBC 8.2 RBC 3.70 Hgb 12.7 Hct 38.4 MCV 103.8 H MCH 34.5 H MCHC 33.2 RDW 16.8 H Plt Count 190 MPV 9.6 Neutrophils % 65.8 Lymphocytes % 13.5 Monocytes % 17.3 H Eosinophils % 2.7 D Basophils % 0.7 PT with INR 23.00 H INR 2.04 H PTT (Actin FS) 52.4 H Sodium 141 Potassium 3.4 L Chloride 100 Carbon Dioxide 35 H Anion Gap 6 L BUN 19 H Creatinine 0.4 L Creat Clearance w eGFR > 60 Random Glucose 130 H Calcium 7.0 L Phosphorus 1.6 L Magnesium 1.3 L Total Bilirubin 1.7 H AST 26 ALT 14 Alkaline Phosphatase 194 H Total Protein 4.6 L Albumin 1.6 L IMP: Massive Left Pleural Effusion Atrial Fibrillation with RVR h/o CVA r/o Sepsis Acute Kidney Injury Lactic Acidosis Hemochromatosis - Follow CT output - f/u pleural fluid cytology, cultures - Hold anticoagulation - Noted empiric antibiotics - Will need repeat CT imaging once fluid drained to investigate underlying pathology - IVF boluses - taper off phenylephrine drip - monitor urine output, creatinine - mechanical DVT prophylaxis - IV Heparin: AFib with a history of CVA - continue ICU monitoring while on pressors Dr Shah Critical care time spent in reviewing chart, evaluating patient and formulating plan 36 min
--- NOTE | 2017-12-02 11:31 | PN ---
Physical Exam: SUBJECTIVE: Patient seen and examined No acute events overnight. Patient feels well this AM. Patient put out 180 mL of bloody fluid in chest tube yesterday. Patient denies any SOB, chest pain, difficulty breathing. Continues to have mild pressure at area surrounding chest tube. Currently on phenylepherine for pressure support. OBJECTIVE: Vital Signs Period Temp Pulse Resp BP Sys/Arreguin Pulse Ox Last 24 Hr 97.6 F-98.5 F 81-103 11-25 95-113/50-70 95-100 GENERAL: The patient is awake, alert, and fully oriented, in no acute distress. HEAD: Normal with no signs of trauma. NECK: Trachea midline, full range of motion, supple. LUNGS: No breath sounds on left, + chest tube in place, c/d/i HEART: Irregularly irregular, S1, S2 without murmur, rub or gallop. ABDOMEN: Soft, nontender, nondistended, normoactive bowel sounds, no guarding, no rebound, no hepatosplenomegaly, no masses. EXTREMITIES: 2+ pulses, warm, well-perfused, no edema. NEUROLOGICAL: Cranial nerves II through XII grossly intact. Normal speech, gait not observed. PSYCH: Normal mood, normal affect. SKIN: Warm, dry, normal turgor, no rashes or lesions noted Laboratory Results - last 24 hr 12/02/17 12/02/17 12/02/17 05:07 05:07 05:07 WBC 8.2 RBC 3.70 Hgb 12.7 Hct 38.4 MCV 103.8 H MCH 34.5 H MCHC 33.2 RDW 16.8 H Plt Count 190 MPV 9.6 Neutrophils % 65.8 Lymphocytes % 13.5 Monocytes % 17.3 H Eosinophils % 2.7 D Basophils % 0.7 PT with INR 23.00 H INR 2.04 H PTT (Actin FS) 52.4 H Sodium 141 Potassium 3.4 L Chloride 100 Carbon Dioxide 35 H Anion Gap 6 L BUN 19 H Creatinine 0.4 L Creat Clearance w eGFR > 60 Random Glucose 130 H Calcium 7.0 L Phosphorus 1.6 L Magnesium 1.3 L Total Bilirubin 1.7 H AST 26 ALT 14 Alkaline Phosphatase 194 H Total Protein 4.6 L Albumin 1.6 L Active Medications Generic Name Dose Route Start Last Admin Trade Name Freq PRN Reason Stop Dose Admin Chlorhexidine Gluconate 1 applic 02/02/18 22:00 12/01/17 21:08 Hibiclens For Decolonization - TP 1 applic HS [facility] Administration Fentanyl 25 mcg 12/01/17 11:57 12/01/17 22:21 Sublimaze Injection - IVPUSH 12/02/17 11:56 25 mcg Q4H PRN Administration PAIN LEVEL 6-10 Sodium Chloride 1,000 mls @ 100 mls/hr 11/29/17 10:00 12/02/17 08:16 Normal Saline - IV 100 mls/hr ASDIR [facility] Administration CEFTRIAXONE 1 G/50 ML PREMIX 50 mls @ 100 mls/hr 11/29/17 10:00 12/01/17 10: 45 Ceftriaxone 1 Gm-D5w Bag IVPB 100 mls/hr DAILY [facility] Administration Azithromycin 500 mg/ Dextrose 250 mls @ 250 mls/hr 11/29/17 10:00 12/01/17 11 :50 IVPB 250 mls/hr DAILY [facility] Administration Phenylephrine HCl 20,000 mcg/ 250 mls @ 37.5 mls/hr 11/29/17 23:45 12/01/17 18:56 Sodium Chloride IVPB 90 mcg/min TITR NELSON 67.5 mls/hr Protocol Administration 50 MCG/MIN Potassium Phosphate 30 mm/ 260 mls @ 62.5 mls/hr 12/02/17 08:45 Sodium Chloride IVPB 12/02/17 12:54 ONCE ONE Morphine Sulfate 2 mg 11/30/17 14:11 12/01/17 14:42 Morphine Injection - IVPUSH 2 mg Q3H PRN Administration PAIN LEVEL 1-5 Mupirocin 1 applic 11/29/17 10:00 12/01/17 21:08 Bactroban Ointment (For Decolonization) - NS 12/04/17 09:59 1 applic BID [facility] Administration Saliva Substitute 1 applic 12/02/17 10:00 Mouthkote Solution - MM DAILY [facility] ASSESSMENT/PLAN: 77 year old female with PMH Afib on Eliquis, TIAs, PE, hemochromatosis, cellulitis left hip 06/2017 presented to the ED with failure to thrive, generalized weakness, declining mental status, and SOB found to have Large left pleural effusion #CV Atrial fibrillation with RVR Obstructive shock 2/2 to pleural effusion -Wean phenylepherine--Patient given 500 cc bolus -Patient started on heparin drip -Will obtain echo #Resp Large left pleural effusion, likely exudative -Maintain chest tube. -Pending pleural fluid cultures, cytology -Continue ceftriaxone/azithromycin -IV fentanyl for pain relief -Check CBC tonight to evaluate H/H given bloody fluid from chest tube #Renal IGOR -NS @ 100 cc/hr -Monitor Cr, urine output -Avoid nephrotoxic medication #FEN/GI -NS @ 100 cc/hr -monitor bmp -Regular Diet #PPx -SCDs #Dispo: Transfer to telemetry if patient can tolerate weaning from phenylepherine Visit type - Emergency Visit Emergency Visit: Yes ED Registration Date: 11/28/17 Care time: The patient presented to the Emergency Department on the above date and was hospitalized for further evaluation of their emergent condition. - New Patient This patient is new to me today: No - Critical Care Critical Care patient: Yes Total Critical Care Time (in minutes): 35 Critical Care Statement: The care of this patient involved high complexity decision making to prevent further life threatening deterioration of the patient 's condition and/or to evaluate & treat vital organ system(s) failure or risk of failure.
[2017-12-02] MEDS ORDERED: SODIUM CHLORIDE 500 ML IV STA (11:34)
[2017-12-02] MEDS ORDERED: HEPARIN NA (PORCINE) 5,000 UNITS/ML 1ML VIAL IVPUSH PRN ×2 (11:34)
[2017-12-02] MEDS ORDERED: PT OWN MED DRAWER 7, Y5N ONE (11:40)
[2017-12-02] MEDS: PHENYLEPHRINE HCL 20,000 MCG in SODIUM CHLORIDE 248 ML IVPB SCH ×2 (11:43→16:47)
[2017-12-02] MEDS ORDERED: HEPARIN - 25,000 UNIT in SODIUM CHLORIDE 495 ML IV SCH (11:45)
[2017-12-02] MEDS: CEFTRIAXONE 1 G/50 ML PREMIX 50 ML IVPB SCH (11:46)
[2017-12-02] MEDS ORDERED: NAPH,MB-DB/K PH,MBDB POWDER PACKET PO ONE (11:56)
[2017-12-02] MEDS ORDERED: POTASSIUM CHLORIDE TABS 20 MEQ TABLET.ER (FP) PO ONE (11:56)
[2017-12-02] MEDS: AZITHROMYCIN IVPB 500 MG in DEXTROSE 5%-WATER - 250 ML IVPB SCH (12:11)
[2017-12-02] MEDS: MUPIROCIN 2% TOPICAL OINTMENT FOR DECOLONIZATION NS SCH ×2 (12:23→22:33)
[2017-12-02] MEDS: LYTES/YERBA SANTA 240 ML BOTTLE MM SCH (12:23)
[2017-12-02] MEDS: ENOXAPARIN NA (PORCINE) 80 MG/0.8 ML DISP.SYRIN SQ SCH ×2 (12:24→22:32)
[2017-12-02] MEDS: MORPHINE SULFATE 10 MG/1 ML *VIAL IVPUSH PRN ×2 (12:46→19:35)
--- NOTE | 2017-12-02 13:01 | PN ---
Progress Note (short form) - Note Progress Note: Patient in bed in ICU fairly comfortable but still needing pressors for BP control. Awaiting cytology from pleural fluid. Still bloody drainage from chest tube. Lab stable except for low magnesium anIMP:d potassium and elevated Alk. phosphatase. Order from 11/28/16 for DNR from ICU nurse but no signed form on chart. Living will on chart which states under which circumstances she wishes to be a DNR/DNI. Will discuss with son and patient. Because of future need for VAT Eliquis not restarted but heparin is being ordered. Liver mass unchanged. On Exam: Vital Signs Temp 98.4 F 12/02/17 11:39 Pulse 94 H 12/02/17 11:44 Resp 17 12/02/17 11:39 BP 109/64 12/02/17 11:44 Pulse Ox 100 12/01/17 22:52 Intake & Output 12/01/17 12/02/17 12/02/17 23:59 11:59 23:59 Intake Total 2310 2130 Output Total 630 810 Balance 1680 1320 Weight 148 lb 8 oz Intake: IV 2009 2009 Ronald-Synephrine - 20,000 810 810 Mcg In Normal Saline - 248 ml @ 50 MCG/MIN 37.5 mls/hr IVPB TITR NELSON Rx#: [id number] Normal Saline - 1,000 ml 1200 1200 @ 100 mls/hr IV ASDIR [facility] Rx#:[id number] IVPB 300 Oral 120 Output: Chest Tube Drainage 130 410 Left Posterior Chest 130 410 Urine 500 400 Siegel 500 400 Other: Voiding Method Indwelling Catheter Indwelling Catheter Bowel Movement No No Weight Measurement Method Built in Bedscale Alert and aware Chest: decreased breath sounds left side Cor: Irreg Abd:Soft Ext:2-3+ peal edema Abnormal Lab Results 12/02/17 12/02/17 12/02/17 05:07 05:07 05:07 MCV 103.8 H MCH 34.5 H RDW 16.8 H Monocytes % 17.3 H PT with INR 23.00 H INR 2.04 H PTT (Actin FS) 52.4 H Potassium 3.4 L Carbon Dioxide 35 H Anion Gap 6 L BUN 19 H Creatinine 0.4 L Random Glucose 130 H Calcium 7.0 L Phosphorus 1.6 L Magnesium 1.3 L Total Bilirubin 1.7 H Alkaline Phosphatase 194 H Total Protein 4.6 L Albumin 1.6 L Imp: Bloody Left Pleural Effusion Atrial Fibrillation Liver Mass Hemochromatosis Hypomagnesemia Hypokalemia Bilaterl Hip Fxs S/P Surgical Rx Plan: Await cytology of pleural fluid IV mag and po potassium F/U Lab If cyology negative ? Pleurovac vs VAT Discuss DNR/DNI
--- NOTE | 2017-12-02 15:01 | PATH ---
Cytology Non-Gynecological Report Patient Name: SHAYLA MILAN [facility]. Rec. #: [id number] /Age/Gender: 1940 (Age: 77) / F Account: [id number] Location: ICU FIXTURE RELAMPER Taken: 11/29/2017 Received: 12/01/2017 Reported: 12/02/2017 Physicians: Issa Crews M.D. Evan Ou, M.D. Specimen(s) Received PLEURAL FLUID Clinical History AF, Hemothorax, r/o malignancy Final Diagnosis PLEURAL FLUID FOR CYTOLOGY: SATISFACTORY FOR EVALUATION. NO MALIGNANT CELLS IDENTIFIED. MIXED INFLAMMATORY CELLS COMPRISED OF NEUTROPHILS, LYMPHOCYTES AND FEW MACROPHAGES IN A HEMORRHAGIC BACKGROUND. RARE MESOTHELIAL CELLS NOTED. Electronically Signed Patricia Hall M.D. Gross Description Approximately 50 cc of bloody fluid received fixed in 50% alcohol. Two cytofunnels and one cellblock prepared.
[2017-12-02 18:38] LABS: HEMATOCRIT 42.1 % (32.4-45.2); HEMOGLOBIN 13.9 GM/dL (10.7-15.3); MCH 34.8 pg (25.7-33.7); MEAN CELL VOLUME 105.6 fl (80-96); MEAN PLT VOLUME 9.2 fl (7.5-11.1); PLATELET COUNT 155 K/MM3 (134-434); RBC 3.99 M/mm3 (3.60-5.2); RDW 17.1 % (11.6-15.6)
--- NOTE | 2017-12-02 21:22 | PROC ---
Procedure Note Procedure: Midline Placement R arm was prepped and draped in sterile fashion. Using US guidance, modified seldinger technique, and a tear away introducer sheath a 20cm, 20ga dual Lumen Power midline catheter was placed in the R basilic vein. There was blood return from both ports. Secured with stat-lock and a bio-patch was utilized. Tolerated procedure well. William Isidro [facility] [id number]
[2017-12-02] MEDS: CHLORHEXIDINE GLUCONATE 4% CLEANSER FOR DECOLONIZATION TP SCH (22:33)
[2017-12-03] MEDS: PHENYLEPHRINE HCL 20,000 MCG in SODIUM CHLORIDE 248 ML IVPB SCH
[2017-12-03] MEDS ORDERED: PHENYLEPHRINE HCL 10 MG/1 ML SINGLE DOSE VIAL ONE ×3 (05:42→19:37)
[2017-12-03 06:27] LABS: BASO % 0.7 % (0-2.0); EOS % 3.8 % (0-4.5); HEMATOCRIT 37.3 % (32.4-45.2); HEMOGLOBIN 12.6 GM/dL (10.7-15.3); MCH 34.9 pg (25.7-33.7); MCHC 33.7 g/dl (32.0-36.0); MEAN CELL VOLUME 103.5 fl (80-96); MEAN PLT VOLUME 9.2 fl (7.5-11.1); MONO % 19.4 % (3.8-10.2); NEUT % 63.1 % (42.8-82.8); PLATELET COUNT 164 K/MM3 (134-434); RDW 16.8 % (11.6-15.6); WHITE BLOOD COUNT 7.6 K/mm3 (4.0-10.0)
[2017-12-03 07:15] LABS: INR 1.93 (0.82-1.09); PROTHROMBIN TIME (PATIENT) 21.8 SEC (9.98-11.88)
[2017-12-03] MEDS: SODIUM CHLORIDE 1,000 ML IV SCH ×2 (07:30→11:56)
[2017-12-03 07:37] LABS: ALBUMIN 1.7 g/dl (3.4-5.0); ANION GAP 4 (8-16); BLOOD UREA NITROGEN 13 mg/dL (7-18); CHLORIDE 102 mmol/L (98-107); CO2 35 mmol/L (21-32); GLUCOSE,RANDOM 110 mg/dL (74-106); MAGNESIUM 1.2 mg/dL (1.8-2.4); SODIUM 141 mmol/L (136-145)
[2017-12-03 07:43] LABS: ALK PHOS 151 U/L (45-117); BILIRUBIN,TOTAL 2.5 mg/dL (0.2-1.0); CREATININE 0.3 mg/dL (0.55-1.02); SGOT/AST 23 U/L (15-37); SGPT/ALT 13 U/L (12-78); TOT PROT 4.8 g/dl (6.4-8.2)
[2017-12-03] MEDS ORDERED: MAGNESIUM OXIDE 400 MG TABLET (FP) PO ONE (08:31)
[2017-12-03 08:35] LABS: PHOSPHOROUS 1.2 mg/dL (2.5-4.9)
[2017-12-03 08:46] LABS: CALCIUM 6.7 mg/dL (8.5-10.1)
[2017-12-03] MEDS ORDERED: MAGNESIUM SULF 50% (8.12 MEQ/2 ML-1 GM VIAL) IVPB ONE (08:47)
--- NOTE | 2017-12-03 09:02 | PN ---
Progress Note (short form) - Note Progress Note: Patient having pain related to chest tube. Rx ordered. Poor appetite BP still low normal on pressor Magnesium low; Calcium low but probably acceptable with albumin 1.7 Cytology Negative; CT scan repeated with no change in report Re: occult mass. On Exam: Vital Signs Temp 98.8 F 12/03/17 06:00 Pulse 92 H 12/03/17 06:00 Resp 18 12/03/17 06:00 BP 97/59 12/03/17 06:00 Pulse Ox 100 12/02/17 21:00 Intake & Output 12/02/17 12/02/17 12/03/17 11:59 23:59 11:59 Intake Total 2130 3160 1036.6 Output Total 810 610 400 Balance 1320 2550 636.6 Weight 148 lb 8 oz 154 lb 7 oz Intake: IV 2009 2710 936.6 Ronald-Synephrine - 20,000 810 710 236.6 Mcg In Normal Saline - 248 ml @ 50 MCG/MIN 37.5 mls/hr IVPB TITR NEL[facility] Rx#: [id number] Normal Saline - 1,000 ml 1200 500 700 @ 100 mls/hr IV ASDIR [facility] Rx#:[id number] saline lock 1500 IVPB 350 Oral 120 100 100 Output: Chest Tube Drainage 410 110 100 Left Posterior Chest 410 110 100 Urine 400 500 300 Sieegl 400 500 300 Other: Voiding Method Indwelling Catheter Indwelling Catheter Bowel Movement No Weight Measurement Method Built in Bedscale Built in Bedscale Alert Chest: decreased breath sounds left base Serosanguinous drainage chest tube Cor: Irreg Abd: Soft Ext: 2-3+edema Abnormal Lab Results 12/02/17 12/03/17 12/03/17 17:45 06:10 06:10 WBC 11.0 H D MCV 105.6 H 103.5 H MCH 34.8 H 34.9 H RDW 17.1 H 16.8 H Monocytes % 19.4 H PT with INR 21.80 H INR 1.93 H Carbon Dioxide Anion Gap Creatinine Random Glucose Calcium Phosphorus Magnesium Total Bilirubin Alkaline Phosphatase Total Protein Albumin 12/03/17 06:10 WBC MCV MCH RDW Monocytes % PT with INR INR Carbon Dioxide 35 H Anion Gap 4 L Creatinine 0.3 L Random Glucose 110 H Calcium 6.7 L* Phosphorus 1.2 L Magnesium 1.2 L Total Bilirubin 2.5 H D Alkaline Phosphatase 151 H Total Protein 4.8 L Albumin 1.7 L IMP: Large Left Pleural effusion Hypotension A. Fibrillation on Lovenox Hemochromatosis Liver Mass Hypomagnesemia Hypocalcemia and hypoalbuminemia ? Underlying Pulmonary malignancy Plan: Magnesium replacement ?Artificial nutrition may help with nutritional deficiency and BP F/U Lab F/U Thoracic Surgeon
--- NOTE | 2017-12-03 09:59 | PN ---
Physical Exam: SUBJECTIVE: Patient seen and examined in ICU No acute events overnight. Patient feels well this AM. Patient put out 520 mL of bloody fluid in chest tube yesterday. Patient denies any SOB, chest pain, difficulty breathing. Continues to have mild pressure at area surrounding chest tube. Cytology negative to date Currently on phenylepherine for pressure support. Unable to titrate off OBJECTIVE: Vital Signs Period Temp Pulse Resp BP Sys/Arreguin Pulse Ox Last 24 Hr 98.2 F-98.8 F 77-124 16-23 94-109/51-70 100 GENERAL: The patient is awake, alert, and fully oriented, in no acute distress. HEAD: Normal with no signs of trauma. NECK: Trachea midline, full range of motion, supple. LUNGS: No breath sounds on left, + chest tube in place, c/d/i HEART: Irregularly irregular, S1, S2 without murmur, rub or gallop. ABDOMEN: Soft, nontender, nondistended, normoactive bowel sounds, no guarding, no rebound, no hepatosplenomegaly, no masses. EXTREMITIES: 2+ pulses, warm, well-perfused, no edema. NEUROLOGICAL: Cranial nerves II through XII grossly intact. Normal speech, gait not observed. PSYCH: Normal mood, normal affect. SKIN: Warm, dry, normal turgor, no rashes or lesions noted Laboratory Results - last 24 hr 12/02/17 12/03/17 12/03/17 17:45 06:10 06:10 WBC 11.0 H D 7.6 D RBC 3.99 3.60 Hgb 13.9 12.6 Hct 42.1 37.3 MCV 105.6 H 103.5 H MCH 34.8 H 34.9 H MCHC 33.0 33.7 RDW 17.1 H 16.8 H Plt Count 155 164 MPV 9.2 9.2 Neutrophils % 63.1 Lymphocytes % 13.0 Monocytes % 19.4 H Eosinophils % 3.8 Basophils % 0.7 PT with INR 21.80 H INR 1.93 H Sodium Potassium Chloride Carbon Dioxide Anion Gap BUN Creatinine Creat Clearance w eGFR Random Glucose Calcium Phosphorus Magnesium Total Bilirubin AST ALT Alkaline Phosphatase Total Protein Albumin 12/03/17 06:10 WBC RBC Hgb Hct MCV MCH MCHC RDW Plt Count MPV Neutrophils % Lymphocytes % Monocytes % Eosinophils % Basophils % PT with INR INR Sodium 141 Potassium 4.0 Chloride 102 Carbon Dioxide 35 H Anion Gap 4 L BUN 13 Creatinine 0.3 L Creat Clearance w eGFR > 60 Random Glucose 110 H Calcium 6.7 L* Phosphorus 1.2 L Magnesium 1.2 L Total Bilirubin 2.5 H D AST 23 ALT 13 Alkaline Phosphatase 151 H Total Protein 4.8 L Albumin 1.7 L Active Medications Generic Name Dose Route Start Last Admin Trade Name Freq PRN Reason Stop Dose Admin Calcium Carbonate/Cholecalciferol 1 tab 12/03/17 10:00 Os-Durga 500+D - PO BID [facility] Chlorhexidine Gluconate 1 applic 11/28/17 22:00 12/02/17 22:33 Hibiclens For Decolonization - TP 1 applic HS [facility] Administration Enoxaparin Sodium 70 mg 12/02/17 12:00 12/02/17 22:32 Lovenox - SQ 70 mg BID N[facility]SON Administration Sodium Chloride 1,000 mls @ 100 mls/hr 11/29/17 10:00 12/03/17 07:30 Normal Saline - IV 100 mls/hr ASDIR [facility] Administration CEFTRIAXONE 1 G/50 ML PREMIX 50 mls @ 100 mls/hr 11/29/17 10:00 12/02/17 11: 46 Ceftriaxone 1 Gm-D5w Bag IVPB 100 mls/hr DAILY [facility] Administration Azithromycin 500 mg/ Dextrose 250 mls @ 250 mls/hr 11/29/17 10:00 12/02/17 12 :11 IVPB 250 mls/hr DAILY [facility] Administration Phenylephrine HCl 20,000 mcg/ 250 mls @ 37.5 mls/hr 11/29/17 23:45 12/03/17 00:00 Sodium Chloride IVPB 45 mcg/min TITR NELSON 33.75 mls/hr Protocol Administration 50 MCG/MIN Morphine Sulfate 2 mg 11/30/17 14:11 12/02/17 19:35 Morphine Injection - IVPUSH 2 mg Q3H PRN Administration PAIN LEVEL 1-5 Mupirocin 1 applic 11/29/17 10:00 12/02/17 22:33 Bactroban Ointment (For Decolonization) - NS 12/04/17 09:59 1 applic BID [facility] Administration Potassium Phos/Sodium Phos 1 packet 12/03/17 10:00 Phos-Nak Packet - PO 12/03/17 10:01 ONCE ONE Saliva Substitute 1 applic 12/02/17 10:00 12/02/17 12:23 Mouthkote Solution - MM 1 applic DAILY [facility] Administration ASSESSMENT/PLAN: 77 year old female with PMH Afib on Eliquis, TIAs, PE, hemochromatosis, cellulitis left hip 06/2017 presented to the ED with failure to thrive, generalized weakness, declining mental status, and SOB found to have Large left pleural effusion #CV Atrial fibrillation with RVR Obstructive shock 2/2 to pleural effusion -Wean phenylepherine as tolerated -Patient started on lovenox -Echo reveals moderate aortic stenosis and moderate MR #Resp Large left pleural effusion, likely exudative -Maintain chest tube. -Pending pleural fluid cultures, cytology -Continue ceftriaxone/azithromycin -IV fentanyl for pain relief -Check CBC tonight to evaluate H/H given bloody fluid from chest tube -Likely VATS tmrw, NPO after midnight and lovenox held after midnight #Renal IGOR -Improved -NS @ 100 cc/hr -Monitor Cr, urine output -Avoid nephrotoxic medication #FEN/GI -NS @ 100 cc/hr -monitor bmp -Regular Diet #PPx -Lovenox 70 mg sq BID -SCDs #Dispo: Transfer to telemetry if patient can tolerate weaning from phenylepherine Visit type - Emergency Visit Emergency Visit: Yes ED Registration Date: 11/28/17 Care time: The patient presented to the Emergency Department on the above date and was hospitalized for further evaluation of their emergent condition. - New Patient This patient is new to me today: No - Critical Care Critical Care patient: Yes Total Critical Care Time (in minutes): 35 Critical Care Statement: The care of this patient involved high complexity decision making to prevent further life threatening deterioration of the patient 's condition and/or to evaluate & treat vital organ system(s) failure or risk of failure.
[2017-12-03] MEDS ORDERED: NAPH,MB-DB/K PH,MBDB POWDER PACKET PO ONE (10:00)
--- NOTE | 2017-12-03 11:36 | EKG ---
Test Reason : Blood Pressure : / mmHG Vent. Rate : 124 BPM Atrial Rate : 416 BPM P-R Int : 000 ms QRS Dur : 088 ms QT Int : 336 ms P-R-T Axes : 000 -08 208 degrees QTc Int : 482 ms ATRIAL FIBRILLATION WITH RAPID VENTRICULAR RESPONSE WITH PREMATURE VENTRICULAR OR ABERRANTLY CONDUCTED COMPLEXES LOW VOLTAGE QRS POSSIBLE INFERIOR INFARCT (CITED ON OR BEFORE 28-NOV-2017) CANNOT RULE OUT ANTEROSEPTAL INFARCT (CITED ON OR BEFORE 28-NOV-2017) ABNORMAL ECG WHEN COMPARED WITH ECG OF 28-NOV-2017 14:33, NO SIGNIFICANT CHANGE WAS FOUND Confirmed by JENNY MARY, JANA ([id number]) on 12/03/2017 11:36:04 AM Referred By: Confirmed By:JANA ALVARADO MD
[2017-12-03] MEDS ORDERED: PT OWN MED DRAWER 7, Y5N ONE ×2 (11:47→17:54)
[2017-12-03] MEDS: CALCIUM 500MG/VIT-D 200 UNITS COMBO TABLET (FP) PO SCH ×2 (11:50→21:13)
[2017-12-03] MEDS: CEFTRIAXONE 1 G/50 ML PREMIX 50 ML IVPB SCH (11:51)
[2017-12-03] MEDS: ENOXAPARIN NA (PORCINE) 80 MG/0.8 ML DISP.SYRIN SQ SCH ×2 (11:55→21:13)
[2017-12-03] MEDS: AZITHROMYCIN IVPB 500 MG in DEXTROSE 5%-WATER - 250 ML IVPB SCH (11:56)
[2017-12-03] MEDS: LYTES/YERBA SANTA 240 ML BOTTLE MM SCH (11:58)
[2017-12-03] MEDS: MUPIROCIN 2% TOPICAL OINTMENT FOR DECOLONIZATION NS SCH ×2 (11:59→21:12)
[2017-12-03] MEDS: MORPHINE SULFATE 10 MG/1 ML *VIAL IVPUSH PRN ×3 (12:04→21:13)
--- NOTE | 2017-12-03 15:03 | PN ---
Progress Note (short form) - Note Progress Note: Thoracic On pressors No dx Discussed with Dr. Ramon and Dr. Caban. Will call son. Possible VATS tomorrow. Will attempt dx by pleural bx and place pleur-x. Due to hypotension without good cause will not do general and more invasive vats. Problem List - Problems (1) Pleural effusion, left Code(s): J90 - PLEURAL EFFUSION, NOT ELSEWHERE CLASSIFIED
--- NOTE | 2017-12-03 15:45 | PN ---
Teaching Attending Note Name of Resident: Porter Boyd ATTENDING PHYSICIAN STATEMENT I saw and evaluated the patient. I reviewed the resident's note and discussed the case with the resident. I agree with the resident's findings and plan as documented. SUBJECTIVE: Pt seen and examined in the ICU. Some discomfort at chest tube site. Denies shortness of breath. Remains on phenylephrine gtt. CT chest reviewed showing partial re-expansion of BOAZ but still with large volume effusion with pigtail catheter in place. OBJECTIVE: Last Vital Signs Temp Pulse Resp BP Pulse Ox 97.4 F L 112 H 16 100/58 100 12/03/17 10:00 12/03/17 14:03 12/03/17 12:00 12/03/17 14:03 12/02/17 21:00 Intake & Output 11/30/17 12/01/17 12/02/17 12/03/17 23:59 23:59 23:59 23:59 Intake Total 4092.5 4400 5290 1036.6 Output Total 2150 1180 1420 400 Balance 1942.5 3220 3870 636.6 Weight 63.548 kg 67.358 kg 70.052 kg Gen: frail but in NAD HEart: tachycardic, irregular Lung: absent breath sounds left Abd: soft, nontender Ext: + edema CBC, BMP 12/03/17 06:10 12/03/17 06:10 Active Medications Calcium Carbonate/Cholecalciferol (Os-Durga 500+D -) 1 tab PO BID [facility] Last Admin: 12/03/17 11:50 Dose: 1 tab Chlorhexidine Gluconate (Hibiclens For Decolonization -) 1 applic TP HS [facility] Last Admin: 12/02/17 22:33 Dose: 1 applic Enoxaparin Sodium (Lovenox -) 70 mg SQ BID [facility] Last Admin: 12/03/17 11:55 Dose: 70 mg Sodium Chloride (Normal Saline -) 1,000 mls @ 100 mls/hr IV ASDIR [facility] Last Admin: 12/03/17 11:56 Dose: Not Given CEFTRIAXONE 1 G/50 ML PREMIX (Ceftriaxone 1 Gm-D5w Bag) 50 mls @ 100 mls/hr IVPB DAILY [facility] Last Admin: 12/03/17 11:51 Dose: 100 mls/hr Azithromycin 500 mg/ Dextrose 250 mls @ 250 mls/hr IVPB DAILY [facility] Last Admin: 12/03/17 11:56 Dose: 250 mls/hr Phenylephrine HCl 20,000 mcg/ (Sodium Chloride) 250 mls @ 37.5 mls/hr IVPB TITR NELSON; 50 MCG/MIN PRN Reason: Protocol Last Titration: 12/03/17 14:03 Dose: 45 mcg/min, 33.75 mls/hr Morphine Sulfate (Morphine Injection -) 2 mg IVPUSH Q3H PRN PRN Reason: PAIN LEVEL 1-5 Last Admin: 12/03/17 12:04 Dose: 2 mg Mupirocin (Bactroban Ointment (For Decolonization) -) 1 applic NS BID [facility] Stop: 12/04/17 09:59 Last Admin: 12/03/17 11:59 Dose: 1 applic Saliva Substitute (Mouthkote Solution -) 1 applic MM DAILY [facility] Last Admin: 12/03/17 11:58 Dose: 1 applic ASSESSMENT AND PLAN: Massive Left Pleural Effusion r/o Malignancy Atrial Fibrillation with RVR h/o CVA Shock r/o Sepsis Acute Kidney Injury Lactic Acidosis Hemochromatosis - for VATS in AM - hold anticoagulation - NPO after midnight - empiric antibiotics - taper phenylephrine gtt - monitor urine output, creatinine - mechanical DVT prophylaxis - continue ICU monitoring critical care time spent in reviewing chart, evaluating patient and formulating plan 35 min
[2017-12-03] MEDS: CHLORHEXIDINE GLUCONATE 4% CLEANSER FOR DECOLONIZATION TP SCH (21:13)
[2017-12-04] MEDS ORDERED: PHENYLEPHRINE HCL 10 MG/1 ML SINGLE DOSE VIAL ONE ×5 (04:35→20:20)
[2017-12-04 06:26] LABS: HEMATOCRIT 36.4 % (32.4-45.2); HEMOGLOBIN 12.1 GM/dL (10.7-15.3); MCH 34.6 pg (25.7-33.7); MCHC 33.1 g/dl (32.0-36.0); MEAN CELL VOLUME 104.7 fl (80-96); MEAN PLT VOLUME 9.7 fl (7.5-11.1); PLATELET COUNT 179 K/MM3 (134-434); RBC 3.48 M/mm3 (3.60-5.2); RDW 16.5 % (11.6-15.6); WHITE BLOOD COUNT 7.6 K/mm3 (4.0-10.0)
[2017-12-04 07:57] LABS: INR 1.81 (0.82-1.09); PROTHROMBIN TIME (PATIENT) 20.5 SEC (9.98-11.88)
[2017-12-04 08:39] LABS: ALBUMIN 1.5 g/dl (3.4-5.0); ALK PHOS 148 U/L (45-117); ANION GAP 5 (8-16); BILIRUBIN,TOTAL 1.9 mg/dL (0.2-1.0); BLOOD UREA NITROGEN 10 mg/dL (7-18); CHLORIDE 103 mmol/L (98-107); CO2 31 mmol/L (21-32); CREATININE 0.2 mg/dL (0.55-1.02); GLUCOSE,RANDOM 112 mg/dL (74-106); MAGNESIUM 1.2 mg/dL (1.8-2.4); PHOSPHOROUS 1.7 mg/dL (2.5-4.9); POTASSIUM 4.3 mmol/L (3.5-5.1); SGOT/AST 20 U/L (15-37); SGPT/ALT 11 U/L (12-78); SODIUM 139 mmol/L (136-145); TOT PROT 4.5 g/dl (6.4-8.2)
[2017-12-04] MEDS ORDERED: POTASSIUM PHOSPHATE 30 MM in SODIUM CHLORIDE 250 ML IVPB ONE (09:00)
[2017-12-04] MEDS ORDERED: MAGNESIUM SULF 50% (8.12 MEQ/2 ML-1 GM VIAL) IVPB ONE ×2 (09:00→10:15)
--- NOTE | 2017-12-04 09:06 | PN ---
Progress Note (short form) - Note Progress Note: Patient is clinically worse today. She has pain at chest tube site and continues to have low BP's with today body edema complicated by IV Saline which is still not helping her BP as it is third spacing. I frankly think that she is not likely to benefit from a procedure today with pleural Bx to hope for a more definitive diagnosis that I believe she will not be a candidate for any treatment because of her low performance level. I believe that she should be placed on palliative care with the goal only of comfort measures. ? Apply to [place]; D/C IV saline and address pain relief as our primary goal. I will call son and discuss. She also will be on DNR but I want t discuss with family first. On Exam: Vital Signs Temp 98.8 F 12/04/17 06:00 Pulse 108 H 12/04/17 08:00 Resp 18 12/04/17 08:00 BP 88/44 12/04/17 08:00 Pulse Ox 99 12/03/17 23:13 Intake & Output 12/03/17 12/03/17 12/04/17 11:59 23:59 11:59 Intake Total 1036.6 2508 1650 Output Total 400 850 480 Balance 636.6 1658 1170 Weight 154 lb 7 oz 161 lb 1.6 oz Intake: IV 936.6 1408 1650 Ronald-Synephrine - 20,000 236.6 408 450 Mcg In Normal Saline - 248 ml @ 50 MCG/MIN 37.5 mls/hr IVPB TITR NELSON Rx#: [id number] Normal Saline - 1,000 ml 700 1000 1200 @ 100 mls/hr IV ASDIR [facility] Rx#:[id number] IVPB 350 Oral 100 750 Output: Chest Tube Drainage 100 150 130 Left Posterior Chest 100 150 130 Urine 300 700 350 Siegel 300 700 350 Other: Voiding Method Indwelling Catheter Bowel Movement No Weight Measurement Method Built in Bedscale Built in Bedscale Lethargic Chest: Bilateral Congestion; decreased sounds on left. Abd: Soft EXT:Upper and lower 4+ edema Abnormal Lab Results 12/04/17 12/04/17 12/04/17 05:20 05:20 07:30 RBC 3.48 L MCV 104.7 H MCH 34.6 H RDW 16.5 H PT with INR 20.50 H INR 1.81 H Anion Gap 5 L Creatinine 0.2 L Random Glucose 112 H Phosphorus 1.7 L Magnesium 1.2 L Total Bilirubin 1.9 H D ALT 11 L Alkaline Phosphatase 148 H Total Protein 4.5 L Albumin 1.5 L IMP: Bloody Pleural Effusion Probable occult CA Liver Mass Hypotension Hypomagnesemia A. Fib Chronic and Acute pain Plan: As discussed above.
[2017-12-04 09:18] LABS: CALCIUM 6.7 mg/dL (8.5-10.1)
[2017-12-04] MEDS ORDERED: PT OWN MED DRAWER 7, Y5N ONE (09:31)
[2017-12-04] MEDS: PHENYLEPHRINE HCL 20,000 MCG in SODIUM CHLORIDE 248 ML IVPB SCH (09:40)
[2017-12-04] MEDS: SODIUM CHLORIDE 1,000 ML IV SCH ×2 (09:46→21:45)
[2017-12-04] MEDS: CEFTRIAXONE 1 G/50 ML PREMIX 50 ML IVPB SCH (09:48)
[2017-12-04] MEDS: CALCIUM 500MG/VIT-D 200 UNITS COMBO TABLET (FP) PO SCH ×2 (10:01→21:07)
--- NOTE | 2017-12-04 10:05 | PN ---
Physical Exam: SUBJECTIVE: Patient seen and examined Patient appears uncomfortable. Does not feel well. Patient put out 250 ml out of chest tube yesterday. Was originally scheduled for VATS procedure today, however family is considering not to go ahead with the procedure. Cytology negative to date Currently on phenylepherine for pressure support. Unable to titrate off OBJECTIVE: Vital Signs Period Temp Pulse Resp BP Sys/Arreguin Pulse Ox Last 24 Hr 97.5 F-98.8 F 92-115 14-25 86-134/44-82 99-100 GENERAL: The patient is awake, alert, and fully oriented, in no acute distress. HEAD: Normal with no signs of trauma. NECK: Trachea midline, full range of motion, supple. LUNGS: No breath sounds on left, + chest tube in place, c/d/i HEART: Irregularly irregular, S1, S2 without murmur, rub or gallop. ABDOMEN: Soft, nontender, nondistended, normoactive bowel sounds, no guarding, no rebound, no hepatosplenomegaly, no masses. EXTREMITIES: 2+ pulses, warm, well-perfused, 3+ edema of upper and lower extremities. NEUROLOGICAL: Cranial nerves II through XII grossly intact. Normal speech, gait not observed. PSYCH: Normal mood, normal affect. SKIN: Warm, dry, normal turgor, no rashes or lesions noted Laboratory Results - last 24 hr 12/04/17 12/04/17 12/04/17 05:20 05:20 05:20 WBC 7.6 RBC 3.48 L Hgb 12.1 Hct 36.4 MCV 104.7 H MCH 34.6 H MCHC 33.1 RDW 16.5 H Plt Count 179 MPV 9.7 PT with INR INR PTT (Actin FS) Cancelled Sodium 139 Potassium 4.3 Chloride 103 Carbon Dioxide 31 Anion Gap 5 L BUN 10 Creatinine 0.2 L Creat Clearance w eGFR > 60 Random Glucose 112 H Calcium 6.7 L* Phosphorus 1.7 L Magnesium 1.2 L Total Bilirubin 1.9 H D AST 20 ALT 11 L Alkaline Phosphatase 148 H Total Protein 4.5 L Albumin 1.5 L 12/04/17 07:30 WBC RBC Hgb Hct MCV MCH MCHC RDW Plt Count MPV PT with INR 20.50 H INR 1.81 H PTT (Actin FS) Sodium Potassium Chloride Carbon Dioxide Anion Gap BUN Creatinine Creat Clearance w eGFR Random Glucose Calcium Phosphorus Magnesium Total Bilirubin AST ALT Alkaline Phosphatase Total Protein Albumin Active Medications Generic Name Dose Route Start Last Admin Trade Name Steveq PRN Reason Stop Dose Admin Calcium Carbonate/Cholecalciferol 1 tab 12/03/17 10:00 12/04/17 10:01 Os-Durga 500+D - PO Not Given BID NELSON Chlorhexidine Gluconate 1 applic 11/28/17 22:00 12/03/17 21:13 Hibiclens For Decolonization - TP 1 applic HS [facility] Administration Enoxaparin Sodium 70 mg 12/02/17 12:00 12/03/17 21:13 Lovenox - SQ Not Given BID NELSON Sodium Chloride 1,000 mls @ 100 mls/hr 11/29/17 10:00 12/04/17 09:46 Normal Saline - IV Not Given ASDIR NELSON CEFTRIAXONE 1 G/50 ML PREMIX 50 mls @ 100 mls/hr 11/29/17 10:00 12/04/17 09: 48 Ceftriaxone 1 Gm-D5w Bag IVPB 100 mls/hr DAILY [facility] Administration Azithromycin 500 mg/ Dextrose 250 mls @ 250 mls/hr 11/29/17 10:00 12/03/17 11 :56 IVPB 250 mls/hr DAILY [facility] Administration Phenylephrine HCl 20,000 mcg/ 250 mls @ 37.5 mls/hr 11/29/17 23:45 12/04/17 09:40 Sodium Chloride IVPB 100 mcg/min TITR NELSON 75 mls/hr Protocol Administration 50 MCG/MIN Sodium Phosphate 30 mm/ Sodium 260 mls @ 62.5 mls/hr 12/04/17 09:01 Chloride IVPB 12/04/17 13:10 ONCE ONE Magnesium Sulfate 1 gm 12/04/17 09:00 Magnesium Sulfate IVPB 12/04/17 09:01 ONCE ONE Magnesium Sulfate 2 gm 12/04/17 09:07 Magnesium Sulfate IVPB 12/04/17 09:08 ONCE ONE Morphine Sulfate 2 mg 11/30/17 14:11 12/03/17 21:13 Morphine Injection - IVPUSH 2 mg Q3H PRN Administration PAIN LEVEL 1-5 Saliva Substitute 1 applic 12/02/17 10:00 12/03/17 11:58 Mouthkote Solution - MM 1 applic DAILY [facility] Administration ASSESSMENT/PLAN: 77 year old female with PMH Afib on Eliquis, TIAs, PE, hemochromatosis, cellulitis left hip 06/2017 presented to the ED with failure to thrive, generalized weakness, declining mental status, and SOB found to have Large left pleural effusion #CV Atrial fibrillation with RVR Obstructive shock 2/2 to pleural effusion -Wean phenylepherine as tolerated -Patient on Lovenox 70 mg bid currently -Echo reveals moderate aortic stenosis and moderate MR #Resp Large left pleural effusion, likely exudative -Maintain chest tube -Pleural fluid cytology and cx negative to date -Continue ceftriaxone/azithromycin -IV fentanyl for pain relief -Will hold off on VATS until family makes a decision on further plans #Renal IGOR -Improved -NS @ 100 cc/hr -Monitor Cr, urine output -Avoid nephrotoxic medication #FEN/GI -NS @ 100 cc/hr -monitor bmp -Regular Diet #PPx -Lovenox 70 mg sq BID -SCDs #Dispo: Continue ICU level of care, Will need to discuss with family goals of care Visit type - Emergency Visit Emergency Visit: Yes ED Registration Date: 11/28/17 Care time: The patient presented to the Emergency Department on the above date and was hospitalized for further evaluation of their emergent condition. - New Patient This patient is new to me today: No - Critical Care Critical Care patient: Yes Total Critical Care Time (in minutes): 35 Critical Care Statement: The care of this patient involved high complexity decision making to prevent further life threatening deterioration of the patient 's condition and/or to evaluate & treat vital organ system(s) failure or risk of failure.
[2017-12-04] MEDS ORDERED: SODIUM PHOSPHATE - 30 MM in SODIUM CHLORIDE 250 ML IVPB ONE (10:30)
[2017-12-04] MEDS: AZITHROMYCIN IVPB 500 MG in DEXTROSE 5%-WATER - 250 ML IVPB SCH (10:40)
[2017-12-04] MEDS: LYTES/YERBA SANTA 240 ML BOTTLE MM SCH (10:40)
[2017-12-04] MEDS: SODIUM CHLORIDE IVPB SCH (12:39)
[2017-12-04] MEDS: PHENYLEPHRINE HCL IVPB SCH (12:39)
--- NOTE | 2017-12-04 13:02 | PN ---
Teaching Attending Note Name of Resident: Porter Boyd ATTENDING PHYSICIAN STATEMENT I saw and evaluated the patient. I reviewed the resident's note and discussed the case with the resident. I agree with the resident's findings and plan as documented. SUBJECTIVE: Patient seen and examined in the ICU. Denies discomfort at chest tube site. Drainage character much less bloody and has decreased. D/W PMD. Likely moving in the direction of palliative and comfort care. Intake & Output 12/01/17 12/02/17 12/03/17 12/04/17 23:59 23:59 23:59 23:59 Intake Total 4400 5290 3544.6 1650 Output Total 1180 1420 1250 480 Balance 3220 3870 2294.6 1170 Weight 140 lb 1.6 oz 148 lb 8 oz 154 lb 7 oz 161 lb 1.6 oz Last Vital Signs Temp Pulse Resp BP Pulse Ox 98 F 98 H 18 98/54 100 12/04/17 10:00 12/04/17 12:39 12/04/17 12:00 12/04/17 12:39 12/04/17 09:00 Active Medications Calcium Carbonate/Cholecalciferol (Os-Durga 500+D -) 1 tab PO BID [facility] Last Admin: 12/04/17 10:01 Dose: Not Given Chlorhexidine Gluconate (Hibiclens For Decolonization -) 1 applic TP HS [facility] Last Admin: 12/03/17 21:13 Dose: 1 applic Enoxaparin Sodium (Lovenox -) 70 mg SQ BID [facility] Last Admin: 12/03/17 21:13 Dose: Not Given Sodium Chloride (Normal Saline -) 1,000 mls @ 100 mls/hr IV ASDIR [facility] Last Admin: 12/04/17 09:46 Dose: Not Given CEFTRIAXONE 1 G/50 ML PREMIX (Ceftriaxone 1 Gm-D5w Bag) 50 mls @ 100 mls/hr IVPB DAILY [facility] Last Admin: 12/04/17 09:48 Dose: 100 mls/hr Azithromycin 500 mg/ Dextrose 250 mls @ 250 mls/hr IVPB DAILY [facility] Last Admin: 12/04/17 10:40 Dose: 250 mls/hr Sodium Phosphate 30 mm/ Sodium (Chloride) 260 mls @ 65 mls/hr IVPB ONCE ONE PRN Reason: 30 MM/4 HR Stop: 12/04/17 14:29 Last Admin: 12/04/17 12:36 Dose: 65 mls/hr Phenylephrine HCl 50,000 mcg/ (Sodium Chloride) 250 mls @ 30 mls/hr IVPB TITR NELSON; 100 MCG/MIN PRN Reason: Protocol Last Admin: 12/04/17 12:39 Dose: 100 mcg/min, 30 mls/hr Morphine Sulfate (Morphine Injection -) 2 mg IVPUSH Q3H PRN PRN Reason: PAIN LEVEL 1-5 Last Admin: 12/03/17 21:13 Dose: 2 mg Saliva Substitute (Mouthkote Solution -) 1 applic MM DAILY [facility] Last Admin: 12/04/17 10:40 Dose: 1 applic Gen: frail but in NAD HEart: tachycardic, irregular Lung: Scattered bilateral rhonchi, : Left pigtail Abd: soft, nontender Ext: (+) gross edema Laboratory Results - last 24 hr 12/04/17 12/04/17 12/04/17 05:20 05:20 05:20 WBC 7.6 RBC 3.48 L Hgb 12.1 Hct 36.4 MCV 104.7 H MCH 34.6 H MCHC 33.1 RDW 16.5 H Plt Count 179 MPV 9.7 PT with INR INR PTT (Actin FS) Cancelled Sodium 139 Potassium 4.3 Chloride 103 Carbon Dioxide 31 Anion Gap 5 L BUN 10 Creatinine 0.2 L Creat Clearance w eGFR > 60 Random Glucose 112 H Calcium 6.7 L* Phosphorus 1.7 L Magnesium 1.2 L Total Bilirubin 1.9 H D AST 20 ALT 11 L Alkaline Phosphatase 148 H Total Protein 4.5 L Albumin 1.5 L 12/04/17 07:30 WBC RBC Hgb Hct MCV MCH MCHC RDW Plt Count MPV PT with INR 20.50 H INR 1.81 H PTT (Actin FS) Sodium Potassium Chloride Carbon Dioxide Anion Gap BUN Creatinine Creat Clearance w eGFR Random Glucose Calcium Phosphorus Magnesium Total Bilirubin AST ALT Alkaline Phosphatase Total Protein Albumin ASSESSMENT AND PLAN: Massive Left Pleural Effusion Highly suspicious for malignancy Atrial Fibrillation with RVR h/o CVA Shock Acute Kidney Injury Lactic Acidosis Hemochromatosis - Will hold VATS for now - hold anticoagulation - empiric antibiotics - taper phenylephrine gtt - monitor urine output, creatinine - mechanical DVT prophylaxis - Further discussions for GOC with NOK and PMD Dr Shah Critical care time spent in reviewing chart, evaluating patient and formulating plan 36 min
[2017-12-04] MEDS: MORPHINE SULFATE 10 MG/1 ML *VIAL IVPUSH PRN ×2 (13:50→22:48)
[2017-12-04] MEDS ORDERED: MAGNESIUM SULF 50% (8.12 MEQ/2 ML-1 GM VIAL) ONE (13:56)
[2017-12-04] MEDS: ENOXAPARIN NA (PORCINE) 80 MG/0.8 ML DISP.SYRIN SQ SCH (21:06)
[2017-12-04] MEDS: CHLORHEXIDINE GLUCONATE 4% CLEANSER FOR DECOLONIZATION TP SCH (21:06)
--- NOTE | 2017-12-04 21:09 | PN ---
Progress Note (short form) - Note Progress Note: Addendum: I came back to the hospital this evening to discuss DNR/DNI with Ana Rosa. I explained what comfort care was and she agreed to that Goal. We again discussed the DNR/DNI as is discussed in her living will. She agreed that that is a decision she will agree to; order placed with oral consent as her hand is so swollen she would find it difficult to sign her name. Her nurse was present and witnessed the patient's oral consent.
[2017-12-05] MEDS: MORPHINE SULFATE 10 MG/1 ML *VIAL IVPUSH PRN ×5 (02:54→21:14)
[2017-12-05 06:12] LABS: BASO % 1.4 % (0-2.0); EOS % 2.6 % (0-4.5); HEMATOCRIT 39.1 % (32.4-45.2); HEMOGLOBIN 12.9 GM/dL (10.7-15.3); LYMPH % 7.8 % (8-40); MCH 34.8 pg (25.7-33.7); MEAN CELL VOLUME 105.3 fl (80-96); MEAN PLT VOLUME 8.6 fl (7.5-11.1); MONO % 18.3 % (3.8-10.2); NEUT % 69.9 % (42.8-82.8); PLATELET COUNT 176 K/MM3 (134-434); RBC 3.71 M/mm3 (3.60-5.2); RDW 16.6 % (11.6-15.6); WHITE BLOOD COUNT 8.8 K/mm3 (4.0-10.0)
[2017-12-05 06:43] LABS: ADD RBC MORPHOLOGY YES
[2017-12-05 06:46] LABS: CHLORIDE 101 mmol/L (98-107); POTASSIUM 4.4 mmol/L (3.5-5.1); SODIUM 138 mmol/L (136-145)
[2017-12-05 07:01] LABS: ALBUMIN 1.7 g/dl (3.4-5.0); ALK PHOS 154 U/L (45-117); ANION GAP 5 (8-16); BILIRUBIN,TOTAL 1.4 mg/dL (0.2-1.0); BLOOD UREA NITROGEN 10 mg/dL (7-18); CO2 32 mmol/L (21-32); CREATININE 0.3 mg/dL (0.55-1.02); GLUCOSE,RANDOM 111 mg/dL (74-106); MAGNESIUM 1.4 mg/dL (1.8-2.4); PHOSPHOROUS 3.1 mg/dL (2.5-4.9); SGOT/AST 19 U/L (15-37); SGPT/ALT 12 U/L (12-78)
[2017-12-05] MEDS ORDERED: PHENYLEPHRINE HCL 10 MG/1 ML SINGLE DOSE VIAL ONE (07:12)
[2017-12-05] MEDS: SODIUM CHLORIDE IVPB SCH (07:58)
[2017-12-05] MEDS: PHENYLEPHRINE HCL IVPB SCH (07:58)
[2017-12-05 08:00] LABS: CALCIUM 6.9 mg/dL (8.5-10.1)
[2017-12-05] MEDS ORDERED: PT OWN MED DRAWER 7, Y5N ONE (09:15)
[2017-12-05] MEDS: CEFTRIAXONE 1 G/50 ML PREMIX 50 ML IVPB SCH (09:21)
[2017-12-05] MEDS: CALCIUM 500MG/VIT-D 200 UNITS COMBO TABLET (FP) PO SCH (09:59)
[2017-12-05] MEDS: AZITHROMYCIN IVPB 500 MG in DEXTROSE 5%-WATER - 250 ML IVPB SCH (09:59)
--- NOTE | 2017-12-05 10:01 | PN ---
Progress Note (short form) - Note Progress Note: Patient poorly responsive today but getting morphine for pain. Not responding to verbal stimuli and very congested. Another 200cc draining from the chest tube into the pleure-vac. BP 83/46 in spite of pressors. I was able to speak to her on a revisit last hung and spoke to 2 of 3 sons Yunior and Eliseo in my office yesterday. DNR/DNI ordered and it might be the best plan to just focus on comfort measures and possibly inpatient hospice.I will D/C some oral Rx and lovenox as bloody fluid is still draining from her lung. On Exam: Vital Signs Temp 99.1 F 12/05/17 06:00 Pulse 132 H 12/05/17 08:56 Resp 14 12/05/17 08:56 BP 83/46 12/05/17 08:56 Pulse Ox 96 12/05/17 08:57 Intake & Output 12/04/17 12/04/17 12/05/17 11:59 23:59 11:59 Intake Total 1650 2090 594 Output Total 480 750 190 Balance 1170 1340 404 Weight 161 lb 1.6 oz 164 lb 8 oz Intake: IV 1650 1300 594 Ronald-Synephrine - 20,000 450 Mcg In Normal Saline - 248 ml @ 50 MCG/MIN 37.5 mls/hr IVPB TITR NELSON Rx#: [id number] Ronald-Synephrine - 50,000 300 90 Mcg In Normal Saline - 245 ml @ 100 MCG/MIN 30 mls/hr IVPB TITR NELSON Rx#: [id number] Normal Saline - 1,000 ml 1200 1000 @ 100 mls/hr IV ASDIR [facility] Rx#:[id number] Normal Saline - 1,000 ml 504 @ 42 mls/hr IV ASDIR [facility] Rx#:[id number] IVPB 550 Oral 240 Output: Chest Tube Drainage 130 50 90 Left Posterior Chest 130 50 90 Urine 350 700 100 Siegel 350 700 100 Other: Voiding Method Indwelling Catheter Indwelling Catheter Bowel Movement No No Weight Measurement Method Built in Bedscale Built in Bedscale Not responding Chest: Bilateral wheezing and rhonchi Cor: Tachycardia Ext: 4+ edema throughout Feet cold to touch Abnormal Lab Results 12/05/17 12/05/17 12/05/17 05:05 05:05 05:05 MCV 105.3 H MCH 34.8 H RDW 16.6 H Lymphocytes % 7.8 L D Monocytes % 18.3 H PTT (Actin FS) 53.4 H Anion Gap 5 L Creatinine 0.3 L Random Glucose 111 H Calcium 6.9 L* Magnesium 1.4 L Total Bilirubin 1.4 H D Alkaline Phosphatase 154 H Total Protein 5.0 L Albumin 1.7 L IMP: Bloody Pleural Effusion Probable underlying CA Liver Mass Acute and Chronic Pain Atrial Fibrillation Hx Bilateral Hip Fxs DNR/DNI Plan: Adjust MS Rx till pain relief D/C oral Rx and Lovenox Consider Hospice
[2017-12-05 11:18] LABS: MACROCYTOSIS 2+
--- NOTE | 2017-12-05 11:24 | PN ---
Teaching Attending Note Name of Resident: Porter Boyd ATTENDING PHYSICIAN STATEMENT I saw and evaluated the patient. I reviewed the resident's note and discussed the case with the resident. I agree with the resident's findings and plan as documented. SUBJECTIVE: Patient seen and examined in the ICU. Lethargic and NAD as she received MS. PMD follow up noted. Appears that comfort measures would be the most appropriate and consistent with the patient's wishes. Currently remains on low dose Phenylephrine. Intake & Output 12/02/17 12/03/17 12/04/17 12/05/17 23:59 23:59 23:59 23:59 Intake Total 5290 3544.6 3740 594 Output Total 1420 1250 1230 190 Balance 3870 2294.6 2510 404 Weight 148 lb 8 oz 154 lb 7 oz 161 lb 1.6 oz 164 lb 8 oz Last Vital Signs Temp Pulse Resp BP Pulse Ox 99.1 F 132 H 14 83/46 96 12/05/17 06:00 12/05/17 08:56 12/05/17 08:56 12/05/17 08:56 12/05/17 08:57 Active Medications Chlorhexidine Gluconate (Hibiclens For Decolonization -) 1 applic TP HS [facility] Last Admin: 12/04/17 21:06 Dose: 1 applic CEFTRIAXONE 1 G/50 ML PREMIX (Ceftriaxone 1 Gm-D5w Bag) 50 mls @ 100 mls/hr IVPB DAILY [facility] Last Admin: 12/05/17 09:21 Dose: 100 mls/hr Azithromycin 500 mg/ Dextrose 250 mls @ 250 mls/hr IVPB DAILY [facility] Last Admin: 12/05/17 09:59 Dose: 250 mls/hr Phenylephrine HCl 50,000 mcg/ (Sodium Chloride) 250 mls @ 30 mls/hr IVPB TITR NELSON; 100 MCG/MIN PRN Reason: Protocol Last Admin: 12/05/17 07:58 Dose: 25 mcg/min, 7.5 mls/hr Sodium Chloride (Normal Saline -) 1,000 mls @ 42 mls/hr IV ASDIR [facility] Last Admin: 12/04/17 21:45 Dose: 42 mls/hr Morphine Sulfate (Morphine Injection -) 3 mg IVPUSH Q2H PRN PRN Reason: PAIN LEVEL 1-5 Saliva Substitute (Mouthkote Solution -) 1 applic MM DAILY [facility] Last Admin: 12/04/17 10:40 Dose: 1 applic Gen: frail appearing and lethargic HEart: tachycardic, irregular Lung: Scattered bilateral rhonchi, : Left pigtail Abd: soft, nontender Ext: (+) gross edema Laboratory Results - last 24 hr 12/05/17 12/05/17 12/05/17 05:05 05:05 05:05 WBC 8.8 RBC 3.71 Hgb 12.9 Hct 39.1 MCV 105.3 H MCH 34.8 H MCHC 33.0 RDW 16.6 H Plt Count 176 MPV 8.6 D Neutrophils % 69.9 Lymphocytes % 7.8 L D Monocytes % 18.3 H Eosinophils % 2.6 Basophils % 1.4 PTT (Actin FS) 53.4 H Sodium 138 Potassium 4.4 Chloride 101 Carbon Dioxide 32 Anion Gap 5 L BUN 10 Creatinine 0.3 L Creat Clearance w eGFR > 60 Random Glucose 111 H Calcium 6.9 L* Phosphorus 3.1 Magnesium 1.4 L Total Bilirubin 1.4 H D AST 19 ALT 12 Alkaline Phosphatase 154 H Total Protein 5.0 L Albumin 1.7 L ASSESSMENT AND PLAN: Massive Left Pleural Effusion Highly suspicious for malignancy Atrial Fibrillation with RVR h/o CVA Shock Acute Kidney Injury Lactic Acidosis Hemochromatosis - Will D/W PMD about further GOC - hold anticoagulation - empiric antibiotics - taper phenylephrine gtt - monitor urine output, creatinine - mechanical DVT prophylaxis Dr Shah Critical care time spent in reviewing chart, evaluating patient and formulating plan 36 min
--- NOTE | 2017-12-05 11:51 | PN ---
Progress Note (short form) - Note Progress Note: Addendum to AM note: Patient continues to have a limited respirations low blood pressure. Phenylephrine not causing any improvement in BP. To D/C.
--- NOTE | 2017-12-05 13:07 | PN ---
Physical Exam: SUBJECTIVE: Patient seen and examined in ICU Patient made DNR/DNI yesterday. Patient told PCP she wants comfort measures. Patient poorly responsive today. On morphine for pain. Drained 180 mL from chest tube--bloody fluid. Patient still on phenylephrine drip with hypotension. OBJECTIVE: Vital Signs Period Temp Pulse Resp BP Sys/Arreguin Pulse Ox Last 24 Hr 97 F-99.7 F 82-142 10-18 77-110/46-78 95-96 GENERAL: The patient is lethargic, poorly responsive HEAD: Normal with no signs of trauma. NECK: Trachea midline, full range of motion, supple. LUNGS: No breath sounds on left, + chest tube in place, c/d/i HEART: Irregularly irregular, Tachycardic, S1, S2 without murmur, rub or gallop. ABDOMEN: Soft, nontender, nondistended, normoactive bowel sounds, no guarding, no rebound, no hepatosplenomegaly, no masses. EXTREMITIES: 2+ pulses, warm, well-perfused, 3+ edema of upper and lower extremities. NEUROLOGICAL: Unable to assess SKIN: Warm, dry, normal turgor, no rashes or lesions noted Laboratory Results - last 24 hr 12/05/17 12/05/17 12/05/17 05:05 05:05 05:05 WBC 8.8 RBC 3.71 Hgb 12.9 Hct 39.1 MCV 105.3 H MCH 34.8 H MCHC 33.0 RDW 16.6 H Plt Count 176 MPV 8.6 D Neutrophils % 69.9 Lymphocytes % 7.8 L D Monocytes % 18.3 H Eosinophils % 2.6 Basophils % 1.4 Macrocytosis 2+ PTT (Actin FS) 53.4 H Sodium 138 Potassium 4.4 Chloride 101 Carbon Dioxide 32 Anion Gap 5 L BUN 10 Creatinine 0.3 L Creat Clearance w eGFR > 60 Random Glucose 111 H Calcium 6.9 L* Phosphorus 3.1 Magnesium 1.4 L Total Bilirubin 1.4 H D AST 19 ALT 12 Alkaline Phosphatase 154 H Total Protein 5.0 L Albumin 1.7 L Active Medications Generic Name Dose Route Start Last Admin Trade Name Freq PRN Reason Stop Dose Admin Chlorhexidine Gluconate 1 applic 11/28/17 22:00 12/04/17 21:06 Hibiclens For Decolonization - TP 1 applic HS NELSON Administration CEFTRIAXONE 1 G/50 ML PREMIX 50 mls @ 100 mls/hr 11/29/17 10:00 12/05/17 09: 21 Ceftriaxone 1 Gm-D5w Bag IVPB 100 mls/hr DAILY NELSON Administration Azithromycin 500 mg/ Dextrose 250 mls @ 250 mls/hr 11/29/17 10:00 12/05/17 09 :59 IVPB 250 mls/hr DAILY NELSON Administration Sodium Chloride 1,000 mls @ 42 mls/hr 12/04/17 21:10 12/04/17 21:45 Normal Saline - IV 42 mls/hr ASDIR NELSON Administration Morphine Sulfate 3 mg 12/05/17 10:03 12/05/17 12:01 Morphine Injection - IVPUSH 3 mg Q2H PRN Administration PAIN LEVEL 1-5 Saliva Substitute 1 applic 12/02/17 10:00 12/04/17 10:40 Mouthkote Solution - MM 1 applic DAILY NELSON Administration ASSESSMENT/PLAN: 77 year old female with PMH Afib on Eliquis, TIAs, PE, hemochromatosis, cellulitis left hip 06/2017 presented to the ED with failure to thrive, generalized weakness, declining mental status, and SOB found to have Large left pleural effusion #CV Atrial fibrillation with RVR Obstructive shock 2/2 to pleural effusion -Stop lovenox and pressors for comfort measures -Echo reveals moderate aortic stenosis and moderate MR #Resp Large left pleural effusion, likely exudative -Maintain chest tube -Pleural fluid cytology and cx negative to date -Stop ceftriaxone/azithromycin -IV fentanyl & morphine for pain relief -Will defer vats -Palliative care on board, comfort measures initiated #Renal IGOR -Improved -NS @ 42 cc/hr -Monitor Cr, urine output -Avoid nephrotoxic medication #FEN/GI -NS @ 42 cc/hr -monitor bmp -Regular Diet #PPx -No DVT ppx, GI ppx #Dispo: Comfort measures only. Family at bedside Visit type - Emergency Visit Emergency Visit: Yes ED Registration Date: 11/28/17 Care time: The patient presented to the Emergency Department on the above date and was hospitalized for further evaluation of their emergent condition. - New Patient This patient is new to me today: No - Critical Care Critical Care patient: Yes Total Critical Care Time (in minutes): 36 Critical Care Statement: The care of this patient involved high complexity decision making to prevent further life threatening deterioration of the patient 's condition and/or to evaluate & treat vital organ system(s) failure or risk of failure.
[2017-12-05] MEDS: LYTES/YERBA SANTA 240 ML BOTTLE MM SCH (13:24)
[2017-12-05] MEDS: CHLORHEXIDINE GLUCONATE 4% CLEANSER FOR DECOLONIZATION TP SCH (21:19)
[2017-12-05] MEDS ORDERED: MORPHINE 100 MG in SODIUM CHLORIDE 98 ML IVPB SCH (23:45)
[2017-12-06 00:24] VITALS: PULSE 146
[2017-12-06] MEDS: SODIUM CHLORIDE 1,000 ML IV SCH (02:00)
[2017-12-06 02:13] VITALS: TEMP 96.4
[2017-12-06 02:23] VITALS: BP 49/26
--- NOTE | 2017-12-06 05:10 | PN ---
Progress Note (short form) - Note Progress Note: note At 4:33am today MS Donald . On exam there were no heart sounds on auscultation, no breathing effort and no response to scleral stimulation. Pt was made DNR/DNI yesterday d/t her terminal condition. Her family was notified. There was no request for autopsy. Organ donor network was notified.
--- NOTE | 2017-12-06 23:07 | DS ---
Physical Examination Vital Signs: Vital Signs Temperature 96.4 F L 12/06/17 02:00 Pulse Rate 146 H 12/06/17 02:00 Respiratory Rate 6 L 12/06/17 02:00 Blood Pressure 49/26 12/06/17 02:00 O2 Sat by Pulse Oximetry (%) 95 12/05/17 09:00 Labs: CBC, BMP 12/05/17 05:05 12/05/17 05:05 Discharge Summary Reason For Visit: LACTIC ACIDOSIS/PLEURAL EFFUSION ON RIGHT Condition: - Instructions Referrals: Marc Ramon MD [Primary Care Provider] - Disposition: - Home Medications Comprehensive Discharge Medication List: Ambulatory Orders Acetaminophen [Tylenol] 650 mg PO QID 07/20/16 Fluocinonide 0.05% Cream [Lidex 0.05% Cream -] 1 applic BID 07/20/16 Lactobacillus Acidophilus [Bacid -] 1 tab PO DAILY 07/20/16 Magnesium Oxide 400 mg PO BID 07/20/16 Metoprolol Tartrate [Lopressor -] 25 mg PO BID tablet 07/23/16 Polyethylene Glycol 3350 [Miralax 119 gm Btl -] 17 gm PO DAILY bottle 07/23/16 Sennosides/Docusate Sodium [Pericolace -] 2 tablet PO BID tablet 07/23/16 Melatonin 5 mg PO HS PRN #0 cap 01/08/17 oxyCODONE HCL [Roxicodone -] 5 mg PO Q4H PRN #0 tablet MDD 4 01/08/17 Apixaban [Eliquis -] 5 mg PO BID #0 tablet 04/26/17 Calcium (Oyster Shell) [Os-Durga 500MG -] 500 mg PO BID tablet 04/26/17 Cephalexin Monohydrate [Keflex -] 500 mg PO BID #14 cap 07/17/17
== END 2017-12-06 04:33 | disposition expired | DRG 872 ==
LOC: JER 13:37 → JICU 20:25
PROVIDERS: ADMIT Internal Medicine; ATTEND Internal Medicine
PROC: 0W9B30Z Drainage of Left Pleural Cavity with Drainage Device, Percutaneous Approach (ICD-10-PCS; principal; 2017-11-29)
PROC: 02HV33Z Insertion of Infusion Device into Superior Vena Cava, Percutaneous Approach (ICD-10-PCS; 2017-12-02)
DX: A41.9 Sepsis, unspecified organism (principal); N39.0 Urinary tract infection, site not specified; N17.9 Acute kidney failure, unspecified; E87.2 Acidosis; J90 Pleural effusion, not elsewhere classified; R57.1 Hypovolemic shock; E83.119 Hemochromatosis, unspecified; E83.42 Hypomagnesemia; E83.51 Hypocalcemia; E88.09 Other disorders of plasma-protein metabolism, not elsewhere classified; I95.9 Hypotension, unspecified; E87.6 Hypokalemia; R62.7 Adult failure to thrive
CPT/HCPCS: 36415; 70450-TC; 71045-TC; 71250-TC; 74176-TC; 76775-TC; 76856-TC; 80048; 80053; 81003; 81015; 82550; 82803; 82945; 83605; 83615; 83735; 83880; 84100; 84157; 84311; 84484; 85025; 85027; 85610; 85730; 86850; 86900; 86901; 87040; 87070; 87075; 87086; 87102; 87116; 87205; 87206; 87210; 88108; 88305-TC; 89051; 93005; 93010; 93306-TC; 99284-25